=== PATIENT | female | born 1945 | race Caucasian/White ===

== ENCOUNTER 2020-07-20 10:51 | Outpatient (REF) | payer MEDICARE, BC, SELFPAY ==
[2020-07-20 12:44] LABS: Ferritin 447 ng/mL (10-250)
== END 2020-07-20 10:52 | disposition home or self-care (01) ==
LOC: HO.BBR 10:51
PROVIDERS: Visit Provider Internal Medicine Hematology & Oncology
DX: E83.110 Hereditary hemochromatosis (principal)
CPT/HCPCS: 36415; 82728

== ENCOUNTER 2020-08-18 10:48 | Outpatient (REF) | payer MEDICARE, BC, SELFPAY ==
[2020-08-18 13:42] LABS: Ferritin 407 ng/mL (10-250)
== END 2020-08-18 10:49 | disposition home or self-care (01) ==
LOC: HO.BBR 10:48
PROVIDERS: Visit Provider Internal Medicine Hematology & Oncology
DX: E83.110 Hereditary hemochromatosis (principal)
CPT/HCPCS: 36415; 82728

== ENCOUNTER 2020-09-19 10:58 | Outpatient (REF) | payer MEDICARE, BC, SELFPAY ==
[2020-09-19 14:32] LABS: Ferritin 371 ng/mL (10-250)
== END 2020-09-19 10:59 | disposition home or self-care (01) ==
LOC: HO.BBR 10:58
PROVIDERS: Visit Provider Internal Medicine Hematology & Oncology
DX: E83.110 Hereditary hemochromatosis (principal)
CPT/HCPCS: 36415; 82728

== ENCOUNTER 2020-10-30 11:02 | Outpatient (REF) | payer MEDICARE, BC, SELFPAY ==
[2020-10-30 14:14] LABS: Ferritin 366 ng/mL (10-250)
== END 2020-10-30 11:03 | disposition home or self-care (01) ==
LOC: HO.BBR 11:02
PROVIDERS: Visit Provider Internal Medicine Hematology & Oncology
DX: E83.110 Hereditary hemochromatosis (principal)
CPT/HCPCS: 36415; 82728

== ENCOUNTER 2020-11-30 13:28 | Outpatient (REF) | payer MEDICARE, BC, SELFPAY ==
[2020-11-30 16:31] LABS: Ferritin 465 ng/mL (10-250)
== END 2020-11-30 13:29 | disposition home or self-care (01) ==
LOC: HO.BBR 13:28
PROVIDERS: Visit Provider Internal Medicine Hematology & Oncology
DX: E83.110 Hereditary hemochromatosis (principal)
CPT/HCPCS: 36415; 82728

== ENCOUNTER → 2020-12-14 13:52 | Outpatient (BNVA) | payer MEDICARE, BC, SELFPAY | PROVIDERS: PCP Internal Medicine; Visit Provider Urology | DX: R32 Unspecified urinary incontinence (principal); R39.15 Urgency of urination; N32.81 Overactive bladder | CPT/HCPCS: 51798; 99212 ==

== ENCOUNTER 2020-12-28 12:52 | Outpatient (REF) | payer MEDICARE, BC, SELFPAY ==
[2020-12-28 15:01] LABS: Ferritin 373 ng/mL (10-250)
== END 2020-12-28 12:53 | disposition home or self-care (01) ==
LOC: HO.BBR 12:52
PROVIDERS: Visit Provider Internal Medicine Hematology & Oncology
DX: E83.110 Hereditary hemochromatosis (principal)
CPT/HCPCS: 36415; 82728

== ENCOUNTER 2021-02-01 12:51 | Outpatient (REF) | payer MEDICARE, BC, SELFPAY ==
[2021-02-01 14:40] LABS: Ferritin 293 ng/mL (10-250)
== END 2021-02-01 12:52 | disposition home or self-care (01) ==
LOC: HO.BBR 12:51
PROVIDERS: Visit Provider Internal Medicine Hematology & Oncology
DX: E83.110 Hereditary hemochromatosis (principal)
CPT/HCPCS: 36415; 82728

== ENCOUNTER 2021-03-19 13:50 | Outpatient (REF) | payer MEDICARE, BC, SELFPAY ==
[2021-03-19 15:34] LABS: Ferritin 299 ng/mL (10-250)
== END 2021-03-19 13:51 | disposition home or self-care (01) ==
LOC: HO.BBR 13:50
PROVIDERS: Internal Medicine Hematology & Oncology; Visit Provider Internal Medicine
DX: E83.110 Hereditary hemochromatosis (principal)
CPT/HCPCS: 36415; 82728

== ENCOUNTER 2021-04-17 14:01 | Outpatient (REF) | payer MEDICARE, BC, SELFPAY ==
[2021-04-17 15:53] LABS: Ferritin 265 ng/mL (10-250)
== END 2021-04-17 14:02 | disposition home or self-care (01) ==
LOC: HO.BBR 14:01
PROVIDERS: Visit Provider Internal Medicine Hematology & Oncology
DX: E83.110 Hereditary hemochromatosis (principal)
CPT/HCPCS: 36415; 82728

== ENCOUNTER 2021-05-17 13:35 | Outpatient (REF) | payer MEDICARE, BC, SELFPAY ==
[2021-05-17 15:50] LABS: Ferritin 291 ng/mL (10-250)
== END 2021-05-17 13:36 | disposition home or self-care (01) ==
LOC: HO.BBR 13:35
PROVIDERS: Visit Provider Internal Medicine Hematology & Oncology
DX: E83.110 Hereditary hemochromatosis (principal)
CPT/HCPCS: 36415; 82728

== ENCOUNTER 2021-06-18 13:51 | Outpatient (REF) | payer MEDICARE, BC, SELFPAY ==
[2021-06-18 15:59] LABS: Ferritin 270 ng/mL (10-250)
== END 2021-06-18 13:52 | disposition home or self-care (01) ==
LOC: HO.BBR 13:51
PROVIDERS: Visit Provider Internal Medicine Hematology & Oncology
DX: E83.110 Hereditary hemochromatosis (principal)
CPT/HCPCS: 36415; 82728

== ENCOUNTER 2021-07-18 13:59 | Outpatient (REF) | payer MEDICARE, BC, SELFPAY ==
[2021-07-18 15:43] LABS: Ferritin 262 ng/mL (10-250)
== END 2021-07-18 14:00 | disposition home or self-care (01) ==
LOC: HO.BBR 13:59
PROVIDERS: Visit Provider Internal Medicine Hematology & Oncology
DX: E83.110 Hereditary hemochromatosis (principal)
CPT/HCPCS: 36415; 82728

== ENCOUNTER 2021-10-31 14:03 | Outpatient (REF) | payer MEDICARE, BC, SELFPAY ==
[2021-10-31 15:49] LABS: Ferritin 251 ng/mL (10-250)
== END 2021-10-31 14:04 | disposition home or self-care (01) ==
LOC: HO.BBR 14:03
PROVIDERS: Visit Provider Internal Medicine Hematology & Oncology
DX: E83.110 Hereditary hemochromatosis (principal)
CPT/HCPCS: 36415; 82728

== ENCOUNTER 2021-11-30 13:50 | Outpatient (REF) | payer MEDICARE, BC, SELFPAY ==
[2021-11-30 15:48] LABS: Ferritin 212 ng/mL (10-250)
== END 2021-11-30 13:51 | disposition home or self-care (01) ==
LOC: HO.BBR 13:50
PROVIDERS: Visit Provider Internal Medicine Hematology & Oncology
DX: E83.110 Hereditary hemochromatosis (principal)
CPT/HCPCS: 36415; 82728

== ENCOUNTER → 2021-12-13 14:26 | Outpatient (BNVA) | payer MEDICARE, BC, SELFPAY | DX: R39.15 Urgency of urination (principal); N32.81 Overactive bladder | CPT/HCPCS: 51798; 99212 ==

== ENCOUNTER 2022-01-02 13:49 | Outpatient (REF) | payer MEDICARE, BC, SELFPAY ==
[2022-01-02 15:56] LABS: Ferritin 175 ng/mL (10-250)
== END 2022-01-02 13:50 | disposition home or self-care (01) ==
LOC: HO.BBR 13:49
PROVIDERS: Visit Provider Internal Medicine Hematology & Oncology
DX: E83.110 Hereditary hemochromatosis (principal)
CPT/HCPCS: 36415; 82728

== ENCOUNTER 2022-01-16 13:40 | Outpatient (REF) | payer MEDICARE, BC, SELFPAY ==
[2022-01-16 15:20] LABS: Ferritin 168 ng/mL (10-250)
== END 2022-01-16 13:41 | disposition home or self-care (01) ==
LOC: HO.BBR 13:40
PROVIDERS: Visit Provider Internal Medicine Hematology & Oncology
DX: E83.110 Hereditary hemochromatosis (principal)
CPT/HCPCS: 36415; 82728; 85014; 85018; 99195

== ENCOUNTER → 2022-01-24 14:52 | Outpatient (BNVA) | payer MEDICARE, BC, SELFPAY | PROVIDERS: PCP Internal Medicine | DX: R39.15 Urgency of urination (principal); N32.81 Overactive bladder | CPT/HCPCS: Q3014 ==

== ENCOUNTER 2022-01-30 14:06 | Outpatient (REF) | payer MEDICARE, BC, SELFPAY ==
[2022-01-30 17:50] LABS: Ferritin 135 ng/mL (10-250)
== END 2022-01-30 14:07 | disposition home or self-care (01) ==
LOC: HO.BBR 14:06
PROVIDERS: Visit Provider Internal Medicine Hematology & Oncology
DX: E83.110 Hereditary hemochromatosis (principal)
CPT/HCPCS: 36415; 82728; 85014; 85018; 99195

== ENCOUNTER 2022-02-13 13:35 | Outpatient (REF) | payer MEDICARE, BC, SELFPAY ==
[2022-02-13 15:03] LABS: Ferritin 194 ng/mL (10-250)
== END 2022-02-13 13:36 | disposition home or self-care (01) ==
LOC: HO.BBR 13:35
PROVIDERS: Visit Provider Internal Medicine Hematology & Oncology
DX: E83.110 Hereditary hemochromatosis (principal)
CPT/HCPCS: 36415; 82728; 85018

== ENCOUNTER 2022-02-28 13:37 | Outpatient (REF) | payer MEDICARE, BC, SELFPAY ==
[2022-02-28 16:10] LABS: Ferritin 181 ng/mL (10-250)
== END 2022-02-28 13:38 | disposition home or self-care (01) ==
LOC: HO.BBR 13:37
PROVIDERS: Visit Provider Internal Medicine Hematology & Oncology
DX: E83.111 Hemochromatosis due to repeated red blood cell transfusions (principal)
CPT/HCPCS: 36415; 82728; 85014; 85018; 99195

== ENCOUNTER 2022-03-20 13:44 | Outpatient (REF) | payer MEDICARE, BC, SELFPAY ==
[2022-03-20 15:33] LABS: Ferritin 155 ng/mL (10-250)
== END 2022-03-20 13:45 | disposition home or self-care (01) ==
LOC: HO.BBR 13:44
PROVIDERS: Visit Provider Internal Medicine Hematology & Oncology
DX: E83.110 Hereditary hemochromatosis (principal)
CPT/HCPCS: 36415; 82728; 85014; 85018; 99195

== ENCOUNTER 2022-05-30 13:48 | Outpatient (REF) | payer MEDICARE, BC, SELFPAY ==
[2022-05-30 15:44] LABS: Ferritin 241 ng/mL (10-250)
== END 2022-05-30 13:49 | disposition home or self-care (01) ==
LOC: HO.BBR 13:48
PROVIDERS: Visit Provider Internal Medicine Hematology & Oncology
DX: E83.110 Hereditary hemochromatosis (principal)
CPT/HCPCS: 36415; 82728; 85018; 99195

== ENCOUNTER 2022-06-13 13:42 | Outpatient (REF) | payer MEDICARE, BC, SELFPAY ==
[2022-06-13 14:55] LABS: Ferritin 147 ng/mL (10-250)
== END 2022-06-13 13:43 | disposition home or self-care (01) ==
LOC: HO.BBR 13:42
PROVIDERS: Visit Provider Internal Medicine Hematology & Oncology
DX: E83.19 Other disorders of iron metabolism (principal)
CPT/HCPCS: 36415; 82728; 85018; 99195

== ENCOUNTER 2022-07-03 13:49 | Outpatient (REF) | payer MEDICARE, BC, SELFPAY ==
[2022-07-03 15:51] LABS: Ferritin 104 ng/mL (10-250)
== END 2022-07-03 13:50 | disposition home or self-care (01) ==
LOC: HO.BBR 13:49
PROVIDERS: Visit Provider Internal Medicine Hematology & Oncology
DX: E83.10 Disorder of iron metabolism, unspecified (principal)
CPT/HCPCS: 36415; 82728; 85018

== ENCOUNTER 2022-07-17 14:44 | Outpatient (REF) | payer MEDICARE, BC, SELFPAY ==
[2022-07-17 16:44] LABS: Ferritin 89 ng/mL (10-250)
== END 2022-07-17 14:45 | disposition home or self-care (01) ==
LOC: HO.BBR 14:44
PROVIDERS: Visit Provider Internal Medicine Hematology & Oncology
DX: E83.110 Hereditary hemochromatosis (principal)
CPT/HCPCS: 36415; 82728; 85018; 99195

== ENCOUNTER 2022-07-31 13:33 | Outpatient (REF) | payer MEDICARE, BC, SELFPAY ==
[2022-07-31 15:42] LABS: Ferritin 62 ng/mL (10-250)
== END 2022-07-31 13:34 | disposition home or self-care (01) ==
LOC: HO.BBR 13:33
PROVIDERS: PCP Internal Medicine; Visit Provider Internal Medicine Hematology & Oncology
DX: E83.110 Hereditary hemochromatosis (principal)
CPT/HCPCS: 36415; 82728; 85014; 85018; 99195

== ENCOUNTER 2022-08-14 13:44 | Outpatient (REF) | payer MEDICARE, BC, SELFPAY ==
[2022-08-14 16:37] LABS: Ferritin 53 ng/mL (10-250)
== END 2022-08-14 13:45 | disposition home or self-care (01) ==
LOC: HO.BBR 13:44
PROVIDERS: PCP Internal Medicine; Visit Provider Internal Medicine Hematology & Oncology
DX: E83.10 Disorder of iron metabolism, unspecified (principal)
CPT/HCPCS: 36415; 82728; 85014; 85018; 99195

== ENCOUNTER → 2022-08-15 14:15 | Outpatient (BNVA) | payer MEDICARE, BC, SELFPAY | PROVIDERS: PCP Internal Medicine; Visit Provider Nurse Practitioner Family | DX: R39.15 Urgency of urination (principal); N32.81 Overactive bladder | CPT/HCPCS: 51798; 99212 ==

== ENCOUNTER 2022-08-28 14:05 | Outpatient (REF) | payer MEDICARE, BC, SELFPAY ==
[2022-08-28 15:27] LABS: Ferritin 37 ng/mL (10-250)
== END 2022-08-28 14:06 | disposition home or self-care (01) ==
LOC: HO.BBR 14:05
PROVIDERS: Visit Provider Internal Medicine Hematology & Oncology
DX: E83.10 Disorder of iron metabolism, unspecified (principal)
CPT/HCPCS: 36415; 82728; 85018

== ENCOUNTER 2022-09-11 13:50 | Outpatient (REF) | payer MEDICARE, BC, SELFPAY ==
[2022-09-11 16:32] LABS: Ferritin 49 ng/mL (10-250)
== END 2022-09-11 13:51 | disposition home or self-care (01) ==
LOC: HO.BBR 13:50
PROVIDERS: PCP Internal Medicine; Visit Provider Internal Medicine Hematology & Oncology
DX: E83.110 Hereditary hemochromatosis (principal)
CPT/HCPCS: 36415; 82728; 85014; 85018; 99195

== ENCOUNTER 2022-09-25 13:52 | Outpatient (REF) | payer MEDICARE, BC, SELFPAY ==
[2022-09-25 15:10] LABS: Ferritin 42 ng/mL (10-250)
== END 2022-09-25 13:53 | disposition home or self-care (01) ==
LOC: HO.BBR 13:52
PROVIDERS: Visit Provider Internal Medicine Hematology & Oncology
DX: E83.19 Other disorders of iron metabolism (principal)
CPT/HCPCS: 36415; 82728; 85018; 99195

== ENCOUNTER 2022-10-09 15:32 | Outpatient (REF) | payer MEDICARE, BC, SELFPAY ==
[2022-10-09 17:23] LABS: Ferritin 45 ng/mL (10-250)
== END 2022-10-09 15:33 | disposition home or self-care (01) ==
LOC: HO.BBR 15:32
PROVIDERS: Visit Provider Internal Medicine Hematology & Oncology
DX: E83.110 Hereditary hemochromatosis (principal)
CPT/HCPCS: 36415; 82728; 85018; 99195

== ENCOUNTER 2022-10-23 13:16 | Outpatient (REF) | payer MEDICARE, BC, SELFPAY ==
[2022-10-23 14:51] LABS: Ferritin 38 ng/mL (10-250)
== END 2022-10-23 13:17 | disposition home or self-care (01) ==
LOC: HO.BBR 13:16
PROVIDERS: Visit Provider Internal Medicine Hematology & Oncology
DX: E83.110 Hereditary hemochromatosis (principal)
CPT/HCPCS: 36415; 82728; 85018

== ENCOUNTER 2022-11-06 13:44 | Outpatient (REF) | payer MEDICARE, BC, SELFPAY ==
[2022-11-06 15:28] LABS: Ferritin 39 ng/mL (10-250)
== END 2022-11-06 13:45 | disposition home or self-care (01) ==
LOC: HO.BBR 13:44
PROVIDERS: Visit Provider Internal Medicine Hematology & Oncology
DX: E83.110 Hereditary hemochromatosis (principal)
CPT/HCPCS: 36415; 82728; 85018; 99195

== ENCOUNTER 2022-12-17 14:24 | Outpatient (REF) | payer MEDICARE, BC, SELFPAY ==
[2022-12-17 16:01] LABS: Ferritin 47 ng/mL (10-250)
== END 2022-12-17 14:25 | disposition home or self-care (01) ==
LOC: HO.BBR 14:24
PROVIDERS: PCP Internal Medicine; Visit Provider Internal Medicine Hematology & Oncology
DX: E83.110 Hereditary hemochromatosis (principal)
CPT/HCPCS: 36415; 82728; 85018

== ENCOUNTER 2023-01-29 13:59 | Outpatient (REF) | payer MEDICARE, BC, SELFPAY | END 2023-01-29 14:00 | disposition home or self-care (01) | LOC: HO.BBR 13:59 | PROVIDERS: Visit Provider Internal Medicine Hematology & Oncology | DX: E83.10 Disorder of iron metabolism, unspecified (principal) | CPT/HCPCS: 36415; 82728; 85018; 99195 ==

== ENCOUNTER 2023-02-10 13:32 | Outpatient (AMB) | payer MEDICARE, BC, SELFPAY ==
--- NOTE | 2023-02-10 13:34 | MHC.OFFVIS ---
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 She presents to the office today for follow-up of her overactive bladder. In discussion with the patient today she reports to be doing and feeling well. She discusses how happy she is that VESIcare is working extremely well for her urinary symptoms. When asked she denies urinary urgency, urinary frequency, incontinence, nocturia, hematuria, dysuria, foul smelling urine, changes to urinary stream, flank pain, fever, and or chills. She is happy with her current voiding parameters on 10mg of Vesicare daily. However, she continues to report issues with constipation. Discussed at length whole grains, legumes, and fruits to assist with constipation. She denies nausea and or vomiting. She denies decreased appetite, weight loss, or abdominal pain/discomfort. She reports needing to manually disimpact at times. She endorses passing gas. She reports taking senna and MiraLax p.r.n. with some improvement however continues with constipation issues. Discussed daily regimen versus PRN. In office urinalysis results reviewed with the patient today. PVR 31 mL. Patient discusses her fiancee's upcoming procedure tomorrow with Dr. Perez for his prostate. She otherwise offers no issues or concerns at this time. [facility] Medical History GERD (gastroesophageal reflux disease) Nocturia Overactive bladder Urinary urgency Review of Systems Const All systems reviewed & are unremarkable except as noted in HPI and below Reports no additional complaints Eyes Reports no additional complaints ENT Reports no additional complaints Card Reports no additional complaints Resp Reports no additional complaints GI Reports as per HPI Reports as per HPI Musc Reports no additional complaints Neuro Reports no additional complaints Psych Reports no additional complaints Endo Reports no additional complaints Jer/Lymph Reports as per HPI Physical Exam Const General: cooperative, healthy appearing, comfortable, no acute distress, well developed, alert and awake Nutritional Appearance: overweight Orientation/consciousness: patient oriented x3 Limitations: no limitations HEENT Head: Yes normal to inspection, Yes normocephalic and Yes atraumatic Ears: hearing grossly normal bilaterally Eyes General: appearance normal, both eyes and all related structures Neck Neck: Yes normal visual inspection and Yes trachea midline Chest Chest palpation & inspection: normal inspection of the chest Resp Effort & Inspection: normal respiratory effort and able to speak in complete sentences Cardio Rate: regular rate GI Inspection: Yes normal to inspection General: Yes no CVA tenderness Back/Spine/Pelvis Back: no CVA tenderness Neuro General: patient oriented x3 Psych Appearance: grossly normal and well kempt Mental Status: mental status grossly normal Speech and movement: Normal speech and movement present and Clear speech present Affect: normal affect Attitude: cooperative Thought process: Normal thought process present Thought content: Normal thought content present Insight: Good insight present (Psych) Judgement: Good judgement present (Psych) Office Procedures Post Void Residual Post Residual Void Post Void Residual (PVR): 31 10304-[id number] Void Residual by ultrasound Results AMB Urinalysis, Automated UA Leukoctes 500 Kyle/uL Last Edit by [employer] on 02/10/23 13:48 UA Nitrite Last Edit by [employer] on 02/10/23 13:48 UA Urobilinogen 0.2 mg/dL Last Edit by [employer] on 02/10/23 13:48 UA Protein 0 mg/dL Last Edit by [employer] on 02/10/23 13:48 UA pH 6.0 Last Edit by [employer] on 02/10/23 13:48 UA Blood 0 Vadmi/uL Last Edit by [employer] on 02/10/23 13:48 UA Specific [place] 1.015 Last Edit by [employer] on 02/10/23 13:48 UA Ketone Last Edit by [employer] on 02/10/23 13:48 UA Bilirubin 0 mg/dL Last Edit by [employer] on 02/10/23 13:48 UA Glucose 0 mg/dL Last Edit by [employer] on 02/10/23 13:48 Results Reviewed Results Reviewed: Laboratory Last Values Urine pH (Auto) 6.0 02/10/23 13:35 Specific [place] (Auto) 1.015 02/10/23 13:35 Urine Protein (Auto) 0 mg/dL 02/10/23 13:35 Glucose (UA)(Auto) 0 mg/dL 02/10/23 13:35 Urine Blood (Auto) 0 Vadim/uL 02/10/23 13:35 Urine Bilirubin (Auto) 0 mg/dL 02/10/23 13:35 Urine Urobilinogen (Auto) 0.2 mg/dL 02/10/23 13:35 Leukocyte Esterase (Auto) 500 Kyle/uL 02/10/23 13:35 Assessment & Plan Assessment & Plan (1) Constipation: Code(s): K59.00 - Constipation, unspecified (2) Overactive bladder: Code(s): N32.81 - Overactive bladder Plan In office urinalysis results reviewed with the patient today; as noted above PVR 31 mL. Continue VESIcare as patient reports significant improvement in urinary symptoms Will refer to gastroenterology for further assessment and evaluation of patient's constipation Discussed at length dietary modifications to assist with constipation Educated, encouraged, instructed on the importance of drinking plenty of water daily Follow-up in 6 months with PVR; or sooner with any issues, concerns, and or questions Orders: Orders AMB Urinalysis Automated 02/10/23 Z13.9 - Encounter for screening, unspecified AMB Post Void Residual by ultrasound 02/10/23 N32.81 - Overactive bladder Referrals Gastroenterology Referral K59.00 - Constipation, unspecified Patient Instructions: The patient had an opportunity to ask questions regarding the treatment plan. All questions were answered. Physical exam, labs, and imaging were discussed and reviewed in detail. As well as risks, benefits, and discussion of treatment choices. No major barriers to understanding were identified. The patient expressed understanding and agreement with the above treatment plan. The patient was made aware they should contact our office by phone for worsening of their current condition, the appearance of new symptoms, or with any questions or concerns. Compliance is encouraged with any medications and follow up testing that is ordered. It is a privilege to be allowed the opportunity to participate in? your urological care.? Again, if you have any questions or concerns If you have any questions or concerns please do not hesitate to contact me. The office is [phone]. This note is constructed using voice recognition software. While every effort has been made to ensure accuracy bad cloth checker errors may have been included. Yours sincerely, BARON Loza-BC Coding Level of Care Code Est Pt Level 3 (01889) Diagnoses Constipation K59.00 Overactive bladder N32.81 CPT Codes Post Residual Void - PVR CPT Code: 34683-Avzt Void Residual by ultrasound ([id number])
== END 2023-02-10 14:17 | disposition home or self-care (01) ==
PROVIDERS: Visit Provider Nurse Practitioner Family
DX: K59.00 Constipation, unspecified (principal); N32.81 Overactive bladder
CPT/HCPCS: 99213

== ENCOUNTER → 2023-02-10 13:32 | Outpatient (BNVA) | payer MEDICARE, BC, SELFPAY | PROVIDERS: Visit Provider Nurse Practitioner Family | DX: N32.81 Overactive bladder (principal); K59.00 Constipation, unspecified | CPT/HCPCS: 51798; 99212 ==

== ENCOUNTER 2023-03-17 12:58 | Outpatient (REF) | payer MEDICARE, BC, SELFPAY ==
[2023-03-17 14:51] LABS: Ferritin 68 ng/mL (10-250)
== END 2023-03-17 12:59 | disposition home or self-care (01) ==
LOC: HO.BBR 12:58
PROVIDERS: Visit Provider Internal Medicine Hematology & Oncology
DX: E83.110 Hereditary hemochromatosis (principal)
CPT/HCPCS: 36415; 82728; 85014; 85018; 99195

== ENCOUNTER 2023-04-10 11:52 | Outpatient (REF) | payer MEDICARE, BC, SELFPAY ==
--- NOTE | ~2023-04-10 | XR_ITS ---
EXAMINATION: XR ABDOMEN KUB CLINICAL INDICATION: Constipation unspecified. COMPARISON: None available. TECHNIQUE: 2 AP views of the abdomen. FINDINGS: Nonobstructive bowel gas pattern. Large amount of stool in the colon is compatible with given history of constipation. Degenerative changes in the imaged thoracolumbar spine. Rounded densities overlying the medial aspect of the right upper quadrant, possibly calcifications. Oval 1.3 cm density overlies the thoracolumbar junction. XR/XR KUB IMPRESSION: 1. Nonobstructive bowel gas pattern. Large amount of stool in the colon is compatible with given history of constipation. 2. Rounded densities overlying the medial aspect of the right upper quadrant, possibly calcifications. Oval 1.3 cm density overlies the thoracolumbar junction. Additional imaging with ultrasound or CT scan could be obtained for further evaluation based on the clinical assessment. Direct correlation with prior images is recommended and if prior images are provided, an addendum will be dictated. In the absence of prior images, CT scan or MRI should be considered for further evaluation.
[2023-04-10 13:12] LABS: MANUAL DIFF FLAG NO
[2023-04-10 13:32] LABS: Basophils Absolute Auto 0.1 X10*3/uL (0.0-0.2); Basophils Percent Auto 1.1 % (0-2); Eosinophils Absolute Auto 0.1 X10*3/uL (0.0-0.4); Eosinophils Percent Auto 1.1 % (0-4); Hematocrit 32.1 % (37.0-47.0); Hemoglobin 10.6 g/dl (12.0-16.0); Imm Gran Abs Auto 0.05 X10*3/uL (0.00-0.03); Imm Gran Pct Auto 0.7 % (0.0-0.4); Lymphocytes Absolute Auto 2.1 X10*3/uL (1.2-4.9); Lymphocytes Percent Auto 27.6 % (20-40); Mean Corpuscular Hemoglobin 33.3 pg (27.0-33.0); Mean Corpuscular Volume 100.9 fL (80.0-98.0); Mean Platelet Volume 10.8 fL (9.4-12.3); Monocytes Absolute Auto 0.7 X10*3/uL (0.1-1.2); Monocytes Percent Auto 9.1 % (2-11); NRBC Pct Auto 0.5 /100WBC (0.0-0.2); Neutrophils Absolute Auto 4.5 x10*3/uL (2.0-8.3); Neutrophils Percent Auto 60.4 % (45-73); Platelet Count 341 X10*3/uL (160-400); Red Blood Count 3.18 X10*6/uL (4.20-5.50); Red Cell Distribution Width 16.2 % (11.0-16.0); White Blood Count 7.4 X10*3/uL (4.8-10.8)
[2023-04-10 17:30] LABS: Alanine Aminotransferase 9 U/L (0-31); Albumin Level 3.7 g/dL (3.5-5.0); Alkaline Phosphatase 71 U/L (39-117); Anion Gap 13 (12-20); Aspartate Amino Transferase 17 U/L (5-31); Bilirubin Total 0.8 mg/dL (0.0-1.0); Blood Urea Nitrogen 19 mg/dL (9-16); Calcium 9.8 mg/dL (8.4-10.2); Carbon Dioxide 27 mmol/L (22-29); Chloride 104 mmol/L (96-108); Estimated Glomerular Filt Rate 57; Glucose Random 101 mg/dL (60-115); Potassium 4.5 mmol/L (3.3-5.1); Sodium 139 mmol/L (135-145); Total Protein 6.9 g/dL (6.5-8.0)
== END 2023-04-10 11:53 | disposition home or self-care (01) ==
LOC: HO.XRAY 11:52
PROVIDERS: PCP Internal Medicine; Visit Provider Physician Assistant
DX: K59.00 Constipation, unspecified (principal); R19.8 Other specified symptoms and signs involving the digestive system and abdomen
CPT/HCPCS: 36415; 74018; 80053; 84443; 85025

== ENCOUNTER 2023-04-10 11:52 | Outpatient (AMB) | payer MEDICARE, BC, SELFPAY ==
--- NOTE | 2023-04-10 11:57 | A.OFFVIS_ITS ---
Intake Vital Signs 04/10/23 12:02 Height 5 ft 2.8 in Weight 190 lb BMI 33.9 BP 135/63 Blood Pressure Location Lt brachial Position Sitting Pulse 77 Intake Visit Reasons: Constipation Intake Note: Patient new consult for Constipation. Patient cc: abdominal bloating, GERD and constipation. Denies any other GI issues. 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 Accompanied by: Self / Same As Patient Allergies iodine Allergy (Unknown, Verified 04/10/23 11:56) Unknown HPI HPI Comments History of Present Illness Details A 77 y/o referred from urology with chronic constipation Miralax and stool softeners intermittent for 2 years-she is taking vesicare -she was taking other medication prior to that she self dis impacts-she has never used suppositories or enemas- Colonoscopy about 5 years ago [facility]- ( record shows 2014- adenoma- rec- further colonoscopy she lives alone, has a fiance-otherwise she feels well she is very active She has no abdominal pain, nausea, vomiting, hematemesis, hematochezia, fever or chills PFSH Medical History (Updated 04/10/23 @ 14:37 by Victorina Fu PA-C) GERD (gastroesophageal reflux disease) Nocturia Overactive bladder Urinary urgency Surgical History Hx of carpal tunnel repair Hx of total knee replacement History of partial hysterectomy Social History Household Members: Family Alcohol intake: never Patient Tobacco Use Status: Never used Tobacco Review of Systems Const All systems reviewed & are unremarkable except as noted in HPI and below Physical Exam Vital Signs: Last Vital Signs Pulse 77 04/10/23 12:02 BP 135/63 04/10/23 12:02 BMI result Body Mass Index 33.9 Const General: cooperative, healthy appearing, comfortable and well groomed Nutritional Appearance: overweight Limitations: no limitations Eyes Sclerae: sclerae normal Resp Effort & Inspection: normal respiratory effort and able to speak in complete sentences Auscultation: clear to auscultation bilaterally, no rales, no rhonchi and no wheezes Cardio Rate: regular rate Rhythm: regular rhythm Heart sounds: S1 normal heart sound present and S2 normal heart sound present GI Inspection: Yes obesity Palpation (GI): Soft to palpation and nontender Auscultation: normal bowel sounds Skin General skin exam: no rashes or lesions noted Assessment & Plan Assessment & Plan (1) Constipation: Comment: may be medication-induced Reviewed previous colonoscopy is small adenoma Dr. Cortes 2014 Code(s): K59.00 - Constipation, unspecified Plan: Will get a KUB to assess for stool burden Increase fiber miralax-stool softeners Suppository help loosen from below Orders: Orders XR KUB Today K59.00 - Constipation, unspecified Comprehensive Met. Panel Today K59.00 - Constipation, unspecified Thyroid Stimulating Hormone Today R19.8 - Other specified symptoms and signs involving the digestive system and abdomen Complete Blood Count Auto Diff Today K59.00 - Constipation, unspecified Medications: New polyethylene glycol 3350 (Miralax) 17 grams PO DAILY 510 grams 6RF docusate sodium (Colace) 200 mg (2 x 100 mg) PO BEDTIME 30 days 60 caps 5RF bisacodyl (Dulcolax (bisacodyl)) 10 mg NC DAILY PRN 30 ea 2RF constipation Patient Instructions: Will get a KUB to assess for stool burden Increase fiber miralax-stool softeners Suppository help loosen from below She will be traveling will return for progress Encouraged to call with any questions or concerns-agrees with the No major barriers to understanding were identified Coding Level of Care Code New Pt Level 3 (74409) Diagnoses Constipation K59.00 Time Spent (min) 30
[2023-04-10 12:02] VITALS: BP 135/63; PULSE 77; BMI 33.9
== END 2023-04-10 12:38 | disposition home or self-care (01) ==
PROVIDERS: PCP Internal Medicine; Visit Provider Physician Assistant
DX: K59.00 Constipation, unspecified (principal)
CPT/HCPCS: 99203

== ENCOUNTER 2023-04-29 13:47 | Outpatient (REF) | payer MEDICARE, BC, SELFPAY ==
[2023-04-29 15:51] LABS: Ferritin 64 ng/mL (10-250)
== END 2023-04-29 13:48 | disposition home or self-care (01) ==
LOC: HO.BBR 13:47
PROVIDERS: PCP Internal Medicine; Visit Provider Internal Medicine Hematology & Oncology
DX: Z13.89 Encounter for screening for other disorder (principal)
CPT/HCPCS: 36415; 82728; 85014; 85018; 99195

== ENCOUNTER 2023-04-29 14:05 | Outpatient (REF) | payer MEDICARE, BC, SELFPAY ==
[2023-04-29 16:04] LABS: Folate 15.1 ng/mL (> or = 4.0); Vitamin B12 > 2000 pg/mL (200-900)
== END 2023-04-29 14:06 | disposition home or self-care (01) ==
LOC: HO.LNP 14:05
PROVIDERS: Visit Provider Physician Assistant
DX: D64.9 Anemia, unspecified (principal); E83.19 Other disorders of iron metabolism
CPT/HCPCS: 36415; 82607; 82728; 82746; 85018; 99195

== ENCOUNTER 2023-05-02 08:09 | Outpatient (REF) | payer MEDICARE, BC, SELFPAY | END 2023-05-02 08:10 | disposition home or self-care (01) | LOC: HO.HMGCX 08:09 | PROVIDERS: PCP Internal Medicine; Visit Provider Physician Assistant | DX: K59.00 Constipation, unspecified (principal); E83.119 Hemochromatosis, unspecified; R93.5 Abnormal findings on diagnostic imaging of other abdominal regions, including retroperitoneum | CPT/HCPCS: 76700 ==

== ENCOUNTER 2023-05-21 10:03 | Outpatient (AMB) | payer MEDICARE, BC, SELFPAY ==
--- NOTE | 2023-05-21 10:08 | MHC.OFFVIS ---
Intake Vital Signs 05/21/23 10:10 Height 5 ft 2.8 in Weight 192 lb BMI 34.2 BP 146/62 H Blood Pressure Location Lt brachial Position Sitting Pulse 104 H Intake Visit Reasons: 6 week follow up Intake Note: Patient follow ip for Constipation and KUB/lab results. Patient cc: constipation and acid reflex burning on her throat. Denies any other GI issues. Medical Lead Required: No Accompanied by: Self / Same As Patient Allergies iodine Allergy (Unknown, Verified 05/21/23 10:08) Unknown HPI HPI Comments History of Present Illness Details A 77 y/o female seen with bowel change- she was unable to get bowel regimen OTC covered by insurance- She feels somewhat better she has been quite consistent with maintain high-fiber diet- she is taking senna- as need- 2 stool softeners- as well as miralax- QHS- still has hard stool- she associates with medication she has taken for urinary bladder- she was to discuss with Urology. She has not yet done so she does not have any abdominal pain she has no blood in stool, she has a very good appetite she is very active reviewed-again her previous GI record shows last colonoscopy 2014 tubular adenoma-reportedly she did not think she had to ever repeat colonoscopy. However further discussed given her symptoms, She has been followed by hematology- Dr. 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 Alcohol intake: never Patient Tobacco Use Status: Never used Tobacco Review of Systems Const All systems reviewed & are unremarkable except as noted in HPI and below Card Denies chest pain and Denies dyspnea Resp Denies dyspnea GI Denies abdominal pain, Denies hematochezia, Reports constipation, Denies heartburn, Denies nausea and Denies vomiting Details: Overactive bladder Musc Reports abnormal gait and Reports arthralgias Neuro Reports abnormal gait Physical Exam Vital Signs: Last Vital Signs Pulse 104 H 05/21/23 10:10 BP 146/62 H 05/21/23 10:10 BMI result Body Mass Index 34.2 Const General: cooperative, healthy appearing, comfortable and no acute distress Orientation/consciousness: patient oriented x3 Limitations: no limitations Eyes Sclerae: sclerae normal Resp Effort & Inspection: normal respiratory effort and able to speak in complete sentences Neuro General: patient oriented x3 Extrem Other: Walks with a mild limp Psych Appearance: grossly normal and well kempt Mental Status: mental status grossly normal Speech and movement: Normal speech and movement present and Clear speech present Affect: normal affect Attitude: cooperative Thought content: Normal thought content present Insight: Good insight present (Psych) Judgement: Good judgement present (Psych) Results Reviewed Results Reviewed: US/US abdomen complete IMPRESSION: Echogenic heterogeneous liver consistent with hepatocellular disease. Reviewed KUB sent to PCP Reviewed previous colonoscopy 2014 Dr. Cortes, pathology tubular adenoma Assessment & Plan Assessment & Plan (1) Hemochromatosis: Comment: Dr. Alex. Perez Code(s): E83.119 - Hemochromatosis, unspecified Plan: Follows @ [facility]- last 04/29- typically now Q 6 weeks- (2) Constipation: Comment: may be medication-induced Reviewed previous colonoscopy is small adenoma Dr. Cortes 2014 Code(s): K59.00 - Constipation, unspecified Plan: HFD Consistent bowel-regimen- (3) Tubular adenoma: Comment: 2014 tubular adenoma Code(s): D36.9 - Benign neoplasm, unspecified site Plan: Recommend repeating colonoscopy however due to constipation want to be sure she is able to have successful prep Plan Pls FAX- U/S to pcp / [phone] Consistent bowel regimen, high-fiber diet Rediscuss colonoscopy- Patient Instructions: Very pleasant, alert 77-year-old female history of adenomas, chronic constipation Consistent bowel regimen, high-fiber diet Rediscuss colonoscopy-will likely need extended prep Reviewed ultrasound and KUB, as sent to PCP for review Coding Level of Care Code Est Pt Level 4 (33169) Diagnoses Hemochromatosis E83.119 Constipation K59.00 Tubular adenoma D36.9 Time Spent (min) 45
[2023-05-21 10:10] VITALS: BP 146/62; PULSE 104; BMI 34.2
== END 2023-05-21 12:28 | disposition home or self-care (01) ==
PROVIDERS: PCP Internal Medicine; Visit Provider Physician Assistant
DX: E83.119 Hemochromatosis, unspecified (principal); K59.00 Constipation, unspecified; D36.9 Benign neoplasm, unspecified site
CPT/HCPCS: 99214

== ENCOUNTER → 2023-05-21 10:03 | Outpatient (BNVA) | payer MEDICARE, BC, SELFPAY | PROVIDERS: PCP Internal Medicine; Visit Provider Physician Assistant | DX: K59.00 Constipation, unspecified (principal); E83.119 Hemochromatosis, unspecified; D36.9 Benign neoplasm, unspecified site | CPT/HCPCS: 99212 ==

== ENCOUNTER 2023-06-09 14:53 | Outpatient (REF) | payer MEDICARE, BC, SELFPAY ==
[2023-06-09 16:47] LABS: Ferritin 51 ng/mL (10-250)
== END 2023-06-09 14:54 | disposition home or self-care (01) ==
LOC: HO.BBR 14:53
PROVIDERS: PCP Internal Medicine; Visit Provider Internal Medicine Hematology & Oncology
DX: E83.10 Disorder of iron metabolism, unspecified (principal)
CPT/HCPCS: 36415; 82728; 85014; 85018; 99195

== ENCOUNTER 2023-08-13 13:27 | Outpatient (REF) | payer MEDICARE, BC, SELFPAY | END 2023-08-13 13:28 | disposition home or self-care (01) | LOC: HO.LNP 13:27 | PROVIDERS: PCP Internal Medicine; Visit Provider Nurse Practitioner Family | DX: R39.15 Urgency of urination (principal); K59.00 Constipation, unspecified; N32.81 Overactive bladder; N30.10 Interstitial cystitis (chronic) without hematuria; R35.1 Nocturia; Z79.899 Other long term (current) drug therapy | CPT/HCPCS: 51798; 81003; 87086; 99212 ==

== ENCOUNTER 2023-08-13 13:27 | Outpatient (AMB) | payer MEDICARE, BC, SELFPAY ==
--- NOTE | 2023-08-13 13:29 | MHC.OFFVIS ---
Intake Intake Visit Reasons: 6m/PVR Intake Note: Patient is present for OAB Urology Medication: Solifenacin (Vesicare) Blood Thinner: aspirin PVR: 44ml's [employer] Supervisor Required: No Accompanied by: Self / Same As Patient Allergies iodine Allergy (Unknown, Verified 08/13/23 14:08) Unknown Medication List - Last Reconciled 08/13/23 by JOAN Loza aspirin (Adult Low Dose Aspirin) 81 mg PO DAILY bisacodyl (Dulcolax (bisacodyl)) 10 mg ND DAILY PRN celecoxib 200 mg PO DAILY diltiazem HCl 180 mg PO DAILY docusate sodium (Colace) 200 mg (2 x 100 mg) PO BEDTIME 30 days famotidine 20 mg PO BID polyethylene glycol 3350 (Miralax) 17 grams PO DAILY sennosides-docusate sodium 8.6-50 mg (Senna Plus) 1 tab-cap PO BEDTIME solifenacin (Vesicare) 10 mg PO DAILY 90 days HPI HPI Comments History of Present Illness Details Amber is a pleasant 77-year-old female patient of . She presents to the office today for follow-up of her overactive bladder. In discussion with the patient today she reports to be doing and feeling well. She discusses having seeked urgent care services approximately 1 month ago for bladder pressure and dysuria she had been experiencing. She reports having had her urine tested and being told she did not have a urinary tract infection. She reports symptoms have somewhat subsided. She discusses feeling her VESIcare is causing her constipation. She reports following up with GI and has been on MiraLax however still continues with constipation that she has to manually remove. In office urinalysis results reviewed with the patient today. 3+ leukocytes negative nitrates. Will send for urine culture. PVR 44 mL. Discuss trial of other urological medications to see if there helpful in relieving constipation. Discussed at length potential causes for constipation despite urological medications. She does report to be happy with her current voiding parameters on 10 mg of VESIcare daily however would like to trial other medication to see if it is less likely to cause constipation. She otherwise offers no other issues or concerns at this time. 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 Alcohol intake: never Patient Tobacco Use Status: Never used Tobacco Review of Systems Const All systems reviewed & are unremarkable except as noted in HPI and below Reports no additional complaints Eyes Reports no additional complaints ENT Reports no additional complaints Card Reports no additional complaints Resp Reports no additional complaints GI Reports as per HPI Reports as per HPI Musc Reports no additional complaints Neuro Reports no additional complaints Psych Reports no additional complaints Endo Reports no additional complaints Jer/Lymph Reports as per HPI Physical Exam Const General: cooperative, healthy appearing, comfortable, no acute distress, well developed, alert and awake Nutritional Appearance: overweight Orientation/consciousness: patient oriented x3 Limitations: no limitations HEENT Head: Yes normal to inspection, Yes normocephalic and Yes atraumatic Ears: hearing grossly normal bilaterally Eyes General: appearance normal, both eyes and all related structures Neck Neck: Yes normal visual inspection and Yes trachea midline Chest Chest palpation & inspection: normal inspection of the chest Resp Effort & Inspection: normal respiratory effort and able to speak in complete sentences Cardio Rate: regular rate GI Inspection: Yes normal to inspection General: Yes no CVA tenderness Back/Spine/Pelvis Back: no CVA tenderness Neuro General: patient oriented x3 Psych Appearance: grossly normal and well kempt Mental Status: mental status grossly normal Speech and movement: Normal speech and movement present and Clear speech present Affect: normal affect Attitude: cooperative Thought process: Normal thought process present Thought content: Normal thought content present Insight: Good insight present (Psych) Judgement: Good judgement present (Psych) Office Procedures Post Void Residual Post Residual Void Post Void Residual (PVR): 44 [id number] Void Residual by ultrasound Results AMB Urinalysis, Automated UA Leukoctes 500 Kyle/uL Last Edit by Gely Chang on 08/13/23 14:00 UA Nitrite Negative Last Edit by Gely Chang on 08/13/23 14:00 UA Urobilinogen 0.2 mg/dL Last Edit by Gely Chang on 08/13/23 14:00 UA Protein 0 mg/dL Last Edit by Ramuarlethmarco a Holdenjaneth on 08/13/23 14:00 UA pH 6.0 Last Edit by Gely Chang on 08/13/23 14:00 UA Blood 0 Vadim/uL Last Edit by Gely Chang on 08/13/23 14:00 UA Specific [place] 1.015 Last Edit by Gely Chang on 08/13/23 14:00 UA Ketone Negative Last Edit by Gely Chang on 08/13/23 14:00 UA Bilirubin 0 mg/dL Last Edit by Gely Chang on 08/13/23 14:00 UA Glucose 0 mg/dL Last Edit by Gely Chang on 08/13/23 14:00 Results Reviewed Results Reviewed: Laboratory Last Values Urine pH (Auto) 6.0 08/13/23 13:55 Specific [place] (Auto) 1.015 08/13/23 13:55 Urine Protein (Auto) 0 mg/dL 08/13/23 13:55 Glucose (UA)(Auto) 0 mg/dL 08/13/23 13:55 Urine Ketones (Auto) Negative 08/13/23 13:55 Urine Blood (Auto) 0 Vadim/uL 08/13/23 13:55 Urine Nitrite (Auto) Negative 08/13/23 13:55 Urine Bilirubin (Auto) 0 mg/dL 08/13/23 13:55 Urine Urobilinogen (Auto) 0.2 mg/dL 08/13/23 13:55 Leukocyte Esterase (Auto) 500 Kyle/uL 08/13/23 13:55 Assessment & Plan Assessment & Plan (1) Constipation: Comment: may be medication-induced Reviewed previous colonoscopy is small adenoma Dr. Cortes 2014 Code(s): K59.00 - Constipation, unspecified (2) Overactive bladder: Code(s): N32.81 - Overactive bladder Plan In office urinalysis results reviewed with the patient today; as noted above; will send for urine culture. PVR 44 mL. Stop VESIcare Start Myrbetriq 25 mg daily as discussed and prescribed. Discussed at length dietary modifications to assist with constipation Educated, encouraged, instructed on the importance of drinking plenty of water daily Follow-up in 6 weeks with PVR; or sooner with any issues, concerns, and or questions Orders: Orders Urine Culture Today R39.15 - Urgency of urination AMB Urinalysis Automated Today Z13.9 - Encounter for screening, unspecified AMB Post Void Residual by ultrasound Today R39.15 - Urgency of urination Medications: New mirabegron ER (Myrbetriq) 25 mg PO DAILY 30 days 30 tabs 1RF N30.10 - Interstitial cystitis (chronic) without hematuria, N32.81 - Overactive bladder, R35.1 - Nocturia, R39.15 - Urgency of urination mirabegron ER (Myrbetriq) 25 mg PO DAILY 30 tabs 1RF 30 days N30.10 - Interstitial cystitis (chronic) without hematuria, N32.81 - Overactive bladder, R35.1 - Nocturia, R39.15 - Urgency of urination Discontinued solifenacin (Vesicare) Discontinued Reason: Doctor's Order 10 mg PO DAILY 90 days 90 tabs 1RF Patient Instructions: The patient had an opportunity to ask questions regarding the treatment plan. All questions were answered. Physical exam, labs, and imaging were discussed and reviewed in detail. As well as risks, benefits, and discussion of treatment choices. No major barriers to understanding were identified. The patient expressed understanding and agreement with the above treatment plan. The patient was made aware they should contact our office by phone for worsening of their current condition, the appearance of new symptoms, or with any questions or concerns. Compliance is encouraged with any medications and follow up testing that is ordered. It is a privilege to be allowed the opportunity to participate in? your urological care.? Again, if you have any questions or concerns If you have any questions or concerns please do not hesitate to contact me. The office is [phone]. This note is constructed using voice recognition software. While every effort has been made to ensure accuracy paperboard machine operator errors may have been included. Yours sincerely, JOAN Loza Coding Level of Care Code Est Pt Level 4 (44460) Diagnoses Constipation K59.00 Overactive bladder N32.81 CPT Codes Post Residual Void - PVR CPT Code: 16408-Wduz Void Residual by ultrasound ([id number])
== END 2023-08-13 14:11 | disposition home or self-care (01) ==
PROVIDERS: PCP Internal Medicine; Visit Provider Nurse Practitioner Family
DX: K59.00 Constipation, unspecified (principal); N32.81 Overactive bladder
CPT/HCPCS: 99214

== ENCOUNTER 2023-09-03 13:53 | Outpatient (REF) | payer MEDICARE, BC, SELFPAY ==
[2023-09-03 16:00] LABS: Ferritin 48 ng/mL (10-250)
== END 2023-09-03 13:54 | disposition home or self-care (01) ==
LOC: HO.BBR 13:53
PROVIDERS: PCP Internal Medicine; Visit Provider Internal Medicine Hematology & Oncology
DX: E83.19 Other disorders of iron metabolism (principal)
CPT/HCPCS: 36415; 82728; 85014; 85018; 99195

== ENCOUNTER 2023-10-27 13:25 | Outpatient (AMB) | payer MEDICARE, BC, SELFPAY ==
--- NOTE | 2023-10-27 13:44 | A.OFFVIS_ITS ---
Intake Intake Visit Reasons: 6w/PVR Intake Note: Patient is present for OAB Urology Medication: Solifenacin (Vesicare), D/C myrbetriq Blood Thinner: aspirin PVR: 20ml's [employer] Supervisor Required: No Accompanied by: Self / Same As Patient Allergies nitrofurantoin [From Macrobid] Allergy (Intermediate, Verified 10/27/23 14:22) Abdominal Pain iodine Allergy (Unknown, Verified 10/27/23 13:48) Unknown Medication List - Last Reconciled 10/27/23 by BARON Loza- aspirin (Adult Low Dose Aspirin) 81 mg PO DAILY bisacodyl (Dulcolax (bisacodyl)) 10 mg [place] DAILY PRN celecoxib 200 mg PO DAILY diltiazem HCl 180 mg PO DAILY docusate sodium (Colace) 200 mg (2 x 100 mg) PO BEDTIME 30 days famotidine 20 mg PO BID polyethylene glycol 3350 (Miralax) 17 grams PO DAILY sennosides-docusate sodium 8.6-50 mg (Senna Plus) 1 tab-cap PO BEDTIME solifenacin (Vesicare) 10 mg PO DAILY 90 days HPI HPI Comments History of Present Illness Details Amber is a pleasant 78-year-old female patient of Dr.K murillo. She presents to the office today for follow-up of her overactive bladder. In discussion with the patient today she reports to be doing and feeling well. She discusses having seeked urgent care services approximately 1 month ago for foul-smelling and cloudy urine. She reports having been prescribed Macrobid for urinary tract infection. However shortly after taking antibiotic therapy (Macrobid) as prescribed she started experiencing GI issues at which time she called her PCP and was given ciprofloxacin in replacement of Macrobid. She reports having completed antibiotic therapy as prescribed. She currently denies any bothersome urinary issues or concerns. She denies any UTI like symptoms. Of note, during last office visit approximately 3 months ago patient's overactive bladder medication was changed from VESIcare 10 mg daily to Myrbetriq. However, patient reports worsening lower urinary tract symptoms of urinary urgency and frequency to have gotten worse with Myrbetriq. She also reports feeling this made her constipation worse. In office urinalysis results reviewed with the patient today. PVR 20 mL. She discusses having celebrated her 78th birthday recently with her family. She otherwise offers no other issues or concerns at this time. 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 Alcohol intake: never Patient Tobacco Use Status: Never used Tobacco Review of Systems Const All systems reviewed & are unremarkable except as noted in HPI and below Reports no additional complaints Eyes Reports no additional complaints ENT Reports no additional complaints Card Reports no additional complaints Resp Reports no additional complaints GI Reports as per HPI Reports as per HPI Musc Reports no additional complaints Neuro Reports no additional complaints Psych Reports no additional complaints Endo Reports no additional complaints Jer/Lymph Reports as per HPI Physical Exam Const General: cooperative, healthy appearing, comfortable, no acute distress, well developed, alert and awake Nutritional Appearance: overweight Orientation/consciousness: patient oriented x3 Limitations: no limitations HEENT Head: Yes normal to inspection, Yes normocephalic and Yes atraumatic Ears: hearing grossly normal bilaterally Eyes General: appearance normal, both eyes and all related structures Neck Neck: Yes normal visual inspection and Yes trachea midline Chest Chest palpation & inspection: normal inspection of the chest Resp Effort & Inspection: normal respiratory effort and able to speak in complete sentences Cardio Rate: regular rate GI Inspection: Yes normal to inspection General: Yes no CVA tenderness Back/Spine/Pelvis Back: no CVA tenderness Neuro General: patient oriented x3 Psych Appearance: grossly normal and well kempt Mental Status: mental status grossly normal Speech and movement: Normal speech and movement present and Clear speech present Affect: normal affect Attitude: cooperative Thought process: Normal thought process present Thought content: Normal thought content present Insight: Good insight present (Psych) Judgement: Good judgement present (Psych) Office Procedures Post Void Residual Post Residual Void Post Void Residual (PVR): 20 [id number] Void Residual by ultrasound Results AMB Urinalysis, Automated UA Leukoctes 70 Kyle/uL Last Edit by Gely Chang on 10/27/23 14:16 UA Nitrite Negative Last Edit by Gely Chang on 10/27/23 14:16 UA Urobilinogen 0.2 mg/dL Last Edit by Gely Chang on 10/27/23 14:16 UA Protein 0 mg/dL Last Edit by Gely Chang on 10/27/23 14:16 UA pH 6.0 Last Edit by Gely Chang on 10/27/23 14:16 UA Blood 0 Vadim/uL Last Edit by Gely Chang on 10/27/23 14:16 UA Specific [place] 1.020 Last Edit by Gely Chang on 10/27/23 14:16 UA Ketone Negative Last Edit by Gely Chang on 10/27/23 14:16 UA Bilirubin 0 mg/dL Last Edit by Gely Chang on 10/27/23 14:16 UA Glucose 0 mg/dL Last Edit by Gely Chang on 10/27/23 14:16 Results Reviewed Results Reviewed: Laboratory Last Values Urine pH (Auto) 6.0 10/27/23 13:49 Specific [place] (Auto) 1.020 10/27/23 13:49 Urine Protein (Auto) 0 mg/dL 10/27/23 13:49 Glucose (UA)(Auto) 0 mg/dL 10/27/23 13:49 Urine Ketones (Auto) Negative 10/27/23 13:49 Urine Blood (Auto) 0 Vadim/uL 10/27/23 13:49 Urine Nitrite (Auto) Negative 10/27/23 13:49 Urine Bilirubin (Auto) 0 mg/dL 10/27/23 13:49 Urine Urobilinogen (Auto) 0.2 mg/dL 10/27/23 13:49 Leukocyte Esterase (Auto) 70 Kyle/uL 10/27/23 13:49 Assessment & Plan Assessment & Plan (1) Urinary urgency: Code(s): R39.15 - Urgency of urination (2) Overactive bladder: Code(s): N32.81 - Overactive bladder Plan In office urinalysis results reviewed with the patient today; as noted above. PVR 20 mL. Stop Myrbetriq as discussed. Restart VESIcare 10 mg daily as discussed and prescribed. Discussed UTI prevention with D mannose supplement, vitamin-C, increasing fluid intake, behavioral therapy with timed voiding, perineal hygiene and postcoital voiding, and management of constipation with stool softeners and increased fiber intake. Discussed possible near future initiation of Estrace cream if UTI like symptoms and or UTIs become recurrent. Patient reports be happy with current voiding parameters on 10 mg of VESIcare; will continue; 90 day refill provided. She currently denies any bothersome urinary issues or concerns. Follow-up in 6 months with PVR; or sooner with any issues, concerns, and or questions. Orders: Orders AMB Post Void Residual by ultrasound Today R39.15 - Urgency of urination AMB Urinalysis Automated Today Z13.9 - Encounter for screening, unspecified Medications: New solifenacin (Vesicare) 10 mg PO DAILY 90 days 90 tabs 3RF Patient Instructions: The patient had an opportunity to ask questions regarding the treatment plan. All questions were answered. Physical exam, labs, and imaging were discussed and reviewed in detail. As well as risks, benefits, and discussion of treatment choices. No major barriers to understanding were identified. The patient expressed understanding and agreement with the above treatment plan. The patient was made aware they should contact our office by phone for worsening of their current condition, the appearance of new symptoms, or with any questions or concerns. Compliance is encouraged with any medications and follow up testing that is ordered. It is a privilege to be allowed the opportunity to participate in? your urological care.? Again, if you have any questions or concerns If you have any questions or concerns please do not hesitate to contact me. The office is [phone]. This note is constructed using voice recognition software. While every effort has been made to ensure accuracy roller setter errors may have been included. Yours sincerely, JOAN Loza Coding Level of Care Code Est Pt Level 3 (48857) Diagnoses Urinary urgency R39.15 Overactive bladder N32.81 CPT Codes Post Residual Void - PVR CPT Code: 06393-Ymkg Void Residual by ultrasound ([id number])
== END 2023-10-27 14:22 | disposition home or self-care (01) ==
PROVIDERS: PCP Internal Medicine; Visit Provider Nurse Practitioner Family
DX: R39.15 Urgency of urination (principal); N32.81 Overactive bladder
CPT/HCPCS: 99213

== ENCOUNTER 2023-10-27 14:40 | Outpatient (REF) | payer MEDICARE, BC, SELFPAY ==
[2023-10-27 16:53] LABS: Ferritin 95 ng/mL (10-250)
== END 2023-10-27 14:41 | disposition home or self-care (01) ==
LOC: HO.BBR 14:40
PROVIDERS: PCP Internal Medicine; Visit Provider Internal Medicine Hematology & Oncology
DX: E83.19 Other disorders of iron metabolism (principal); R39.15 Urgency of urination; N32.81 Overactive bladder
CPT/HCPCS: 36415; 51798; 81003; 82728; 85014; 85018; 99195; 99212

== ENCOUNTER 2023-12-09 13:53 | Outpatient (REF) | payer MEDICARE, BC, SELFPAY ==
[2023-12-09 15:29] LABS: Ferritin 41 ng/mL (10-250)
== END 2023-12-09 13:54 | disposition home or self-care (01) ==
LOC: HO.BBR 13:53
PROVIDERS: PCP Internal Medicine; Visit Provider Internal Medicine Hematology & Oncology
DX: E83.19 Other disorders of iron metabolism (principal)
CPT/HCPCS: 36415; 82728; 85018

== ENCOUNTER 2024-03-02 13:34 | Outpatient (REF) | payer MEDICARE, BC, SELFPAY ==
[2024-03-02 16:12] LABS: Ferritin 114 ng/mL (10-250)
== END 2024-03-02 13:35 | disposition home or self-care (01) ==
LOC: HO.BBR 13:34
PROVIDERS: PCP Internal Medicine; Visit Provider Internal Medicine Hematology & Oncology
DX: E83.19 Other disorders of iron metabolism (principal)
CPT/HCPCS: 36415; 82728; 85018; 99195

== ENCOUNTER 2024-04-27 13:34 | Outpatient (REF) | payer MEDICARE, BC, SELFPAY | END 2024-04-27 13:35 | disposition home or self-care (01) | LOC: HO.LNP 13:34 | PROVIDERS: PCP Internal Medicine; Visit Provider Nurse Practitioner Family | DX: R39.15 Urgency of urination (principal); N39.0 Urinary tract infection, site not specified; N32.81 Overactive bladder | CPT/HCPCS: 51798; 81003; 87086; 99212 ==

== ENCOUNTER 2024-04-27 13:34 | Outpatient (AMB) | payer MEDICARE, BC, SELFPAY ==
--- NOTE | 2024-04-27 13:55 | A.OFFVIS_ITS ---
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 Required: No Accompanied by: Self / Same As Patient Allergies nitrofurantoin [From Macrobid] Allergy (Intermediate, Verified 04/27/24 20:50) Abdominal Pain iodine Allergy (Unknown, Verified 04/27/24 20:50) Unknown Medication List - Last Reconciled 04/27/24 by BARON Loza- aspirin (Adult Low Dose Aspirin) 81 mg PO DAILY bisacodyl (Dulcolax (bisacodyl)) 10 mg [place] DAILY PRN diltiazem HCl CD 180 mg PO DAILY docusate sodium (Colace) 200 mg (2 x 100 mg) PO BEDTIME 30 days estradiol 0.01%(0.1mg/gram) Pea-sized amount to urethra daily for the 1st month; 3 times a week thereafter 90 days famotidine 20 mg PO BID polyethylene glycol 3350 (Miralax) 17 grams PO DAILY sennosides-docusate sodium 8.6-50 mg (Senna Plus) 1 tab-cap PO BEDTIME HPI Comments Details: Amber is a pleasant 78-year-old female patient of . She presents to the office today for follow-up of her overactive bladder. In discussion with the patient today she reports to be doing and feeling well. She discusses since her last office visit here she has had 2 urinary tract infections and has since completed antibiotic therapy. She reports most recent urinary tract infection was last week and has since completed cephalexin as prescribed. In office urinalysis results reviewed with the patient today 3+ leukocytes, negative nitrates. She currently denies any UTI like symptoms. She reports her ongoing issues with constipation and is due to follow-up with GI however has been rescheduling her appointments due to provider issues. She reports having stopped her Celebrex as well as VESIcare as she feels these can be contributing to her constipation. She also reports feeling her diltiazem could also be contributing constipation but given she needs it for heart she continues taking this medication. We discussed at length correlation of constipation with recurrent urinary tract infections. We discussed further treatment for recurrent urinary tract infections. PVR 42 mL. She reports that although she has discontinued her VESIcare she feels no bothersome urinary tract infections at this time. She otherwise offers no other issues or concerns at this time. 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 Alcohol intake: never Patient Tobacco Use Status: Never used Tobacco Review of Systems Const All systems reviewed & are unremarkable except as noted in HPI and below Reports no additional complaints Eyes Reports no additional complaints ENT Reports no additional complaints Card Reports no additional complaints Resp Reports no additional complaints GI Reports as per HPI Reports as per HPI Musc Reports no additional complaints Neuro Reports no additional complaints Psych Reports no additional complaints Endo Reports no additional complaints Jer/Lymph Reports as per HPI Physical Exam Const General: cooperative, healthy appearing, comfortable, no acute distress, well developed, alert and awake Nutritional Appearance: overweight Orientation/consciousness: patient oriented x3 Limitations: no limitations HEENT Head: Yes normal to inspection, Yes normocephalic and Yes atraumatic Ears: hearing grossly normal bilaterally Eyes General: appearance normal, both eyes and all related structures Neck Neck: Yes normal visual inspection and Yes trachea midline Chest Chest palpation & inspection: normal inspection of the chest Resp Effort & Inspection: normal respiratory effort and able to speak in complete sentences Cardio Rate: regular rate GI Inspection: Yes normal to inspection General: Yes no CVA tenderness Back/Spine/Pelvis Back: no CVA tenderness Neuro General: patient oriented x3 Psych Appearance: grossly normal and well kempt Mental Status: mental status grossly normal Speech and movement: Normal speech and movement present and Clear speech present Affect: normal affect Attitude: cooperative Thought process: Normal thought process present Thought content: Normal thought content present Insight: Fair insight present (Psych) Judgement: Fair judgement present (Psych) Office Procedures Post Void Residual Post Residual Void Post Void Residual (PVR): 42 [id number]-[id number] Void Residual by ultrasound Results AMB Urinalysis, Automated UA Leukoctes 500 Kyle/uL Last Edit by [employer] Chang on 04/27/24 14:43 UA Nitrite Negative Last Edit by [employer] on 04/27/24 14:43 UA Urobilinogen 0.2 mg/dL Last Edit by [employer] on 04/27/24 14:43 UA Protein 0 mg/dL Last Edit by [employer] on 04/27/24 14:43 UA pH 7.0 Last Edit by [employer] on 04/27/24 14:43 UA Blood 0 Vadim/uL Last Edit by [employer] on 04/27/24 14:43 UA Specific [place] 1.010 Last Edit by [employer] on 04/27/24 14:43 UA Ketone Negative Last Edit by [employer] on 04/27/24 14:43 UA Bilirubin 0 mg/dL Last Edit by [employer] on 04/27/24 14:43 UA Glucose 0 mg/dL Last Edit by [employer] on 04/27/24 14:43 Results Reviewed Results Reviewed: Laboratory Last Values Urine pH (Auto) 7.0 04/27/24 14:41 Specific [place] (Auto) 1.010 04/27/24 14:41 Urine Protein (Auto) 0 mg/dL 04/27/24 14:41 Glucose (UA)(Auto) 0 mg/dL 04/27/24 14:41 Urine Ketones (Auto) Negative 04/27/24 14:41 Urine Blood (Auto) 0 Vadim/uL 04/27/24 14:41 Urine Nitrite (Auto) Negative 04/27/24 14:41 Urine Bilirubin (Auto) 0 mg/dL 04/27/24 14:41 Urine Urobilinogen (Auto) 0.2 mg/dL 04/27/24 14:41 Leukocyte Esterase (Auto) 500 Kyle/uL 04/27/24 14:41 Assessment & Plan Assessment & Plan (1) Recurrent urinary tract infection: Code(s): N39.0 - Urinary tract infection, site not specified Category: Medical (2) Urinary urgency: Code(s): R39.15 - Urgency of urination Category: Medical (3) Overactive bladder: Code(s): N32.81 - Overactive bladder Category: Medical Plan In office urinalysis results reviewed with the patient today; as noted above; will send for urine culture; will await results for potential treatment. PVR 42ml's Discussed possible near future microgen for further assessment evaluation. Discussed obtaining retroperitoneal ultrasound for further assessment evaluation; however will await patient would like to better manage constipation at this time per her request. Stop VESIcare. Start Estrace cream as discussed and prescribed. Discussed possible near future in office cystoscopy for further assessment eval uation. She currently denies any bothersome urinary issues. She reports be happy with current voiding parameters. Discussed UTI prevention with D mannose supplement, vitamin-C, increasing fluid intake, behavioral therapy with timed voiding, perineal hygiene and postcoital voiding, and management of constipation with stool softeners and increased fiber intake. Follow-up in 3 months with PVR; or sooner with any issues, concerns, and or questions. Orders: Orders AMB Urinalysis Automated Today Z13.9 - Encounter for screening, unspecified AMB Post Void Residual by ultrasound Today R39.15 - Urgency of urination Urine Culture Today R39.15 - Urgency of urination Medications: New estradiol 0.01%(0.1mg/gram) Pea-sized amount to urethra daily for the 1st month; 3 times a week thereafter 90 days 42.5 grams 3RF Discontinued solifenacin (Vesicare) Discontinued Reason: Patient no longer taking 10 mg PO DAILY 90 days 90 tabs 3RF Patient Instructions: The patient had an opportunity to ask questions regarding the treatment plan. All questions were answered. Physical exam, labs, and imaging were discussed and reviewed in detail. As well as risks, benefits, and discussion of treatment choices. No major barriers to understanding were identified. The patient expressed understanding and agreement with the above treatment plan. The patient was made aware they should contact our office by phone for worsening of their current condition, the appearance of new symptoms, or with any questions or concerns. Compliance is encouraged with any medications and follow up testing that is ordered. It is a privilege to be allowed the opportunity to participate in? your urological care.? Again, if you have any questions or concerns If you have any questions or concerns please do not hesitate to contact me. The office is [phone]. This note is constructed using voice recognition software. While every effort has been made to ensure accuracy finishing operator errors may have been included. Yours sincerely, JOAN Loza Coding Level of Care Code Est Pt Level 4 (21259) Complex EM visit Add On G2211 Diagnoses Recurrent urinary tract infection N39.0 Urinary urgency R39.15 Overactive bladder N32.81 CPT Codes Post Residual Void - PVR CPT Code: 21551-Gaid Void Residual by ultrasound ([id number])
== END 2024-04-27 14:30 | disposition home or self-care (01) ==
LOC: HO.HUSH 13:34
PROVIDERS: PCP Internal Medicine; Visit Provider Nurse Practitioner Family
DX: N39.0 Urinary tract infection, site not specified (principal); R39.15 Urgency of urination; N32.81 Overactive bladder; Z13.9 Encounter for screening, unspecified
CPT/HCPCS: 99214; G2211

== ENCOUNTER 2024-08-02 13:32 | Outpatient (AMB) | payer MEDICARE, BC, SELFPAY ==
--- NOTE | 2024-08-02 14:16 | A.OFFVIS_ITS ---
Intake Visit Reasons: 3m/PVR Intake Note: Patient presents today for follow up on: OAB Urology Medication: Estrace Cream Blood Thinner: aspirin PVR: 11ml's Physical Geographer Required: No Accompanied by: Self / Same As Patient Allergies nitrofurantoin [From Macrobid] Allergy (Intermediate, Verified 08/02/24 21:47) Abdominal Pain iodine Allergy (Unknown, Verified 08/02/24 21:47) Unknown Medication List - Last Reconciled 08/02/24 by BARON Loza- aspirin (Adult Low Dose Aspirin) 81 mg PO DAILY bisacodyl (Dulcolax (bisacodyl)) 10 mg [place] DAILY PRN diltiazem HCl CD 180 mg PO DAILY docusate sodium (Colace) 200 mg (2 x 100 mg) PO BEDTIME 30 days estradiol 0.01%(0.1mg/gram) Pea-sized amount to urethra daily for the 1st month; 3 times a week thereafter 90 days famotidine 20 mg PO BID magnesium oxide PO HPI Comments Details: Amber is a pleasant 78-year-old female patient of . She has a past medical history of GERD, arrhythmia, and constipation. She presents to the office today for follow-up of her overactive bladder. In discussion with the patient today she reports to be doing and feeling well. She reports compl iance with Estrace cream as prescribed. She denies having had any bothersome urinary issues or concerns since her last office visit here approximately 3 months ago. She denies having had any UTIs and or UTI like symptoms. She had previously been on VESIcare for her symptoms of overactive bladder however felt this was making her constipation worse therefore this medication was continued and patient continues with surveillance monitoring as she is feels her bladder is doing much better. In office urinalysis results reviewed with the patient today. PVR 32 mL. When asked she denies urinary urgency, urinary frequency, hematuria, dysuria, foul smelling urine, changes to urinary stream, flank pain, fever, and or chills. She does report noting episodes of nocturia up to 2 times per night however feels this is manageable. She is happy with her current voiding parameters. She otherwise offers no other issues or concerns at this time. 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 Alcohol intake: never Patient Tobacco Use Status: Never used Tobacco Review of Systems Const All systems reviewed & are unremarkable except as noted in HPI and below Reports no additional complaints Eyes Reports no additional complaints ENT Reports no additional complaints Card Reports no additional complaints Resp Reports no additional complaints GI Reports as per HPI Reports as per HPI Musc Reports no additional complaints Neuro Reports no additional complaints Psych Reports no additional complaints Endo Reports no additional complaints Jer/Lymph Reports as per HPI Physical Exam Const General: cooperative, healthy appearing, comfortable, no acute distress, well developed, alert and awake Nutritional Appearance: overweight Orientation/consciousness: patient oriented x3 Limitations: no limitations HEENT Head: Yes normal to inspection, Yes normocephalic and Yes atraumatic Ears: hearing grossly normal bilaterally Eyes General: appearance normal, both eyes and all related structures Neck Neck: Yes normal visual inspection and Yes trachea midline Chest Chest palpation & inspection: normal inspection of the chest Resp Effort & Inspection: normal respiratory effort and able to speak in complete sentences Cardio Rate: regular rate GI Inspection: Yes normal to inspection General: Yes no CVA tenderness Back/Spine/Pelvis Back: no CVA tenderness Neuro General: patient oriented x3 Psych Appearance: grossly normal and well kempt Mental Status: mental status grossly normal Speech and movement: Normal speech and movement present and Clear speech present Affect: normal affect Attitude: cooperative Thought process: Normal thought process present Thought content: Normal thought content present Insight: Fair insight present (Psych) Judgement: Fair judgement present (Psych) Office Procedures Post Void Residual Post Residual Void Post Void Residual (PVR): 11 [id number] Void Residual by ultrasound Results AMB Urinalysis, Automated UA Leukoctes 125 Kyle/uL Last Edit by Gely Chang on 08/02/24 16:44 UA Nitrite Last Edit by Gely Chang on 08/02/24 16:44 UA Urobilinogen 0.2 mg/dL Last Edit by Gely Chang on 08/02/24 16:44 UA Protein 15 mg/dL Last Edit by Gely Chang on 08/02/24 16:44 UA pH 5.5 Last Edit by Gely Chang on 08/02/24 16:44 UA Blood 0 Vadim/uL Last Edit by BeV[employer]denita Chang on 08/02/24 16:44 UA Specific [place] 1.015 Last Edit by Gely Chang on 08/02/24 16:44 UA Ketone Last Edit by Gely Chang on 08/02/24 16:44 UA Bilirubin 0 mg/dL Last Edit by Gely Chang on 08/02/24 16:44 UA Glucose 0 mg/dL Last Edit by Gely Chang on 08/02/24 16:44 Results Reviewed Results Reviewed: Laboratory Last Values Urine pH (Auto) 5.5 08/02/24 16:43 Specific [place] (Auto) 1.015 08/02/24 16:43 Urine Protein (Auto) 15 mg/dL 08/02/24 16:43 Glucose (UA)(Auto) 0 mg/dL 08/02/24 16:43 Urine Blood (Auto) 0 Vadim/uL 08/02/24 16:43 Urine Bilirubin (Auto) 0 mg/dL 08/02/24 16:43 Urine Urobilinogen (Auto) 0.2 mg/dL 08/02/24 16:43 Leukocyte Esterase (Auto) 125 Kyle/uL 08/02/24 16:43 Assessment & Plan Assessment & Plan (1) Recurrent urinary tract infection: Code(s): N39.0 - Urinary tract infection, site not specified Category: Medical (2) Urinary urgency: Code(s): R39.15 - Urgency of urination Category: Medical (3) Overactive bladder: Code(s): N32.81 - Overactive bladder Category: Medical Plan In office urinalysis results reviewed with the patient today; as noted above. Patient currently denies any bothersome urinary issues or concerns. She reports be happy with current voiding parameters. Will continue with surveillance monitoring of overactive bladder symptoms. Continue Estrace cream as discussed and prescribed; refill provided Discussed UTI prevention with D mannose supplement, vitamin-C, increasing fluid intake, behavioral therapy with timed voiding, perineal hygiene and postcoital voiding, and management of constipation with stool softeners and increased fiber intake. Follow-up in 6 months with PVR; or sooner with any issues, concerns, and or questions. Orders: Orders AMB Post Void Residual by ultrasound Today N39.0 - Urinary tract infection, site not specified AMB Urinalysis Automated Today Z13.9 - Encounter for screening, unspecified Medications: Refilled estradiol 0.01%(0.1mg/gram) Pea-sized amount to urethra daily for the 1st month; 3 times a week thereafter 42.5 grams 3RF 90 days Patient Instructions: The patient had an opportunity to ask questions regarding the treatment plan. All questions were answered. Physical exam, labs, and imaging were discussed and reviewed in detail. As well as risks, benefits, and discussion of treatment choices. No major barriers to understanding were identified. The patient expressed understanding and agreement with the above treatment plan. The patient was made aware they should contact our office by phone for worsening of their current condition, the appearance of new symptoms, or with any questions or concerns. Compliance is encouraged with any medications and follow up testing that is ordered. It is a privilege to be allowed the opportunity to participate in? your urological care.? Again, if you have any questions or concerns If you have any questions or concerns please do not hesitate to contact me. The office is [phone]. This note is constructed using voice recognition software. While every effort has been made to ensure accuracy shovel engineer errors may have been included. Yours sincerely, JOAN Loza Coding Level of Care Code Est Pt Level 3 (56193) Complex EM visit Add On G2211 Diagnoses Recurrent urinary tract infection N39.0 Urinary urgency R39.15 Overactive bladder N32.81 CPT Codes Post Residual Void - PVR CPT Code: 47179-Qfzg Void Residual by ultrasound ([id number])
--- OUTSIDE RECORDS SUMMARY | 2024-08-02 15:54 | XMS_ITS ---
Author Name [facility] Organization Unknown History of Medication Use Medication Directions Dispensed Refills Start Date End Date Stat betamethasone dipropionate 0.05 % topical cream APPLY A THIN FILM TOPICALLY TO THE AFFECTED AREA 2 TIMES A DAY NEEDED 04/04/2023 active famotidine 20 mg tablet 04/04/2023 active amoxicillin 500 mg tablet Take 4 tabs 1 hour prior to dental procedure 04/04/2023 active amoxicillin 500 mg capsule Take 4 tablets one hour prior to dental procedure 04/04/2023 active oxycodone 5 mg tablet TAKE 1/2 TO 1 TABLET BY MOUTH EVERY 4 TO 6 HOURS NEEDED FOR SEVERE PAIN (SCALE 7-10) 04/04/2023 completed omeprazole 20 mg capsule,delayed release TAKE 1 CAPSULE BY MOUTH EVERY DAY 04/04/2023 active solifenacin 10 mg tablet 04/04/2023 active furosemide 20 mg tablet Take 1 tablet every day by oral route. 04/04/2023 active Celebrex 100 mg capsule Take 1 capsule p.o. as needed for pain 04/04/2023 active calcium 04/04/2023 active warfarin 1 mg tablet TAKE 4 TABLETS BY MOUTH EVERY EVENING 04/04/2023 active diltiazem CD 180 mg capsule,extended release 24 hr 04/04/2023 active celecoxib 200 mg capsule TAKE 1 CAPSULE BY MOUTH EVERY DAY 04/04/2023 completed enoxaparin 40 mg/0.4 mL subcutaneous syringe INJECT 1 SYRINGE SUBCUTANEOUSLY DAILY 04/04/2023 completed amoxicillin 250 mg capsule TAKE 2 CAPSULES BY MOUTH EVERY 12 HOURS 04/04/2023 completed Allergies Allergen Reaction Severity Comment Documented Date Source Statu s IODINE ENS_AONECT Problems Problem Status Onset Date Problem Type Date of Resoluti on Source Stiffness of left knee active 2022-11-25 ProblemAct ENS_AONECT
== END 2024-08-02 15:04 | disposition home or self-care (01) ==
PROVIDERS: PCP Internal Medicine; Visit Provider Nurse Practitioner Family
DX: N39.0 Urinary tract infection, site not specified (principal); R39.15 Urgency of urination; N32.81 Overactive bladder; Z13.9 Encounter for screening, unspecified
CPT/HCPCS: 99213; G2211

== ENCOUNTER → 2024-08-02 13:32 | Outpatient (BNVA) | payer MEDICARE, BC, SELFPAY | PROVIDERS: PCP Internal Medicine; Visit Provider Nurse Practitioner Family | DX: N39.0 Urinary tract infection, site not specified (principal); N32.81 Overactive bladder; R39.15 Urgency of urination | CPT/HCPCS: 51798; 81003; 99212 ==

== ENCOUNTER 2024-08-13 16:06 | Outpatient (AMB) | payer MEDICARE, BC, SELFPAY ==
--- NOTE | 2024-08-13 16:10 | MHC.OFFVIS ---
Vital Signs 08/13/24 16:14 Height 5 ft 3 in Weight 194 lb BMI 34.4 BP 148/67 H Blood Pressure Location Lt brachial Position Sitting Pulse 68 Intake Visit Reasons: chronic constipation/[facility] pt Intake Note: Amber presents in the office as a [facility] patient follow up for Chronic Constipation. CC: She states that she is always having constipation and clumped bowel movements. She denies any blood when she has a BM. Allergies nitrofurantoin [From Macrobid] Allergy (Intermediate, Verified 08/13/24 16:15) Abdominal Pain iodine Allergy (Unknown, Verified 08/13/24 16:15) Unknown HPI HPI chronic constipation/[facility] pt: Details: LAST VISIT WITH SKYLA ARTEAGA 05/21/2023 A 77 y/o female seen with bowel change- she was unable to get bowel regimen OTC covered by insurance- She feels somewhat better she has been quite consistent with maintain high-fiber diet- she is taking senna- as need- 2 stool softeners- as well as miralax- QHS- still has hard stool- she associates with medication she has taken for urinary bladder- she was to discuss with Urology. She has not yet done so she does not have any abdominal pain she has no blood in stool, she has a very good appetite she is very active reviewed-again her previous GI record shows last colonoscopy 2015 tubular adenoma-reportedly she did not think she had to ever repeat colonoscopy. However further discussed given her symptoms, She has been followed by hematology- Dr. Perez- @ [facility]- for Hemochromatosis- just seen last week blood work review TODAY'S VISIT: Patient is here today for requested visit. Patient reports that she continues to have constipation. Patient is taking stool softener and Mag oxide and she continues to have trouble moving her bowels. Patient reports straining. Admit not to be drinking enough fluids. Patient had tried Senokot in the past, however has not tried anything else [id number]. Patient denies any melena, hematochezia. Denies any abdominal pain or discomfort. Patient denies any acid reflux, dyspepsia, dysphagia or odynophagia. Patient is on Pepcid twice a day. History of hemochromatosis followed up with special education teaching assistant at [facility]. Has not had a abdominal ultrasound since 2022, normal liver function studies [facility] Medical History GERD (gastroesophageal reflux disease) Nocturia Overactive bladder Urinary urgency Surgical History Hx of colonoscopy Hx of carpal tunnel repair Hx of total knee replacement History of partial hysterectomy Social History Household Members: Family Household Members Other:: 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 Alcohol intake: never Patient Tobacco Use Status: Never used Tobacco Review of Systems Const Denies weight gain and Denies weight loss ENT Reports no additional complaints, Denies dysphagia and Denies odynophagia Card Reports no additional complaints Resp Reports no additional complaints GI Denies abdominal pain, Denies belching, Denies melena, Denies bloating, Denies change in bowel habits, Reports constipation, Denies dysphagia, Denies excessive flatus, Denies dyspepsia, Denies heartburn, Denies diarrhea, Denies loose stools, Denies nausea, Denies odynophagia and Denies vomiting Reports no additional complaints Musc Reports no additional complaints Neuro Reports no additional complaints Psych Reports no additional complaints Endo Reports no additional complaints Physical Exam Vital Signs: Last Vital Signs Pulse 68 08/13/24 16:14 BP 148/67 H 08/13/24 16:14 BMI result Body Mass Index 34.4 Const General: healthy appearing and no acute distress Nutritional Appearance: obese Orientation/consciousness: patient oriented x3 Resp Effort & Inspection: normal respiratory effort, able to speak in complete sentences, no tracheal deviation and symmetric chest movement Auscultation: clear to auscultation bilaterally Cardio Rate: regular rate GI Inspection: Yes normal to inspection and No distended Palpation (GI): Soft to palpation, not firm, nontender and No hepatosplenomegaly present Auscultation: normal bowel sounds General: Yes no CVA tenderness Back/Spine/Pelvis Back: no CVA tenderness Skin General skin exam: elasticity normal, turgor normal and dry skin Neuro General: patient oriented x3 Psych Appearance: grossly normal Mental Status: mental status grossly normal Assessment & Plan Assessment & Plan (1) Hemochromatosis: Code(s): E83.119 - Hemochromatosis, unspecified Category: Medical Qualifiers: Hemochromatosis type: unspecified Qualified Code(s): E83.119 - Hemochromatosis, unspecified (2) Constipation: Code(s): K59.00 - Constipation, unspecified Category: Medical Qualifiers: Constipation type: chronic idiopathic constipation Qualified Code(s): K59.04 - Chronic idiopathic constipation (3) GERD (gastroesophageal reflux disease): Code(s): K21.9 - Gastro-esophageal reflux disease without esophagitis Qualifiers: Esophagitis presence: esophagitis presence not specified Qualified Code(s): K21.9 - Gastro-esophageal reflux disease without esophagitis Plan Patient will take senna 2 tablets after dinner and Colace. Patient can continue taking Mag oxide daily. Increase fluid intake and activity to promote better bowel motility ultrasound of abdomen to check her liver. History of hemochromatosis. Patient will follow-up in our office in 3 months, sooner on as needed basis. She is agreeable to this plan and verbalizes understanding of instructions. She was given the opportunity to ask questions and all questions answered. Thank you for allowing me to participate in her care Orders: Orders US abdomen limited Today E83.119 - Hemochromatosis, unspecified Medications: New sennosides (Natural Senna Laxative) 17.2 mg (2 x 8.6 mg) PO BEDTIME 60 tabs 3RF constipation K59.00 - Constipation, unspecified Coding Level of Care Code Est Pt Level 3 (64062) Diagnoses Hemochromatosis, unspecified hemochromatosis type E83.119 Hemochromatosis type: unspecified Chronic idiopathic constipation K59.04 Constipation type: chronic idiopathic constipation Gastroesophageal reflux disease, unspecified whether esophagitis present K21.9 Esophagitis presence: esophagitis presence not specified Time Spent (min) 35 Comment 20 minutes spent with patient and additional 15 minutes spent reviewing her records
[2024-08-13 16:14] VITALS: BP 148/67; PULSE 68; BMI 34.4
== END 2024-08-13 16:49 | disposition home or self-care (01) ==
PROVIDERS: PCP Internal Medicine; Visit Provider Nurse Practitioner Family
DX: E83.119 Hemochromatosis, unspecified (principal); K59.04 Chronic idiopathic constipation; K21.9 Gastro-esophageal reflux disease without esophagitis
CPT/HCPCS: 99213

== ENCOUNTER → 2024-08-13 16:06 | Outpatient (BNVA) | payer MEDICARE, BC, SELFPAY | PROVIDERS: PCP Internal Medicine; Visit Provider Nurse Practitioner Family | DX: E83.119 Hemochromatosis, unspecified (principal); K59.04 Chronic idiopathic constipation; K21.9 Gastro-esophageal reflux disease without esophagitis | CPT/HCPCS: 99212 ==

== ENCOUNTER 2024-08-27 10:17 | Outpatient (REF) | payer MEDICARE, BC, SELFPAY ==
--- NOTE | ~2024-08-27 | US_ITS ---
CLINICAL HISTORY: E83.119 - Hemochromatosis, unspecified US abdomen limited Comparison: None Findings: The visualized pancreas is normal. The aorta and inferior vena cava are normal caliber. The liver is normal in size and echotexture. There is no intrahepatic bile duct dilatation. The common duct is 4 mm in diameter. The gallbladder is normal. There is no sonographic Silverio sign. The main portal vein is antegrade. The right kidney is 9.4 cm in length. No ascites. IMPRESSION: 1. Unremarkable right upper quadrant abdominal ultrasound. This document has been electronically signed by: Sonu Gallo MD on 09/02/2024 23:00:24
--- OUTSIDE RECORDS SUMMARY | 2024-08-27 11:00 | XMS_ITS | Data Portability ---
Author Organization [facility] [place] Address [address] [place] [address] [address] [place] [address] Care Team Providers Care Food Taster Name Role Phone PIO ESTRADA Primary Care Provider JOSE RAFAEL Franco OTHER [phone] Assessment No assessment recorded. Plan of Treatment Reminders Order Date Submit Date Provider Last Modified By Organization Details Last Modified Time Details Appointments None recorded. Lab fecal occult blood, stool 2019 020 [email or web address], [address] [place], [address], 0 18:43:44 HbA1c (hemoglobin A1c), blood 2019 020 [facility], [address] [place], [address], 0 07:54:23 lipid panel, blood 2019 020 [facility], [address] [place], [address], 0 07:54:21 TSH + free T4, serum 2019 020 [facility], [address] [place], [address], 0 07:54:22 CMP, serum or plasma 2019 020 [facility], [address], [place], [address], 0 07:54:22 TSH + free T4, serum 2019 020 [email or web address], [address], [place], [address], 0 18:43:45 CBC w/ auto diff 2019 020 [facility], [address], [place], [address], 0 07:54:23 T3, free, serum or plasma 2019 020 [facility], [address], [place], [address], 0 07:54:23 urinalysis complete, reflex culture 2019 020 [email or web address], [address], [place], [address], 0 18:43:45 vitamin D, 25-hydroxy, total, serum 2019 020 [facility], [address], [place], [address], 0 08:00:40 fecal occult blood, stool 2019 020 [facility], [address], [place], [address], 0 05:01:30 HbA1c (hemoglobin A1c), blood 2019 020 [facility], [address], [place], [address], 0 08:00:40 vitamin B12 + folate, serum or blood 2019 020 [facility], [address], [place], [address], 0 08:00:41 CMP, serum or plasma 2019 020 [facility], [address], [place], [address], 0 08:00:39 CBC w/ auto diff 2019 020 [facility], [address] [facility], [place], [address], 0 08:00:40 urinalysis complete, reflex culture 2019 020 [facility], [address] [facility], [place], [address], 0 05:01:30 lipid panel, serum 2019 020 [facility], [address] [facility], [place], [address], 0 05:01:30 Referral None recorded. Procedures None recorded. Surgeries None recorded. Imaging None recorded. Medication Orders amoxicillin 500 mg tablet 2019 020 [place] [address], [address] [place], [address], 0 11:14:25 prednisone 10 mg tablet 2019 020 [place] [address], [address] [place], [address], 0 11:15:49 Golytely 236 gram-22.74 gram-6.74 gram-5.86 gram oral solution [address] [place], [address], 0 15:38:30 Patient TargetsNo targets recorded. Patient Instructions Encounter Date Encounter Id Patient Instructions Last Modified By Organization Details Last Modified Time 08/08/2019 [id number] Acute Sinusitis: Care Instructions Not available 08/08/2019 12:12:09 cough: care instructions Not available 08/08/2019 12:12:09 PLAN 1. Patient to follow up with PCP within the next {{1-2 2-3 3-5* 5-7}} days if symptoms persist 2. Patient directed to follow up here if unable to reach PCP 3. Patient instructed on hours of operation and location of each of our clinics ([place], [facility], [facility], [place], [place] and [facility]), and they are encouraged to return for any questions, concerns, and evaluations. 4. Patient directed to CALL 911/and/or GO IMMEDIATELY to the emergency dept if symptoms worsen 5. Discussed natural and expected course of this diagnosis and need to alert me if symptoms do not follow expected course, or if any worse. Not available 08/08/2019 12:12:07 09/14/2019 [id number] knee arthritis: care instructions [email or web address] Not available 09/14/2019 13:44:20 osteoarthritis: care instructions [email or web address] Not available 09/14/2019 13:44:19 joint injections : care instructions [email or web address] Not available 09/14/2019 13:44:19 gastroesophageal reflux disease (GERD): care instructions [email or web address] Not available 09/14/2019 13:44:19 heart-healthy di et: care instructions [email or web address] Not available 09/14/2019 13:53:23 09/20/2019 [id number] anemia: care instructions Not available 09/20/2019 16:04:13 Not available 2019 16:02:00 Reason for Referral None Reported. Results Created Date Observation Date Name Description Value Unit Range Abnormal Flag Note LastModifiedBy Organization Detail LastModifiedTime 09/15/1909/20/2019 lipid panel , blood cholesterol, total 135 mg/dL <200 SAMPL E SLIGH TLY LIPEM IC. Not Available [facility] [place] [facility] [address], [place], [address], 09/20/2019 18:21:10 09/15/1909/20/2019 lipid panel , blood HDL cholesterol 47 mg/dL > or = 50 low SAMPL E SLIGH TLY LIPEM IC. Not Available [facility] [place] [facility] [address], [place], [address], 09/20/2019 18:21:10 09/15/19 20 09/20/2019 lipid panel , blood triglyceride s 89 mg/dL <150 SAMPL E SLIGH TLY LIPEM IC. Not Available [facility] [place] [facility] [address], [place], [address], 09/20/2019 18:21:10 09/15/19 20 09/20/2019 lipid panel , blood LDL-choleste rol 71 mg/dL _(janna c) <100 Carlos able range <100 mg/dL for prima ry preve ntion ; <70 mg/dL for patie nts with CHD or diabe tic patie nts with > or = 2 CHD risk facto rs. LDL-C is now calcu lated using the Shireen n-Hop kins calcu deondre n, which is a valid ated novel metho d provi ding adriano r accur acy than the Fried temo equat ion in the estim ation of LDL-C . Shireen rolle SS et al. TU. 2013; 310(1 9): 2061- 2068 For addit ional infor kenyon moreno e refer to http: //[facility] catmekhi n.Que stDia gnost ics.c om/fa q/FAQ 164 (This link is being provi ded for infor neela nal/e ducat ional purpo ses only. ) Not Available [facility] [place] [facility] [address], [place], [address], 09/20/2019 18:21:10 09/15/19 20 09/20/2019 lipid panel , blood chol/HDLC ratio 2.9 calc <5.0 Not Available [facility] [place] [facility] [address], [place], [address], 09/20/2019 18:21:10 09/15/19 20 09/20/2019 lipid panel , blood non HDL cholesterol 88 mg/dL _(janna c) <130 For patie nts with diabe john plus 1 major ASCVD risk facto r, treat ing to a non-H DL-C goal of <100 mg/dL (LDL- C of <70 mg/dL ) is consi dered a thera peuti c optio n. Not Available [facility] [place] [facility] [address], [place], [address], 09/20/2019 18:21:10 09/15/19 20 09/16/2019 TSH + free T4, serum TSH 2.16 mIU/L 0.40-4 .50 normal Not Available [facility] [place] [facility] [address], [place], [address], 09/16/2019 08:47:57 09/15/19 20 09/16/2019 TSH + free T4, serum T4, free 1.2 NG/dL 0.8-1. 8 normal Not Available [facility] [address], [place], [address], 09/16/2019 08:47:57 09/15/19 20 09/15/2019 CMP, serum or plasm a glucose 104 mg/dL 65-99 high Fasti ng refer ence inter zayda For someo ne witho ut known diabe john, a gluco se value betwe en 100 and 125 mg/dL is consi stent with predi abete s and shoul d be confi rmed with a follo w-up test. Not Available [facility] [address], [place], [address], 09/15/2019 22:32:23 09/15/19 20 09/15/2019 CMP, serum or plasm a urea nitrogen (BUN) 16 mg/dL 7-25 normal Not Available [facility] [place] [facility] [address], [place], [address], 09/15/2019 22:32:23 09/15/19 20 09/15/2019 CMP, serum or plasm a creatinine 0.78 mg/dL 0.60-0 .93 normal For patie nts >49 years of age, the refer ence limit for [facility] is appro ximat christine 13% highe r for peopl e ident ified as Afric an-Am chanel n. Not Available [facility] [address], [place], [address], 09/15/2019 22:32:23 09/15/19 20 09/15/2019 CMP, serum or plasm a eGFR non-afr. british 74 mL/mi n/1.7 3m2 > or = 60 normal Not Available [facility] [address], [place], [address], 09/15/2019 22:32:23 09/15/19 20 09/15/2019 CMP, serum or plasm a eGFR 86 mL/mi n/1.7 3m2 > or = 60 normal Not Available [facility] [address], [place], [address], 09/15/2019 22:32:23 09/15/19 20 09/15/2019 CMP, serum or plasm a BUN/creatini ne ratio NOT APPLIC ABLE (calc ) 6-22 Not Available [facility] [address], [place], [address], 09/15/2019 22:32:23 09/15/19 20 09/15/2019 CMP, serum or plasm a sodium 134 mmol/ L 135-14 6 low Not Available [facility] [address], [place], [address], 09/15/2019 22:32:23 09/15/19 20 09/15/2019 CMP, serum or plasm a potassium 4.4 mmol/ L 3.5-5. 3 normal Not Available [facility] [address], [place], [address], 09/15/2019 22:32:23 09/15/19 20 09/15/2019 CMP, serum or plasm a chloride 100 mmol/ L 98-110 normal Not Available [facility] [address], [place], [address], 09/15/2019 22:32:23 09/15/19 20 09/15/2019 CMP, serum or plasm a carbon dioxide 29 mmol/ L 20-32 normal Not Available [facility] [address], [place], [address], 09/15/2019 22:32:23 09/15/19 20 09/15/2019 CMP, serum or plasm a calcium 8.9 mg/dL 8.6-10 .4 normal Not Available [facility] [address], [place], [address], 09/15/2019 22:32:23 09/15/19 20 09/15/2019 CMP, serum or plasm a protein, total 5.9 g/dL 6.1-8. 1 low Not Available [facility] [place] [facility] [address], [place], [address], 09/15/2019 22:32:23 09/15/19 20 09/15/2019 CMP, serum or plasm a albumin 3.5 g/dL 3.6-5. 1 low Not Available [facility] [address], [place], [address], 09/15/2019 22:32:23 09/15/19 20 09/15/2019 CMP, serum or plasm a globulin 2.4 g/dL_ (calc ) 1.9-3. 7 normal Not Available [facility] [address], [place], [address], 09/15/2019 22:32:23 09/15/19 20 09/15/2019 CMP, serum or plasm a albumin/glob ulin ratio 1.5 (calc ) 1.0-2. 5 normal Not Available [facility] [address], [place], [address], 09/15/2019 22:32:23 02/19/09/15/2019 CMP, serum or plasm a bilirubin, total 0.9 mg/dL 0.2-1. 2 normal Not Available [facility] [place] [facility] [address], [place], [address], 09/15/2019 22:32:23 09/15/19 20 09/15/2019 CMP, serum or plasm a alkaline phosphatase 56 U/L 37-153 normal Not Available [facility] [place] [facility] [address], [place], [address], 09/15/2019 22:32:23 09/15/19 20 09/15/2019 CMP, serum or plasm a AST 19 U/L 10-35 normal Not Available [facility] [place] [facility] [address], [place], [address], 09/15/2019 22:32:23 09/15/19 20 09/15/2019 CMP, serum or plasm a ALT 14 U/L 6-29 normal Not Available [facility] [place] [facility] [address], [place], [address], 09/15/2019 22:32:23 09/15/1909/16/2019 HbA1c (hemo globi n A1c), blood hemoglobin A1C 5.6 %_of_ total _HGB <5.7 normal For the purpo se of beverley sharmag for the prese nce of diabe john: <5.7% Consi stent with the absen ce of diabe john 5.7-6 .4% Consi stent with incre ased risk for diabe john (pred iabet es) > or =6.5% Consi stent with diabe john This assay resul t is consi stent with a decre ased risk of diabe john. Curre ntly, no conse nsus exist champ soler use of hemog lobin A1c for diagn osis of diabe john in child jack. Accor karlene to Ameri can Diabe john Assoc iatio n (ADA) guide lines , hemog lobin A1c <7.0% repre sents optim al contr ol in non-p regna nt diabe tic patie nts. Diffe rent metri cs may apply to speci fic patie nt popul ation s. Stand ards of Medic al Care in Diabe john(A DA). Not Available [facility] [place] [facility] [address], [place], [address], 09/16/2019 01:11:23 09/15/19 20 09/16/2019 T3, free, serum or plasm a T3, free 3.4 pg/mL 2.3-4. 2 normal Not Available [facility] [place] [facility] [address], [place], [address], 09/16/2019 08:47:59 09/15/19 20 09/15/2019 CBC w/ auto diff white blood cell count 5.8 thous and/u L 3.8-10 .8 normal Not Available [facility] [place] [facility] [address], [place], [address], 09/15/2019 22:32:25 09/15/19 20 09/15/2019 CBC w/ auto diff red blood cell count 3.33 kecia on/uL 3.80-5 .10 low Not Available [facility] [place] [facility] [address], [place], [address], 09/15/2019 22:32:25 09/15/19 20 09/15/2019 CBC w/ auto diff hemoglobin 11.5 g/dL 11.7-1 5.5 low Not Available [facility] [place] [facility] [address], [place], [address], 09/15/2019 22:32:25 09/15/19 20 09/15/2019 CBC w/ auto diff hematocrit 34.1 % 35.0-4 5.0 low Not Available [facility] [place] [facility] [address], [place], [address], 09/15/2019 22:32:25 09/15/19 20 09/15/2019 CBC w/ auto diff MCV 102.4 fL 80.0-1 00.0 high Not Available [facility] [address], [place], [address], 09/15/2019 22:32:25 09/15/19 20 09/15/2019 CBC w/ auto diff MCH 34.5 pg 27.0-3 3.0 high Not Available [facility] [address], [place], [address], 09/15/2019 22:32:25 09/15/19 20 09/15/2019 CBC w/ auto diff MCHC 33.7 g/dL 32.0-3 6.0 normal Not Available [facility] [address], [place], [address], 09/15/2019 22:32:25 09/15/19 20 09/15/2019 CBC w/ auto diff RDW 12.6 % 11.0-1 5.0 normal Not Available [facility] [address], [place], [address], 09/15/2019 22:32:25 09/15/19 20 09/15/2019 CBC w/ auto diff platelet count 235 thous and/u L 140-40 0 normal Not Available [facility] [address], [place], [address], 09/15/2019 22:32:25 09/15/19 20 09/15/2019 CBC w/ auto diff MPV 11.4 fL 7.5-12 .5 normal Not Available [facility] [address], [place], [address], 09/15/2019 22:32:25 09/15/19 20 09/15/2019 CBC w/ auto diff absolute neutrophils 3352 cells /uL 1500-7 800 normal Not Available [facility] [address], [place], [address], 09/15/2019 22:32:25 09/15/19 20 09/15/2019 CBC w/ auto diff absolute lymphocytes 1688 cells /uL 850-39 00 normal Not Available [facility] [address], [place], [address], 09/15/2019 22:32:25 09/15/19 20 09/15/2019 CBC w/ auto diff absolute monocytes 609 cells /uL 200-95 0 normal Not Available [facility] [address], [place], [address], 09/15/2019 22:32:25 09/15/19 20 09/15/2019 CBC w/ auto diff absolute eosinophils 81 cells /uL 15-500 normal Not Available [facility] [address], [place], [address], 09/15/2019 22:32:25 09/15/19 20 09/15/2019 CBC w/ auto diff absolute basophils 70 cells /uL 0-200 normal Not Available [facility] [address], [facility] [place], [address], 09/15/2019 22:32:25 09/15/19 20 09/15/2019 CBC w/ auto diff neutrophils 57.8 % normal Not Available [facility] [address], [place], [address], 09/15/2019 22:32:25 09/15/19 20 09/15/2019 CBC w/ auto diff lymphocytes 29.1 % normal Not Available [facility] [address], [facility] [place], [address], 09/15/2019 22:32:25 09/15/19 20 09/15/2019 CBC w/ auto diff monocytes 10.5 % normal Not Available [facility] [address], [place], [address], 09/15/2019 22:32:25 09/15/19 20 09/15/2019 CBC w/ auto diff eosinophils 1.4 % normal Not Available [facility] [place] [facility] [address], [place], [address], 09/15/2019 22:32:25 09/15/19 20 09/15/2019 CBC w/ auto diff basophils 1.2 % normal Not Available [facility] [place] [facility] [address], [place], [address], 09/15/2019 22:32:25 09/15/19 20 09/15/2019 abn test refus al BRADY Be advis ed that your patie nt has indic ated on the advan ce benef iciar y notic e their decis ion not to recei ve the follo wing labor atory tests . As a resul t, the tests will not be perfo rmed. Not Available [facility] [place] [facility] [address], [place], [address], 09/15/2019 07:54:24 09/15/19 20 09/15/2019 abn test refus al abn test refused 3020 Not Available [facility] [place] [facility] [address], [place], [address], 09/15/2019 07:54:24 10/11/19 20 10/18/2019 lipid panel , blood cholesterol, total 136 mg/dL <200 SAMPL E SLIGH TLY LIPEM IC. Not Available [facility] [place] [facility] [address], [place], [address], 10/18/2019 16:45:27 10/11/19 20 10/18/2019 lipid panel , blood HDL cholesterol 51 mg/dL > or = 50 SAMPL E SLIGH TLY LIPEM IC. Not Available [facility] [place] [facility] [address], [place], [address], 10/18/2019 16:45:27 10/11/19 20 10/18/2019 lipid panel , blood triglyceride s 72 mg/dL <150 SAMPL E SLIGH TLY LIPEM IC. Not Available [facility] [place] [facility] [address], [place], [address], 10/18/2019 16:45:27 10/11/19 20 10/18/2019 lipid panel , blood LDL-choleste rol 70 mg/dL _(janna c) <100 Carlos able range <100 mg/dL for prima ry preve ntion ; <70 mg/dL for patie nts with CHD or diabe tic patie nts with > or = 2 CHD risk facto rs. LDL-C is now calcu lated using the Shireen n-Hop kins calcu deondre n, which is a valid ated novel metho d provi karlene rosales accur acy than the Fried temo equat ion in the estim ation of LDL-C . Shireen rolle SS et al. TU. 2013; 310(1 9): 2061- 2068 For addit ional infor kenyon moreno e refer to http: //[facility] polina rolle.Que stDia gnost ics.c om/fa q/FAQ 164 (This link is being provi ded for infor neela nal/e ducat ional purpo ses only. ) Not Available [facility] [place] [facility] [address], [place], [address], 10/18/2019 16:45:27 10/11/19 20 10/18/2019 lipid panel , blood chol/HDLC ratio 2.7 calc <5.0 Not Available [facility] [place] [facility] [address], [place], [address], 10/18/2019 16:45:27 10/11/19 20 10/18/2019 lipid panel , blood non HDL cholesterol 85 mg/dL _(janna c) <130 For patie nts with diabe john plus 1 major ASCVD risk facto r, treat ing to a non-H DL-C goal of <100 mg/dL (LDL- C of <70 mg/dL ) is consi dered a thera peuti c optio n. Not Available [facility] [place] [facility] [address], [place], [address], 10/18/2019 16:45:27 10/11/1910/11/2019 CMP, serum or plasm a glucose 106 mg/dL 65-99 high Fasti ng refer ence inter zayda For someo ne witho ut known diabe john, a gluco se value betwe en 100 and 125 mg/dL is consi stent with predi abete s and shoul d be confi rmed with a follo w-up test. Not Available [facility] [address], [place], [address], 10/11/2019 20:47:45 10/11/1910/11/2019 CMP, serum or plasm a urea nitrogen (BUN) 15 mg/dL 7-25 normal Not Available [facility] [address], [place], [address], 10/11/2019 20:47:45 10/11/1910/11/2019 CMP, serum or plasm a creatinine 0.79 mg/dL 0.60-0 .93 normal For patie nts >49 years of age, the refer ence limit for Creat inine is appro ximat christine 13% highe r for peopl e ident ified as Afric an-Am chanel n. Not Available [facility] [address], [place], [address], 10/11/2019 20:47:45 10/11/1910/11/2019 CMP, serum or plasm a eGFR non-afr. british 73 mL/mi n/1.7 3m2 > or = 60 normal Not Available [facility] [address], [place], [address], 10/11/2019 20:47:45 10/11/19 20 10/11/2019 CMP, serum or plasm a eGFR 84 mL/mi n/1.7 3m2 > or = 60 normal Not Available [facility] [address], [place], [address], 10/11/2019 20:47:45 10/11/19 20 10/11/2019 CMP, serum or plasm a BUN/creatini ne ratio NOT APPLIC ABLE (calc ) 6-[address] [facility] [place] [place] [facility] [address], [place], [address], 10/11/2019 20:47:45 10/11/19 20 10/11/2019 CMP, serum or plasm a sodium 136 mmol/ L 135-14 6 normal Not Available [facility] [place] [place] [facility] [address], [place], [address], 10/11/2019 20:47:45 10/11/19 20 10/11/2019 CMP, serum or plasm a potassium 4.2 mmol/ L 3.5-5. 3 normal Not Available [place] [address], [place], [address], 10/11/2019 20:47:45 10/11/19 20 10/11/2019 CMP, serum or plasm a chloride 100 mmol/ L 98-110 normal Not Available [facility] [place] [place] [facility] [address], [place], [address], 10/11/2019 20:47:45 10/11/19 20 10/11/2019 CMP, serum or plasm a carbon dioxide 30 mmol/ L 20-32 normal Not Available [facility] [address], [place], [address], 10/11/2019 20:47:45 10/11/19 20 10/11/2019 CMP, serum or plasm a calcium 8.9 mg/dL 8.6-10 .4 normal Not Available [facility] [address], [place], [address], 10/11/2019 20:47:45 10/11/19 20 10/11/2019 CMP, serum or plasm a protein, total 6.0 g/dL 6.1-8. 1 low Not Available [facility] [place] [place] [facility] [address], [place], [address], 10/11/2019 20:47:45 10/11/19 20 10/11/2019 CMP, serum or plasm a albumin 3.6 g/dL 3.6-5. 1 normal Not Available [facility] [address], [place], [address], 10/11/2019 20:47:45 10/11/19 20 10/11/2019 CMP, serum or plasm a globulin 2.4 g/dL_ (calc ) 1.9-3. 7 normal Not Available [facility] [address], [place], [address], 10/11/2019 20:47:45 10/11/19 20 10/11/2019 CMP, serum or plasm a albumin/glob ulin ratio 1.5 (calc ) 1.0-2. 5 normal Not Available [facility] [address], [place], [address], 10/11/2019 20:47:45 10/11/19 20 10/11/2019 CMP, serum or plasm a bilirubin, total 0.9 mg/dL 0.2-1. 2 normal Not Available [facility] [address], [place], [address], 10/11/2019 20:47:45 10/11/19 20 10/11/2019 CMP, serum or plasm a alkaline phosphatase 60 U/L 37-153 normal Not Available [facility] [address], [place], [address], 10/11/2019 20:47:45 10/11/19 20 10/11/2019 CMP, serum or plasm a AST 18 U/L 10-35 normal Not Available [facility] [address], [place], [address], 10/11/2019 20:47:45 10/11/19 20 10/11/2019 CMP, serum or plasm a ALT 15 U/L 6-29 normal Not Available [facility] [place] [facility] [address], [place], [address], 10/11/2019 20:47:45 10/11/19 20 10/11/2019 HbA1c (hemo globi n A1c), blood hemoglobin A1C 5.5 %_of_ total _HGB <5.7 normal For the purpo se of scree dorita for the prese nce of diabe john: <5.7% Consi stent with the absen ce of diabe john 5.7-6 .4% Consi stent with incre ased risk for diabe john (pred iabet es) > or =6.5% Consi stent with diabe john This assay resul t is consi stent with a decre ased risk of diabe john. Curre ntly, no conse nsus exist s marjar karlene use of hemog lobin A1c for diagn osis of diabe john in child jack. Accor ding to Ameri can Diabe john Assoc iatio n (ADA) guide lines , hemog lobin A1c <7.0% repre sents optim al contr ol in non-p regna nt diabe tic patie nts. Diffe rent metri cs may apply to speci fic patie nt popul ation s. Stand ards of Medic al Care in Diabe john(A DA). Not Available [facility] [place] [facility] [address], [place], [address], 10/11/2019 21:32:41 10/11/19 20 10/12/2019 vitam in D, 25-hy droxy , total , serum vitamin D,25-oh,tota l,ia 53 NG/mL 30-100 normal Vitam in D Statu s 25-OH Vitam in D: Defic iency : <20 ng/mL Insuf ficie ncy: 20 - 29 ng/mL Optim al: > or = 30 ng/mL For 25-OH Vitam in D testi ng on patie nts on D2-hanks pplem entat ion and patie nts for whom quant itati on of D2 and D3 fract ions is requi red, the [facility](TM ) 25-OH VIT D, (D2,D 3), LC/MS /MS is recom hever d: order code [id number] (victoria ents >2yrs ). For more infor neela rolle on this test, go to: http: //[email or web address] om/fa q/FAQ 163 (This link is being provi ded for infor neela nal/e ducat ional purpo ses only. ) Not Available [facility] [place] [facility] [address], [place], [address], 10/12/2019 04:05:42 10/11/19 20 10/11/2019 CBC w/ auto diff white blood cell count 6.1 thous and/u L 3.8-10 .8 normal Not Available [facility] [place] [facility] [address], [place], [address], 10/11/2019 22:14:42 10/11/1910/11/2019 CBC w/ auto diff red blood cell count 3.46 kecia on/uL 3.80-5 .10 low Not Available [facility] [place] [facility] [address], [place], [address], 10/11/2019 22:14:42 10/11/1910/11/2019 CBC w/ auto diff hemoglobin 11.7 g/dL 11.7-1 5.5 normal Not Available [facility] [place] [facility] [address], [place], [address], 10/11/2019 22:14:42 10/11/19 20 10/11/2019 CBC w/ auto diff hematocrit 35.5 % 35.0-4 5.0 normal Not Available [facility] [place] [facility] [address], [place], [address], 10/11/2019 22:14:42 10/11/19 20 10/11/2019 CBC w/ auto diff MCV 102.6 fL 80.0-1 00.0 high Not Available [facility] [address], [place], [address], 10/11/2019 22:14:42 10/11/19 20 10/11/2019 CBC w/ auto diff MCH 33.8 pg 27.0-3 3.0 high Not Available [facility] [address], [place], [address], 10/11/2019 22:14:42 10/11/19 20 10/11/2019 CBC w/ auto diff MCHC 33.0 g/dL 32.0-3 6.0 normal Not Available [facility] [address], [place], [address], 10/11/2019 22:14:42 10/11/19 20 10/11/2019 CBC w/ auto diff RDW 12.1 % 11.0-1 5.0 normal Not Available [facility] [address], [place], [address], 10/11/2019 22:14:42 10/11/19 20 10/11/2019 CBC w/ auto diff platelet count 267 thous and/u L 140-40 0 normal Not Available [facility] [address], [place], [address], 10/11/2019 22:14:42 10/11/19 20 10/11/2019 CBC w/ auto diff MPV 11.6 fL 7.5-12 .5 normal Not Available [facility] [address], [place], [address], 10/11/2019 22:14:42 10/11/19 20 10/11/2019 CBC w/ auto diff absolute neutrophils 3178 cells /uL 1500-7 800 normal Not Available [facility] [address], [place], [address], 10/11/2019 22:14:42 10/11/19 20 10/11/2019 CBC w/ auto diff absolute lymphocytes 2135 cells /uL 850-39 00 normal Not Available [facility] [address], [place], [address], 10/11/2019 22:14:42 10/11/19 20 10/11/2019 CBC w/ auto diff absolute monocytes 647 cells /uL 200-95 0 normal Not Available [facility] [address], [place], [address], 10/11/2019 22:14:42 10/11/19 20 10/11/2019 CBC w/ auto diff absolute eosinophils 92 cells /uL 15-500 normal Not Available [facility] [address], [place], [address], 10/11/2019 22:14:42 10/11/19 20 10/11/2019 CBC w/ auto diff absolute basophils 49 cells /uL 0-200 normal Not Available [facility] [address], [place], [address], 10/11/2019 22:14:42 10/11/19 20 10/11/2019 CBC w/ auto diff neutrophils 52.1 % normal Not Available [facility] [address], [place], [address], 10/11/2019 22:14:42 10/11/19 20 10/11/2019 CBC w/ auto diff lymphocytes 35.0 % normal Not Available [facility] [address], [place], [address], 10/11/2019 22:14:42 10/11/19 20 10/11/2019 CBC w/ auto diff monocytes 10.6 % normal Not Available [facility] [address], [place], [address], 10/11/2019 22:14:42 10/11/19 20 10/11/2019 CBC w/ auto diff eosinophils 1.5 % normal Not Available [facility] [place] [facility] [address], [place], [address], 10/11/2019 22:14:42 10/11/19 20 10/11/2019 CBC w/ auto diff basophils 0.8 % normal Not Available [facility] [address], [place], [address], 10/11/2019 22:14:42 10/11/19 20 10/12/2019 vitam in B12 + folat e, serum or blood vitamin B12 >2000 pg/mL 200-11 00 high Not Available [facility] [address], [place], [address], 10/12/2019 16:41:19 10/11/19 20 10/12/2019 vitam in B12 + folat e, serum or blood folate, serum >24.0 NG/mL normal Refer ence Range Low: <3.4 Borde rline : 3.4-5 .4 Viki l: >5.4 Not Available [facility] [address], [place], [address], 10/12/2019 16:41:19 10/11/1910/11/2019 abn test refus al BRADY Be advis ed that your patie nt has indic ated on the advan ce benef iciar y notic e their decis ion not to recei ve the follo wing labor atory tests . As a resul t, the tests will not be perfo rmed. Not Available [facility] [address], [place], [address], 10/11/2019 08:00:42 10/11/19 20 10/11/2019 abn test refus al abn test refused 3020 Not Available [facility] [address] [place], [address], 10/11/2019 08:00:42 Result Notes None recorded. Problems Name Problem SNOMED Code Status Onset Date Resolution Date Notes Provider Name and Address Organization Details Recorded Time History of hypertension 956176760 Active [address] [facility] 0 11:18:32 Heartburn 67859760 Active 2019 [facility] 0 11:18:57 Problem Notes None recorded. Procedures Surgical History Date Name Laterality Status Provider Name and Address Organization Details Recorded Time 07/28/18 70 surgical treatment of miscarriage of any trimester completed [facility] 09/14/2019 11:20:30 07/28/18 60 Partial Hysterectomy completed [facility] 09/20/2019 15:41:17 Imaging Results None recorded. Procedure Notes None recorded. Medical Equipment None Reported. Allergies Allergen ID Allergen Name Allergen Category Reaction Reaction Severity Criticality Documentation Date Start Date Code Code System Note Provider Name and Address Organization Details Recorded Time 2290 iodine medicatio n Not available Not available Not available 07/29/2019 5933 RxNorm leann [facility] 0 12:10:04 Medications Name Sig Start Date Stop Date Status Note LastModified by Organization Details LastModified Time amoxicillin 500 mg capsule 09/14 completed Not Available Not Available Not Available prednisone 10 mg tablet TAKE 3 TABS PO DAYS 1-3, 2 TABS PO DAYS 4-6, 1 TAB PO DAYS 7-9 09/14 completed Not Available Not Available Not Available azithromyci n 250 mg tablet TAKE 2 TABLETS (500 MG) BY ORAL ROUTE ONCE DAILY FOR 1 DAY THEN 1 TABLET (250 MG) BY ORAL ROUTE ONCE DAILY FOR 4 DAYS 08/08 completed Not Available Not Available Not Available sulfamethox azole 400 mg-trimetho prim 80 mg tablet 07/29 completed Not Available Not Available Not Available Medrol (Bowen) 4 mg tablets in a dose pack Take as directed 08/08 completed Not Available Not Available Not Available fexofenadin e 180 mg tablet Take 1 tablet every day by oral route. 2019 active Not Available Not Available Not Avai lable amoxicillin 500 mg tablet Take 1 tablet every 8 hours by oral route for 10 days. 09/14 completed Not Available Not Available Not Available terbinafine HCl 250 mg tablet 07/29 completed Not Available Not Available Not Available ranitidine 150 mg tablet 07/29 completed Not Available Not Available Not Available omeprazole 20 mg capsule,del ayed release Take 1 capsule every day by oral route for 90 days. 09/20 completed Not Available Not Available Not Available furosemide 20 mg tablet takes 1 tab once a day as needed 2019 active Not Available Not Available Not Avai lable lisinopril 10 mg-hydrochl orothiazide 12.5 mg tablet Take 1 tablet every day by oral route for 90 days. 1998 active Not Available Not Available Not Avai lable estradiol 0.01% (0.1 mg/gram) vaginal cream applies as needed 2018 active Not Available Not Available Not Avai lable fluticasone propionate 50 mcg/actuati on nasal spray,suspe nsion [facility] 1 spray every day by intranasa l route. 10/17 completed Not Available Not Available Not Available doxycycline hyclate 100 mg tablet 07/29 completed Not Available Not Available Not Available Toviaz 8 mg tablet,exte nded release Take 1 tablet every day by oral route for 90 days. 2018 active Not Available Not Available Not Avai lable GaviLyte-G 236 gram-22.74 gram-6.74 gram-5.86 gram oral solution 240 mL pO q 30 minutes until (+) BM 09/20 completed Not Available Not Available Not Available Vitals Date Recorded Body height Provider Name an d Address Organization Details Last Updated DateTime 09/14/2019 160.02 cm destiny david [facility] 09/14/2019 11:11:34 Date Recorded Heart rate Provider Name an d Address Organization Details Last Updated DateTime 09/14/2019 79 /min destiny david [facility] 09/14/2019 11:12:15 Date Recorded Respiratory rate Provider Name a nd Address Organization Details Last Updated DateTime 09/14/2019 18 /min destiny [place] [facility] 09/14/2019 11:12:38 Date Recorded Body temperature Provider Name a nd Address Organization Details Last Updated DateTime 09/14/2019 97.7 [degF] destiny [place] [facility] 09/14/2019 11:12:46 Date Recorded Body mass index (BMI) Body weight Provider Name and Address Organization Details Last Updated DateTime 09/14/2019 38.5 kg/m2 50431.98 g destiny david [place] [facility] 09/14/2019 11:12:55 Date Recorded Oxygen saturation Oxygen saturation in Arterial blood by Pulse oximetry Provider Name and Address Organization Details Last Updated DateTime 09/14/2019 99 % 99 % destiny david [place] [facility] 09/14/2019 11:13:19 Date Recorded Body height Provider Name an d Address Organization Details Last Updated DateTime 09/20/2019 160.02 cm destiny david [place] [facility] 09/20/2019 15:35:05 Date Recorded Heart rate Provider Name an d Address Organization Details Last Updated DateTime 09/20/2019 77 /min destiny [place] [facility] 09/20/2019 15:35:46 Date Recorded Respiratory rate Provider Name a nd Address Organization Details Last Updated DateTime 09/20/2019 18 /min destiny [place] [facility] 09/20/2019 15:35:48 Date Recorded Body temperature Provider Name a nd Address Organization Details Last Updated DateTime 09/20/2019 98.2 [degF] destiny [place] [facility] 09/20/2019 15:35:53 Date Recorded Body mass index (BMI) Body weight Provider Name and Address Organization Details Last Updated DateTime 09/20/2019 38.1 kg/m2 69020.36 g destiny alfaroitez [place] [facility] 09/20/2019 15:35:59 Date Recorded Oxygen saturation Oxygen saturation in Arterial blood by Pulse oximetry Provider Name and Address Organization Details Last Updated DateTime 09/20/2019 97 % 97 % destiny david [place] [facility] 09/20/2019 15:36:13 Date Recorded Body height Provider Name an d Address Organization Details Last Updated DateTime 10/18/2019 160.02 cm destiny david [place] [facility] 10/18/2019 12:04:27 Date Recorded Heart rate Provider Name an d Address Organization Details Last Updated DateTime 10/18/2019 48 /min destinymartin david [place] [facility] 10/18/2019 12:04:44 Date Recorded Respiratory rate Provider Name a nd Address Organization Details Last Updated DateTime 10/18/2019 18 /min destinymartin david [place] [facility] 10/18/2019 12:04:37 Date Recorded Body temperature Provider Name a nd Address Organization Details Last Updated DateTime 10/18/2019 97.8 [degF] destiny david [place] [facility] 10/18/2019 12:04:49 Date Recorded Body mass index (BMI) Body weight Provider Name and Address Organization Details Last Updated DateTime 10/18/2019 37.7 kg/m2 50944.74 g destiny david [place] [facility] 10/18/2019 12:04:55 Date Recorded Oxygen saturation Oxygen saturation in Arterial blood by Pulse oximetry Provider Name and Address Organization Details Last Updated DateTime 10/18/2019 98 % 98 % destiny david [place] [facility] 10/18/2019 12:05:05 Date Recorded Body height Provider Name an d Address Organization Details Last Updated DateTime 07/29/2019 160.02 cm leann david [place] [facility] 07/29/2019 12:11:02 Date Recorded Body mass index (BMI) Body weight Provider Name and Address Organization Details Last Updated DateTime 07/29/2019 35.4 kg/m2 88424.47 g leann david [place] [facility] 07/29/2019 12:11:06 Date Recorded Respiratory rate Provider Name a nd Address Organization Details Last Updated DateTime 07/29/2019 18 /min leann david [place] [facility] 07/29/2019 12:11:08 Date Recorded Heart rate Provider Name an d Address Organization Details Last Updated DateTime 07/29/2019 74 /min leann [place] - [facility] 07/29/2019 12:11:11 Date Recorded Body temperature Provider Name a nd Address Organization Details Last Updated DateTime 07/29/2019 98.4 [degF] leann david [place] [facility] 07/29/2019 12:11:16 Date Recorded Oxygen saturation Oxygen saturation in Arterial blood by Pulse oximetry Provider Name and Address Organization Details Last Updated DateTime 07/29/2019 94 % 94 % leann david [place] [facility] 07/29/2019 12:11:27 Date Recorded Body height Provider Name an d Address Organization Details Last Updated DateTime 08/08/2019 160.02 cm DOMINIQUE Estrada [facility] 08/08/2019 11:53:32 Date Recorded Respiratory rate Provider Name a nd Address Organization Details Last Updated DateTime 08/08/2019 18 /min DOMINIQUE Estrada [facility] 08/08/2019 11:53:41 Date Recorded Body mass index (BMI) Body weight Provider Name and Address Organization Details Last Updated DateTime 08/08/2019 35.4 kg/m2 89674.47 g DOMINIQUE NÚÑEZ [place] [facility] 08/08/2019 11:53:54 Date Recorded Heart rate Provider Name an d Address Organization Details Last Updated DateTime 08/08/2019 87 /min DOMINIQUE Estrada [facility] 08/08/2019 11:53:59 Date Recorded Body temperature Provider Name a nd Address Organization Details Last Updated DateTime 08/08/2019 97.7 [degF] DOMINIQUE [facility] 08/08/2019 11:54:05 Date Recorded Oxygen saturation Oxygen saturation in Arterial blood by Pulse oximetry Provider Name and Address Organization Details Last Updated DateTime 08/08/2019 96 % 96 % DOMINIQUE NI[facility] 08/08/2019 11:54:08 Date Recorded Systolic blood pressure Diastolic blood pressure Provider Name and Address Organization Details Last Updated DateTime 09/14/2019 135 mm[Hg] 62 mm[Hg] destiny david [facility] 09/14/2019 11:13:10 Date Recorded Systolic blood pressure Diastolic blood pressure Provider Name and Address Organization Details Last Updated DateTime 09/20/2019 130 mm[Hg] 77 mm[Hg] destiny [facility] 09/20/2019 15:36:07 Date Recorded Systolic blood pressure Diastolic blood pressure Provider Name and Address Organization Details Last Updated DateTime 10/18/2019 130 mm[Hg] 72 mm[Hg] destiny [facility] 10/18/2019 12:05:01 Date Recorded Systolic blood pressure Diastolic blood pressure Provider Name and Address Organization Details Last Updated DateTime 07/29/2019 126 mm[Hg] 79 mm[Hg] leann [facility] 07/29/2019 12:11:22 Date Recorded Systolic blood pressure Diastolic blood pressure Provider Name and Address Organization Details Last Updated DateTime 08/08/2019 112 mm[Hg] 75 mm[Hg] DOMINIQUE LUIES [facility] 08/08/2019 11:54:15 Social History Question Answer Notes LastModified by Eptica Details LastModified Time Tobacco Smoking Status Never Smoker Not Available [facility] 03:21:06 What Is Your Level Of Alcohol Consumption? None [id number] Information not available 05/23/2020 Are You Currently Employed? No [id number] Information not available 05/23/2020 Hard Of Hearing Or Deaf In One Or Both Ears? No Information not available 09/14/2019 Legally Blind In One Or Both Eyes? No Information not available 09/14/2019 Live Alone Or With Others? Alone Information not available 09/14/2019 Sex: Unknown Functional Status Question Answer Note LastModified by Eptica Details LastModified Time Are you able to walk? YESWOREST [id number] Information not available 05/23/2020 What is your exercise level? Occasional [id number] Information not available 05/23/2020 Mental Status None recorded. Family History Nothing Reported. Medical History Condition Response Allergies, Hayfever, Polen, Tree, Cats, Dogs, Dust or Mite N Heart Disease, Acute Myocardial Infarcti on N Gastrointestinal Problem, Peptic Ulcer D isease(Stomach Ulcer) N Infectious Disease, MRSA exposure N Psychiatric Disorder, Depression, Anxiet y N DIAGNOSTIC STUDY: Mammogram Y Muscle Disorder, Fibromyalgia N Blood Diseases, Hemophilia N Cancer, Skin, Melanoma, Squamous Cell, B elaine Cell N Surgical Complications, Anesthesia N Hospitalizations or Surgery (most recent ) N Lung Disease, COPD , Emphysema N Obesity N DIAGNOSTIC STUDY: Ultrasound N Gastrointestinal Problem, Constipation Y Kidney Disease, Hematuria(Blood in urine ) N Psychiatric Disorder, Schizophrenia N Heart Disease, Congestive Heart Disease N Anemia, Iron Deficiency N Cancer, Lymphoma N Blood Diseases, Hemochromatosis N Infectious Disease, History of Tuberculo sis N DIAGNOSTIC STUDY: CT Scan N Anemia, Sickle Cell Trait N Lung Disease, Asthma N Neurological Disorder, Stroke/TIA N Heart Disease, Heart Murmur N DIAGNOSTIC STUDY: Stress Test N Gastrointestinal Problem, Irritable Zhang l Syndrome N Ear Nose and Throat (ENT), Meniere's dis ease N Cancer, Prostate, Bladder N Cancer, Cervical or Ovarian N DIAGNOSTIC STUDY: PET Scan N Lung Disease, Pulmonary Embolism N DIAGNOSTIC STUDY: Immunocap (Allergy John ting) N DIAGNOSTIC STUDY: Colonoscopy Y Vision Problem, Glaucoma N Psychiatric Disorder, Bipolar Disease N Gastrointestinal Problem, Gall Bladder, GERD-Reflux N DIAGNOSTIC STUDY: Bone Density Y Genitourinary Problems, BPH, incontinenc e, frequency Y Vision Problem, Macular Degeneration N Eating Disorder, Anorexia, Bulimia N Vascular disorder, Varicosities N Infectious Disease, Chicken Pox, Shingle s, Herpes Zoster N Ear Nose and Throat (ENT), Nasal Polyps, Chronic Sinusitis N Bone & Joint Disorder, Arthritis, RHEUMA TOID Y Cancer, Breast N Thyroid Disorder, Hyperthyroidism N Blood Diseases, Leukemia N Defects or Inherited Disease N Vision Problem, Others N Bone & Joint Disorder, Arthritis, OSTEOA RTHRITIS Y DIAGNOSTIC STUDY: EKG Y Skin Disease, Eczema, Psoriasis N Heart Disease, Hypertension Y DIAGNOSTIC STUDY: Echo-cardiogram N Neurological Disorder, Headaches, Migrai olegario N Psychiatric Disorder, ADD/ADHD N Gastrointestinal Problem, Hepatitis, Zina vated Liver Enzymes, Liver Disease N Epilepsy/Seizure Disorder N DIAGNOSTIC STUDY: Cystoscopy N DIAGNOSTIC STUDY: Bone Scan Y Bladder, Prostate or Kidney Problems Y Kidney Disease, Kidney Stones N DIAGNOSTIC STUDY: MRI (Magnetic Resonanc e Imaging) N DIAGNOSTIC STUDY: Sleep Study N Bone & Joint Disorder, Gout N Heart Disease, Atrial Fibrillation/Atria l Flutter N DIAGNOSTIC STUDY: Endoscopy N Heart Disease, High Cholesterol N DIAGNOSTIC STUDY: Electromyography (EMG) N Infectious Disease, AIDS, HIV, Hep-C, He p-B N Gastrointestinal Problem, Difficulty Swa llowing, Esophageal Stricture N Diabetes N Ear Nose and Throat (ENT), Hard of Heari ng N DIAGNOSTIC STUDY: XRs Y Blood Diseases, Thrombophilia N Abuse/Domestic Violence N Heart Disease, Coronary Artery Disease N Gastrointestinal Problem, Diverticulosis /Diverticulitis/Polyps N Thyroid Disorder, Hypothyroidism N Psychiatric Disorder, Obscessive Compuls alyson Disorder N Bone & Joint Disorder, Osteopenia/Osteop orosis N Anemia, Sickle Cell N Surgical Complications, Blood Transfusio n N Gynecological HistoryNo gynecological history recorded. Obstetrics History GPAL:G 0 P 0 0 0 0 Immunizations Vaccine Type Date Status Note Provider Nam e and Address Organization Details Recorded Time Influenza, high-dose, quadrivalent, PF 07/28/2018 completed destiny david [facility] 09/14/2019 11:18:03 Past Encounters Encounter ID Performer Location Encounter Start Date Encounter Closed Date Diagnosis/Indication Diagnosis SNOMED-CT Code Diagnosis ICD10 Code Diagnosis Note [id number] JESSICA SEE NP [facility] [place] [address] [id number] 08/08/2019 10:43:21 08/08/2019 12:29:18 Acute sinusitis 79381120 J01.90 Acute bronchitis 4708113 2 J20.9 Chronic pharyngitis 1400 04 J31.2 [id number] [place] [address] [address] [place] [address] 09/14/2019 10:47:51 09/14/2019 15:25:06 Osteoarthritis of left knee joint 7675735208 06426 M17.12 1.)1 ) Osteoarthr itis (2008) Diagnosed by a RT in [facility] for which shetakesib uprofen prnafter walkingapp roximately 0.5 milesmostl y RT big toe and LTknee. 1.) Osteoarthr itis (2008) Diagnosed by a RT in [facility] for which shetakesib uprofen prnafter walkingapp roximately 0.5 milesmostl y RT big toe and LTknee. Essential hypertension 14090426 I10 2) HTN(1999) she was treated with diet and exercise until 2009 when her primary care provider and [facility] tts started her on lisinopril with hydrochlor othiazide 1012.5 and Lasix 20 mg 1 PO daily Gastroesop hageal reflux disease 481579808 K21.9 3) GERD (2009) On omeprazole since 2009, stopped taking around 2014 but resumed as of 07/2019 Overactive urinary bladder due to prolapse of female genital organ 340704821 N32.81 4) overactive bladder (01/2019) it was really bed every 1-2 hours , she had to go to the bathroom or whenever she went on a trip , after driving for couple hours she has to go to the bathroom to urinate. She saw a [facility] tts Dr. Los alvarez, he is also is actually from [place] , who started on TOVIAZ 8 mg 1 PO daily: It is the best thing ever happened to me Constipation 60602218 K5 9.00 5)CONSTIPA TION( 01/2019) she attributes this toTOVIAZ 8 mg 1 PO daily,even though she admits to have constipati on even before January 2019,prior to starting on Toviaz. Blood gluc ose outside reference range 357850797 R73.09 Screening mammography 24 671530 Z12.31 Last april 2019, I have it yearly as I have a cyst on my left breast which has not changed or growing. Screening for osteoporosis 749817857 Z13.820 Last 2016 = Normal . Takes OT Ca++ with VIT-D Screening for malignant neoplasm of colon 850668082 Z12.11 2018 = one benign polyps s/p resection Hyperlipidemia 88675859 E78.5 27357 [address] [place] [address] [place] [address] [address] [place] [address] 09/20/2019 15:30:46 09/20/2019 16:38:10 Osteoarthritis of left knee joint [id number] 68512 M17.12 1.)1 ) Osteoarthr itis (2008) Diagnosed by a RT in [facility] for which shetakesib uprofen prnafter walkingapp roximately 0.5 milesmostl y RT big toe and LTknee. 1.) Osteoarthr itis (2008) Diagnosed by a RT in [place] for which shetakesib uprofen prnafter walkingapp roximately 0.5 milesmostl y RT big toe and LTknee. Essential hypertension 16583022 I10 2) HTN(1999) she was treated with diet and exercise until 2009 when her primary care provider and [facility] tts started her on lisinopril with hydrochlor othiazide 10/12.5 and Lasix 20 mg 1 PO daily Gastroesop hageal reflux disease 254497730 K21.9 3) GERD (2009) On omeprazole since 2009, stopped taking around 2014 but resumed as of 07/2019 Overactive urinary bladder due to prolapse of female genital organ 764056460 N32.81 4) overactive bladder (01/2019) it was really bed every 1-2 hours , she had to go to the bathroom or whenever she went on a trip , after driving for couple hours she has to go to the bathroom to urinate. She saw a [facility] tts Dr. Los alvarez, he is also is actually from [place] , who started on TOVIAZ 8 mg 1 PO daily: It is the best thing ever happened to me Constipation 95440548 K5 9.00 5)CONSTIPA TION( 01/2019) she attributes this toTOVIAZ 8 mg 1 PO daily,even though she admits to have constipati on even before January 2019,prior to starting on Toviaz. 09/20/2019 = RESOLVED Blood gluc ose outside reference range 771639450 R73.09 09/15/2019 = 5.6% Screening mammography 24 133873 Z12.31 Last april 2019, I have it yearly as I have a cyst on my left breast which has not changed or growing. Screening for osteoporosis 386677199 Z13.820 Last 2016 = Normal . 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 94843986 D53.1 SHE HAS BEEN TAKING B12 1000 MG 1 PO DAILY SINCE 02/201909/15/2019 RBC = 3.3 HGB = 11.5 HCT = 341 MCV = 102.4 MCH = 34.5 Vitamin D deficiency 347 39432 E55.9 Health Concerns Section Related Observation LastModified by Organization Detai ls LastModified Time None Recorded Concern Status LastModified by Organization Details LastModified Time None Recorded Advance Directives Directive None Recorded Payers Encounter Date Sequence Insurance Name Policy Number Policy Lundberg Covered Member ID Lundberg Member ID Guarantor Name 08/08/2019 1 [place] Amber P Marychuy [id number] Amber P Marychuy 08/08/2019 2 [facility] [facility] [id number] Amber P Marychuy [id number] Amber P Marychuy 09/14/2019 1 [place] Amber P Marychuy [id number] Amber P Marychuy 09/14/2019 2 [facility] [id number] Amber P Marychuy [id number] Amber P Marychuy 09/20/2019 1 [place] Amber P Marychuy [id number] Amber P Marychuy 09/20/2019 2 [facility] [id number] Amber P Marychuy [id number] Amber P Marychuy Notes Date Note Type Note Provider Name and Address Organization Details Recorded Time 0 text/html 73 yo female presents states she was here 07.29.2019 for cough, pnd and was given z-pack, medrol dose pack and fluticasone which I have finished and I am feeling worse I have sore throat, headache, chest congestion I have been taking coricidin hpb and it's not helping. Nothing make symptoms worse coricidin helps but wears off and it worse. Spouse has similar symptoms. 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 2) HTN (1999) she was treated with diet and exercise until 2009 when her primary care provider and [place] started her on lisinopril with hydrochlorothiazide 10/12.5 and Lasix 20 mg 1 PO daily 3) GERD (2009) On omeprazole since 2009, stopped taking around 2014 but resumed as of 07/2019 4) overactive bladder (01/2019) it was really bed every 1-2 hours , she had to go to the bathroom or whenever she went on a trip , after driving for couple hours she has to go to the bathroom to urinate. She saw a [place] Dr. Los alvarez, he is also is actually from [place] , who started on TOVIAZ 8 mg 1 PO daily: It is the best thing ever happened to me 5) CONSTIPATION( 01/2019) she attributes this to TOVIAZ 8 mg 1 PO daily, even though she admits to have constipation even before January 2019, prior to starting on Toviaz. CHANDLER BAKER [address] 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 She spends the das months from July to September in [place], [place]. She has the following medical problems: 1.) Osteo arthritis (2008) Diagnosed by a RT in [facility] for which she takes ibuprofen prn after walking approximately 0.5 miles mostly RT big toe and LT knee. 2) HTN (1999) she was treated with diet and exercise until 2009 when her primary care provider and [place] started her on lisinopril with hydrochlorothiazide 10/12.5 and Lasix 20 mg 1 PO daily 3) GERD (2009) On omeprazole since 2009, stopped taking around 2014 but resumed as of 07/2019 4) overactive bladder (01/2019) it was really bed every 1-2 hours , she had to go to the bathroom or whenever she went on a trip , after driving for couple hours she has to go to the bathroom to urinate. She saw a [place] Dr. Los alvarez, he is also is actually from [place] , who started on TOVIAZ 8 mg 1 PO daily: It is the best thing ever happened to me 5) CONSTIPATION( 01/2019) she attributes this to TOVIAZ 8 mg 1 PO daily, even though she admits to have constipation even before January 2019, prior to starting on Toviaz. 09/20/2019 = This is a pleasant 73-year-old female who presents with her fiance , Sabino Wilkerson, (RETIRED PHARMACIST) for follow-up blood work view. She is In good disposition denies any chest pain, shortness breath, fever, dizziness, headache. CHANDLER BAKER [address], [place], [address], [facility] - [facility] 09/20/2019 16:18:09 OBGyn Episode No OBEpisode recorded.
--- OUTSIDE RECORDS SUMMARY | 2024-08-27 11:00 | XMS_ITS | Clinical Summary ---
Author Organization [facility] Address [address] [place] [address] Care Team Providers Care Foreign Correspondent Name Role Phone Alejandro Oglesby MD Primary Care Provider Allergies Active Allergy Reactions Criticality Noted Date Comments Iodine 07/15/2017 Medications Medication Sig Dispensed Refills Start Date End Date Status betamethasone, augmented, (DIPROLENE) 0.05 % cream APPLY TO RASH ON LEGS TWICE A DAY FOR 2 WEEKS ON, 1 WEEK OFF 3 06/17/2017 Active lisinopril-hydrochl orothiazide (PRINZIDE,ZESTORETI C) tablet 10-12.5 mg 1 05/14/2017 Active clobetasol (TEMOVATE) 0.05 % cream 0 11/12/2017 Active fluticasone (FLONASE) 50 MCG/ACT nasal spray spray/apply 1 spray in each nostril daily. 0 Active Fesoterodine Fumarate ER 8 MG TB24 Take 8 mg by mouth daily. 0 Active dilTIAZem (CARDIZEM LA) 180 MG 24 hr tablet Take 1 tablet (180 mg total) by mouth daily. 0 Active Calcium Carb-Cholecalcifero l (CALCIUM 600 + D PO) Take by mouth. 0 Active Multiple Vitamin (MULTI-VITAMIN DAILY PO) Take by mouth. 0 Active aspirin EC 81 MG tablet Take 1 tablet (81 mg total) by mouth daily. 0 Active famotidine (PEPCID) 20 MG tablet 0 04/03/2021 Active ondansetron (Zofran) 4 MG tablet Take 1 tab every 8 hours as needed for nausea 20 tablet 1 08/22/2021 Active Additional Information Patient not taking.Reported on 03/31/2024 Acetaminophen Extra Strength 500 MG tablet 0 08/21/2021 Active senna (SENOKOT) 8.6 MG tablet Take 1 tablet by mouth daily. 0 Active solifenacin (VESICARE) 10 MG tablet Take 1 tablet (10 mg total) by mouth daily. 0 Active furosemide (LASIX) 20 MG tablet Take 1 tablet (20 mg total) by mouth. 0 Active dilTIAZem (CARDIZEM CD) 180 MG 24 hr capsule 0 03/21/2022 Active betamethasone dipropionate (DIPROSONE) 0.05 % cream APPLY A THIN FILM TOPICALLY TO THE AFFECTED AREA 2 TIMES A DAY NEEDED 0 02/20/2022 Active benzonatate (TESSALON) 100 MG capsule benzonatate Take 1 capsule (oral) 3 times per day for 10 days [id number] capsule 3 times per day oral 10 days suspended 100 MG 0 01/20/2019 Active raNITIdine (ZANTAC) 150 MG capsule ranitidine HCl Take 1 capsule (oral) 2 times per day for 14 days 20190618 capsule 2 times per day oral 14 days suspended 150 mg 0 06/18/2019 Active warfarin (COUMADIN) 1 MG tablet TAKE 4 TABLETS BY MOUTH EVERY EVENING 0 04/13/2022 Active oxyCODONE (ROXICODONE) 5 MG immediate release tablet TAKE 1/2 TO 1 TABLET BY MOUTH EVERY 4 TO 6 HOURS NEEDED FOR SEVERE PAIN (SCALE 7-10) 30 tablet 0 04/26/2022 Active Additional Information Patient not taking.Reported on 03/31/2024 celecoxib (CeleBREX) 200 MG capsule Take 1 capsule (200 mg total) by mouth daily. 90 capsule 2 06/11/2022 Active Active Problems Problem Noted Date Diagnosed Date Hereditary hemochromatosis 01/28/2022 Arthritis of knee, right 01/08/2022 Iron overload 11/25/2021 Arthritis of knee, left 01/22/2019 Arthritis of knee, right 05/21/2018 Family History Medical History Relation Name Comments Cancer Father Hypertension Mother Relation Name Status Comments Father Mother Social History Tobacco Use Types Packs/Day Years Used Date Smoking Tobacco: Never Smokeless Tobacco: Never Alcohol Use Standard Drinks/Week Comments No 0 (1 standard drink = 0.6 oz pur e alcohol) Sex and Gender Information Value Date Recorded Sex Assigned at Not on file Gender Identity Not on file Sexual Orientation Not on file Job Start Date Occupation Industry Not on file Not on file Not on file Last Filed Vital Signs Vital Sign Reading Time Taken Comments Blood Pressure 155/78 03/31/2024 11:03 AM EDT Pulse 77 03/31/2024 11:03 AM EDT Temperature 36.4 ??C (97.6 ??F) 03/31/2024 11:03 AM E DT Respiratory Rate - - Oxygen Saturation 100% 03/31/2024 11:03 AM EDT Inhaled Oxygen Concentration - - Weight 90.3 kg (199 lb) 03/31/2024 11:03 AM EDT Height 159.5 cm (5' 2.8 ) 03/31/2024 11:03 AM ED T Body Mass Index 35.48 03/31/2024 11:03 AM EDT Plan of Treatment Health Maintenance Due Date Last Done Comments COVID-19 Vaccine (#1) 04/05/1946 Depression Screening 1957 BMI Counseling 10/03/1961 Preventative Health Evaluation 10/03/1961 DTap / Tdap / Td (1 - Tdap) 10/03/1962 Shingrix-Zoster Vaccine (1 of 2) 10/03/1993 Fall Risk Assessment 10/03/2008 Osteoporosis Screening (DEXA Scan) 10/03/2008 Pneumococcal Vaccine (1 of 1 - PCV) 10/03/2008 RSV Adult > 60+ Yrs or Pregn ant (1 - 1-dose 75+ series) 10/03/2018 Influenza Vaccine (#1) 2024 07/28/2018 Hepatitis B Vaccines Aged Out No long er eligible based on patient's age to complete this topic RSV Ped < 20 months Aged Out No longe r eligible based on patient's age to complete this topic Care Teams Foreign Correspondent Relationship Specialty Start Date End Date Alejandro Oglesby MD [address] [place] [address] PCP - General Internal Medicine 08/13/22
--- OUTSIDE RECORDS SUMMARY | 2024-08-27 11:00 | XMS_ITS | Continuity of Care Document ---
Author Organization [place] - [facility], [facility] Address [address] [place] [address] Care Team Providers Care Interior Design Director Name Role Phone MARILU STEEN Primary Care Provider TORITO LAZCANO Referring Provider Assessment No assessment recorded. Plan of Treatment Reminders Order Date Submit Date Provider Last Modified By Organization Details Last Modified Time Details Appointments VENTURA Initial Fitting 2024 01:00P YELENA ROBERTSON Not available Not available Not available Lab None recorded . Referral None recorded . Procedures None recorded . Surgeries None recorded . Imaging None recorded . Medication Orders None recorded . Patient TargetsNo targets recorded. Patient InstructionsNo instructions recorded. Reason for Referral None Reported. Results Created Date Observation Date Name Description Value Unit Range Abnormal Flag Note LastModifiedBy Organization Detail LastModifiedTime 08/24/19 25 audio gram No observ ation record ed. BARCODE Not Available 2024 13:04:58 Result Notes None recorded. Problems Name Problem SNOMED Code Status Onset Date Resolution Date Notes Provider Name and Address Organization Details Recorded Time Sensorineur al hearing loss of bilateral ears 843170208 Active 2024 SANDRA Silva MD [address] [place] [address], [place], [address], [facility] 5 11:05:22 Impacted cerumen of bilateral ears 8402670522906 108 Active 2024 SANDRA Silva MD [address] [place] [address], [place], [address], [facility] 5 11:05:25 Problem Notes None recorded. Procedures Surgical History Date Name Laterality Status Provider Name and Address Organization Details Recorded Time 5 Comp Audio (07460) completed YELENA HAYNES [address] [facility],[address], [address], [facility] 08/24/2024 11:16:49 5 Cerumen removal with microscope bilateral completed SANDRA SOLIZ MD [address] [facility],[address], [address], [facility] 08/24/2024 11:05:38 Imaging Results None recorded. Procedure Notes None recorded. Medical Equipment None Reported. Medications Name Sig Start Date Stop Date Status Note LastModified by Organization Details LastModified Time celecoxib 200 mg capsule TAKE 1 CAPSULE ONCE DAILY WITH FOOD active Not Available Not Available No t Available amoxicillin 500 mg capsule TAKE 2 CAPSULES BY MOUTH TO START THEN 1 CAPSULE EVERY 8 HOURS UNTIL FINISHED active Not Available Not Available No t Available diltiazem CD 180 mg capsule,exte nded release 24 hr TAKE 1 CAPSULE DAILY active Not Available Not Available No t Available betamethason e, augmented 0.05 % topical cream active Not Available Not Available Not Available ciprofloxaci n 250 mg tablet TAKE 1 TABLET BY MOUTH EVERY 12 HOURS FOR 3 DAYS active Not Available Not Available N ot Available sulfamethoxa zole 800 mg-trimethop rim 160 mg tablet TAKE 1 TABLET BY MOUTH TWICE A DAY FOR 7 DAYS active Not Available Not Available No t Available famotidine 20 mg tablet TAKE 1 TABLET TWICE A DAY active Not Available Not Available Not Available benzonatate 100 mg capsule TAKE 1 CAPSULE BY MOUTH THREE TIMES A DAY NEEDED FOR 7 DAYS active Not Available Not Available N ot Available cephalexin 500 mg capsule TAKE 1 CAPSULE BY MOUTH THREE TIMES A DAY FOR 7 DAYS active Not Available Not Available N ot Available lisinopril 10 mg tablet active Not Available Not Available Not Available furosemide 20 mg tablet TAKE 1 TABLET ONCE DAILY ASNEEDED active Not Available Not Available No t Available estradiol 0.01% (0.1 mg/gram) vaginal cream APPLY A PEA-SIZED AMOUNT TOURETHRA DAILY FOR THE 1ST MONTH; 3 TIMES WEEKLY THEREAFTER active Not Available Not Available N ot Available celecoxib 100 mg capsule TAKE 1 CAPSULE BY MOUTH EVERY DAY NEEDED FOR PAIN active Not Available Not Available No t Available cefdinir 300 mg capsule TAKE 1 CAPSULE BY MOUTH EVERY 12 HOURS FOR 5 DAYS active Not Available Not Available N ot Available nitrofuranto in monohydrate/ macrocrystal s 100 mg capsule TAKE 1 CAPSULE BY MOUTH TWICE A DAY FOR 7 DAYS active Not Available Not Available No t Available solifenacin 10 mg tablet active Not Available Not Available Not Available Myrbetriq 25 mg tablet,exten ded release TAKE 1 TABLET BY MOUTH EVERY DAY active Not Available Not Available No t Available Linzess 72 mcg capsule TAKE 1 CAPSULE BY MOUTH EVERY DAY 30 MINUTES BEFORE THE FIRST MEAL OF THE DAY ON EMPTY STOMACH active Not Available Not Available No t Available Paxlovid 300 mg (150 mg x 2)-100 mg tablets in a dose pack TAKE 3 TABLETS BY MOUTH TWICE A DAY FOR 5 DAYS active Not Available Not Available No t Available Vitals Date Recorded Body height Body mass index (BMI) Body weight Provider Name and Address Organization Details Last Updated DateTime 08/24/2024 157.48 cm 35.7 kg/m2 34748.51 g Brenden Barron [place] - [facility] 08/24/2024 11:28:27 Social History None recorded. Functional Status None recorded. Mental Status None recorded. Family History Nothing Reported. Medical History No medical history recorded. Gynecological HistoryNo gynecological history recorded. Obstetrics History GPAL:G 0 P 0 0 0 0 Past Encounters Encounter ID Performer Location Encounter Start Date Encounter Closed Date Diagnosis/Indication Diagnosis SNOMED-CT Code Diagnosis ICD10 Code Diagnosis Note [id number] SANDRA SOLIZ MD [facility] [address] [address] 08/24/2024 10:15:22 08/24/2024 11:44:43 Sensorineural hearing loss of bilateral ears 440946725 H90.3 Patient's audiogram shows bilateral {{mild mod erate* sev ere}} sensorineu ral hearing loss with {{well maintained * moderate ly reduced po or}} speech discrimina tion. There is enough hearing loss to affect day-to-day hearing performanc e. We discussed in detail the pros and cons of amplificat ion (hearing aids). Patient would like to learn more about this option so {{we will set them up for a hearing aid evaluation * I have provided a copy of the audiogram, a list of [facility] hearing aid providers, and medical clearance for amplificat ion so the patient can pursue this at their convenien e}}. Patient is medically cleared for amplificat ion {{in the right ear in the left ear bilate rally*}}. She does have asymmetry hearing loss. I offered an MRI IAC but she deferred in favor of yearly surveillan ce audiograms . She will f/u in a year with an audio and if the asymmetry widens we will consider an MRI. Impacted c erumen of bilateral ears [id number] 457768 H61.23 Recurrent Cerumen Impactions : Ears were meticulous ly cleaned bilaterall y today with a curette and suction. The patient tolerated this well and will follow up for repeat debridemen t per routine. [id number] YELENA HAYNES [facility] [address] [address] 08/24/2024 11:16:38 08/25/2024 07:46:12 Sensorineural hearing loss of bilateral ears 316699717 H90.3 Audiologic al evaluation results: 08/24/2024 Right ear: {{Normal N ormal through 2 kHz* Mild Moderate M oderately- severe Sev ere Profou nd}} {{hearing hearing. s loping to a mild slopi ng to a moderate* sloping to moderately severe slo ping to severe slo ping to profound f lat high frequency low frequency mid frequency cookie bite amor curve}} {{with sen sorineural hearing loss with* cond uctive hearing loss with mixed hearing loss with}} {{excellen t* good fa ir poor no measurable }} word recognitio n. Left ear: {{Normal* Normal through 2 kHz Mild M oderate Mo derately-s evere Ludivina re Profoun d}} {{hearing hearing. s loping to a mild slopi ng to a moderate* sloping to moderately severe slo ping to severe slo ping to profound f lat high frequency low frequency mid frequency cookie bite amor curve}} {{with sen sorineural hearing loss with* cond uctive hearing loss with mixed hearing loss with}} {{excellen t good genaro r* poor no measurable }} word recognitio n. Tympanomet ry: Right Ear:{{Type A Type As Type Ad Type C Type C, shallow & rounded Ty pe B Type B with large volume Cou ld not maintain a hermetic seal*}} Left Ear:{{Type A Type As Type Ad Type C Type C, shallow & rounded Ty pe B Type B with large volume Cou ld not maintain a hermetic seal*}} Health Concerns Section Related Observation LastModified by Organization Detai ls LastModified Time None Recorded Concern Status LastModified by Organization Details LastModified Time None Recorded Payers Encounter Date Sequence Insurance Name Policy Number Policy Lundberg Covered Member ID Lundberg Member ID Guarantor Name 08/24/2024 2 [place] [facility] (O) [id number] Amber Perrin [id number] Amber Perrin 08/24/2024 1 [place]IC[place] [employer] Amber Perrin [id number] Amber Perrin Notes Date Note Type Note Provider Name and Address Organization Details Recorded Time 08/24/2024 text/html No hearing loss which is much worse on the left and has progressed gradually over time. Audiology noted cerumen impactions most notably on the right today. SANDRA SOLIZ MD [address] [place] [address], [address], [place] - [facility] 08/24/2024 13:31:38 OBGyn Episode No OBEpisode recorded.
--- OUTSIDE RECORDS SUMMARY | 2024-08-27 11:00 | XMS_ITS | Continuity of Care Document ---
Author Organization [place] - [facility], [facility] Address [address] [place] [phone] Care Team Providers Care Clammer Name Role Phone MARILU STEEN Primary Care [...] Sensorineur al hearing loss of bilateral ears [id number] Active 2024 SANDRA Silva MD [address] [place] [address], [place], [phone], [facility] 5 11:05:22 Impacted cerumen of bilateral ears [id number] 108 Active 2024 SANDRA Silva MD [address] [place] [address], [place], [phone], [facility] 5 11:05:25 Problem Notes None recorded. Procedures Surgical History Date Name Laterality Status Provider Name and Address Organization Details Recorded Time 5 Comp Audio (94497) completed YELENA HAYNES [address] [facility],[address], [phone], [facility] 08/24/2024 11:16:49 5 Cerumen removal with microscope bilateral completed SANDRA SOLIZ MD 100 [facility],[address], [phone], [facility] 08/24/2024 11:05:38 Imaging Results None recorded. Procedure [...] Updated DateTime 08/24/2024 157.48 cm 35.7 kg/m2 35754.51 g Brenden Barron [place] - [facility] 08/24/2024 11:28:27 Social History None recorded. Functional Status None recorded. Mental Status None recorded. Family History Nothing Reported. Medical History No medical history recorded. Gynecological HistoryNo gynecological history recorded. Obstetrics History GPAL:G 0 P 0 0 0 0 Past Encounters Encounter ID Performer Location Encounter Start Date Encounter Closed Date Diagnosis/Indication Diagnosis SNOMED-CT Code Diagnosis ICD10 Code Diagnosis Note [id number] SANDRA SOLIZ MD [facility] [address] [address] 08/24/2024 10:15:22 08/24/2024 11:44:43 Sensorineural hearing loss of bilateral ears 622084699 H90.3 Patient's audiogram shows bilateral {{mild mod [...] copy of the audiogram, a list of [facility] hearing aid providers, and medical clearance for [...] MRI. Impacted c erumen of bilateral ears [id number] 554906 H61.23 Recurrent Cerumen Impactions : Ears were meticulous ly cleaned bilaterall y today with a curette and suction. The patient tolerated this well and will follow up for repeat debridemen t per routine. [id number] YELENA HAYNES [facility] [address] [address] 08/24/2024 11:16:38 08/25/2024 07:46:12 Sensorineural hearing loss of bilateral ears [id number] H90.3 Audiologic al evaluation results: 08/24/2024 Right [...] ID Guarantor Name 08/24/2024 2 [place]: HMO [facility] (O) [id number] Amber Perrin [id number] Amber Perrin 08/24/2024 1 MEDICARE B-[place]: [facility] [employer] [facility] Amber Perrin [id number] Amber Perrin Notes Date Note Type Note Provider Name and Address Organization Details Recorded Time 08/24/2024 text/html No hearing loss which is much worse on the left and has progressed gradually over time. Audiology noted cerumen impactions most notably on the right today. SANDRA SOLIZ MD [address] [place] [address], [phone], [place] - [facility] 08/24/2024 13:31:38 OBGyn Episode No OBEpisode recorded.
--- OUTSIDE RECORDS SUMMARY | 2024-08-27 11:00 | XMS_ITS | Encounter Summary ---
Author Organization [facility] Address [address] [place] [address] Care Team Providers Care Cottrell Blower Name Role Phone Alejandro Oglesby MD Primary Care Provider [phone] Reason for Visit * Reason Comments Follow-up Encounter Details Date Type Department Care Team (Latest Contact Info) Description 08/18/2024 10:30 AM EST Office Visit [facility] Hematology Oncology [address] [place] [address] Tre Michel MD [address] [place] [address] Hereditary hemochromatosis (CMS/HCC) (Primary Dx) Social History Tobacco Use Types Packs/Day Years Used Date Smoking Tobacco: Never Smokeless Tobacco: Never Tobacco Cessation:Counseling Given: Not Answered Alcohol Use Standard Drinks/Week Comments No 0 (1 standard drink = 0.6 oz pur e alcohol) Sex and Gender Information Value Date Recorded Sex Assigned at Not on file Gender Identity Not on file Sexual Orientation Not on file Job Start Date Occupation Industry Not on file Not on file Not on file documented as of this encounter Last Filed Vital Signs Vital Sign Reading Time Taken Comments Blood Pressure 143/52 08/18/2024 10:27 AM EST Pulse 65 08/18/2024 10:27 AM EST Temperature 36.7 ??C (98.1 ??F) 08/18/2024 10:[address] Respiratory Rate - - Oxygen Saturation 98% 08/18/2024 10:27 AM EST Inhaled Oxygen Concentration - - Weight 90.7 kg (200 lb) 08/18/2024 10:27 AM EST Height - - Body Mass Index 35.65 03/31/2024 11:03 AM EDT documented in this encounter Progress Notes * Tre Michel MD - 08/18/2024 10:30 AM EST Diagnosis/treatment: Hereditary hemochromatosis. The patient underwent monthly phlebotomies from 03/2020 to 12/2021. Phlebotomies were increased to every 2 weeks in 12/2021. Phlebotomies were decreased to every 6 weeks in early 2022. Interval history: The patient is a 78-year-old female who was found to have an elevated transferrin saturation on 03/17/2020 at 89 and an elevated ferritin at 843. Hereditary hemochromatosis genotyping on 04/13/2020 revealed a C282Y homozygosity. She started a regimen with monthly phlebotomies at [place] in 03/2020. She tolerated phlebotomies well with the exception of one syncopal episode in 2020. A ferritin on 07/20/2020 was 447. A ferritin on 08/18/2020 was 407. A ferritin on 09/19/2020 was 371. A ferritin on 11/30/2020 was 465. A ferritin on 02/01/2021 was 293. The patient underwent a left knee replacement on 08/10/2021. Phlebotomies were held following the surgery and resumed in 10/2021. A ferritin on 10/31/2021 was 251. A percent transferrin saturation on 11/06/2021 was 41 and a ferritin 219. A percent transferrin saturation on 12/04/2021 was 103 and a ferritin 194. A percent transferrin saturation on 01/01/2022 was 84 and a ferritin 172. LFTs were normal. Phlebotomies were increased to every 2 weeks. She is tolerating phlebotomies well without adverse effects. Multiple phlebotomies have been held since 12/2021 due to a hemoglobin 11.0 or less. A CBC on 02/07/2022 showed a hemoglobin 10.8 with MCV 104. A percent transferrin saturation on 02/07/2022 was 51 and a ferritin 160. A ferritin on 02/13/2022 was 194. A ferritin on 02/28/2022 was 181. We held the phlebotomy regimen due to the planned right knee replacement. She underwent a right knee replacement on 04/12/2022. A CBC on 05/20/2022 showed a hemoglobin 11.1 with MCV 108. A percent transferrin saturation was 72 and a ferritin 305. She restarted the phlebotomy regimen every 2 weeks. A CBC on 08/13/2022 showed a hemoglobin 10.5 with MCV 109. A percent transferrin saturation was 18. A ferritin was 42. Several phlebotomies were held in early 2022 due to a low hemoglobin. We decreased the phlebotomy regimen to every 6 weeks. She is tolerating phlebotomies without adverse effects. Several phlebotomies have been held in 2023 due to a low hemoglobin. A CBC on 11/11/2022 showed WBC 6.9, hemoglobin 9.9 with MCV 94, and platelet count 362,000. A percent transferrin saturation was 19. A ferritin was 34. A CBC on 12/17/2022 showed WBC 8.2, hemoglobin 10.4 with MCV 95, and platelet count 357,000. A percent transferrin saturation was 17. A ferritin was 38. A CBC on 03/07/2023 showed WBC 7.5, hemoglobin 11.5 with MCV 101, and platelet count 375,000. A percent transferrin saturation was 43. A ferritin was 56. A CBC on 06/06/2023 showed WBC 8.1, hemoglobin 10.0 with MCV 101, and platelet count 410,000. A percent transferrin saturation was 16. A ferritin was 39. A B12 level was 1926. A CBC on 09/10/2023 showed WBC 6.4, hemoglobin 10.7 with MCV 96, and platelet count 359,000. LFTs were normal. A percent transferrin saturation was 29. A ferritin was 43. A CBC on 12/10/2023 showed WBC 6.7, hemoglobin 9.6 with MCV 100, and platelet count 356,000. LFTs were normal. A percent transferrin saturation was 37. A ferritin was 30. A B12 level was 1052. A CBC on 03/26/2024 showed WBC 6.7, hemoglobin 9.8 with MCV 104, and platelet count 382,000. LFTs were normal. A percent transferrin saturation was 41. A ferritin was 53. A B12 level was 1142. A CBC on 06/03/2024 showed WBC 6.7, hemoglobin 10.5 with MCV 103, and platelet count 349,000. LFTs were normal. A percent transferrin saturation was 70. A ferritin was 65. A B12 level was 1074. A CBC on 08/17/2024 showed WBC 6.9, hemoglobin 11.3 with MCV 106, and platelet count 368,000. LFTs were normal. A percent transferrin saturation was 83. A ferritin was 65. A B12 level was 925. She denies headaches or visual changes. She denies cough, dyspnea on exertion, or leg edema. She denies nausea or abdominal pain. She denies unusual bone pain. She reports an intact appetite and stable weight. Review of systems: The remainder of a 10 point review of systems was unremarkable. Physical examination: HEENT: Sclerae anicteric, normal oropharyngeal membrane. Neck: No lymphadenopathy. Lungs: Clear to auscultation. Heart: No murmurs. Abdomen: Soft, nontender, no organomegaly or masses. Extremities: No edema. Skin: No rash. Neurologic: Normal gait. Assessment/plan: The patient is a 78-year-old female with hereditary hemochromatosis with C282Y homozygosity. She had been on a phlebotomy regimen every month from 04/16/2020 to 01/14/2022. She had tolerated the phlebotomies reasonably well despite an isolated syncopal episode in 2020. The control of the iron studieswas not optimal. We increased the phlebotomy regimen to every 2 weeks in 12/2021. She is tolerating the phlebotomies well without adverse effects. Multiple phlebotomies have been held due to hemoglobin 11.0 or less. The ferritin is trending downward and is below the target range of 50. She underwent a right knee replacement on 04/12/2022. We held the phlebotomies during recovery. The ferritin oneil in late 04/2022. We restarted the phlebotomies every 2 weeks. The ferritin trended downward and dropped below the target range of 50. Several phlebotomies were held in early 2022 due to a low hemoglobin. We decreased phlebotomy regimen to every 6 weeks. Several phlebotomies were held in early 2023 due to a low hemoglobin. She is tolerating phlebotomies without adverse effects. The ferritin remains reasonably well controlled. We held phlebotomies until recovery of the anemia. Given that her anemia improved significantly in 07/2024, we will restart phlebotomies every 8 weeks. Visit summary: The patient is an 78-year-old female with hereditary hemochromatosis who has been maintained on a phlebotomy regimen. The tolerates phlebotomies well without adverse effects. Most recently she had difficulty with anemia and several phlebotomies were held. The anemia has recovered. We will restart phlebotomies every 8 weeks. A history and physical today revealed no new findings. This encounter is of moderate risk. 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 She receives phlebotomies. documented in this encounter Plan of Treatment Upcoming Encounters Date Type Department Care Team (Late st Contact Info) Description 12/01/2024 11:10 AM EDT Office Visit [facility] [address] [place] [address] [address] [place] [address] Monalisa Cueva NP [address] [place] [address] [address] [place] [address] 12/16/2024 10:30 AM EDT Office Visit [facility] Hematology Oncology [address] [place] [phone] Tre Michel MD [address] [place] [phone] Scheduled Orders Name Type Priority Associated Diagnoses Orde r Schedule CBC and differential Lab Routine Hereditary hemochromatosis (CMS/HCC) Every 12 weeks for 4 Occurrences starting 08/18/2024 until 08/18/2025 Ferritin Lab Routine Hereditary hemochromatosis (CMS/HCC) Every 12 weeks for 4 Occurrences starting 08/18/2024 until 08/18/2025 Iron and TIBC Lab Routine Hereditary hemochromatosis (CMS/HCC) Every 12 weeks for 4 Occurrences starting 08/18/2024 until 08/18/2025 Comprehensive metabolic panel Lab Routine Hereditary hemochromatosis (CMS/HCC) Every 12 weeks for 4 Occurrences starting 08/18/2024 until 08/18/2025 documented as of this encounter Visit Diagnoses Diagnosis Hereditary hemochromatosis (CMS/HCC)- Primary Hereditary hemochromatosis documented in this encounter Discontinued Medications Medication Sig Discontinue Reason Start Date End Da te benzonatate (TESSALON) 100 mg capsule benzonatate Take 1 capsule (oral) 3 times per day for 10 days [id number] capsule 3 times per day oral 10 days suspended 100 MG Patient Discharge 01/20/2019 08/18/2024 betamethasone dipropionate (DIPROSONE) 0.05 % cream APPLY A THIN FILM TOPICALLY TO THE AFFECTED AREA 2 TIMES A DAY NEEDED 02/20/2022 08/18/2024 DAILY MULTI-VITAMIN ORAL Take by mouth. 08/18/2024 dilTIAZem CD (CARDIZEM CD) 180 mg 24 hr capsule 03/11/2023 08/18/2024 lisinopril-hydroCHLOROt hiazide (PRINZIDE,ZESTORETIC) 10-12.5 mg per tablet 05/14/2017 08/18/2024 multivitamin (DAILY VITAMIN ORAL) Calcium Carb-Cholecalciferol (CALCIUM 1000 + D OR)-Sig - Route: Take by mouth. 08/18/2024 oxyCODONE (ROXICODONE) 5 mg immediate release tablet TAKE 1/2 TO 1 TABLET BY MOUTH EVERY 4 TO 6 HOURS NEEDED FOR SEVERE PAIN (SCALE 7-10) 04/26/2022 08/18/2024 senna (SENOKOT) 8.6 mg tablet Take 1 tablet (8.6 mg total) by mouth 1 (one) time each day. 08/18/2024 solifenacin (VESICARE) 10 mg tablet Take 1 tablet (10 mg total) by mouth 1 (one) time each day. 08/18/2024 warfarin (COUMADIN) 1 mg tablet TAKE 4 TABLETS BY MOUTH EVERY EVENING Patient Discharge 04/13/2022 08/18/2024 documented as of this encounter Care Teams Cottrell Blower Relationship Specialty Start Date End Date Alejandro Oglesby MD [address] [place] [address] PCP - General 08/13/22 documented as of this encounter
--- OUTSIDE RECORDS SUMMARY | 2024-08-27 11:00 | XMS_ITS | Clinical Summary ---
Author Organization [facility] Address [address] [place] [address] Phone Care Team Providers Care Piano Accompanist Name Role Phone Alejandro Oglesby MD Primary Care Provider Allergies Active Allergy Reactions Criticality Noted Date Comments Iodine 07/15/2017 Nitrofurantoin Monohyd/M-Cryst 08/18 Medications Medication Sig Dispensed Refills Start Date End Date Status acetaminophen (TYLENOL) 500 mg tablet 08/21/2021 Active aspirin 81 mg EC tablet Take 1 tablet (81 mg total) by mouth 1 (one) time each day. Active betamethasone, augmented, (DIPROLENE-AF) 0.05 % cream APPLY TO RASH ON LEGS TWICE A DAY FOR 2 WEEKS ON, 1 WEEK OFF 06/17/2017 Active celecoxib (CeleBREX) 200 mg capsule Take 1 capsule (200 mg total) by mouth 1 (one) time each day. 06/11/2022 Active clobetasoL (TEMOVATE) 0.05 % cream 11/12/2017 Active dilTIAZem LA (CARDIZEM LA) 180 mg 24 hr tablet Take 1 tablet (180 mg total) by mouth 1 (one) time each day. Active famotidine (PEPCID) 20 mg tablet 04/03/2021 Active fesoterodine 8 mg tablet extended release 24 hr Take 8 mg by mouth daily. Active fluticasone propionate (FLONASE) 50 mcg/actuation nasal spray spray/apply 1 spray in each nostril daily. Active furosemide (LASIX) 20 mg tablet Take 1 tablet (20 mg total) by mouth. Active ondansetron (ZOFRAN) 4 mg tablet Take 1 tab every 8 hours as needed for nausea 08/22/2021 Active ranitidine HCl (ACID CONTROL, RANITIDINE, ORAL) raNITIdine (ZANTAC) 150 MG capsule-Sig: ranitidine HCl Take 1 capsule (oral) 2 times per day for 14 days [id number] capsule 2 times per day oral 14 days suspended 150 mg 06/18/2019 Active benzonatate (TESSALON) 100 mg capsule benzonatate Take 1 capsule (oral) 3 times per day for 10 days [id number] capsule 3 times per day oral 10 days suspended 100 MG 01/20/2019 08/18/19 25 Discontinued(Pat ient Discharge) betamethasone dipropionate (DIPROSONE) 0.05 % cream APPLY A THIN FILM TOPICALLY TO THE AFFECTED AREA 2 TIMES A DAY NEEDED 02/20/2022 08/18/19 25 Discontinued multivitamin (DAILY VITAMIN ORAL) Calcium Carb-Cholecalcif concepcion (CALCIUM 1000 + D OR)-Sig - Route: Take by mouth. 08/18/19 25 Discontinued dilTIAZem CD (CARDIZEM CD) 180 mg 24 hr capsule 03/11/2023 08/18/19 25 Discontinued lisinopril-hydroC HLOROthiazide (PRINZIDE,ZESTORE TIC) 10-12.5 mg per tablet 05/14/2017 08/18/19 25 Discontinued DAILY MULTI-VITAMIN ORAL Take by mouth. 08/18/19 25 Discontinued oxyCODONE (ROXICODONE) 5 mg immediate release tablet TAKE 1/2 TO 1 TABLET BY MOUTH EVERY 4 TO 6 HOURS NEEDED FOR SEVERE PAIN (SCALE 7-10) 04/26/2022 08/18/19 25 Discontinued senna (SENOKOT) 8.6 mg tablet Take 1 tablet (8.6 mg total) by mouth 1 (one) time each day. 08/18/19 25 Discontinued solifenacin (VESICARE) 10 mg tablet Take 1 tablet (10 mg total) by mouth 1 (one) time each day. 08/18/19 25 Discontinued warfarin (COUMADIN) 1 mg tablet TAKE 4 TABLETS BY MOUTH EVERY EVENING 04/13/2022 08/18/19 25 Discontinued(Pat ient Discharge) Active Problems Problem Noted Date Diagnosed Date Hereditary hemochromatosis 01/28/2022 Arthritis of knee, right 01/08/2022 Iron overload 11/25/2021 Arthritis of knee, left 01/22/2019 Arthritis of knee, right 05/21/2018 Encounters Date Type Department Care Team Description 08/18/2024 10:30 AM EST Office Visit [facility] Hematology Oncology [address] [place] [address] Tre Michel MD Hereditary hemochromatosis (CMS/HCC) (Primary Dx) 06/09/2024 10:45 AM EST Office Visit [facility] Hematology Oncology [address] [place] [phone] Tre Michel MD Hereditary hemochromatosis (CMS/HCC) (Primary Dx) from Last 3 Months Surgical History Surgery Date Site/Laterality Comments HYSTERECTOMY PROCEDURE:HYSTERECTOMY CATARACT EXTRACTION W/ INTRAOCULAR LENS IMPLANT PROCEDURE:CATARACT EXTRACTION W/ INTRAOCULAR LENS IMPLANT COLONOSCOPY 2014 PROCEDURE:COLONOSCOPY DILATION AND CURETTAGE OF UTERUS PROCEDURE:DILATION AND CURETTAGE OF UTERUS JOINT REPLACEMENT PROCEDURE:JOINT REPLACEMENT Medical History Medical History Date Comments Arthritis DX:Arthritis Hypertension DX:Hypertension Osteoporosis DX:Osteoporosis Allergic rhinitis DX:Allergic rh initis GERD (gastroesophageal reflux disease) DX:GERD (gastroesophageal reflux disease) Macrocytosis DX:Macrocytosis Family History Medical History Relation Name Comments [...] file Not on file Not on file Obstetrics History Last Filed Vital Signs Vital Sign Reading Time Taken Comments Blood Pressure 143/52 08/18/2024 10:27 AM EST Pulse 65 08/18/2024 10:27 AM EST Temperature 36.7 ??C (98.1 ??F) 08/18/2024 10:[address] Respiratory Rate - - Oxygen Saturation 98% 08/18/2024 10:27 AM EST Inhaled Oxygen Concentration - - Weight 90.7 kg (200 lb) 08/18/2024 10:27 AM EST Height 159.5 cm (5' 2.8 ) 03/31/2024 11:03 AM ED T Body Mass Index 35.65 03/31/2024 11:03 AM EDT Plan of Treatment Upcoming Encounters Date Type Department Care Team (Late st Contact Info) Description 12/01/2024 11:10 AM EDT Office Visit [facility] Cardiology [facility] [address] [place] [address] Monalisa Cueva NP [address] [place] [address] [address] [place] [address] 12/16/2024 10:30 AM EDT Office Visit [facility] Hematology Oncology [address] [place] [address] Tre Michel MD [address] [place] [address] Health Maintenance Due Date Last Done Comments DTaP,Tdap,and Td Vaccines (1 - Tdap) 10/03/1962 Cholesterol Screening (Lipid Panel) 07/05/2022 Depression Screening 07/05/2022 Falls Risk Assessment 07/05/2022 Social Influencers of Health Screening 07/05/2022 Medicare Annual Wellness Visit 02/20/2023 02/20/2022 Hypertension/CHF/CAD Annual BMP Blood Test 08/17/2025 08/17/2024, 06/03/2024 Osteoporosis Screening (Bone Density Screening) 09/24/2032 09/24/2022 Zoster Vaccines Completed 11/09/2020, 07/28, 2013 Pneumococcal Vaccine: 65+ Years Completed 06/25/2021, 06/04/2020, 06/11/2018 RSV Immunization Patients 60+ Years Old Completed 08/08/2023 Influenza Vaccine Completed 04/02/2024, , 05/30/2022, Additional history exists COVID-19 Vaccine Completed 07/13/2024, , 05/19/2022, Additional history exists HIB Vaccines Aged Out No longer eligi ble based on patient's age to complete this topic HPV Vaccines Aged Out No longer eligi ble based on patient's age to complete this topic Hepatitis A Vaccines Aged Out No long er eligible based on patient's age to complete this topic Hepatitis B Vaccines Aged Out No long er eligible based on patient's age to complete this topic IPV Vaccines Aged Out No longer eligi ble based on patient's age to complete this topic MMR Vaccines Aged Out No longer eligi ble based on patient's age to complete this topic Meningococcal ACWY Vaccine Aged Out N o longer eligible based on patient's age to complete this topic RSV Immunization Patients Under 20 months Aged Out No longer eligible based on patient's age to complete this topic Varicella Vaccines Aged Out No longer eligible based on patient's age to complete this topic Procedures Procedure Name Priority Date/Time Associated Diagnosis Comments CBC WITH AUTO DIFFERENTIAL Routine 08/17/2024 10:45 AM EST Hereditary hemochromatosis (CMS/HCC) CBC AND DIFFERENTIAL Routine 08/17/2024 10:45 AM EST Hereditary hemochromatosis (CMS/HCC) FERRITIN Routine 08/17/2024 10:45 AM EST Hereditary hemochromatosis (CMS/HCC) IRON AND TIBC Routine 08/17/2024 10:45 AM EST Hereditary hemochromatosis (CMS/HCC) COMPREHENSIVE METABOLIC PANEL Routine 08/17/2024 10:45 AM EST Hereditary hemochromatosis (CMS/HCC) VITAMIN B12 Routine 08/17/2024 10:45 AM EST Hereditary hemochromatosis (CMS/HCC) CBC WITH AUTO DIFFERENTIAL Routine 06/03/2024 2:05 PM EST Pigment cirrhosis (CMS/HCC) IRON AND TIBC Routine 06/03/2024 2:05 PM EST Pigment cirrhosis (CMS/HCC) FERRITIN Routine 06/03/2024 2:05 PM EST Pigment cirrhosis (CMS/HCC) CBC AND DIFFERENTIAL Routine 06/03/2024 2:05 PM EST Pigment cirrhosis (CMS/HCC) VITAMIN B12 Routine 06/03/2024 2:05 PM EST Pigment cirrhosis (CMS/HCC) COMPREHENSIVE METABOLIC PANEL Routine 06/03/2024 2:05 PM EST Pigment cirrhosis (CMS/HCC) [facility] DEXA AXIAL SKELETON Routine 09/24/2022 4:53 PM EST Encounter for screening for osteoporosis from Last 3 Months or Most Recently Relevant to Health Maintenance Results * (ABNORMAL) CBC auto differential (08/17/2024 10:45 AM EST) Only the most recent of2 resultswithin the time period is included. WBC 6.9 4.8 - 10.8 K/mcL LAB HEMETOLOGY METHOD 08/17/2024 11:21 AM [facility] RBC 3.30(L) 3.80 - 4.80 M/mcL LAB HEMETOLOGY METHOD 08/17/2024 11:21 AM [facility] Hemoglobin 11.3(L) 11.5 - 16.0 g/dL LAB HEMETOLOGY METHOD 08/17/2024 11:21 AM [facility] Hematocrit 34.3(L) 35.0 - 47.0 % LAB HEMETOLOGY METHOD 08/17/2024 11:21 AM [facility] MCV 105.5(H) 79.0 - 98.0 FL LAB HEMETOLOGY METHOD 08/17/2024 11:21 AM [facility] MCH 34.8(H) 27.0 - 32.0 pcg LAB HEMETOLOGY METHOD 08/17/2024 11:21 AM [facility] MCHC 32.9 32.0 - 37.0 g/dL LAB HEMETOLOGY METHOD 08/17/2024 11:21 AM [facility] RDW 16.3(H) 11.0 - 15.0 % LAB HEMETOLOGY METHOD 08/17/2024 11:21 AM [facility] Platelets 368 130 - 400 K/mcL LAB HEMETOLOGY METHOD 08/17/2024 11:21 AM [facility] MPV 11.4(H) 7.0 - 11.0 FL LAB HEMETOLOGY METHOD 08/17/2024 11:21 AM [facility] NRBC 0.0 <1.0 % LAB HEMETOLOGY METHOD 08/17/2024 11:21 AM [facility] NRBC Absolute 0.00 <0.10 K/mcL LAB HEMETOLOGY METHOD 08/17/2024 11:21 AM [facility] Neutrophils Relative 55.8 % LAB HEMETOLOGY METHOD 08/17/2024 11:21 AM [facility] Lymphocytes Relative 28.0 % LAB HEMETOLOGY METHOD 08/17/2024 11:21 AM [facility] Monocytes Relative 13.6 % LAB HEMETOLOGY METHOD 08/17/2024 11:21 AM [facility] Eosinophils Relative 1.0 % LAB HEMETOLOGY METHOD 08/17/2024 11:21 AM [facility] Basophils Relative 1.0 % LAB HEMETOLOGY METHOD 08/17/2024 11:21 AM [facility] Immature Granulocytes Relative 0.6 % LAB HEMETOLOGY METHOD 08/17/2024 11:21 AM [facility] Neutrophils Absolute 3.86 1.50 - 7.00 K/mcL LAB HEMETOLOGY METHOD 08/17/2024 11:21 AM [facility] Lymphocytes Absolute 1.94 1.00 - 5.00 K/mcL LAB HEMETOLOGY METHOD 08/17/2024 11:21 AM [facility] Monocytes Absolute 0.94 0.20 - 1.00 K/mcL LAB HEMETOLOGY METHOD 08/17/2024 11:21 AM [facility] Eosinophils Absolute 0.07 0.00 - 0.50 K/mcL LAB HEMETOLOGY METHOD 08/17/2024 11:21 AM EST [facility] Basophils Absolute 0.07 0.00 - 0.20 K/mcL LAB HEMETOLOGY METHOD 08/17/2024 11:21 AM EST [facility] Immature Granulocytes Absolute 0.04(H) 0.00 - 0.03 K/mcL LAB HEMETOLOGY METHOD 08/17/2024 11:21 AM EST [facility] Blood Venous blood specimen / Unknown Venipuncture / Unknown 08/17/2024 10:45 AM EST 08/17/2024 11:07 AM EST Tre Michel MD LAB BLOOD ORDERABLE S Performing Organization Address City/[facility]/ZIP Co de Phone Number [facility] [address] [place] [address], [place] [phone] * (ABNORMAL) Iron and TIBC (08/17/2024 10:45 AM EST) Only the most recent of2 resultswithin the time period is included. Iron 198(H) 40 - 150 mcg/dL LAB CHEMISTRY METHOD 08/17/2024 11:49 AM [facility] TIBC 214(L) 250 - 450 mcg/dL LAB CHEMISTRY METHOD 08/17/2024 11:49 AM [facility] Iron Saturation 93(H) 15 - 50 % LAB CHEMISTRY METHOD 08/17/2024 11:49 AM EST [facility] Blood Venous blood specimen / Unknown Venipuncture / Unknown 08/17/2024 10:45 AM EST 08/17/2024 11:07 AM EST Tre Michel MD LAB BLOOD ORDERABLE S Performing Organization Address City/[facility]/ZIP Co de Phone Number [facility] [address] [place] [address], * Ferritin (08/17/2024 10:45 AM EST) Only the most recent of2 resultswithin the time period is included. Ferritin 96 8 - 252 ng/mL LAB CHEMISTRY METHOD 08/17/2024 12:11 PM EST [facility] Blood Venous blood specimen / Unknown Venipuncture / Unknown 08/17/2024 10:45 AM EST 08/17/2024 11:07 AM EST Tre Michel MD LAB BLOOD ORDERABLE S Performing Organization Address [facility] Co de Phone Number [facility] [address] [place] [address], [place] [phone] * (ABNORMAL) Vitamin B12 (08/17/2024 10:45 AM EST) Only the most recent of2 resultswithin the time period is included. [facility] Vitamin B-12 925(H) 250 - 900 pcg/mL LAB CHEMISTRY METHOD 08/17/2024 12:11 PM EST [facility] Blood Venous blood specimen / Unknown Venipuncture / Unknown 08/17/2024 10:45 AM EST 08/17/2024 11:07 AM EST Tre Michel MD LAB BLOOD ORDERABLE S Performing Organization Address [facility] de Phone Number [facility] [address] [place] [address], [place] [phone] * (ABNORMAL) Comprehensive metabolic panel (08/17/2024 10:45 AM EST) Only the most recent of2 resultswithin the time period is included. [facility] Sodium 139 133 - 145 mmol/L LAB CHEMISTRY METHOD 08/17/2024 12:11 PM EST [facility] Potassium 4.5 3.5 - 5.5 mmol/L LAB CHEMISTRY METHOD 08/17/2024 12:11 PM EST [facility] Chloride 104 96 - 110 mmol/L LAB CHEMISTRY METHOD 08/17/2024 12:11 PM EST [facility] CO2 31 21 - 32 mmol/L LAB CHEMISTRY METHOD 08/17/2024 12:11 PM [facility] Anion Gap 4 3 - 11 LAB CHEMISTRY METHOD 08/17/2024 12:11 PM [facility] Glucose 87 70 - 100 mg/dL LAB CHEMISTRY METHOD 08/17/2024 12:11 PM [facility] BUN 22 5 - 25 mg/dL LAB CHEMISTRY METHOD 08/17/2024 12:11 PM [facility] Creatinine 1.00 0.50 - 1.10 mg/dL LAB CHEMISTRY METHOD 08/17/2024 12:11 PM [facility] eGFR 57(L) >=60 mL/min/1. 73m2 LAB CHEMISTRY METHOD 08/17/2024 12:11 PM [facility] Comment:Calculation based on the??Chronic Kidney Disease Epidemiology Collaboration (CKD-EPI) equation refit??without adjustment for race. BUN/Creatinine Ratio 22.0 LAB CHEMISTRY METHOD 08/17/2024 12:11 PM [facility] Calcium 8.8 8.5 - 10.5 mg/dL LAB CHEMISTRY METHOD 08/17/2024 12:11 PM [facility] AST (SGOT) 20 10 - 42 unit/L LAB CHEMISTRY METHOD 08/17/2024 12:11 PM [facility] ALT (SGPT) 22 10 - 60 unit/L LAB CHEMISTRY METHOD 08/17/2024 12:11 PM [facility] Alkaline Phosphatase 87 42 - 121 unit/L LAB CHEMISTRY METHOD 08/17/2024 12:11 PM [facility] Total Protein 7.1 6.0 - 8.0 g/dL LAB CHEMISTRY METHOD 08/17/2024 12:11 PM [facility] Albumin 3.5 3.2 - 5.0 g/dL LAB CHEMISTRY METHOD 08/17/2024 12:11 PM [facility] Total Bilirubin 1.0 0.0 - 1.4 mg/dL LAB CHEMISTRY METHOD 08/17/2024 12:11 PM EST [facility] Blood Venous blood specimen / Unknown Venipuncture / Unknown 08/17/2024 10:45 AM EST 08/17/2024 11:07 AM EST Tre Michel MD LAB BLOOD ORDERABLE S [facility] [address] [place] [address], * JOSE DE JESUS DEXA AXIAL SKELETON (09/24/2022 4:53 PM EST) Anatomical Region Laterality Modality Mammography 09/20/2022 1:25 PM EST Narrative 09/24/2022 4:53 PM EST [facility] Diagnostic Imaging Department [address] [place] [address] Patient: ??BETINA REYNOSO ?/Age/Sex: 1945 - 76 - F Unit#: ??[id number] ? Location/Status: ??SPDIMAM/REG CLI ? Mnemonic/Ordering Site: ??MAMDEXAAX/SPMAM Ordering Physician: ??NENO UGARTE PA-C Jose De Jesus Dexa Axial Skeleton - 09/20/22 - 3049 History: Low estrogen state due to menopause. Parent hip fracture. Comparison: 11/09/15 Findings: Bone densitometry is performed utilizing dual energy x-ray absorptiometry (DXA) in the [email or web address] unit. The lumbar spine and proximal femora are evaluated in the AP projection. The FRAX questionaire was completed. The results indicate low bone mass (osteopenia), with a left femoral neck T- score of -2.4. The Z score is -0.7, indicating bone mineral density within the range of normal for age. There have been statistically significant decreases in bone mineral density in the bilateral total femurs since the previous study. The detailed DEXA report will be mailed to the referring physician's office. DualFemur FRAX: 10-year Probability of Fracture: Major Osteoporotic 21.3 percent ??Hip 11.6 percent. IMPRESSION: Osteopenia. [id number] Dictating Physician: ??BERNA PONCE MD Electronically Signed by: ??BERNA PONCE MD Dic Date/Time: ??09/24/22 165 Sign date/Time: ??09/24/22 1653 Procedure Note Berna Ponce MD - 08/29/2023 [facility] Diagnostic Imaging Department [address] [place] [address] Patient: BETINA REYNOSO D.O.B./Age/Sex: 1945 - 76 -F Unit#: [id number] Location/Status: [facility] Ordering Physician: NENO UGARTE PA-C Jose De Jesus Dexa Axial Skeleton - 09/20/22 - 1419 History: Low estrogen state due to menopause. Parent hip fracture. Comparison: 11/09/15 Findings: Bone densitometry is performed utilizing dual energy x-ray absorptiometry(DXA) in the [employer] unit. The lumbar spine and proximal femora areevaluated in the AP projection. The FRAX questionaire was completed. The results indicate low bone mass (osteopenia), with a left femoral neckT- score of -2.4. The Z score is -0.7, indicating bone mineral density withinthe range of normal for age. There have been statistically significantdecreases in bone mineral density in the bilateral total femurs since the previousstudy. The detailed DEXA report will be mailed to the referring physician'soffice. DualFemur FRAX: 10-year Probability of Fracture: Major Osteoporotic 21.3 percent Hip 11.6 percent. IMPRESSION: Osteopenia. [id number] Dictating Physician: BERNA PONCE MD Electronically Signed by: BERNA PONCE MD Dic Date/Time: 09/24/22 1652 Sign date/Time: 09/24/22 1653 Neno ARTEAGA IMG BI PROCEDURES from Last 3 Months or Most Recently Relevant to Health Maintenance Care Teams Piano Accompanist Relationship Specialty Start Date End Date Alejandro Oglesby MD [address] [place] [address] PCP - General 08/13/22
== END 2024-08-27 10:18 | disposition home or self-care (01) ==
LOC: HO.HMGCX 10:17
PROVIDERS: PCP Internal Medicine; Visit Provider Nurse Practitioner Family
DX: E83.119 Hemochromatosis, unspecified (principal)
CPT/HCPCS: 76705

== ENCOUNTER → 2024-08-27 10:25 | Outpatient (BNV) | payer MEDICARE, BC, SELFPAY | PROVIDERS: PCP Internal Medicine; Visit Provider Student in an Organized Health Care Education/Training Program | DX: E83.119 Hemochromatosis, unspecified (principal) | CPT/HCPCS: 76705 ==

== ENCOUNTER 2024-10-26 13:32 | Outpatient (REF) | payer MEDICARE, BC, SELFPAY ==
--- OUTSIDE RECORDS SUMMARY | 2024-10-26 16:02 | XMS_ITS | Data Portability ---
Author Organization [place] [facility], Allergy Address [address] [place] [address] Care Team Providers Care Mixer Foam Rubber Name Role Phone MARILU STEEN Primary Care Provider TORITO LAZCANO Referring Provider [phone] Assessment No assessment recorded. Plan of Treatment Reminders Order Date Submit Date Provider Last Modified By Organization Details Last Modified Time Details Appointments VENTURA Initial Fitting 2024 03:00P YELENA ROBERTSON Not available Not available Not [...] Sensorineur al hearing loss of bilateral ears [id number] Active 2024 SANDRA Silva MD [address] [address], [place], [phone], [facility] - [facility] 11:05:22 Impacted cerumen of bilateral ears [id number] 108 Active 2024 SANDRA Silva MD [address] [address], [place], [phone], [facility] - [facility] 11:05:25 Problem Notes None recorded. Procedures Surgical History Date Name Laterality Status Provider Name and Address Organization Details Recorded Time 5 Comp Audio (28690) completed YELENA HAYNES [address] [facility],[address] [address], [place], [address], [facility] 08/24/2024 11:16:49 Cerumen removal with microscope bilateral completed SANDRA SOLIZ MD [address] [facility],[address] [address], [place], [address], [facility] 08/24/2024 11:05:38 Imaging Results Imaging Date Name Status LastModified by Organiz ation Details LastModified Time 08/24/2024 audiogram completed BAR[facility] Information no t available 08/24/2024 13:04:58 Procedure Notes None recorded. Medical Equipment None [...] Updated DateTime 08/24/2024 157.48 cm 35.7 kg/m2 87965.51 g Brenden Barron [place] - [facility] 08/24/2024 11:28:27 Social History None recorded. Functional Status None recorded. Mental Status None recorded. Family History Nothing Reported. Medical History No medical history recorded. Gynecological HistoryNo gynecological history recorded. Obstetrics History GPAL:G 0 P 0 0 0 0 Past Encounters Encounter ID Performer Location Encounter Start Date Encounter Closed Date Diagnosis/Indication Diagnosis SNOMED-CT Code Diagnosis ICD10 Code Diagnosis Note [id number] SANDRA SOLIZ MD [facility] [address] [address] 08/24/2024 10:15:22 08/24/2024 11:44:43 Sensorineural hearing loss of bilateral ears 261150582 H90.3 Patient's audiogram shows bilateral {{mild mod [...] copy of the audiogram, a list of [facility] hearing aid providers, and medical clearance [...] MRI. Impacted c erumen of bilateral ears [id number] 137119 H61.23 Recurrent Cerumen Impactions : Ears were meticulous ly cleaned bilaterall y today with a curette and suction. The patient tolerated this well and will follow up for repeat debridemen t per routine. [id number] YELENA HAYNES [facility] [address] [address] 08/24/2024 11:16:38 08/25/2024 07:46:12 Sensorineural hearing loss of bilateral ears [id number] H90.3 Audiologic al evaluation results: 08/24/2024 Right [...] Lundberg Member ID Guarantor Name 08/24/2024 2 [facility]: [facility] ([facility] [id number] Amber P Marychuy [id number] Amber P Marychuy 08/24/2024 1 [place]IC[place]: [facility] Amber P Marychuy [id number] Amber P Marychuy 08/24/2024 2 [facility]: [facility] ([facility] [id number] Amber P Marychuy [id number] Amber P Marychuy 08/24/2024 1 [facility] Amber P Marychuy [id number] Amber P Marychuy Notes Date Note Type Note Provider Name and Address Organization Details Recorded Time 08/24/2024 text/html No hearing loss which is much worse on the left and has progressed gradually over time. Audiology noted cerumen impactions most notably on the right today. SANDRA SOLIZ MD [address] [place] [address], [place], [address], [facility] 08/24/2024 13:31:38 OBGyn Episode No OBEpisode recorded.
--- OUTSIDE RECORDS SUMMARY | 2024-10-26 16:02 | XMS_ITS ---
Author Organization [facility] [place] [address] Care Team Providers Care Bass Singer Name Role Phone NENO FRANCES Unavailable [phone] REASON FOR VISIT mammo Encounters Encounter Location Date Provider Diagnosis [address] [place] [phone] 10/25/2024 NENO FRANCES Breast screen ing Z12.39 ASSESSMENTS Encounter Date Diagnosis Assessment Notes Treatment Notes Treatment Clinical Notes Section Notes 10/25/2024 Breast screening (ICD-10 - Z12.39) PLAN OF TREATMENT Pending Test Test Name Order Date MAMMOGRAM, SCREENING 10/25/2024 Next Appt Details Provider Name:NENO FRANCES, 02/08/2025 10:30:00 AM, [address], [place], [address], Progress Notes * MARY REYNOSOADOB:03/1946 (79 yo F)Acc No.[id number]:10/25/2024 Patient:??TENZIN REYNOSO :1945?Age:79 Y?Sex:Fe male Address:[address] [place] [phone] Subjective: * Chief Complaints: * ?Mammo * Medical History:?? * Surgical History:?? * Hospitalization/Major Diagno stic Procedure:?? * Medications:?? Objective: Assessment: * Assessment: 1.??Breast screening - Z12.3 9?? Plan: * Treatment: * Procedure Codes:?? * true * Date:??
--- OUTSIDE RECORDS SUMMARY | 2024-10-26 16:02 | XMS_ITS | Encounter Summary ---
Author Organization [facility] Address [address] [place] [address] Care Team Providers Care Costuming Supervisor Name Role Phone Alejandro Oglesby MD Primary Care Provider [phone] Encounter Details Date Type Department Care Team (Late st Contact Info) Description 10/25/2024 Telephone [facility] Hematology Oncology [address] [place] [address] Tre Michel MD [address] [place] [address] Social History Tobacco Use Types Packs/Day Years Used Date Smoking Tobacco: Never Smokeless Tobacco: Never Alcohol Use Standard Drinks/Week Comments No 0 (1 standard drink = 0.6 oz pur e alcohol) Comments Unknown Sex and Gender Information Value Date Recorded Sex Assigned at Not on file Legal Sex Female 2:20 AM EST Gender Identity Not on file Sexual Orientation Not on file documented as of this encounter Progress Notes * Dot Miguel MA - 10/25/2024 12:07 PM EDT Order faxed and spoke to Amber let her know all set * Rita Benavides - 10/25/2024 9:12 AM EDT Patient is scheduled tomorrow to have blood work done at [facility] but is seeking the order to be sent with the diagnosis of iron overload . Last order sent said hereditary problem and insurance will not cover that diagnosis. Please call patient when faxed [phone] documented in this encounter Plan of Treatment Upcoming Encounters Date Type Department Care Team (Late st Contact Info) Description 12/01/2024 11:10 AM EDT Office Visit [facility] [address] [place] [address] Monalisa Cueva, MELODY [address] [place] [address] [address] [place] [address] 12/16/2024 10:30 AM EDT Office Visit [facility] Hematology Oncology [address] [place] [address] Tre Michel MD [address] [place] [phone] documented as of this encounter Visit Diagnoses Not on filedocumented in this encounter Care Teams Costuming Supervisor Relationship Specialty Start Date End Date Alejandro Oglesby MD [address] [place] [address] PCP - General 08/13/22 documented as of this encounter
--- OUTSIDE RECORDS SUMMARY | 2024-10-26 16:02 | XMS_ITS ---
Author Organization [facility] Address [address] [place] [address] Care Team Providers Care Cash Accounting Clerk Name Role Phone NENO FRANCES Unavailable [phone] MARILU STEEN [phone] REASON FOR VISIT CCM - mammo/colonoscopy Encounters Encounter Location Date Provider Diagnosis [address] [place] [phone] 10/18/2024 MARILU STEEN PLAN OF TREATMENT Next Appt Details Provider Name:NENO FRANCES, 02/08/2025 10:30:00 AM, [address], [place], [address], Progress Notes * MARY REYNOSOADOB:03/1946 (79 yo F)Acc No.[id number]:10/18/2024 Patient:??TENZIN REYNOSO :1945?Age:79 Y?Sex:Fe male Address:[address] [place] [phone] * true * Date:??
--- OUTSIDE RECORDS SUMMARY | 2024-10-26 16:02 | XMS_ITS | Data Portability ---
Author Organization [place] [facility] [place] Address [address] [place] [address] Care Team Providers Care Laboratory Manager Name Role Phone MARILU STEEN Primary Care Provider [phone] Assessment Encounter Date Assessment Date Assessment LastModified by Organization Details LastModified Time 11/25/2022 11/25/2022 Pleasant 77-year-old female last met Dr. Cardona on 06/11/2022 for her right total knee replacement the performed on April 12, 2022.. She is doing well clinically she can certainly increase the amount of stretching exercises to help with stiffness. She can take [id number]-rip-[id number] pain medication for symptomatic relief of discomfort. She does not take her antibiotic prophylaxis. I will have her return in 6 months for repeat clinical exam. She did ask regarding nonsteroidal anti-inflammator y she was on Celebrex however she does have a cardiac history. I would like her to speak with her lab aid before we prescribe a refill on her Celebrex. Indirect care and treatment in conjunction with Dr. Rapp Additional treatment plan discussed with the patient in detail included the following; - Provider focused nonsteroidal anti-inflammator y regimen (discussed were the pros, cons, benefits and risks as well as any black box warnings) in patients over 60 years old they should be very cautious in taking these medications due to potential decreased kidney function and or elevated blood pressure. - Analgesic pain medication for pain suppression (discussed were the pros, cons, benefits and risks as well as any black box warnings) - The use of topical pain relieving medication were discussed - The use of ice to decrease inflammation and pain - The use of assistive ambulatory devices for ambulation and fall prevention - Formal specific guided physical therapy program I reviewed my findings at length with the patient today. ? ? ?We discussed the nature and etiology of this problem along with current treatment options. We discussed the expected course and outcomes and what to expect. We also discussed risks and benefits. ? ? ? All of their questions were answered today, and there was exhibited understanding and comprehension of all that was discussed. 10 minutes were spent reviewing previous imaging and charting. ? ? ?10 minutes were spent obtaining patient history. ? ? ?5 minutes were spent on physical exam. ? ? ?5? ? ?minutes were spent explaining diagnosis and assessment. Today's documentation was made using voice recognition software. This note may contain grammatical errors secondary to the software. Not available 11/25/2022 14:19:44 04/01/2023 04/01/2023 Pleasant 77-year-old female following up on her bilateral knee replacements left knee replacement 08/20/2021 and the right knee replacement on 04/12/2022. 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 After that she can discontinue from an orthopedic standpoint if her dentist wishes to continue this they can take over management. She will continue with her stretching exercise regimen. Should she have any questions or concerns she should contact my office otherwise follow-up visit in 5 years for repeat clinical exam and x-ray. Patient agrees with the above-noted plan and all questions were answered. Regarding her Celebrex we had a lengthy discussion regarding this being a short-term medication I did explain to her I will give her a one-time refill after that she needs to have further refills by her primary care. Indirect care and treatment in conjunction with Dr. Rapp Additional treatment plan discussed with the patient (only initiated if in boldface font) otherwise not applicable. Treatment may include the following; - Provider focused nonsteroidal anti-inflammator y regimen (discussed were the pros, cons, benefits and risks as well as any black box warnings) in patients over 60 years old they should be very cautious in taking these medications due to potential decreased kidney function and or elevated blood pressure. - Analgesic pain medication for pain suppression (discussed were the pros, cons, benefits and risks as well as any black box warnings) - The use of topical pain relieving medication were discussed - The use of ice to decrease inflammation and pain - The use of assistive ambulatory devices for ambulation and fall prevention - Formal specific guided physical therapy program I reviewed my findings at length with the patient today. ? ? ?We discussed the nature and etiology of this problem along with current treatment options. We discussed the expected course and outcomes and what to expect. We also discussed risks and benefits. ? ? ? All of their questions were answered today, and there was exhibited understanding and comprehension of all that was discussed. Time Spent: 10 minutes were spent reviewing previous imaging and charting. ? ? ?10 minutes were spent obtaining patient history. ? ? ?5 minutes were spent on physical exam. ? ? ?5? ? ?minutes were spent explaining diagnosis and assessment. Today's documentation was made using voice recognition software. This note may contain grammatical errors secondary to the software. Not available 04/02/2023 07:49:02 Plan of Treatment Reminders Order Date Submit Date Provider Last Modified By Organization Details Last Modified Time Details Appointments None recorded. Lab None recorded. Referral None recorded. Procedures None recorded. Surgeries None recorded. Imaging XR, knee, 1 or 2 view 2022 023 preston [facility], [address], [address], [place], [address], 3 16:35:38 XR, knee, 1 or 2 view 2022 023 preston 14 [facility], [address], [place], [address], 3 16:35:38 Medication Orders amoxicillin 500 mg capsule 2022 023 SANG [id number], [address] [place], [address], 3 07:52:01 Celebrex 100 mg capsule 2022 023 [email or web address] [id number], [address] [place], [address], 3 07:39:07 Patient TargetsNo targets recorded. Patient Instructions Encounter Date Encounter Id Patient Instructions Last Modified By Organization Details Last Modified Time 11/25/2022 [id number] Bilateral knee x-rays reveal well-seated well-positioned total knee arthroplasties bilaterally without signs of loosening. No acute bony abnormality. Not available 11/25/2022 14:19:58 Reason for Referral None Reported. Problems Name Problem SNOMED Code Status Onset Date Resolution Date Notes Provider Name and Address Organization Details Recorded Time Stiffness of left knee [id number] 2 Active 2022 LATRELL JIMENEZ PA-C [address], [place], [address] , [place] [facility] 3 14:20:13 Problem Notes None recorded. Medical Equipment None Reported. Allergies Allergen ID Allergen Name Allergen Category Reaction Reaction Severity Criticality Documentation Date Start Date Code Code System Note Provider Name and Address Organization Details Recorded Time 3306 iodine medicatio n Not available Not available Not available 11/25/2022 5933 RxNorm Cindy Lina[facility], [place] [facility] 3 13:39:53 Medications Name Sig Start Date Stop Date Status Note LastModified by Organization Details LastModified Time celecoxib 200 mg capsule TAKE 1 CAPSULE BY MOUTH EVERY DAY 04/02 completed Not Available Not Available Not Available amoxicillin 500 mg capsule TAKE 4 TABS 1 HOUR PRIOR TO DENTAL PROCEDURE active Not Available Not Available No t Available diltiazem CD 180 mg capsule,ext ended release 24 hr active Not Available Not Available Not Available amoxicillin 500 mg tablet Take 4 tabs 1 hour prior to dental procedure 2022 active Not Available Not Available Not Avai lable famotidine 20 mg tablet active Not Available Not Available Not Available betamethaso ne dipropionat e 0.05 % topical cream APPLY A THIN FILM TOPICALLY TO THE AFFECTED AREA 2 TIMES A DAY NEEDED active Not Available Not Available No t Available omeprazole 20 mg capsule,del ayed release TAKE 1 CAPSULE BY MOUTH EVERY DAY active Not Available Not Available No t Available amoxicillin 250 mg capsule TAKE 2 CAPSULES BY MOUTH EVERY 12 HOURS 11/25 completed Not Available Not Available Not Available furosemide 20 mg tablet Take 1 tablet every day by oral route. active Not Available Not Available No t Available warfarin 1 mg tablet TAKE 4 TABLETS BY MOUTH EVERY EVENING active Not Available Not Available No t Available celecoxib 100 mg capsule TAKE 1 CAPSULE BY MOUTH EVERY DAY NEEDED FOR PAIN active Not Available Not Available No t Available oxycodone 5 mg tablet TAKE 1/2 TO 1 TABLET BY MOUTH EVERY 4 TO 6 HOURS NEEDED FOR SEVERE PAIN (SCALE 7-10) 11/25 completed Not Available Not Available Not Available enoxaparin 40 mg/0.4 mL subcutaneou s syringe INJECT 1 SYRINGE SUBCUTANE OUSLY DAILY 04/02 completed Not Available Not Available Not Available solifenacin 10 mg tablet active Not Available Not Available Not Available aspirin active Not Available Not Avail able Not Available calcium active Not Available Not Avail able Not Available famotidine active Not Available Not Av ailable Not Available Senna Plus active Not Available Not Av ailable Not Available Vitals None Recorded Social History None recorded. Functional Status None recorded. Mental Status None recorded. Family History Nothing Reported. Medical History No medical history recorded. Gynecological HistoryNo gynecological history recorded. Obstetrics History GPAL:G 0 P 0 0 0 0 Past Encounters Encounter ID Performer Location Encounter Start Date Encounter Closed Date Diagnosis/Indication Diagnosis SNOMED-CT Code Diagnosis ICD10 Code Diagnosis Note [id number] [facility] [address] [address] 11/25/2022 13:24:14 11/25/2022 13:52:41 History of right total knee replacement 7422851661 411385 Z96.651 History of left total knee replacement 8278815719 060859 Z96.652 Stiffness of left knee 3039551711 57521 M25.662 [id number] MD LACY Jean [facility] 299 [facility] [address] [place] [address] 04/01/2023 14:51:03 04/01/2023 15:35:17 History of total knee arthroplasty 6957592233 105 Z96.659 Health Concerns Section Related Observation LastModified by Organization Detai ls LastModified Time None Recorded Concern Status LastModified by Organization Details LastModified Time None Recorded Advance Directives Directive None Recorded Payers Encounter Date Sequence Insurance Name Policy Number Policy Lundberg Covered Member ID Lundberg Member ID Guarantor Name 11/25/2022 2 [facility] [id number] Amber Perrin [id number] Amber Perrin 11/25/2022 1 [place] [facility] Amber Perrin [id number] Amber Cedenorowski 04/01/2023 2 [facility] [employer] [facility] [id number] Amber Cedenorowski [id number] Amber Cedenorowski 04/01/2023 1 [place] [facility] Amber Perrin [id number] Amber Cedenorowski Notes Date Note Type Note Provider Name and Address Organization Details Recorded Time 11/25/2022 text/html Florentino 77-year-old female last met Dr. Cardona on 06/11/2022 for her right total knee replacement the performed on April 12, 2022. At that time she was going to physical therapy she was taking Celebrex for discomfort. She does her stretching exercises when she recalls. She knows when to take her antibiotic prophylaxis. She has occasional discomfort and stiffness otherwise doing well. She states changes with the weather makes her knees more symptomatic however this dissipates. She is currently asymptomatic. LATRELL JIMENEZ PA-C [address], [place], [address], [place] [facility] 11/25/2022 14:20:37 04/01/2023 text/html Florentino 77-year-old female following up on her bilateral knee replacements left knee performed on 08/20/2021 in the right knee performed on 04/12/2022. Patient states she is doing well she is doing her home exercise program. She states she is feeling good . She states she takes her antibiotic prophylaxis prior to dental work. Here for follow-up. She is requesting for refill on her amoxicillin and LATRELL JIMENEZ PA-C [address], [place], [address], [place] [facility] 04/02/2023 07:52:22 OBGyn Episode No OBEpisode recorded.
--- OUTSIDE RECORDS SUMMARY | 2024-10-26 16:02 | XMS_ITS | Data Portability ---
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 Plan of Treatment Reminders Order Date Submit Date Provider Last Modified By Organization Details Last Modified Time Details Appointments None recorded. Lab vitamin D, 25-hydroxy, total, serum 2019 020 [facility], [address], [place], [address], 0 08:00:40 fecal occult blood, stool 2019 020 [facility], [address], [place], [address], 0 05:01:30 HbA1c (hemoglobin A1c), blood 2019 020 [facility], [address], [place], [address], 0 08:00:40 vitamin B12 + folate, serum or blood 2019 020 [facility], [address], [place], [address], 0 08:00:41 CMP, serum or plasma 2019 020 [facility], [address] [place], [address], 0 08:00:39 CBC w/ auto diff 2019 020 [facility], [address], [place], [address], 0 08:00:40 urinalysis complete, reflex culture 2019 020 [facility], [address], [place], [address], 0 05:01:30 lipid panel, serum 2019 020 [facility], [address], [place], [address], 0 05:01:30 fecal occult blood, stool 2019 020 [email or web address], [address], [place], [address], 0 18:43:44 HbA1c (hemoglobin A1c), blood 2019 020 [facility], [address], [place], [address], 0 07:54:23 lipid panel, blood 2019 020 [facility], [address], [place], [address], 0 07:54:21 TSH + free T4, serum 2019 020 [facility], [address], [place], [address], 0 07:54:22 CMP, serum or plasma 2019 020 [facility], [address], [place], [address], 0 07:54:22 TSH + free T4, serum 2019 020 [email or web address], [address], [place], [address], 0 18:43:45 CBC w/ auto diff 2019 020 [facility], [address] [facility], [place], [address], 0 07:54:23 T3, free, serum or plasma 2019 020 [facility], [address], [place], [address], 0 07:54:23 urinalysis complete, reflex culture 2019 020 [email or web address], [address], [place], [address], 0 18:43:45 Referral None recorded. Procedures None recorded. Surgeries None recorded. Imaging None recorded. Medication Orders Golytely 236 gram-22.74 gram-6.74 gram-5.86 gram oral solution 2019 020 [facility], [address] [place], [address], 0 15:38:30 amoxicillin 500 mg tablet 2019 020 [facility] [address], [address] [place], [address], 0 11:14:25 prednisone 10 mg tablet 2019 020 [place] [id number], [address] [place], [address], 0 11:15:49 Patient TargetsNo targets recorded. Patient Instructions Encounter [...] and location of each of our clinics ([place], [facility], [facility], [place], [place] and [facility]), and they are encouraged to return for any questions, concerns, and evaluations. 4. Patient directed to CALL 911/and/or GO IMMEDIATELY to the emergency dept if symptoms worsen 5. Discussed natural and expected course of this diagnosis and need to alert me if symptoms do not follow expected course, or if any worse. Not available 08/08/2019 12:12:07 09/14/2019 [id number] knee arthritis: care instructions [email or web address] Not available 09/14/2019 13:44:20 osteoarthritis: care instructions [email or web address] Not available 09/14/2019 13:44:19 joint injections : care instructions Not available 09/14/2019 13:44:19 gastroesophageal reflux disease (GERD): care instructions [email or web address] Not available 09/14/2019 13:44:19 heart-healthy di et: care instructions [email or web address] Not available 09/14/2019 13:53:23 09/20/2019 [id number] anemia: care instructions [email or web address] Not available 09/20/2019 16:04:13 [email or web address] Not available 2019 16:02:00 Reason for Referral None Reported. Results Created Date Observation Date Name Description Value Unit Range Abnormal Flag Note LastModifiedBy Organization Detail LastModifiedTime 09/15/1909/20/2019 lipid panel , blood cholesterol, total 135 mg/dL <200 SAMPL E SLIGH TLY LIPEM IC. Not Available [facility] [place] [facility] [address], [place], [address], 09/20/2019 18:21:10 09/15/1909/20/2019 lipid panel , blood HDL cholesterol 47 mg/dL > or = 50 low SAMPL E SLIGH TLY LIPEM IC. Not Available [facility] [place] [facility] [address], [place], [address], 09/20/2019 18:21:10 09/15/19 20 09/20/2019 lipid panel , blood triglyceride s 89 mg/dL <150 SAMPL E SLIGH TLY LIPEM IC. Not Available [facility] [place] [facility] [address], [place], [address], 09/20/2019 18:21:10 09/15/19 20 09/20/2019 lipid panel [...] infor kenyon moreno e refer to http: //[facility] catmekhi n.Que stDia gnost ics.c om/fa q/FAQ 164 (This link is being provi ded for infor neela nal/e ducat ional purpo ses only. ) Not Available [facility] [place] [facility] [address], [place], [address], 09/20/2019 18:21:10 09/15/19 20 09/20/2019 lipid panel , blood chol/HDLC ratio 2.9 calc <5.0 Not Available [facility] [place] [facility] [address], [place], [address], 09/20/2019 18:21:10 09/15/19 20 09/20/2019 lipid panel , blood non HDL cholesterol 88 mg/dL _(janna c) <130 For patie nts with diabe john plus 1 major ASCVD risk facto r, treat ing to a non-H DL-C goal of <100 mg/dL (LDL- C of <70 mg/dL ) is consi dered a thera peuti c optio n. Not Available [facility] [place] [facility] [address], [place], [address], 09/20/2019 18:21:10 09/15/19 20 09/16/2019 TSH + free T4, serum TSH 2.16 mIU/L 0.40-4 .50 normal Not Available [facility] [place] [facility] [address], [place], [address], 09/16/2019 08:47:57 09/15/19 20 09/16/2019 TSH + free T4, serum T4, free 1.2 NG/dL 0.8-1. 8 normal Not Available [facility] [address], [place], [address], 09/16/2019 08:47:57 09/15/19 20 09/15/2019 CMP, serum or plasm a glucose 104 mg/dL 65-99 high Fasti ng refer ence inter zayda For someo ne witho ut known diabe john, a gluco se value betwe en 100 and 125 mg/dL is consi stent with predi abete s and shoul d be confi rmed with a follo w-up test. Not Available [facility] [address], [place], [address], 09/15/2019 22:32:23 09/15/19 20 09/15/2019 CMP, serum or plasm a urea nitrogen (BUN) 16 mg/dL 7-25 normal Not Available [facility] [place] [facility] [address], [place], [address], 09/15/2019 22:32:23 09/15/19 20 09/15/2019 CMP, serum or plasm a creatinine 0.78 mg/dL 0.60-0 .93 normal For patie nts >49 years of age, the refer ence limit [facility] x[facility] christine 13% highe r for peopl e ident ified as Afric an-Am chanel n. Not Available [facility] [address], [place], [address], 09/15/2019 22:32:23 09/15/19 20 09/15/2019 CMP, serum or plasm a eGFR non-afr. maltese 74 mL/mi n/1.7 3m2 > or = 60 normal Not Available [facility] [address], [place], [address], 09/15/2019 22:32:23 09/15/19 20 09/15/2019 CMP, serum or plasm a eGFR 86 mL/mi n/1.7 3m2 > or = 60 normal Not Available [facility] [address], [place], [address], 09/15/2019 22:32:23 09/15/19 20 09/15/2019 CMP, serum or plasm a BUN/creatini ne ratio NOT APPLIC ABLE (calc ) 6-22 Not Available [facility] [address], [place], [address], 09/15/2019 22:32:23 09/15/19 20 09/15/2019 CMP, serum or plasm a sodium 134 mmol/ L 135-14 6 low Not Available [facility] [address], [place], [address], 09/15/2019 22:32:23 09/15/19 20 09/15/2019 CMP, serum or plasm a potassium 4.4 mmol/ L 3.5-5. 3 normal Not Available [facility] [address], [place], [address], 09/15/2019 22:32:23 09/15/19 20 09/15/2019 CMP, serum or plasm a chloride 100 mmol/ L 98-110 normal Not Available [facility] [address], [place], [address], 09/15/2019 22:32:23 09/15/19 20 09/15/2019 CMP, serum or plasm a carbon dioxide 29 mmol/ L 20-32 normal Not Available [facility] [address], [place], [address], 09/15/2019 22:32:23 09/15/19 20 09/15/2019 CMP, serum or plasm a calcium 8.9 mg/dL 8.6-10 .4 normal Not Available [facility] [address], [place], [address], 09/15/2019 22:32:23 09/15/19 20 09/15/2019 CMP, serum or plasm a protein, total 5.9 g/dL 6.1-8. [address] [facility] [address], [place], [address], 09/15/2019 22:32:23 09/15/19 20 09/15/2019 CMP, serum or plasm a albumin 3.5 g/dL 3.6-5. 1 low Not Available [facility] [address], [place], [address], 09/15/2019 22:32:23 09/15/19 20 09/15/2019 CMP, serum or plasm a globulin 2.4 g/dL_ (calc ) 1.9-3. 7 normal Not Available [facility] [address], [place], [address], 09/15/2019 22:32:23 09/15/19 20 09/15/2019 CMP, serum or plasm a albumin/glob ulin ratio 1.5 (calc ) 1.0-2. 5 normal Not Available [facility] [address], [place], [address], 09/15/2019 22:32:23 02/19/09/15/2019 CMP, serum or plasm a bilirubin, total 0.9 mg/dL 0.2-1. 2 normal Not Available [facility] [place] [facility] [address], [place], [address], 09/15/2019 22:32:23 09/15/19 20 09/15/2019 CMP, serum or plasm a alkaline phosphatase 56 U/L 37-153 normal Not Available [facility] [place] [facility] [address], [place], [address], 09/15/2019 22:32:23 09/15/19 20 09/15/2019 CMP, serum or plasm a AST 19 U/L 10-35 normal Not Available [facility] [place] [facility] [address], [place], [address], 09/15/2019 22:32:23 09/15/19 20 09/15/2019 CMP, serum or plasm a ALT 14 U/L 6-29 normal Not Available [facility] [place] [facility] [address], [place], [address], 09/15/2019 22:32:23 09/15/1909/16/2019 HbA1c (hemo globi n [...] john(A DA). Not Available [facility] [place] [facility] [address], [place], [address], 09/16/2019 01:11:23 09/15/19 20 09/16/2019 T3, free, serum or plasm a T3, free 3.4 pg/mL 2.3-4. 2 normal Not Available [facility] [place] [facility] [address], [place], [address], 09/16/2019 08:47:59 09/15/19 20 09/15/2019 CBC w/ auto diff white blood cell count 5.8 thous and/u L 3.8-10 .8 normal Not Available [facility] [place] [facility] [address], [place], [address], 09/15/2019 22:32:25 09/15/19 20 09/15/2019 CBC w/ auto diff red blood cell count 3.33 kecia on/uL 3.80-5 .10 low Not Available [facility] [place] [facility] [address], [place], [address], 09/15/2019 22:32:25 09/15/19 20 09/15/2019 CBC w/ auto diff hemoglobin 11.5 g/dL 11.7-1 5.5 low Not Available [facility] [place] [facility] [address], [place], [address], 09/15/2019 22:32:25 09/15/19 20 09/15/2019 CBC w/ auto diff hematocrit 34.1 % 35.0-4 5.0 low Not Available [facility] [place] [facility] [address], [place], [address], 09/15/2019 22:32:25 09/15/19 20 09/15/2019 CBC w/ auto diff MCV 102.4 fL 80.0-1 00.0 high Not Available [facility] [address], [place], [address], 09/15/2019 22:32:25 09/15/19 20 09/15/2019 CBC w/ auto diff MCH 34.5 pg 27.0-3 3.0 high Not Available [facility] [address], [place], [address], 09/15/2019 22:32:25 09/15/19 20 09/15/2019 CBC w/ auto diff MCHC 33.7 g/dL 32.0-3 6.0 normal Not Available [facility] [address], [place], [address], 09/15/2019 22:32:25 09/15/19 20 09/15/2019 CBC w/ auto diff RDW 12.6 % 11.0-1 5.0 normal Not Available [facility] [address], [place], [address], 09/15/2019 22:32:25 09/15/19 20 09/15/2019 CBC w/ auto diff platelet count 235 thous and/u L 140-40 0 normal Not Available [facility] [address], [place], [address], 09/15/2019 22:32:25 09/15/19 20 09/15/2019 CBC w/ auto diff MPV 11.4 fL 7.5-12 .5 normal Not Available [facility] [address], [place], [address], 09/15/2019 22:32:25 09/15/19 20 09/15/2019 CBC w/ auto diff absolute neutrophils 3352 cells /uL 1500-7 800 normal Not Available [facility] [address], [place], [address], 09/15/2019 22:32:25 09/15/19 20 09/15/2019 CBC w/ auto diff absolute lymphocytes 1688 cells /uL 850-39 00 normal Not Available [facility] [address], [place], [address], 09/15/2019 22:32:25 09/15/19 20 09/15/2019 CBC w/ auto diff absolute monocytes 609 cells /uL 200-95 0 normal Not Available [facility] [address], [place], [address], 09/15/2019 22:32:25 09/15/19 20 09/15/2019 CBC w/ auto diff absolute eosinophils 81 cells /uL 15-500 normal Not Available [facility] [address], [place], [address], 09/15/2019 22:32:25 09/15/19 20 09/15/2019 CBC w/ auto diff absolute basophils 70 cells /uL 0-200 normal Not Available [facility] [address], [facility] [place], [address], 09/15/2019 22:32:25 09/15/19 20 09/15/2019 CBC w/ auto diff neutrophils 57.8 % normal Not Available [facility] [address], [place], [address], 09/15/2019 22:32:25 09/15/19 20 09/15/2019 CBC w/ auto diff lymphocytes 29.1 % normal Not Available [facility] [address], [facility] [place], [address], 09/15/2019 22:32:25 09/15/19 20 09/15/2019 CBC w/ auto diff monocytes 10.5 % normal Not Available [facility] [address], [place], [address], 09/15/2019 22:32:25 09/15/19 20 09/15/2019 CBC w/ auto diff eosinophils 1.4 % normal Not Available [facility] [place] [facility] [address], [place], [address], 09/15/2019 22:32:25 09/15/19 20 09/15/2019 CBC w/ auto diff basophils 1.2 % normal Not Available [facility] [place] [facility] [address], [place], [address], 09/15/2019 22:32:25 09/15/19 20 09/15/2019 abn test refus al BRADY Be advis ed that your patie nt has indic ated on the advan ce benef iciar y notic e their decis ion not to recei ve the follo wing labor atory tests . As a resul t, the tests will not be perfo rmed. Not Available [facility] [place] [facility] [address], [place], [address], 09/15/2019 07:54:24 09/15/19 20 09/15/2019 abn test refus al abn test refused 3020 Not Available [facility] [place] [facility] [address], [place], [address], 09/15/2019 07:54:24 10/11/19 20 10/18/2019 lipid panel , blood cholesterol, total 136 mg/dL <200 SAMPL E SLIGH TLY LIPEM IC. Not Available [facility] [place] [facility] [address], [place], [address], 10/18/2019 16:45:27 10/11/19 20 10/18/2019 lipid panel , blood HDL cholesterol 51 mg/dL > or = 50 SAMPL E SLIGH TLY LIPEM IC. Not Available [facility] [place] [facility] [address], [place], [address], 10/18/2019 16:45:27 10/11/19 20 10/18/2019 lipid panel , blood triglyceride s 72 mg/dL <150 SAMPL E SLIGH TLY LIPEM IC. Not Available [facility] [place] [facility] [address], [place], [address], 10/18/2019 16:45:27 10/11/19 20 10/18/2019 lipid panel [...] infor kenyon moreno e refer to http: //[facility] polina rolle.Que stDia gnost ics.c om/fa q/FAQ 164 (This link is being provi ded for infor neela nal/e ducat ional purpo ses only. ) Not Available [facility] [place] [facility] [address], [place], [address], 10/18/2019 16:45:27 10/11/19 20 10/18/2019 lipid panel , blood chol/HDLC ratio 2.7 calc <5.0 Not Available [facility] [place] [facility] [address], [place], [address], 10/18/2019 16:45:27 10/11/19 20 10/18/2019 lipid panel , blood non HDL cholesterol 85 mg/dL _(janna c) <130 For patie nts with diabe john plus 1 major ASCVD risk facto r, treat ing to a non-H DL-C goal of <100 mg/dL (LDL- C of <70 mg/dL ) is consi dered a thera peuti c optio n. Not Available [facility] [place] [facility] [address], [place], [address], 10/18/2019 16:45:27 10/11/1910/11/2019 CMP, serum or plasm a glucose 106 mg/dL 65-99 high Fasti ng refer ence inter zayda For someo ne witho ut known diabe john, a gluco se value betwe en 100 and 125 mg/dL is consi stent with predi abete s and shoul d be confi rmed with a follo w-up test. Not Available [facility] [address], [place], [address], 10/11/2019 20:47:45 10/11/1910/11/2019 CMP, serum or plasm a urea nitrogen (BUN) 15 mg/dL 7-25 normal Not Available [facility] [address], [place], [address], 10/11/2019 20:47:45 10/11/1910/11/2019 CMP, serum or plasm a creatinine 0.79 mg/dL 0.60-0 .93 normal For patie nts >49 years of age, the refer ence limit for Creat inine is appro ximat christine 13% highe r for peopl e ident ified as Afric an-Am chanel n. Not Available [facility] [address], [place], [address], 10/11/2019 20:47:45 10/11/1910/11/2019 CMP, serum or plasm a eGFR non-afr. maltese 73 mL/mi n/1.7 3m2 > or = 60 normal Not Available [facility] [address], [place], [address], 10/11/2019 20:47:45 10/11/19 20 10/11/2019 CMP, serum or plasm a eGFR 84 mL/mi n/1.7 3m2 > or = 60 normal Not Available [facility] [address], [place], [address], 10/11/2019 20:47:45 10/11/19 20 10/11/2019 CMP, serum or plasm a BUN/creatini ne ratio NOT APPLIC ABLE (calc ) 6-[address] [facility] [address], [place], [address], 10/11/2019 20:47:45 10/11/19 20 10/11/2019 CMP, serum or plasm a sodium 136 mmol/ L 135-[address] [facility] [address], [place], [address], 10/11/2019 20:47:45 10/11/19 20 10/11/2019 CMP, serum or plasm a potassium 4.2 mmol/ L 3.5-5. 3 normal Not Available [place] [address], [place], [address], 10/11/2019 20:47:45 10/11/19 20 10/11/2019 CMP, serum or plasm a chloride 100 mmol/ L 98-[address] [facility] [address], [place], [address], 10/11/2019 20:47:45 10/11/19 20 10/11/2019 CMP, serum or plasm a carbon dioxide 30 mmol/ L 20-32 normal Not Available [facility] [address], [place], [address], 10/11/2019 20:47:45 10/11/19 20 10/11/2019 CMP, serum or plasm a calcium 8.9 mg/dL 8.6-10 .4 normal Not Available [facility] [address], [place], [address], 10/11/2019 20:47:45 10/11/19 20 10/11/2019 CMP, serum or plasm a protein, total 6.0 g/dL 6.1-8. [address] [facility] [address], [place], [address], 10/11/2019 20:47:45 10/11/19 20 10/11/2019 CMP, serum or plasm a albumin 3.6 g/dL 3.6-5. 1 normal Not Available [facility] [address], [place], [address], 10/11/2019 20:47:45 10/11/19 20 10/11/2019 CMP, serum or plasm a globulin 2.4 g/dL_ (calc ) 1.9-3. 7 normal Not Available [facility] [address], [place], [address], 10/11/2019 20:47:45 10/11/19 20 10/11/2019 CMP, serum or plasm a albumin/glob ulin ratio 1.5 (calc ) 1.0-2. 5 normal Not Available [facility] [address], [place], [address], 10/11/2019 20:47:45 10/11/19 20 10/11/2019 CMP, serum or plasm a bilirubin, total 0.9 mg/dL 0.2-1. 2 normal Not Available [facility] [address], [place], [address], 10/11/2019 20:47:45 10/11/19 20 10/11/2019 CMP, serum or plasm a alkaline phosphatase 60 U/L 37-153 normal Not Available [facility] [address], [place], [address], 10/11/2019 20:47:45 10/11/19 20 10/11/2019 CMP, serum or plasm a AST 18 U/L 10-35 normal Not Available [facility] [address], [place], [address], 10/11/2019 20:47:45 10/11/19 20 10/11/2019 CMP, serum or plasm a ALT 15 U/L 6-29 normal Not Available [facility] [place] [facility] [address], [place], [address], 10/11/2019 20:47:45 10/11/19 20 10/11/2019 HbA1c (hemo [...] john(A DA). Not Available [facility] [place] [facility] [address], [place], [address], 10/11/2019 21:32:41 10/11/19 20 10/12/2019 vitam in [...] /MS is recom hever d: order code 13189 ([place] ents >2yrs ). For more infor neela rolle on this test, go to: http: //[facility] polina rolle.stephanie stdia gnost ics.c om/fa q/FAQ 163 (This link is being provi ded for infor neela nal/e ducat ional purpo ses only. ) Not Available [facility] [place] [facility] [address], [place], [address], 10/12/2019 04:05:42 10/11/19 20 10/11/2019 CBC w/ auto diff white blood cell count 6.1 thous and/u L 3.8-10 .8 normal Not Available [facility] [place] [facility] [address], [place], [address], 10/11/2019 22:14:42 10/11/1910/11/2019 CBC w/ auto diff red blood cell count 3.46 kecia on/uL 3.80-5 .10 low Not Available [facility] [place] [facility] [address], [place], [address], 10/11/2019 22:14:42 10/11/1910/11/2019 CBC w/ auto diff hemoglobin 11.7 g/dL 11.7-1 5.5 normal Not Available [facility] [place] [facility] [address], [place], [address], 10/11/2019 22:14:42 10/11/19 20 10/11/2019 CBC w/ auto diff hematocrit 35.5 % 35.0-4 5.0 normal Not Available [facility] [place] [facility] [address], [place], [address], 10/11/2019 22:14:42 10/11/19 20 10/11/2019 CBC w/ auto diff MCV 102.6 fL 80.0-1 00.0 high Not Available [facility] [address], [place], [address], 10/11/2019 22:14:42 10/11/19 20 10/11/2019 CBC w/ auto diff MCH 33.8 pg 27.0-3 3.0 high Not Available [facility] [facility] [address], [place], [address], 10/11/2019 22:14:42 10/11/19 20 10/11/2019 CBC w/ auto diff MCHC 33.0 g/dL 32.0-3 6.0 normal Not Available [facility] [address], [place], [address], 10/11/2019 22:14:42 10/11/19 20 10/11/2019 CBC w/ auto diff RDW 12.1 % 11.0-1 5.0 normal Not Available [facility] [address], [place], [address], 10/11/2019 22:14:42 10/11/19 20 10/11/2019 CBC w/ auto diff platelet count 267 thous and/u L 140-40 0 normal Not Available [facility] [address], [place], [address], 10/11/2019 22:14:42 10/11/19 20 10/11/2019 CBC w/ auto diff MPV 11.6 fL 7.5-12 .5 normal Not Available [facility] [address], [place], [address], 10/11/2019 22:14:42 10/11/19 20 10/11/2019 CBC w/ auto diff absolute neutrophils 3178 cells /uL 1500-7 800 normal Not Available [facility] [address], [place], [address], 10/11/2019 22:14:42 10/11/19 20 10/11/2019 CBC w/ auto diff absolute lymphocytes 2135 cells /uL 850-39 00 normal Not Available [facility] [address], [place], [address], 10/11/2019 22:14:42 10/11/19 20 10/11/2019 CBC w/ auto diff absolute monocytes 647 cells /uL 200-95 0 normal Not Available [facility] [address], [place], [address], 10/11/2019 22:14:42 10/11/19 20 10/11/2019 CBC w/ auto diff absolute eosinophils 92 cells /uL 15-500 normal Not Available [facility] [address], [place], [address], 10/11/2019 22:14:42 10/11/19 20 10/11/2019 CBC w/ auto diff absolute basophils 49 cells /uL 0-200 normal Not Available [facility] [address], [place], [address], 10/11/2019 22:14:42 10/11/19 20 10/11/2019 CBC w/ auto diff neutrophils 52.1 % normal Not Available [facility] [address], [place], [address], 10/11/2019 22:14:42 10/11/19 20 10/11/2019 CBC w/ auto diff lymphocytes 35.0 % normal Not Available [facility] [address], [place], [address], 10/11/2019 22:14:42 10/11/19 20 10/11/2019 CBC w/ auto diff monocytes 10.6 % normal Not Available [facility] [address], [place], [address], 10/11/2019 22:14:42 10/11/19 20 10/11/2019 CBC w/ auto diff eosinophils 1.5 % normal Not Available [facility] [address], [place], [address], 10/11/2019 22:14:42 10/11/19 20 10/11/2019 CBC w/ auto diff basophils 0.8 % normal Not Available [facility] [address], [place], [address], 10/11/2019 22:14:42 10/11/19 20 10/12/2019 vitam in B12 + folat e, serum or blood vitamin B12 >2000 pg/mL 200-11 00 high Not Available [facility] [address], [place], [address], 10/12/2019 16:41:19 10/11/19 20 10/12/2019 vitam in B12 + folat e, serum or blood folate, serum >24.0 NG/mL normal Refer ence Range Low: <3.4 Borde rline : 3.4-5 .4 Viki l: >5.4 Not Available [employer] [facility] [address], [place], [address], 10/12/2019 16:41:19 10/11/1910/11/2019 abn test refus al BRADY Be advis ed that your patie nt has indic ated on the advan ce benef iciar y notic e their decis ion not to recei ve the follo wing labor atory tests . As a resul t, the tests will not be perfo rmed. Not Available [employer] [facility] [address], [place], [address], 10/11/2019 08:00:42 10/11/19 20 10/11/2019 abn test refus al abn test refused 3020 Not Available [employer] [facility] [address] [place], [address], 10/11/2019 08:00:42 Result Notes None recorded. Problems Name Problem SNOMED Code Status Onset Date Resolution Date Notes Provider Name and Address Organization Details Recorded Time History of hypertension 328555621 Active 2019 [facility] 0 11:18:32 Heartburn 66540097 Active 2019 [facility] 0 11:18:57 Problem Notes None recorded. Procedures Surgical History Date Name Laterality Status Provider Name and Address Organization Details Recorded Time 07/28/18 70 surgical treatment of miscarriage of any trimester completed [facility] 09/14/2019 11:20:30 07/28/18 60 Partial Hysterectomy completed [facility] 09/20/2019 15:41:17 Imaging Results None recorded. Procedure Notes None recorded. Medical Equipment None Reported. Allergies Allergen ID Allergen Name Allergen Category Reaction Reaction Severity Criticality Documentation Date Start Date Code Code System Note Provider Name and Address Organization Details Recorded Time 2290 iodine medicatio n Not available Not available Not available 07/29/2019 5933 RxNorm leann [facility] 0 12:10:04 Medications Name Sig Start Date [...] propionate 50 mcg/actuati on nasal spray,suspe nsion [place] 1 spray every day by intranasa l [...] Not Available Vitals Date Recorded Body height Heart rate Respiratory rate Body temperature Body mass index (BMI) Body weight Oxygen saturation Oxygen saturation in Arterial blood by Pulse oximetry Systolic blood pressure Diastolic blood pressure Provider Name and Address Organization Details Last Updated DateTime 0 160.02 cm 79 /min 18 /min 97.7 [degF] 38.5 kg/m2 31995.9 8 g 99 % 99 % 135 mm[Hg] 62 mm[Hg] [facility] 0 11:13:10 Date Recorded Body height Heart rate Respiratory rate Body temperature Body mass index (BMI) Body weight Oxygen saturation Oxygen saturation in Arterial blood by Pulse oximetry Systolic blood pressure Diastolic blood pressure Provider Name and Address Organization Details Last Updated DateTime 0 160.02 cm 77 /min 18 /min 98.2 [degF] 38.1 kg/m2 74442.3 6 g 97 % 97 % 130 mm[Hg] 77 mm[Hg] [facility] 0 15:36:07 Date Recorded Body height Heart rate Respiratory rate Body temperature Body mass index (BMI) Body weight Oxygen saturation Oxygen saturation in Arterial blood by Pulse oximetry Systolic blood pressure Diastolic blood pressure Provider Name and Address Organization Details Last Updated DateTime 0 160.02 cm 48 /min 18 /min 97.8 [degF] 37.7 kg/m2 42113.7 4 g 98 % 98 % 130 mm[Hg] 72 mm[Hg] [facility] 0 12:05:01 Date Recorded Body height Body mass index (BMI) Body weight Respiratory rate Heart rate Body temperature Oxygen saturation Oxygen saturation in Arterial blood by Pulse oximetry Systolic blood pressure Diastolic blood pressure Provider Name and Address Organization Details Last Updated DateTime 0 160.02 cm 35.4 kg/m2 99605.4 7 g 18 /min 74 /min 98.4 [degF] 94 % 94 % 126 mm[Hg] 79 mm[Hg] leann [facility] 0 12:11:22 Date Recorded Body height Respiratory rate Body mass index (BMI) Body weight Heart rate Body temperature Oxygen saturation Oxygen saturation in Arterial blood by Pulse oximetry Systolic blood pressure Diastolic blood pressure Provider Name and Address Organization Details Last Updated DateTime 0 160.02 cm 18 /min 35.4 kg/m2 56315.4 7 g 87 /min 97.7 [degF] 96 % 96 % 112 mm[Hg] 75 mm[Hg] DOMINIQUE NÚÑEZ [facility] 0 11:54:15 Social History Question Answer Notes LastModified by Organizat ion Details LastModified Time Tobacco Smoking Status Never Smoker Not Available [facility] 05/23/2020 03:21:06 What Is Your Level Of Alcohol Consumption? None [id number] Information not available 05/23/2020 Are You Currently Employed? No [id number] Information not available 05/23/2020 Hard Of Hearing Or Deaf In One Or Both Ears? No Information not available 09/14/2019 Legally Blind In One Or Both Eyes? No Information not available 09/14/2019 Live Alone Or With Others? Alone Information not available 09/14/2019 Sex: Unknown Functional Status Question Answer Note LastModified by Organizat ion Details LastModified Time Are you able to walk? YESWOREST [id number] Information not available 05/23/2020 What is your exercise level? Occasional [id number] Information not available 05/23/2020 Mental Status None [...] Time Influenza, high-dose, quadrivalent, PF 07/28/2018 completed RENAY geller [facility] 09/14/2019 11:18:03 Past Encounters Encounter ID Performer Location Encounter Start Date Encounter Closed Date Diagnosis/Indication Diagnosis SNOMED-CT Code Diagnosis ICD10 Code Diagnosis Note [id number] [address],[facility] [address] [place] [address] 08/08/2019 10:43:21 08/08/2019 12:29:18 Acute sinusitis 67213018 J01.90 Acute bronchitis 6160927 2 J20.9 Chronic pharyngitis 1400 04 J31.2 [id number] [facility] [facility] [address] [place] [address] 09/14/2019 10:47:51 09/14/2019 15:25:06 Osteoarthritis of left knee joint 9360156291 26640 M17.12 1.)1 ) Osteoarthr itis (2008) Diagnosed by a RT in [facility] for which shetakesib uprofen prnafter walkingapp roximately 0.5 milesmostl y RT big toe and LTknee. 1.) Osteoarthr itis (2008) Diagnosed by a RT in [facility] for which shetakesib uprofen prnafter walkingapp roximately 0.5 milesmostl y RT big toe and LTknee. Essential hypertension 96367393 I10 2) HTN(1999) she was treated with diet and exercise until 2009 when her primary care provider and [facility] tts started her on lisinopril with hydrochlor othiazide 05/08.5 and Lasix 20 mg 1 PO daily Gastroesop hageal reflux disease 232994909 K21.9 3) GERD (2009) On omeprazole since 2009, stopped taking around 2014 but resumed as of 07/2019 Overactive urinary bladder due to prolapse of female genital organ 497360791 N32.81 4) overactive bladder (01/2019) it was really bed every 1-2 hours , she had to go to the bathroom or whenever she went on a trip , after driving for couple hours she has to go to the bathroom to urinate. She saw a [facility] tts Dr. Los alvarez, he is also is actually from [place] , who started on TOVIAZ 8 mg 1 PO daily: It is the best thing ever happened to me Constipation 03312981 K5 9.00 5)CONSTIPA TION( 01/2019) she attributes this toTOVIAZ 8 mg 1 PO daily,even though she admits to have constipati on even before January 2019,prior to starting on Toviaz. Blood gluc ose outside reference range 070085970 R73.09 Screening mammography 24 587138 Z12.31 Last april 2019, I have it yearly as I have a cyst on my left breast which has not changed or growing. Screening for osteoporosis 570862903 Z13.820 Last 2017 = Normal . Takes OT Ca++ with VIT-D Screening for malignant neoplasm of colon 275213430 Z12.11 2018 = one benign polyps s/p resection Hyperlipidemia 82325340 E78.5 [id number] [address]AK[address] [place] [address] [place] [place] [address] 09/20/2019 15:30:46 09/20/2019 16:38:10 Osteoarthritis of left knee joint 7698641013 95451 M17.12 1.)1 ) Osteoarthr itis (2008) Diagnosed by a RT in [facility] for which shetakesib uprofen prnafter walkingapp roximately 0.5 milesmostl y RT big toe and LTknee. 1.) Osteoarthr itis (2008) Diagnosed by a RT in [facility] for which shetakesib uprofen prnafter walkingapp roximately 0.5 milesmostl y RT big toe and LTknee. Essential hypertension 83162295 I10 2) HTN(1999) she was treated with diet and exercise until 2009 when her primary care provider and [facility] started her on lisinopril with hydrochlor othiazide 05/08.5 and Lasix 20 mg 1 PO daily Gastroesop hageal reflux disease 300441394 K21.9 3) GERD (2009) On omeprazole since 2009, stopped taking around 2014 but resumed as of 07/2019 Overactive urinary bladder due to prolapse of female genital organ 454439133 N32.81 4) overactive bladder (01/2019) it was really bed every 1-2 hours , she had to go to the bathroom or whenever she went on a trip , after driving for couple hours she has to go to the bathroom to urinate. She saw a [facility] tts Dr. Los alvarez, he is also is actually from [place] , who started on TOVIAZ 8 mg 1 PO daily: It is the best thing ever happened to me Constipation 15651872 K5 9.00 5)CONSTIPA TION( 01/2019) she attributes this toTOVIAZ 8 mg 1 PO daily,even though she admits to have constipati on even before January 2019,prior to starting on Toviaz. 09/20/2019 = RESOLVED Blood gluc ose outside reference range 784949548 R73.09 09/15/2019 = 5.6% Screening mammography 24 455487 Z12.31 Last april 2019, I have it yearly as I have a cyst on my left breast which has not changed or growing. Screening for osteoporosis 487615744 Z13.820 Last 2016 = Normal . 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 25364798 D53.1 SHE HAS BEEN TAKING B12 1000 MG 1 PO DAILY SINCE 02/201909/15/2019 RBC = 3.3 HGB = 11.5 HCT = 341 MCV = 102.4 MCH = 34.5 Vitamin D deficiency 347 72825 E55.9 Health Concerns Section Related Observation LastModified by Organization Detai ls LastModified Time None Recorded Concern Status LastModified by Organization Details LastModified Time None Recorded Advance Directives Directive None Recorded Payers Encounter Date Sequence Insurance Name Policy Number Policy Lundberg Covered Member ID Lundberg Member ID Guarantor Name 08/08/2019 1 [place] ([place] Amber P Marychuy [id number] Amber P Marychuy 08/08/2019 2 [place] [id number] Amber P Marychuy [id number] Amber P Marychuy 09/14/2019 1 [place] Amber P Marychuy [id number] Amber P Marychuy 09/14/2019 2 [place] [id number] Amber P Marychuy [id number] Amber P Marychuy 09/20/2019 [facility] Amber P Marychuy [id number] Amber Perrin 09/20/2019 2 [facility]: [place] [id number] Amber Perrin [id number] Amber Perrin Notes Date Note Type Note [...] symptoms. 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 2) HTN (1999) she was treated with diet and exercise until 2009 when her primary care provider and [place] started her on lisinopril with hydrochlorothiazide 05/08.5 and Lasix 20 mg 1 PO daily [...] the bathroom to urinate. She saw a [place] Dr. Los alvarez, he is also is actually from [place] , who started on TOVIAZ 8 mg 1 PO daily: It is the best thing ever happened to me 5) CONSTIPATION( 01/2019) she attributes this to TOVIAZ 8 mg 1 PO daily, even though she admits to have constipation even before January 2019, prior to starting on Toviaz. CHANDLER BAKER [address], [place], [address], 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 She spends the das months from July to September in the [place], [place]. She has the following medical problems: 1.) Osteo arthritis (2008) Diagnosed by a RT in [facility] for which she takes ibuprofen prn after walking approximately 0.5 miles mostly RT big toe and LT knee. 2) HTN (1999) she was treated with diet and exercise until 2009 when her primary care provider and [place] started her on lisinopril with hydrochlorothiazide 10/12.5 [...] the bathroom to urinate. She saw a [place] Dr. Los alvarez, he is also is [...] shortness breath, fever, dizziness, headache. CHANDLER BAKER [address], [place], [address], [facility] 09/20/2019 16:18:09 OBGyn Episode No OBEpisode recorded.
--- OUTSIDE RECORDS SUMMARY | 2024-10-26 16:02 | XMS_ITS | Patient Health Record ---
Author Organization [facility] Address [address] [place] [address] Care Team Providers Care High Lift Mule Operator Name Role Phone NENO FRANCES Unavailable [phone] OGLESBY, MARILU Unavailable [phone] KATHYTEZ EVANS Unavailable [phone] ALLERGIES Allergen (clinical drug ingredient) Drug/Non Drug Allergy documented on EMR Reaction Allergy Type Onset Date Status Iodine hives Drug Allergy Active RESULTS Component Value Reference Range Notes CBC Reviewed date:04/12/2024 07:49:53 AM Interpretation: Performing Lab: Notes/Report: Note Original Ordering Provider: NENO UGARTE PA-C [employer], a member of [address] [address] Career Law Clerk - Meg Campos MD WBC 5.7 4.8-10.8 x10-3/uL RBC 3.0 3.8-4.8 x10-6/uL HEMOGLOBIN 10.2 11.5-16.0 g/dL HEMATOCRIT 31.4 35-47 % MCV 105.0 79-98 fL MCH 34.1 27-32 pg MCHC 32.5 32-37 g/dL RDW 17.9 11-15 % PLT COUNT 330 130-400 x10-3/uL MEAN PLATELET VOLUME 11.3 7-11 fL NRBC % AUTO 0.4 <1 % NRBC # AUTO 0.02 <0.1 x10-3/uL Note Original Ordering Provider: NENO UGARTE PA-C [employer], a member of [address] [address] Career Law Clerk - Meg Campos MD COMPREHENSIVE METABOLIC PANE L Reviewed date:04/12/2024 07:49:43 AM Interpretation: Performing Lab: Notes/Report: Note Original [facility] Provider: NENO UGARTE PA-C GLUCOSE 99 70-100 mg/dL Reference range applicable to fasting specimens only BUN 19 5-25 mg/dL CREAT 0.94 0.5-1.1 mg/dL GLOMERULAR FILTRATION RATE 61 >60 This eGFR result was calculated using the CKD-EPI 2020 Creatinine Equation SODIUM 139 135-145 mEq/L POTASSIUM 4.4 3.5-5.5 mmol/L CHLORIDE 107 96-110 mmol/L CO2 28 21-32 mmol/L ANION GAP 4 3-11 CALCIUM 8.9 8.5-10.5 mg/dL TOTAL PROTEIN 6.7 6.0-8.0 G/dL ALBUMIN 3.4 3.2-5.0 G/dL BILI,TOTAL 1.2 0.0-1.4 mg/dL SGOT 21 10-42 U/L SGPT 15 10-60 U/L ALK PHOS 72 42-121 U/L COMPREHENSIVE METABOLIC PANE L Reviewed date:12/11/2023 07:48:08 AM Interpretation: Performing Lab: Notes/Report: Note Original [facility] Provider: TRE JAIMES MD GLUCOSE 91 70-100 mg/dL Reference range applicable to fasting specimens only BUN 22 5-25 mg/dL CREAT 0.92 0.5-1.1 mg/dL GLOMERULAR FILTRATION RATE 63 >60 This eGFR result was calculated using the CKD-EPI 2020 Creatinine Equation SODIUM 138 135-145 mEq/L POTASSIUM 4.6 3.5-5.5 mmol/L CHLORIDE 107 96-110 mmol/L CO2 26 21-32 mmol/L ANION GAP 5 3-11 CALCIUM 8.7 8.5-10.5 mg/dL TOTAL PROTEIN 6.9 6.0-8.0 G/dL ALBUMIN 3.4 3.2-5.0 G/dL BILI,TOTAL 0.7 0.0-1.4 mg/dL SGOT 14 10-42 U/L SGPT 15 10-60 U/L ALK PHOS 71 42-121 U/L COMPREHENSIVE METABOLIC PANE L Reviewed date:03/30/2024 07:51:10 AM Interpretation: Performing Lab: Notes/Report: Note [facility] Provider: TRE JAIMES MD GLUCOSE 110 70-100 mg/dL Reference range applicable to fasting specimens only BUN 20 5-25 mg/dL CREAT 0.89 0.5-1.1 mg/dL GLOMERULAR FILTRATION RATE 66 >60 This eGFR result was calculated using the CKD-EPI 2020 Creatinine Equation SODIUM 137 135-145 mEq/L POTASSIUM 4.4 3.5-5.5 mmol/L CHLORIDE 106 96-110 mmol/L CO2 25 21-32 mmol/L ANION GAP 6 3-11 CALCIUM 8.7 8.5-10.5 mg/dL TOTAL PROTEIN 6.7 6.0-8.0 G/dL ALBUMIN 3.5 3.2-5.0 G/dL BILI,TOTAL 0.7 0.0-1.4 mg/dL SGOT 18 10-42 U/L SGPT 20 10-60 U/L ALK PHOS 72 42-121 U/L CBC WITH AUTO DIFF Reviewed date:03/30/2024 07:51:16 AM Interpretation: Performing Lab: Notes/Report: WBC 6.7 4.8-10.8 x10-3/uL RBC 2.9 3.8-4.8 x10-6/uL HEMOGLOBIN 9.8 11.5-16.0 g/dL HEMATOCRIT 29.9 35-47 % MCV 103.5 79-98 fL MCH 33.9 27-32 pg MCHC 32.8 32-37 g/dL RDW 17.7 11-15 % PLT COUNT 382 130-400 x10-3/uL MEAN PLATELET VOLUME 11.4 7-11 fL NRBC % AUTO 0.6 <1 % NEUT % 52.8 LYMPH % 32.3 MONO % 11.5 EOS % 1.8 BASO % 1.0 IMMATURE GRANULOCYTES % 0.6 NRBC # AUTO 0.04 <0.1 x10-3/uL ABSOLUTE NEUT 3.53 1.5-7.0 x10-3/uL LYMPH # 2.16 1-5.0 x10-3/uL MONO # 0.77 0.2-1.0 x10-3/uL EOS # 0.12 0-0.5 x10-3/uL BASO # 0.07 0-0.2 x10-3/uL IMMATURE GRANULOCYTES # 0.04 0-0.03 x10-3/uL CBC WITH AUTO DIFF Reviewed date:12/11/2023 07:55:37 AM Interpretation: Performing Lab: Notes/Report: WBC 6.7 4.8-10.8 x10-3/uL RBC 3.1 3.8-4.8 x10-6/uL HEMOGLOBIN 9.6 11.5-16.0 g/dL HEMATOCRIT 30.8 35-47 % MCV 100.3 79-98 fL MCH 31.3 27-32 pg MCHC 31.2 32-37 g/dL RDW 18.9 11-15 % PLT COUNT 356 130-400 x10-3/uL MEAN PLATELET VOLUME 11.9 7-11 fL NRBC % AUTO 0.6 <1 % NEUT % 56.0 LYMPH % 27.8 MONO % 13.7 EOS % 0.7 BASO % 1.5 IMMATURE GRANULOCYTES % 0.3 NRBC # AUTO 0.04 <0.1 x10-3/uL ABSOLUTE NEUT 3.75 1.5-7.0 x10-3/uL LYMPH # 1.86 1-5.0 x10-3/uL MONO # 0.92 0.2-1.0 x10-3/uL EOS # 0.05 0-0.5 x10-3/uL BASO # 0.10 0-0.2 x10-3/uL IMMATURE GRANULOCYTES # 0.02 0-0.03 x10-3/uL LIPID PROFILE Reviewed date:04/12/2024 07:49:43 AM Interpretation: Performing Lab: Notes/Report: CHOLESTEROL 141 0-200 mg/dL TRIGLYCERIDES 53 0-150 mg/dL VITAMIN B12 Reviewed date:04/12/2024 07:49:43 AM Interpretation: Performing Lab: Notes/Report: VITAMIN B12 892 250-900 pg/mL VITAMIN B12 Reviewed date:12/11/2023 07:55:37 AM Interpretation: Performing Lab: Notes/Report: VITAMIN B12 1052 250-900 pg/mL VITAMIN B12 Reviewed date:03/30/2024 07:50:37 AM Interpretation: Performing Lab: Notes/Report: VITAMIN B12 1142 250-900 pg/mL BASIC METABOLIC PANEL (BMP) Reviewed date:03/30/2024 07:50:27 AM Interpretation: Performing Lab: Notes/Report: REQ# [id number] GLUCOSE 110 70-100 mg/dL Reference range applicable to fasting specimens only BUN 20 5-25 mg/dL CREAT 0.89 0.5-1.1 mg/dL GLOMERULAR FILTRATION RATE 66 >60 This eGFR result was calculated using the CKD-EPI 2021 Creatinine Equation SODIUM 137 135-145 mEq/L POTASSIUM 4.4 3.5-5.5 mmol/L CHLORIDE 106 96-110 mmol/L CO2 25 21-32 mmol/L ANION GAP 6 3-11 CALCIUM 8.7 8.5-10.5 mg/dL BASIC METABOLIC PANEL (BMP) Reviewed date:12/11/2023 07:48:08 AM Interpretation: Performing Lab: Notes/Report: REQ# [id number] GLUCOSE 90 70-100 mg/dL Reference range applicable to fasting specimens only BUN 21 5-25 mg/dL CREAT 0.87 0.5-1.1 mg/dL GLOMERULAR FILTRATION RATE 67 >60 This eGFR result was calculated using the CKD-EPI 2021 Creatinine Equation SODIUM 139 135-145 mEq/L POTASSIUM 4.6 3.5-5.5 mmol/L CHLORIDE 106 96-110 mmol/L CO2 28 21-32 mmol/L ANION GAP 5 3-11 CALCIUM 8.9 8.5-10.5 mg/dL TOTAL IRON BINDING CAPACITY Reviewed date:03/30/2024 07:51:02 AM Interpretation: Performing Lab: Notes/Report: TOTAL IRON BINDING CAPACITY 233 250-450 ug/dL IRON (FE) 96 40-150 ug/dL % FE SATURATION 41 15-50 % TOTAL IRON BINDING CAPACITY Reviewed date:12/11/2023 07:55:37 AM Interpretation: Performing Lab: Notes/Report: TOTAL IRON BINDING CAPACITY 243 250-450 ug/dL IRON (FE) 90 40-150 ug/dL % FE SATURATION 37 15-50 % FERRITIN Reviewed date:12/11/2023 07:48:08 AM Interpretation: Performing Lab: Notes/Report: FERRITIN 30 8-252 ng/mL Note [employer], a member of [address] [address] Career Law Clerk - Meg Campos MD FERRITIN Reviewed date:03/29/2024 09:41:32 AM Interpretation: Performing Lab: Notes/Report: FERRITIN 53 8-252 ng/mL Note [employer], a member of [address] [address] Career Law Clerk - Meg Campos MD CBC WITH AUTO DIFFERENTIAL Reviewed date:08/27/2024 10:06:13 AM Interpretation: Performing Lab: Notes/Report: WBC 6.9 4.8-10.8 K/mcL RBC 3.30 3.80-4.80 M/mcL Hemoglobin 11.3 11.5-16.0 g/dL Hematocrit 34.3 35.0-47.0 % MCV 105.5 79.0-98.0 FL MCH 34.8 27.0-32.0 pcg MCHC 32.9 32.0-37.0 g/dL RDW 16.3 11.0-15.0 % Platelets 368 130-400 K/mcL MPV 11.4 7.0-11.0 FL NRBC 0.0 <1.0 % NRBC Absolute 0.00 <0.10 K/mcL Neutrophils Relative 55.8 Lymphocytes Relative 28.0 Monocytes Relative 13.6 Eosinophils Relative 1.0 Basophils Relative 1.0 Immature Granulocytes Relative 0.6 Neutrophils Absolute 3.86 1.50-7.00 K/mcL Lymphocytes Absolute 1.94 1.00-5.00 K/mcL Monocytes Absolute 0.94 0.20-1.00 K/mcL Eosinophils Absolute 0.07 0.00-0.50 K/mcL Basophils Absolute 0.07 0.00-0.20 K/mcL Immature Granulocytes Absolute 0.04 0.00-0.03 K/mcL CBC WITH AUTO DIFFERENTIAL Reviewed date:06/10/2024 11:24:09 AM Interpretation: Performing Lab: Notes/Report: WBC 6.7 4.8-10.8 K/mcL RBC 3.10 3.80-4.80 M/mcL Hemoglobin 10.5 11.5-16.0 g/dL Hematocrit 32.4 35.0-47.0 % MCV 103.2 79.0-98.0 FL MCH 33.4 27.0-32.0 pcg MCHC 32.4 32.0-37.0 g/dL RDW 18.3 11.0-15.0 % Platelets 349 130-400 K/mcL MPV 12.0 7.0-11.0 FL NRBC 0.4 <1.0 % NRBC Absolute 0.03 <0.10 K/mcL Neutrophils Relative 54.7 Lymphocytes Relative 30.0 Monocytes Relative 11.4 Eosinophils Relative 1.9 Basophils Relative 1.0 Immature Granulocytes Relative 1.0 Neutrophils Absolute 3.67 1.50-7.00 K/mcL Lymphocytes Absolute 2.02 1.00-5.00 K/mcL Monocytes Absolute 0.77 0.20-1.00 K/mcL Eosinophils Absolute 0.13 0.00-0.50 K/mcL Basophils Absolute 0.07 0.00-0.20 K/mcL Immature Granulocytes Absolute 0.07 0.00-0.03 K/mcL COMPREHENSIVE METABOLIC PANE L Reviewed date:06/10/2024 11:30:03 AM Interpretation: Performing Lab: Notes/Report: Sodium 139 133-145 mmol/L Potassium 4.4 3.5-5.5 mmol/L Chloride 107 96-110 mmol/L CO2 27 21-32 mmol/L Anion Gap 5 3-11 Glucose 142 70-100 mg/dL BUN 20 5-25 mg/dL Creatinine 0.88 0.50-1.10 mg/dL eGFR 67 >=60 mL/min/1.73m2 Calculati on based on the?Chronic Kidney Disease Epidemiology Collaboration (CKD-EPI) equation refit?without adjustment for race. BUN/Creatinine Ratio 22.7 Calcium 9.1 8.5-10.5 mg/dL AST (SGOT) 19 10-42 unit/L ALT (SGPT) 19 10-60 unit/L Alkaline Phosphatase 85 42-121 unit/L Total Protein 6.9 6.0-8.0 g/dL Albumin 3.5 3.2-5.0 g/dL Total Bilirubin 0.8 0.0-1.4 mg/dL COMPREHENSIVE METABOLIC PANE L Reviewed date:08/27/2024 10:06:13 AM Interpretation: Performing Lab: Notes/Report: Sodium 139 133-145 mmol/L Potassium 4.5 3.5-5.5 mmol/L Chloride 104 96-110 mmol/L CO2 31 21-32 mmol/L Anion Gap 4 3-11 Glucose 87 70-100 mg/dL BUN 22 5-25 mg/dL Creatinine 1.00 0.50-1.10 mg/dL eGFR 57 >=60 mL/min/1.73m2 Calculati on based on the Chronic Kidney Disease Epidemiology Collaboration (CKD-EPI) equation refit without adjustment for race. BUN/Creatinine Ratio 22.0 Calcium 8.8 8.5-10.5 mg/dL AST (SGOT) 20 10-42 unit/L ALT (SGPT) 22 10-60 unit/L Alkaline Phosphatase 87 42-121 unit/L Total Protein 7.1 6.0-8.0 g/dL Albumin 3.5 3.2-5.0 g/dL Total Bilirubin 1.0 0.0-1.4 mg/dL VITAMIN B12 Reviewed date:08/27/2024 10:06:13 AM Interpretation: Performing Lab: Notes/Report: Vitamin B-12 925 250-900 pcg/mL VITAMIN B12 Reviewed date:06/10/2024 11:55:29 AM Interpretation: Performing Lab: Notes/Report: Vitamin B-12 1074 250-900 pcg/mL IRON AND TIBC Reviewed date:06/10/2024 11:55:29 AM Interpretation: Performing Lab: Notes/Report: Iron 149 40-150 mcg/dL TIBC 213 250-450 mcg/dL Iron Saturation 70 15-50 % IRON AND TIBC Reviewed date:08/27/2024 10:06:13 AM Interpretation: Performing Lab: Notes/Report: Iron 198 40-150 mcg/dL TIBC 214 250-450 mcg/dL Iron Saturation 93 15-50 % FERRITIN Reviewed date:08/27/2024 10:06:13 AM Interpretation: Performing Lab: Notes/Report: Ferritin 96 8-252 ng/mL FERRITIN Reviewed date:06/10/2024 11:55:29 AM Interpretation: Performing Lab: Notes/Report: Ferritin 65 8-252 ng/mL REASON FOR REFERRAL Reason [place] Diagnosis 1 Skin exam for malign ant neoplasm (Z12.83) Referral Organization [facility] Referring Provider First Name NENO Referring Provider Last Name YVROSE Referring Provider Speciality Internal M edicine Referred Provider Specialty Dermatology General Notes LONI GUILLEN 0 12/08/2023 10:41:48 AM >pt has number to call and book Referral Priority Routine Reason Bobby Jerome MD Diagnosis 1 Bilateral hearing lo ss, unspecified hearing loss type (H91.93) Referral Organization [facility] Referring Provider First Name NENO Referring Provider Last Name YVROSE Referring Provider Speciality Internal M edicine Referred Provider Specialty Ear, nose an d throat surgeon General Notes LONI GUILLEN 0 02/05/2024 10:48:27 AM >info sent over to ent with forms- pt has number to call Referral Priority Routine Diagnosis 1 Left shoulder pain, unspecified chronicity (M25.512) Diagnosis 2 Left ankle pain, uns pecified chronicity (M25.572) Referral Organization [facility] Referring Provider First Name NENO Referring Provider Last Name YVROSE Referring Provider Speciality Internal M edicine Referred Provider Specialty Physical The rapist General Notes Irma Norman 2023 02:57:41 PM > ati form filled out and faxed over with recent note Referral Priority Routine MEDICATIONS Medication SIG (Take, Route, Frequency, Duration) Notes Start Date End Date Status Furosemide 20 MG 1 tablet Orally Twic e daily PRN for 90 days Active dilTIAZem HCl 120 MG as directed Orally Active Senna Active Biotin Active Aspir-81 Active Clotrimazole-Betameth & Zn Ox 1-0.05 & 20 % as directed Externally A ctive Fexofenadine HCl 180 MG 1 tablet Swallow whole with water; do not take with fruit juices. Orally Once a day Active Multi Vitamin Active Celecoxib 200 MG TAKE 1 CAPSULE ONCE DAILY WITH FOOD for 90 Active Estradiol Active Magnesium Citrate Ac tive Multi Complete Activ e CoQ-10 Active Famotidine 20 MG 1 tablet Orally twic e daily for 90 days Active Fluticasone Furoate 27.5 MCG/SPRAY 2 sprays (1 spray in each nostril) Nasally Once a day Active Omeprazole 20 MG 1 capsule 1/2 to 1 h our before morning meal Orally Once a day Active Myrbetriq 25 MG 1 tablet Orally Once a day Active IMMUNIZATIONS Vaccine Route Administration Date Status Comme nts RSV-MAb (Respiratory syncyti al virus immune globulin), IM use Unknown 08/08/2023 Administered PROBLEMS Problem Type ICD Code Onset Dates Problem Status W/U Status Risk SNOMED Code Notes Problem Vitamin D deficiency, unspecified (E55.9) Active confirmed 21432743 Problem Hereditary hemochromatosis (E83.110) Active confirmed 37512121 Problem Arthritis (M19.90) Active confirmed 372 3001 Problem Left shoulder pain, unspecified chronicity (M25.512) Active confirmed 9714361308 Problem Seasonal allergies (J30.2) Active confirmed 632961543 Problem Osteopenia, unspecified location (M85.80) Active confirmed 870615050 Problem COVID-19 (U07.1) Active confirmed 60552 9006 Problem Hypertension, unspecified type (I10) Active confirmed 71486976 Problem Gastroesophageal reflux disease, unspecified whether esophagitis present (K21.9) Active confirmed 978206608 Problem Bilateral hearing loss, unspecified hearing loss type (H91.93) Active confirmed 99417238 Problem Cataract of both eyes, unspecified cataract type (H26.9) Active confirmed Cataract (127780253) Problem BMI 32.0-32.9,adult (Z68.32) Active confirmed 890224671 Problem Memory change (R41.3) Active confirmed 404272101 Problem Primary hypertension (I10) Active confirmed 22489863 Problem BMI 30.0-30.9,adult (Z68.30) Active confirmed 331696272 Problem Hemochromatosis, unspecified hemochromatosis type (E83.119) Active confirmed Hemochromatos is (532341373) Problem Hypertension, essential (I10) Active confirmed Essential hypertension (42361381) Problem GERD (gastroesophageal reflux disease) (K21.9) Active confirmed Gastroesophagea l reflux disease (416202900) Problem Urinary incontinence in female (R32) Active confirmed 614211076 VITAL SIGNS Heart Rate 87 /min 10/07/2024 Blood pressure diastolic 70 mm Hg 10/07/2024 Oximetry 98 % 10/07/2024 Height 66 in 10/07/2024 Blood pressure systolic 128 mm Hg 10/07/2024 Weight 203.1 lbs 10/07/2024 BMI 32.78 kg/m2 10/07/2024 Encounters Encounter Location Date Provider Diagnosis [facility] [address] [place] [address] 02/04/2024 NENO FRANCES Memory change R41.3 ; Chronic constipation K59.09 ; Hereditary hemochromatosis E83.110 ; Hypertension, unspecified type I10 and Seasonal allergies J30.2 [facility] [address] [place] [address] 03/15/2024 TEZ CHAVEZ COVID-19 U07.1 ; Primary hypertension I10 ; Urinary incontinence in female R32 and Hereditary hemochromatosis E83.110 [facility] [address] [place] [address] 05/06/2024 NENO FRANCES Chronic constipation K59.09 ; Hereditary hemochromatosis E83.110 ; Hypertension, unspecified type I10 and Seasonal allergies J30.2 [facility] [address] [place] [address] 07/01/2024 NENO FRANCES Hereditary hemochromatosis E83.110 ; Chronic constipation K59.09 ; Hypertension, unspecified type I10 ; Seasonal allergies J30.2 and Left shoulder pain, unspecified chronicity M25.512 [facility] [address] [place] [address] 10/07/2024 NENO SETHNER Chronic constipation K59.09 ; Wellness examination Z00.00 ; Hereditary hemochromatosis E83.110 ; Hypertension, unspecified type I10 ; Seasonal allergies J30.2 ; Left shoulder pain, unspecified chronicity M25.512 ; Encounter for screening for depression Z13.31 ; Encounter for screening for other disorder Z13.89 ; Other specified counseling Z71.89 and BMI 32.0-32.9,adult Z68.32 [address] [place] [address] [facility]/30[facility] [place] [address] 11/03/2023 [facility] [address] [place] [address] 11/26/2023 [facility] [address] [place] [address] 12/08/2023 [facility] [address] [place] [address] 03/15/20[facility] [address] [place] [address] 04/02/2024 NENO FRANCES Lipid screening Z13. 220 ; Routine adult health maintenance Z00.00 and Vitamin B12 deficiency E53.[address] [place] [address] 04/09/2024 [facility] [address] [place] [address] 04/19/2024 [facility] [address] [place] [address] 04/26/[address] [facility] [address] [facility] [address] [place] [address] 08/10/2024 NENO [place] [address] [facility] [address] [place] [address] 08/19/2024 NENO [place] [address] [facility] [address] [place] [address] 10/18/2024 MARILU OGLESBY [address] [facility] [address] [place] [address] 10/25/2024 NENO FRANCES Breast screening Z12 .39 ASSESSMENTS Encounter Date Diagnosis Assessment Notes Treatment Notes Treatment Clinical Notes Section Notes 03/15/2024 COVID-19 (ICD-10 - U07.1) Patient consents to be seen today via telehealth agreement. The patient was seen using the following telehealth technology: telephone This encounter is appropriate and reasonable under the circumstances given the patient's particular presentation. The patient has been advised of the potential risks and limitations of this mode of treatment including but not limited to the absence of an in person physical examination, and has agreed to be treated in a remote fashion in spite of this. Betina is an 78-year-old female with a PMH including hemochromatosis, hypertension, acid reflux, seasonal allergies, urinary incontinence, arthritis that presents via telehealth after testing positive for COVID 03/14/2024. Symptoms x1.5 weeks including sore throat, dry cough, and congestion. Has taken Robitussin with minimal relief. Reviewed treatment options including symptomatic management versus Paxlovid. Patient is encouraged to continue symptomatic management with lozenges, steam, warm broth/tea, and anti-inflammatories as needed. Patient interested in proceeding with Paxlovid, most recent GFR 63, medication list reviewed. Rx for Paxlovid sent to pharmacy. Patient is educated on proper use and side effects including but not limited to metallic taste in mouth and diarrhea. Patient is educated to hold Solifenacin x 5 days while taking Paxlovid due to increased risk of QT prolongation/arrhyth vandana. She is also encouraged to finish final dose of cephalexin for urinary tract infection. Reviewed ED protocol. The patient is educated to dial 911/seek immediate medical attention should she develop any shortness of breath, difficulty breathing, hemoptysis,chest pain, syncope, irregular heart rate, confusion, intractable nausea or vomiting. All questions answered to the patient's satisfaction. Patient demonstrates understanding of diagnosis and treatments discussed. Follow-up at next scheduled appointment, sooner should any questions/concerns arise. Case discussed with collaborating physician Greta Oglesby who has reviewed the assessment/plan. Chart, medications, labs, and vital signs reviewed. Dictation completed with the use of [employer] voice recognition software, prone to medical misidentifications and grammatical errors. All errors are unintentional. Although the practitioner does try to identify and correct errors, some may be present. Please do not hesitate to contact the practitioner for clarification. 03/15/2024 Primary hypertension (ICD-10 - I10) Patient consents to be seen today via telehealth agreement. The patient was seen using the following telehealth technology: telephone This encounter is appropriate and reasonable under the circumstances given the patient's particular presentation. The patient has been advised of the potential risks and limitations of this mode of treatment including but not limited to the absence of an in person physical examination, and has agreed to be treated in a remote fashion in spite of this. Betina is an 78-year-old female with a PMH including hemochromatosis, hypertension, acid reflux, seasonal allergies, urinary incontinence, arthritis that presents via telehealth after testing positive for COVID 03/14/2024. Symptoms x1.5 weeks including sore throat, dry cough, and congestion. Has taken Robitussin with minimal relief. Reviewed treatment options including symptomatic management versus Paxlovid. Patient is encouraged to continue symptomatic management with lozenges, steam, warm broth/tea, and anti-inflammatories as needed. Patient interested in proceeding with Paxlovid, most recent GFR 63, medication list reviewed. Rx for Paxlovid sent to pharmacy. Patient is educated on proper use and side effects including but not limited to metallic taste in mouth and diarrhea. Patient is educated to hold Solifenacin x 5 days while taking Paxlovid due to increased risk of QT prolongation/arrhyth vandana. She is also encouraged to finish final dose of cephalexin for urinary tract infection. Reviewed ED protocol. The patient is educated to dial 911/seek immediate medical attention should she develop any shortness of breath, difficulty breathing, hemoptysis,chest pain, syncope, irregular heart rate, confusion, intractable nausea or vomiting. All questions answered to the patient's satisfaction. Patient demonstrates understanding of diagnosis and treatments discussed. Follow-up at next scheduled appointment, sooner should any questions/concerns arise. Case discussed with collaborating physician Greta Oglesby who has reviewed the assessment/plan. Chart, medications, labs, and vital signs reviewed. Dictation completed with the use of [employer] voice recognition software, prone to medical misidentifications and grammatical errors. All errors are unintentional. Although the practitioner does try to identify and correct errors, some may be present. Please do not hesitate to contact the practitioner for clarification. 02/04/2024 Memory change (ICD-10 - R41.3) Betina is a 77 year-old female who presents for f/u. #hypertension: Taking Lisinopril 10 mg, Diltazem 180 mg, Furosemide 20 MG with compliance. She declines any red flag cardiopulmomary symptoms, chest pain, palpitations, shortness of breath, diaphoresis, dizziness, syncope. Continue Lisinopril 10 mg, daily low dose Aspirin 81 mg, measuring BP at home. #Overweight: Patient is actively doing workout classes at the [facility] with her partner. She has goals to eat more vegetables and fruit, continuing exercise classes as tolerated, increasing hydration. #Constipation - Intermittent constipation taking certain anticholinergic medications, using miralax, fiber, and manual disimpaction. She admits that she is not adeuqtely hydrated on a daily basis due to busy lifestyle/forgetting . We recommend a bowel regimen of Miralax in the morning and Senna nightly, with proper fiber and hydration, continued daily exercise, limiting bread and pasta. Has not been working, will follow with gastroenterology, but trial Linzess. If no bowel movement in 3 days, she will contact the office to be evaluated. #Acid Reflux: Taking Famotidine taking twice daily , Admits to uncontrolled symptoms. Following gastroenterology, could consider endoscopy. #Memory changes: post-anesthesia from cataract surgery she reports word retrieval difficulties. Symptoms have been gradually improving. She communicates fluently during her examination, and is not interested in having further neurologic evaluation due to mild nature of symtpoms, which do not disrupt daily function/activities. We will continue to monitor her over time. Neurologic mini mental status examination at next visit if symptoms worsen. #overactive bladder: Taking Solifenacin Succinate 10 MG , Myrbetriq 25 MG Extended Release. Wears depends for leakage. Her symptoms are stable currently with proper hygiene. No changes to current plan. #seasonal allergies: stable, no new symptoms. Takes Fexofenadine HCl 180 MG and Fluticasone Furoate 27.5 MCG nasal spray as needed. No refills needed. #arthritis: Stable, unchanging. Taking Celecoxib 200 MG. She is physically active, doing exercise classes and stretching. She is ambulating without assistance. No changes to the current plan at this time. # Bilateral hearing loss: Referral to ENT for hearing test Patient to follow-up in 2 to 3 months to assess ENT referral, gastroenterology follow-up, and Linzess All quetsions answered to patients satisfaction. Patient verbalized understanding of diagnosis and treatments explained. To call sooner prior to next visit it any questions/concerns arise. Case discussed with collaborating physician Vern Oglesby who reviewed the assessment and plan. Chart, medications, labs, vital signs reviewed. Dictation was accomplished with the use of [employer] voice recognition software, prone to medical misidentifications and grammatical errors. This is unintentional and the practitioner does try to identify and correct these, but some could still be present. Please do not hesitate to contact practitioner for clarification. 02/04/2024 Chronic constipation (ICD-10 - K59.09) Betina is a 77 year-old female who presents for f/u. #hypertension: Taking Lisinopril 10 mg, Diltazem 180 mg, Furosemide 20 MG with compliance. She declines any red flag cardiopulmomary symptoms, chest pain, palpitations, shortness of breath, diaphoresis, dizziness, syncope. Continue Lisinopril 10 mg, daily low dose Aspirin 81 mg, measuring BP at home. #Overweight: Patient is actively doing workout classes at the [facility] with her partner. She has goals to eat more vegetables and fruit, continuing exercise classes as tolerated, increasing hydration. #Constipation - Intermittent constipation taking certain anticholinergic medications, using miralax, fiber, and manual disimpaction. She admits that she is not adeuqtely hydrated on a daily basis due to busy lifestyle/forgetting . We recommend a bowel regimen of Miralax in the morning and Senna nightly, with proper fiber and hydration, continued daily exercise, limiting bread and pasta. Has not been working, will follow with gastroenterology, but trial Linzess. If no bowel movement in 3 days, she will contact the office to be evaluated. #Acid Reflux: Taking Famotidine taking twice daily , Admits to uncontrolled symptoms. Following gastroenterology, could consider endoscopy. #Memory changes: post-anesthesia from cataract surgery she reports word retrieval difficulties. Symptoms have been gradually improving. She communicates fluently during her examination, and is not interested in having further neurologic evaluation due to mild nature of symtpoms, which do not disrupt daily function/activities. We will continue to monitor her over time. Neurologic mini mental status examination at next visit if symptoms worsen. #overactive bladder: Taking Solifenacin Succinate 10 MG , Myrbetriq 25 MG Extended Release. Wears depends for leakage. Her symptoms are stable currently with proper hygiene. No changes to current plan. #seasonal allergies: stable, no new symptoms. Takes Fexofenadine HCl 180 MG and Fluticasone Furoate 27.5 MCG nasal spray as needed. No refills needed. #arthritis: Stable, unchanging. Taking Celecoxib 200 MG. She is physically active, doing exercise classes and stretching. She is ambulating without assistance. No changes to the current plan at this time. # Bilateral hearing loss: Referral to ENT for hearing test Patient to follow-up in 2 to 3 months to assess ENT referral, gastroenterology follow-up, and Linzess All quetsions answered to patients satisfaction. Patient verbalized understanding of diagnosis and treatments explained. To call sooner prior to next visit it any questions/concerns arise. Case discussed with collaborating physician Vern Oglesby who reviewed the assessment and plan. Chart, medications, labs, vital signs reviewed. Dictation was accomplished with the use of [employer] voice recognition software, prone to medical misidentifications and grammatical errors. This is unintentional and the practitioner does try to identify and correct these, but some could still be present. Please do not hesitate to contact practitioner for clarification. 04/02/2024 Lipid screening (ICD-10 - Z13.220) 05/06/2024 Hereditary hemochromatosis (ICD-10 - E83.110) Betina is a 77 year-old female who presents for f/u. #Recently diagnosed with COVID on 03/15/2024, treated with Paxlovid, doing well. # Patient has some concerns in regards to her blood work. She has a family history of leukemia, on the mes side. Blood blood cells 3.0, hemoglobin 10.2, hematocrit 31.4, MCV 105, MCH 34, RDW 17.9, mean platelet volume 11.3. Patient is a history of hemochromatosis. Following with heme-onc June 09, 2024. Patient was reassured that white blood cell count, platelets, and other values on CBC were within normal limits but she is going to follow with hematology, consider potential peripheral smear, or bone marrow biopsy if change or concern. #hypertension: Taking Lisinopril 10 mg, Diltazem 180 mg, Furosemide 20 MG with compliance. She declines any red flag cardiopulmomary symptoms, chest pain, palpitations, shortness of breath, diaphoresis, dizziness, syncope. Continue Lisinopril 10 mg, daily low dose Aspirin 81 mg, measuring BP at home. #Overweight: Patient is actively doing workout classes at the [facility] with her partner. She has goals to eat more vegetables and fruit, continuing exercise classes as tolerated, increasing hydration. Discussed berberine. #Constipation - Intermittent constipation taking certain anticholinergic medications, using miralax, Avoiding fiber, and Occasional manual disimpaction. She admits that she is not adeuqtely hydrated on a daily basis due to busy lifestyle/forgetting . Patient taking magnesium in the morning, and stool softeners in the evening. Following with gastroenterology, next visit in May. Tried Linzess but it did not work very well for her. #Acid Reflux: Taking Famotidine taking twice daily , Admits to uncontrolled symptoms. Following gastroenterology, could consider endoscopy. #overactive bladder: Discontinued Solifenacin Succinate 10 MG , Taking Myrbetriq 25 MG Extended Release. Wears depends for leakage. Her symptoms are stable currently with proper hygiene. No changes to current plan. #seasonal allergies: stable, no new symptoms. Takes Fexofenadine HCl 180 MG and Fluticasone Furoate 27.5 MCG nasal spray as needed. No refills needed. #arthritis: Stable, unchanging. Discontinued Celecoxib 200 MG. She is physically active, doing exercise classes and stretching. She is ambulating without assistance. No changes to the current plan at this time.Taking turmeric # Bilateral hearing loss: Visit July 2024 Follow-up in June to reviewed gastroenterology and hematology workup, sooner as needed All quetsions answered to patients satisfaction. Patient verbalized understanding of diagnosis and treatments explained. To call sooner prior to next visit it any questions/concerns arise. Case discussed with collaborating physician Vern Oglesby who reviewed the assessment and plan. Chart, medications, labs, vital signs reviewed. Dictation was accomplished with the use of [employer] voice recognition software, prone to medical misidentifications and grammatical errors. This is unintentional and the practitioner does try to identify and correct these, but some could still be present. Please do not hesitate to contact practitioner for clarification. 05/06/2024 Chronic constipation (ICD-10 - K59.09) Betina is a 77 year-old female who presents for f/u. #Recently diagnosed with COVID on 03/15/2024, treated with Paxlovid, doing well. # Patient has some concerns in regards to her blood work. She has a family history of leukemia, on the mes side. Blood blood cells 3.0, hemoglobin 10.2, hematocrit 31.4, MCV 105, MCH 34, RDW 17.9, mean platelet volume 11.3. Patient is a history of hemochromatosis. Following with heme-onc June 09, 2024. Patient was reassured that white blood cell count, platelets, and other values on CBC were within normal limits but she is going to follow with hematology, consider potential peripheral smear, or bone marrow biopsy if change or concern. #hypertension: Taking Lisinopril 10 mg, Diltazem 180 mg, Furosemide 20 MG with compliance. She declines any red flag cardiopulmomary symptoms, chest pain, palpitations, shortness of breath, diaphoresis, dizziness, syncope. Continue Lisinopril 10 mg, daily low dose Aspirin 81 mg, measuring BP at home. #Overweight: Patient is actively doing workout classes at the [facility] with her partner. She has goals to eat more vegetables and fruit, continuing exercise classes as tolerated, increasing hydration. Discussed berberine. #Constipation - Intermittent constipation taking certain anticholinergic medications, using miralax, Avoiding fiber, and Occasional manual disimpaction. She admits that she is not adeuqtely hydrated on a daily basis due to busy lifestyle/forgetting . Patient taking magnesium in the morning, and stool softeners in the evening. Following with gastroenterology, next visit in May. Tried Linzess but it did not work very well for her. #Acid Reflux: Taking Famotidine taking twice daily , Admits to uncontrolled symptoms. Following gastroenterology, could consider endoscopy. #overactive bladder: Discontinued Solifenacin Succinate 10 MG , Taking Myrbetriq 25 MG Extended Release. Wears depends for leakage. Her symptoms are stable currently with proper hygiene. No changes to current plan. #seasonal allergies: stable, no new symptoms. Takes Fexofenadine HCl 180 MG and Fluticasone Furoate 27.5 MCG nasal spray as needed. No refills needed. #arthritis: Stable, unchanging. Discontinued Celecoxib 200 MG. She is physically active, doing exercise classes and stretching. She is ambulating without assistance. No changes to the current plan at this time.Taking turmeric # Bilateral hearing loss: Visit July 2024 Follow-up in June to reviewed gastroenterology and hematology workup, sooner as needed All quetsions answered to patients satisfaction. Patient verbalized understanding of diagnosis and treatments explained. To call sooner prior to next visit it any questions/concerns arise. Case discussed with collaborating physician Vern Oglesby who reviewed the assessment and plan. Chart, medications, labs, vital signs reviewed. Dictation was accomplished with the use of [employer] voice recognition software, prone to medical misidentifications and grammatical errors. This is unintentional and the practitioner does try to identify and correct these, but some could still be present. Please do not hesitate to contact practitioner for clarification. 07/01/2024 Hereditary hemochromatosis (ICD-10 - E83.110) Betina is a 77 year-old female who presents for f/u. 1+ edema bilateral lower extremities, patient already taking furosemide 20 mg as needed, will take over the next few days to help diurese. Is aware of risk factors, no shortness of breath at this time.Emergency department criteria/criteria to call the office # Patient has some concerns in regards to her blood work. She has a family history of leukemia, on the Maternal side. Blood blood cells 3.0, hemoglobin 10.2, hematocrit 31.4, MCV 105, MCH 34, RDW 17.9, mean platelet volume 11.3. Patient is a history of hemochromatosis. Following with heme-onc. Patient was reassured that white blood cell count, platelets, and other values on CBC were within normal limits but she is going to follow with hematology, consider potential peripheral smear, or bone marrow biopsy if change or concern.Most recent CBC on 06/03/2024 showing red blood cell 3.1, hemoglobin 10.5, hematocrit 32.4, MCV 103.2, MCH 33.4, RDW 18.3, MPV 12Continue to follow with heme-onc. #hypertension: Taking Lisinopril 10 mg, Diltazem 180 mg, Furosemide 20 MG with compliance. She declines any red flag cardiopulmomary symptoms, chest pain, palpitations, shortness of breath, diaphoresis, dizziness, syncope. Continue Lisinopril 10 mg, daily low dose Aspirin 81 mg, measuring BP at home. #Overweight: Patient is actively doing workout classes at the [facility] with her partner. She has goals to eat more vegetables and fruit, continuing exercise classes as tolerated, increasing hydration. Discussed berberine. #Constipation - Intermittent constipation taking certain anticholinergic medications, using miralax, Avoiding fiber, and Occasional manual disimpaction. She admits that she is not adeuqtely hydrated on a daily basis due to busy lifestyle/forgetting . Patient taking magnesium in the morning, and stool softeners in the evening. Tried Linzess but it did not work very well for her. Followed with gastroenterology in August. They had to reschedule her visit from May. #Acid Reflux: Taking Famotidine taking twice daily , Admits to uncontrolled symptoms. Following gastroenterology, could consider endoscopy. #overactive bladder: Discontinued Solifenacin Succinate 10 MG , Taking Myrbetriq 25 MG Extended Release. Wears depends for leakage. Her symptoms are stable currently with proper hygiene. No changes to current plan. #seasonal allergies: stable, no new symptoms. Takes Fexofenadine HCl 180 MG and Fluticasone Furoate 27.5 MCG nasal spray as needed. No refills needed. #arthritis: Stable, unchanging. Discontinued Celecoxib 200 MG. She is physically active, doing exercise classes and stretching. She is ambulating without assistance. No changes to the current plan at this time.Taking turmeric # Bilateral hearing loss: Visit July 2024 # Left shoulder pain, difficulty with overhead movements, negative red flag symptoms. Start with x-ray, and physical therapy. # Left ankle pain: Will trial physical therapy, and conservative treatments. Diclofenac cream, meloxicam prescribed by previous orthopedic, refilled today Follow-up in September for Medicare wellness visit, sooner as needed All quetsions answered to patients satisfaction. Patient verbalized understanding of diagnosis and treatments explained. To call sooner prior to next visit it any questions/concerns arise. Case discussed with collaborating physician Vern Oglesby who reviewed the assessment and plan. Chart, medications, labs, vital signs reviewed. Dictation was accomplished with the use of [employer] voice recognition software, prone to medical misidentifications and grammatical errors. This is unintentional and the practitioner does try to identify and correct these, but some could still be present. Please do not hesitate to contact practitioner for clarification. 10/07/2024 Wellness examination (ICD-10 - Z00.00) Betina is a 79 year-old female who presents for MWV. # Patient up-to-date on all routine vaccinations. Will obtain Tdap as needed. Up-to-date on colonoscopy, declines further. Due for mammogram, which she will schedule. Declines Pap smear/bone density. # Left hearing loss, follow-up with ENT, scheduled for left hearing aid placement # Healthcare proxy completed in office today, it is Giuseppe. Completed 10/07/2024. # Medicare wellness paperwork reviewed extensively. # Audit negative with a total score of 0 # PHQ-9 10/07/2024 with a total score of 0. # 1+ edema bilateral lower extremities, Patient taking furosemide 20 mg daily. Will increase to 20 mg twice daily, second dose to be taken as needed. Is aware of risk factors, no shortness of breath at this time.Emergency department criteria/criteria to call the office # Patient has some concerns in regards to her blood work. She has a family history of leukemia, on the Maternal side. Blood blood cells 3.0, hemoglobin 10.2, hematocrit 31.4, MCV 105, MCH 34, RDW 17.9, mean platelet volume 11.3. Patient is a history of hemochromatosis. Following with heme-onc. Patient was reassured that white blood cell count, platelets, and other values on CBC were within normal limits but she is going to follow with hematology, consider potential peripheral smear, or bone marrow biopsy if change or concern.Most recent CBC on 06/03/2024 showing red blood cell 3.1, hemoglobin 10.5, hematocrit 32.4, MCV 103.2, MCH 33.4, RDW 18.3, MPV 12. Most recent values July 2024 showing iron 198, TIBC 214, saturation 93, white blood cells 3.3, hemoglobin 11.3, hematocrit 34.3, MCV 105, MCH 34.8, RDW 16.3, MPV 11.4. Following with hematology, Dr. Tre Jaimes, they are in the process of scheduling a blood draw. #hypertension: Taking Lisinopril 10 mg, Diltazem 180 mg, Furosemide 20 MG with compliance. She declines any red flag cardiopulmomary symptoms, chest pain, palpitations, shortness of breath, diaphoresis, dizziness, syncope. Continue Lisinopril 10 mg, daily low dose Aspirin 81 mg, measuring BP at home. #Overweight: Patient is actively doing workout classes at the [facility] with her partner. She has goals to eat more vegetables and fruit, continuing exercise classes as tolerated, increasing hydration. Discussed berberine. #Constipation - Intermittent constipation taking certain anticholinergic medications, using miralax, Avoiding fiber, and Occasional manual disimpaction. She admits that she is not adeuqtely hydrated on a daily basis due to busy lifestyle/forgetting . Patient taking magnesium in the morning, and stool softeners in the evening. Tried Linzess but it did not work very well for her. Follow gastroenterology, recommended senna as needed. Patient states that her she did have 1 episode of diarrhea a few days ago, which since resolved. She states this was after she took the laxative. Has been doing well, continue to encourage following with GI #overactive bladder: Discontinued Solifenacin Succinate 10 MG , Taking Myrbetriq 25 MG Extended Release. Wears depends for leakage. Her symptoms are stable currently with proper hygiene. No changes to current plan. #seasonal allergies: stable, no new symptoms. Takes Fexofenadine HCl 180 MG and Fluticasone Furoate 27.5 MCG nasal spray as needed. No refills needed. #arthritis: Stable, unchanging. Discontinued Celecoxib 200 MG. She is physically active, doing exercise classes and stretching. She is ambulating without assistance. No changes to the current plan at this time.Taking turmeric # Bilateral hearing loss: Visit July 2024 # Left shoulder pain, difficulty with overhead movements, negative red flag symptoms. X-ray normal, physical therapy with improvement in range of motion. # Did follow with ENT, left hearing changes, scheduled for left hearing aid. Follow-up in 4 months, sooner as needed. Follow with hematology and gastroenterology in the meantime Patient seen and examined. Comprehensive discussion was done on the following. 1. Nutrition: It is important to follow a healthy diet based on lots of vegetables and legumes and good fat. Avoid processed food and processed carbohydrates. Prepare your own meals. Read labels and avoid high fructose corn syrup, processed chemicals added to increase shelf life and preprepared meals. Avoid fast foods. Eat slowly and plan meals for a week. Try to count calories and be mindful off daily calorie intake. Get into the habit of keeping an eye on your weight by using an appropriate scale. Learn to log exercise and discussed fitness Apps like [employer] which can help keep log off calories taken versus calories burned. Local food should be preferred. Discussed [employer] Versus [employer] Fifteen. Discussed healthy supplements like fish oil, Tumeric, Curcumin, Melatonin, Resveratrol, Probiotics, Vitamin-D, Alpha-Lipoic acid, Vitamin-D and coconut oil. 2. It is important to exercise regularly. Is a good habit to walk at least 30 minutes a day. Gentle weightlifting with standard precautions to protect the back. Finding activity like cycling or hiking and get into the habit of engaging in it. Stretching before and after the exercises important. It is also important to contact me if there are any problems like shortness of breath, chest pain, back pain and joint or muscle pain associated with the exercise. 3. Discussed age appropriate screening guidelines. Colonoscopy needs to start at age 50 with stool for occult blood as appropriate. There is a new test that can test for genetic abnormalities in the stool sample, Cologuard. This would not replace a colonoscopy but could be used as a screening tool for patients who do not want a colonoscopy. We discussed the importance of early detection of colon cancer. 4. Discussed current guidelines with respect to breast examination, mammogram and pap smear for early detection of breast and cervical cancer. Patient advised to follow up with these appointments. 5. Discussed safe driving and no use of smart phone while driving 6. Age-appropriate immunizations were discussed. A tetanus booster is needed every 10 years. Flu vaccine is recommended every year just before the start of the flu season. Shingles vaccine is recommended after age 50 but not all insurances cover it. Pneumonia vaccine is given after age 65 unless there are certain comorbidities for which it is started earlier. 7. Diagnostic labs were discussed. These could include/not limited to CBC CMP and lipids with fasting blood glucose and insulin levels. Vitamin D and hemoglobin A1c testing might be appropriate. All quetsions answered to patients satisfaction. Patient verbalized understanding of diagnosis and treatments explained. To call sooner prior to next visit it any questions/concerns arise. Case discussed with collaborating physician Vern Oglesby who reviewed the assessment and plan. Chart, medications, labs, vital signs reviewed. Dictation was accomplished with the use of [employer] voice recognition software, prone to medical misidentifications and grammatical errors. This is unintentional and the practitioner does try to identify and correct these, but some could still be present. Please do not hesitate to contact practitioner for clarification. 10/07/2024 Chronic constipation (ICD-10 - K59.09) Betina is a 79 year-old female who presents for MWV. # Patient up-to-date on all routine vaccinations. Will obtain Tdap as needed. Up-to-date on colonoscopy, declines further. Due for mammogram, which she will schedule. Declines Pap smear/bone density. # Left hearing loss, follow-up with ENT, scheduled for left hearing aid placement # Healthcare proxy completed in office today, it is Giuseppe. Completed 10/07/2024. # Medicare wellness paperwork reviewed extensively. # Audit negative with a total score of 0 # PHQ-9 10/07/2024 with a total score of 0. # 1+ edema bilateral lower extremities, Patient taking furosemide 20 mg daily. Will increase to 20 mg twice daily, second dose to be taken as needed. Is aware of risk factors, no shortness of breath at this time.Emergency department criteria/criteria to call the office # Patient has some concerns in regards to her blood work. She has a family history of leukemia, on the Maternal side. Blood blood cells 3.0, hemoglobin 10.2, hematocrit 31.4, MCV 105, MCH 34, RDW 17.9, mean platelet volume 11.3. Patient is a history of hemochromatosis. Following with heme-onc. Patient was reassured that white blood cell count, platelets, and other values on CBC were within normal limits but she is going to follow with hematology, consider potential peripheral smear, or bone marrow biopsy if change or concern.Most recent CBC on 06/03/2024 showing red blood cell 3.1, hemoglobin 10.5, hematocrit 32.4, MCV 103.2, MCH 33.4, RDW 18.3, MPV 12. Most recent values July 2024 showing iron 198, TIBC 214, saturation 93, white blood cells 3.3, hemoglobin 11.3, hematocrit 34.3, MCV 105, MCH 34.8, RDW 16.3, MPV 11.4. Following with hematology, Dr. Tre Jaimes, they are in the process of scheduling a blood draw. #hypertension: Taking Lisinopril 10 mg, Diltazem 180 mg, Furosemide 20 MG with compliance. She declines any red flag cardiopulmomary symptoms, chest pain, palpitations, shortness of breath, diaphoresis, dizziness, syncope. Continue Lisinopril 10 mg, daily low dose Aspirin 81 mg, measuring BP at home. #Overweight: Patient is actively doing workout classes at the [facility] with her partner. She has goals to eat more vegetables and fruit, continuing exercise classes as tolerated, increasing hydration. Discussed berberine. #Constipation - Intermittent constipation taking certain anticholinergic medications, using miralax, Avoiding fiber, and Occasional manual disimpaction. She admits that she is not adeuqtely hydrated on a daily basis due to busy lifestyle/forgetting . Patient taking magnesium in the morning, and stool softeners in the evening. Tried Linzess but it did not work very well for her. Follow gastroenterology, recommended senna as needed. Patient states that her she did have 1 episode of diarrhea a few days ago, which since resolved. She states this was after she took the laxative. Has been doing well, continue to encourage following with GI #overactive bladder: Discontinued Solifenacin Succinate 10 MG , Taking Myrbetriq 25 MG Extended Release. Wears depends for leakage. Her symptoms are stable currently with proper hygiene. No changes to current plan. #seasonal allergies: stable, no new symptoms. Takes Fexofenadine HCl 180 MG and Fluticasone Furoate 27.5 MCG nasal spray as needed. No refills needed. #arthritis: Stable, unchanging. Discontinued Celecoxib 200 MG. She is physically active, doing exercise classes and stretching. She is ambulating without assistance. No changes to the current plan at this time.Taking turmeric # Bilateral hearing loss: Visit July 2024 # Left shoulder pain, difficulty with overhead movements, negative red flag symptoms. X-ray normal, physical therapy with improvement in range of motion. # Did follow with ENT, left hearing changes, scheduled for left hearing aid. Follow-up in 4 months, sooner as needed. Follow with hematology and gastroenterology in the meantime Patient seen and examined. Comprehensive discussion was done on the following. 1. Nutrition: It is important to follow a healthy diet based on lots of vegetables and legumes and good fat. Avoid processed food and processed carbohydrates. Prepare your own meals. Read labels and avoid high fructose corn syrup, processed chemicals added to increase shelf life and preprepared meals. Avoid fast foods. Eat slowly and plan meals for a week. Try to count calories and be mindful off daily calorie intake. Get into the habit of keeping an eye on your weight by using an appropriate scale. Learn to log exercise and discussed fitness Apps like [employer] which can help keep log off calories taken versus calories burned. Local food should be preferred. Discussed Dirty Dozen Versus Clean Fifteen. Discussed healthy supplements like fish oil, Tumeric, Curcumin, Melatonin, Resveratrol, Probiotics, Vitamin-D, Alpha-Lipoic acid, Vitamin-D and coconut oil. 2. It is important to exercise regularly. Is a good habit to walk at least 30 minutes a day. Gentle weightlifting with standard precautions to protect the back. Finding activity like cycling or hiking and get into the habit of engaging in it. Stretching before and after the exercises important. It is also important to contact me if there are any problems like shortness of breath, chest pain, back pain and joint or muscle pain associated with the exercise. 3. Discussed age appropriate screening guidelines. Colonoscopy needs to start at age 50 with stool for occult blood as appropriate. There is a new test that can test for genetic abnormalities in the stool sample, Cologuard. This would not replace a colonoscopy but could be used as a screening tool for patients who do not want a colonoscopy. We discussed the importance of early detection of colon cancer. 4. Discussed current guidelines with respect to breast examination, mammogram and pap smear for early detection of breast and cervical cancer. Patient advised to follow up with these appointments. 5. Discussed safe driving and no use of smart phone while driving 6. Age-appropriate immunizations were discussed. A tetanus booster is needed every 10 years. Flu vaccine is recommended every year just before the start of the flu season. Shingles vaccine is recommended after age 50 but not all insurances cover it. Pneumonia vaccine is given after age 65 unless there are certain comorbidities for which it is started earlier. 7. Diagnostic labs were discussed. These could include/not limited to CBC CMP and lipids with fasting blood glucose and insulin levels. Vitamin D and hemoglobin A1c testing might be appropriate. All quetsions answered to patients satisfaction. Patient verbalized understanding of diagnosis and treatments explained. To call sooner prior to next visit it any questions/concerns arise. Case discussed with collaborating physician Vern Oglesby who reviewed the assessment and plan. Chart, medications, labs, vital signs reviewed. Dictation was accomplished with the use of [employer] voice recognition software, prone to medical misidentifications and grammatical errors. This is unintentional and the practitioner does try to identify and correct these, but some could still be present. Please do not hesitate to contact practitioner for clarification. 10/25/2024 Breast screening (ICD-10 - Z12.39) 04/02/2024 Routine adult health maintenance (ICD-10 - Z00.00) 05/06/2024 Hypertension, unspecified type (ICD-10 - I10) Betina is a 77 year-old female who presents for f/u. #Recently diagnosed with COVID on 03/15/2024, treated with Paxlovid, doing well. # Patient has some concerns in regards to her blood work. She has a family history of leukemia, on the mes side. Blood blood cells 3.0, hemoglobin 10.2, hematocrit 31.4, MCV 105, MCH 34, RDW 17.9, mean platelet volume 11.3. Patient is a history of hemochromatosis. Following with heme-onc June 09, 2024. Patient was reassured that white blood cell count, platelets, and other values on CBC were within normal limits but she is going to follow with hematology, consider potential peripheral smear, or bone marrow biopsy if change or concern. #hypertension: Taking Lisinopril 10 mg, Diltazem 180 mg, Furosemide 20 MG with compliance. She declines any red flag cardiopulmomary symptoms, chest pain, palpitations, shortness of breath, diaphoresis, dizziness, syncope. Continue Lisinopril 10 mg, daily low dose Aspirin 81 mg, measuring BP at home. #Overweight: Patient is actively doing workout classes at the [facility] with her partner. She has goals to eat more vegetables and fruit, continuing exercise classes as tolerated, increasing hydration. Discussed berberine. #Constipation - Intermittent constipation taking certain anticholinergic medications, using miralax, Avoiding fiber, and Occasional manual disimpaction. She admits that she is not adeuqtely hydrated on a daily basis due to busy lifestyle/forgetting . Patient taking magnesium in the morning, and stool softeners in the evening. Following with gastroenterology, next visit in May. Tried Linzess but it did not work very well for her. #Acid Reflux: Taking Famotidine taking twice daily , Admits to uncontrolled symptoms. Following gastroenterology, could consider endoscopy. #overactive bladder: Discontinued Solifenacin Succinate 10 MG , Taking Myrbetriq 25 MG Extended Release. Wears depends for leakage. Her symptoms are stable currently with proper hygiene. No changes to current plan. #seasonal allergies: stable, no new symptoms. Takes Fexofenadine HCl 180 MG and Fluticasone Furoate 27.5 MCG nasal spray as needed. No refills needed. #arthritis: Stable, unchanging. Discontinued Celecoxib 200 MG. She is physically active, doing exercise classes and stretching. She is ambulating without assistance. No changes to the current plan at this time.Taking turmeric # Bilateral hearing loss: Visit July 2024 Follow-up in June to reviewed gastroenterology and hematology workup, sooner as needed All quetsions answered to patients satisfaction. Patient verbalized understanding of diagnosis and treatments explained. To call sooner prior to next visit it any questions/concerns arise. Case discussed with collaborating physician Vern Oglesby who reviewed the assessment and plan. Chart, medications, labs, vital signs reviewed. Dictation was accomplished with the use of [employer] voice recognition software, prone to medical misidentifications and grammatical errors. This is unintentional and the practitioner does try to identify and correct these, but some could still be present. Please do not hesitate to contact practitioner for clarification. 07/01/2024 Chronic constipation (ICD-10 - K59.09) Betina is a 77 year-old female who presents for f/u. 1+ edema bilateral lower extremities, patient already taking furosemide 20 mg as needed, will take over the next few days to help diurese. Is aware of risk factors, no shortness of breath at this time.Emergency department criteria/criteria to call the office # Patient has some concerns in regards to her blood work. She has a family history of leukemia, on the Maternal side. Blood blood cells 3.0, hemoglobin 10.2, hematocrit 31.4, MCV 105, MCH 34, RDW 17.9, mean platelet volume 11.3. Patient is a history of hemochromatosis. Following with heme-onc. Patient was reassured that white blood cell count, platelets, and other values on CBC were within normal limits but she is going to follow with hematology, consider potential peripheral smear, or bone marrow biopsy if change or concern.Most recent CBC on 06/03/2024 showing red blood cell 3.1, hemoglobin 10.5, hematocrit 32.4, MCV 103.2, MCH 33.4, RDW 18.3, MPV 12Continue to follow with heme-onc. #hypertension: Taking Lisinopril 10 mg, Diltazem 180 mg, Furosemide 20 MG with compliance. She declines any red flag cardiopulmomary symptoms, chest pain, palpitations, shortness of breath, diaphoresis, dizziness, syncope. Continue Lisinopril 10 mg, daily low dose Aspirin 81 mg, measuring BP at home. #Overweight: Patient is actively doing workout classes at the [facility] with her partner. She has goals to eat more vegetables and fruit, continuing exercise classes as tolerated, increasing hydration. Discussed berberine. #Constipation - Intermittent constipation taking certain anticholinergic medications, using miralax, Avoiding fiber, and Occasional manual disimpaction. She admits that she is not adeuqtely hydrated on a daily basis due to busy lifestyle/forgetting . Patient taking magnesium in the morning, and stool softeners in the evening. Tried Linzess but it did not work very well for her. Followed with gastroenterology in August. They had to reschedule her visit from May. #Acid Reflux: Taking Famotidine taking twice daily , Admits to uncontrolled symptoms. Following gastroenterology, could consider endoscopy. #overactive bladder: Discontinued Solifenacin Succinate 10 MG , Taking Myrbetriq 25 MG Extended Release. Wears depends for leakage. Her symptoms are stable currently with proper hygiene. No changes to current plan. #seasonal allergies: stable, no new symptoms. Takes Fexofenadine HCl 180 MG and Fluticasone Furoate 27.5 MCG nasal spray as needed. No refills needed. #arthritis: Stable, unchanging. Discontinued Celecoxib 200 MG. She is physically active, doing exercise classes and stretching. She is ambulating without assistance. No changes to the current plan at this time.Taking turmeric # Bilateral hearing loss: Visit July 2024 # Left shoulder pain, difficulty with overhead movements, negative red flag symptoms. Start with x-ray, and physical therapy. # Left ankle pain: Will trial physical therapy, and conservative treatments. Diclofenac cream, meloxicam prescribed by previous orthopedic, refilled today Follow-up in September for Medicare wellness visit, sooner as needed All quetsions answered to patients satisfaction. Patient verbalized understanding of diagnosis and treatments explained. To call sooner prior to next visit it any questions/concerns arise. Case discussed with collaborating physician Vern Oglesby who reviewed the assessment and plan. Chart, medications, labs, vital signs reviewed. Dictation was accomplished with the use of [employer] voice recognition software, prone to medical misidentifications and grammatical errors. This is unintentional and the practitioner does try to identify and correct these, but some could still be present. Please do not hesitate to contact practitioner for clarification. 10/07/2024 Hereditary hemochromatosis (ICD-10 - E83.110) Betina is a 79 year-old female who presents for MWV. # Patient up-to-date on all routine vaccinations. Will obtain Tdap as needed. Up-to-date on colonoscopy, declines further. Due for mammogram, which she will schedule. Declines Pap smear/bone density. # Left hearing loss, follow-up with ENT, scheduled for left hearing aid placement # Healthcare proxy completed in office today, it is Giuseppe. Completed 10/07/2024. # Medicare wellness paperwork reviewed extensively. # Audit negative with a total score of 0 # PHQ-9 10/07/2024 with a total score of 0. # 1+ edema bilateral lower extremities, Patient taking furosemide 20 mg daily. Will increase to 20 mg twice daily, second dose to be taken as needed. Is aware of risk factors, no shortness of breath at this time.Emergency department criteria/criteria to call the office # Patient has some concerns in regards to her blood work. She has a family history of leukemia, on the Maternal side. Blood blood cells 3.0, hemoglobin 10.2, hematocrit 31.4, MCV 105, MCH 34, RDW 17.9, mean platelet volume 11.3. Patient is a history of hemochromatosis. Following with heme-onc. Patient was reassured that white blood cell count, platelets, and other values on CBC were within normal limits but she is going to follow with hematology, consider potential peripheral smear, or bone marrow biopsy if change or concern.Most recent CBC on 06/03/2024 showing red blood cell 3.1, hemoglobin 10.5, hematocrit 32.4, MCV 103.2, MCH 33.4, RDW 18.3, MPV 12. Most recent values July 2024 showing iron 198, TIBC 214, saturation 93, white blood cells 3.3, hemoglobin 11.3, hematocrit 34.3, MCV 105, MCH 34.8, RDW 16.3, MPV 11.4. Following with hematology, Dr. Tre Jaimes, they are in the process of scheduling a blood draw. #hypertension: Taking Lisinopril 10 mg, Diltazem 180 mg, Furosemide 20 MG with compliance. She declines any red flag cardiopulmomary symptoms, chest pain, palpitations, shortness of breath, diaphoresis, dizziness, syncope. Continue Lisinopril 10 mg, daily low dose Aspirin 81 mg, measuring BP at home. #Overweight: Patient is actively doing workout classes at the [facility] with her partner. She has goals to eat more vegetables and fruit, continuing exercise classes as tolerated, increasing hydration. Discussed berberine. #Constipation - Intermittent constipation taking certain anticholinergic medications, using miralax, Avoiding fiber, and Occasional manual disimpaction. She admits that she is not adeuqtely hydrated on a daily basis due to busy lifestyle/forgetting . Patient taking magnesium in the morning, and stool softeners in the evening. Tried Linzess but it did not work very well for her. Follow gastroenterology, recommended senna as needed. Patient states that her she did have 1 episode of diarrhea a few days ago, which since resolved. She states this was after she took the laxative. Has been doing well, continue to encourage following with GI #overactive bladder: Discontinued Solifenacin Succinate 10 MG , Taking Myrbetriq 25 MG Extended Release. Wears depends for leakage. Her symptoms are stable currently with proper hygiene. No changes to current plan. #seasonal allergies: stable, no new symptoms. Takes Fexofenadine HCl 180 MG and Fluticasone Furoate 27.5 MCG nasal spray as needed. No refills needed. #arthritis: Stable, unchanging. Discontinued Celecoxib 200 MG. She is physically active, doing exercise classes and stretching. She is ambulating without assistance. No changes to the current plan at this time.Taking turmeric # Bilateral hearing loss: Visit July 2024 # Left shoulder pain, difficulty with overhead movements, negative red flag symptoms. X-ray normal, physical therapy with improvement in range of motion. # Did follow with ENT, left hearing changes, scheduled for left hearing aid. Follow-up in 4 months, sooner as needed. Follow with hematology and gastroenterology in the meantime Patient seen and examined. Comprehensive discussion was done on the following. 1. Nutrition: It is important to follow a healthy diet based on lots of vegetables and legumes and good fat. Avoid processed food and processed carbohydrates. Prepare your own meals. Read labels and avoid high fructose corn syrup, processed chemicals added to increase shelf life and preprepared meals. Avoid fast foods. Eat slowly and plan meals for a week. Try to count calories and be mindful off daily calorie intake. Get into the habit of keeping an eye on your weight by using an appropriate scale. Learn to log exercise and discussed fitness Apps like [employer] which can help keep log off calories taken versus calories burned. Local food should be preferred. Discussed Dirty Dozen Versus Clean Fifteen. Discussed healthy supplements like fish oil, Tumeric, Curcumin, Melatonin, Resveratrol, Probiotics, Vitamin-D, Alpha-Lipoic acid, Vitamin-D and coconut oil. 2. It is important to exercise regularly. Is a good habit to walk at least 30 minutes a day. Gentle weightlifting with standard precautions to protect the back. Finding activity like cycling or hiking and get into the habit of engaging in it. Stretching before and after the exercises important. It is also important to contact me if there are any problems like shortness of breath, chest pain, back pain and joint or muscle pain associated with the exercise. 3. Discussed age appropriate screening guidelines. Colonoscopy needs to start at age 50 with stool for occult blood as appropriate. There is a new test that can test for genetic abnormalities in the stool sample, Cologuard. This would not replace a colonoscopy but could be used as a screening tool for patients who do not want a colonoscopy. We discussed the importance of early detection of colon cancer. 4. Discussed current guidelines with respect to breast examination, mammogram and pap smear for early detection of breast and cervical cancer. Patient advised to follow up with these appointments. 5. Discussed safe driving and no use of smart phone while driving 6. Age-appropriate immunizations were discussed. A tetanus booster is needed every 10 years. Flu vaccine is recommended every year just before the start of the flu season. Shingles vaccine is recommended after age 50 but not all insurances cover it. Pneumonia vaccine is given after age 65 unless there are certain comorbidities for which it is started earlier. 7. Diagnostic labs were discussed. These could include/not limited to CBC CMP and lipids with fasting blood glucose and insulin levels. Vitamin D and hemoglobin A1c testing might be appropriate. All quetsions answered to patients satisfaction. Patient verbalized understanding of diagnosis and treatments explained. To call sooner prior to next visit it any questions/concerns arise. Case discussed with collaborating physician Vern Oglesby who reviewed the assessment and plan. Chart, medications, labs, vital signs reviewed. Dictation was accomplished with the use of [employer] voice recognition software, prone to medical misidentifications and grammatical errors. This is unintentional and the practitioner does try to identify and correct these, but some could still be present. Please do not hesitate to contact practitioner for clarification. 03/15/2024 Urinary incontinence in female (ICD-10 - R32) Patient consents to be seen today via telehealth agreement. The patient was seen using the following telehealth technology: telephone This encounter is appropriate and reasonable under the circumstances given the patient's particular presentation. The patient has been advised of the potential risks and limitations of this mode of treatment including but not limited to the absence of an in person physical examination, and has agreed to be treated in a remote fashion in spite of this. Betina is an 78-year-old female with a PMH including hemochromatosis, hypertension, acid reflux, seasonal allergies, urinary incontinence, arthritis that presents via telehealth after testing positive for COVID 03/14/2024. Symptoms x1.5 weeks including sore throat, dry cough, and congestion. Has taken Robitussin with minimal relief. Reviewed treatment options including symptomatic management versus Paxlovid. Patient is encouraged to continue symptomatic management with lozenges, steam, warm broth/tea, and anti-inflammatories as needed. Patient interested in proceeding with Paxlovid, most recent GFR 63, medication list reviewed. Rx for Paxlovid sent to pharmacy. Patient is educated on proper use and side effects including but not limited to metallic taste in mouth and diarrhea. Patient is educated to hold Solifenacin x 5 days while taking Paxlovid due to increased risk of QT prolongation/arrhyth vandana. She is also encouraged to finish final dose of cephalexin for urinary tract infection. Reviewed ED protocol. The patient is educated to dial 911/seek immediate medical attention should she develop any shortness of breath, difficulty breathing, hemoptysis,chest pain, syncope, irregular heart rate, confusion, intractable nausea or vomiting. All questions answered to the patient's satisfaction. Patient demonstrates understanding of diagnosis and treatments discussed. Follow-up at next scheduled appointment, sooner should any questions/concerns arise. Case discussed with collaborating physician Greta Oglesby who has reviewed the assessment/plan. Chart, medications, labs, and vital signs reviewed. Dictation completed with the use of [employer] voice recognition software, prone to medical misidentifications and grammatical errors. All errors are unintentional. Although the practitioner does try to identify and correct errors, some may be present. Please do not hesitate to contact the practitioner for clarification. 02/04/2024 Hereditary hemochromatosis (ICD-10 - E83.110) Betina is a 77 year-old female who presents for f/u. #hypertension: Taking Lisinopril 10 mg, Diltazem 180 mg, Furosemide 20 MG with compliance. She declines any red flag cardiopulmomary symptoms, chest pain, palpitations, shortness of breath, diaphoresis, dizziness, syncope. Continue Lisinopril 10 mg, daily low dose Aspirin 81 mg, measuring BP at home. #Overweight: Patient is actively doing workout classes at the [facility] with her partner. She has goals to eat more vegetables and fruit, continuing exercise classes as tolerated, increasing hydration. #Constipation - Intermittent constipation taking certain anticholinergic medications, using miralax, fiber, and manual disimpaction. She admits that she is not adeuqtely hydrated on a daily basis due to busy lifestyle/forgetting . We recommend a bowel regimen of Miralax in the morning and Senna nightly, with proper fiber and hydration, continued daily exercise, limiting bread and pasta. Has not been working, will follow with gastroenterology, but trial Linzess. If no bowel movement in 3 days, she will contact the office to be evaluated. #Acid Reflux: Taking Famotidine taking twice daily , Admits to uncontrolled symptoms. Following gastroenterology, could consider endoscopy. #Memory changes: post-anesthesia from cataract surgery she reports word retrieval difficulties. Symptoms have been gradually improving. She communicates fluently during her examination, and is not interested in having further neurologic evaluation due to mild nature of symtpoms, which do not disrupt daily function/activities. We will continue to monitor her over time. Neurologic mini mental status examination at next visit if symptoms worsen. #overactive bladder: Taking Solifenacin Succinate 10 MG , Myrbetriq 25 MG Extended Release. Wears depends for leakage. Her symptoms are stable currently with proper hygiene. No changes to current plan. #seasonal allergies: stable, no new symptoms. Takes Fexofenadine HCl 180 MG and Fluticasone Furoate 27.5 MCG nasal spray as needed. No refills needed. #arthritis: Stable, unchanging. Taking Celecoxib 200 MG. She is physically active, doing exercise classes and stretching. She is ambulating without assistance. No changes to the current plan at this time. # Bilateral hearing loss: Referral to ENT for hearing test Patient to follow-up in 2 to 3 months to assess ENT referral, gastroenterology follow-up, and Linzess All quetsions answered to patients satisfaction. Patient verbalized understanding of diagnosis and treatments explained. To call sooner prior to next visit it any questions/concerns arise. Case discussed with collaborating physician Vern Oglesby who reviewed the assessment and plan. Chart, medications, labs, vital signs reviewed. Dictation was accomplished with the use of [employer] voice recognition software, prone to medical misidentifications and grammatical errors. This is unintentional and the practitioner does try to identify and correct these, but some could still be present. Please do not hesitate to contact practitioner for clarification. 02/04/2024 Hypertension, unspecified type (ICD-10 - I10) Betina is a 77 year-old female who presents for f/u. #hypertension: Taking Lisinopril 10 mg, Diltazem 180 mg, Furosemide 20 MG with compliance. She declines any red flag cardiopulmomary symptoms, chest pain, palpitations, shortness of breath, diaphoresis, dizziness, syncope. Continue Lisinopril 10 mg, daily low dose Aspirin 81 mg, measuring BP at home. #Overweight: Patient is actively doing workout classes at the [facility] with her partner. She has goals to eat more vegetables and fruit, continuing exercise classes as tolerated, increasing hydration. #Constipation - Intermittent constipation taking certain anticholinergic medications, using miralax, fiber, and manual disimpaction. She admits that she is not adeuqtely hydrated on a daily basis due to busy lifestyle/forgetting . We recommend a bowel regimen of Miralax in the morning and Senna nightly, with proper fiber and hydration, continued daily exercise, limiting bread and pasta. Has not been working, will follow with gastroenterology, but trial Linzess. If no bowel movement in 3 days, she will contact the office to be evaluated. #Acid Reflux: Taking Famotidine taking twice daily , Admits to uncontrolled symptoms. Following gastroenterology, could consider endoscopy. #Memory changes: post-anesthesia from cataract surgery she reports word retrieval difficulties. Symptoms have been gradually improving. She communicates fluently during her examination, and is not interested in having further neurologic evaluation due to mild nature of symtpoms, which do not disrupt daily function/activities. We will continue to monitor her over time. Neurologic mini mental status examination at next visit if symptoms worsen. #overactive bladder: Taking Solifenacin Succinate 10 MG , Myrbetriq 25 MG Extended Release. Wears depends for leakage. Her symptoms are stable currently with proper hygiene. No changes to current plan. #seasonal allergies: stable, no new symptoms. Takes Fexofenadine HCl 180 MG and Fluticasone Furoate 27.5 MCG nasal spray as needed. No refills needed. #arthritis: Stable, unchanging. Taking Celecoxib 200 MG. She is physically active, doing exercise classes and stretching. She is ambulating without assistance. No changes to the current plan at this time. # Bilateral hearing loss: Referral to ENT for hearing test Patient to follow-up in 2 to 3 months to assess ENT referral, gastroenterology follow-up, and Linzess All quetsions answered to patients satisfaction. Patient verbalized understanding of diagnosis and treatments explained. To call sooner prior to next visit it any questions/concerns arise. Case discussed with collaborating physician Vern Oglesby who reviewed the assessment and plan. Chart, medications, labs, vital signs reviewed. Dictation was accomplished with the use of [employer] voice recognition software, prone to medical misidentifications and grammatical errors. This is unintentional and the practitioner does try to identify and correct these, but some could still be present. Please do not hesitate to contact practitioner for clarification. 04/02/2024 Vitamin B12 deficiency (ICD-10 - E53.8) 05/06/2024 Seasonal allergies (ICD-10 - J30.2) Betina is a 77 year-old female who presents for f/u. #Recently diagnosed with COVID on 03/15/2024, treated with Paxlovid, doing well. # Patient has some concerns in regards to her blood work. She has a family history of leukemia, on the mes side. Blood blood cells 3.0, hemoglobin 10.2, hematocrit 31.4, MCV 105, MCH 34, RDW 17.9, mean platelet volume 11.3. Patient is a history of hemochromatosis. Following with heme-onc June 09, 2024. Patient was reassured that white blood cell count, platelets, and other values on CBC were within normal limits but she is going to follow with hematology, consider potential peripheral smear, or bone marrow biopsy if change or concern. #hypertension: Taking Lisinopril 10 mg, Diltazem 180 mg, Furosemide 20 MG with compliance. She declines any red flag cardiopulmomary symptoms, chest pain, palpitations, shortness of breath, diaphoresis, dizziness, syncope. Continue Lisinopril 10 mg, daily low dose Aspirin 81 mg, measuring BP at home. #Overweight: Patient is actively doing workout classes at the [facility] with her partner. She has goals to eat more vegetables and fruit, continuing exercise classes as tolerated, increasing hydration. Discussed berberine. #Constipation - Intermittent constipation taking certain anticholinergic medications, using miralax, Avoiding fiber, and Occasional manual disimpaction. She admits that she is not adeuqtely hydrated on a daily basis due to busy lifestyle/forgetting . Patient taking magnesium in the morning, and stool softeners in the evening. Following with gastroenterology, next visit in May. Tried Linzess but it did not work very well for her. #Acid Reflux: Taking Famotidine taking twice daily , Admits to uncontrolled symptoms. Following gastroenterology, could consider endoscopy. #overactive bladder: Discontinued Solifenacin Succinate 10 MG , Taking Myrbetriq 25 MG Extended Release. Wears depends for leakage. Her symptoms are stable currently with proper hygiene. No changes to current plan. #seasonal allergies: stable, no new symptoms. Takes Fexofenadine HCl 180 MG and Fluticasone Furoate 27.5 MCG nasal spray as needed. No refills needed. #arthritis: Stable, unchanging. Discontinued Celecoxib 200 MG. She is physically active, doing exercise classes and stretching. She is ambulating without assistance. No changes to the current plan at this time.Taking turmeric # Bilateral hearing loss: Visit July 2024 Follow-up in June to reviewed gastroenterology and hematology workup, sooner as needed All quetsions answered to patients satisfaction. Patient verbalized understanding of diagnosis and treatments explained. To call sooner prior to next visit it any questions/concerns arise. Case discussed with collaborating physician Vern Oglesby who reviewed the assessment and plan. Chart, medications, labs, vital signs reviewed. Dictation was accomplished with the use of [employer] voice recognition software, prone to medical misidentifications and grammatical errors. This is unintentional and the practitioner does try to identify and correct these, but some could still be present. Please do not hesitate to contact practitioner for clarification. 03/15/2024 Hereditary hemochromatosis (ICD-10 - E83.110) Patient consents to be seen today via telehealth agreement. The patient was seen using the following telehealth technology: telephone This encounter is appropriate and reasonable under the circumstances given the patient's particular presentation. The patient has been advised of the potential risks and limitations of this mode of treatment including but not limited to the absence of an in person physical examination, and has agreed to be treated in a remote fashion in spite of this. Betina is an 78-year-old female with a PMH including hemochromatosis, hypertension, acid reflux, seasonal allergies, urinary incontinence, arthritis that presents via telehealth after testing positive for COVID 03/14/2024. Symptoms x1.5 weeks including sore throat, dry cough, and congestion. Has taken Robitussin with minimal relief. Reviewed treatment options including symptomatic management versus Paxlovid. Patient is encouraged to continue symptomatic management with lozenges, steam, warm broth/tea, and anti-inflammatories as needed. Patient interested in proceeding with Paxlovid, most recent GFR 63, medication list reviewed. Rx for Paxlovid sent to pharmacy. Patient is educated on proper use and side effects including but not limited to metallic taste in mouth and diarrhea. Patient is educated to hold Solifenacin x 5 days while taking Paxlovid due to increased risk of QT prolongation/arrhyth vandana. She is also encouraged to finish final dose of cephalexin for urinary tract infection. Reviewed ED protocol. The patient is educated to dial 911/seek immediate medical attention should she develop any shortness of breath, difficulty breathing, hemoptysis,chest pain, syncope, irregular heart rate, confusion, intractable nausea or vomiting. All questions answered to the patient's satisfaction. Patient demonstrates understanding of diagnosis and treatments discussed. Follow-up at next scheduled appointment, sooner should any questions/concerns arise. Case discussed with collaborating physician Greta Oglesby who has reviewed the assessment/plan. Chart, medications, labs, and vital signs reviewed. Dictation completed with the use of [employer] voice recognition software, prone to medical misidentifications and grammatical errors. All errors are unintentional. Although the practitioner does try to identify and correct errors, some may be present. Please do not hesitate to contact the practitioner for clarification. 10/07/2024 Hypertension, unspecified type (ICD-10 - I10) Betina is a 79 year-old female who presents for MWV. # Patient up-to-date on all routine vaccinations. Will obtain Tdap as needed. Up-to-date on colonoscopy, declines further. Due for mammogram, which she will schedule. Declines Pap smear/bone density. # Left hearing loss, follow-up with ENT, scheduled for left hearing aid placement # Healthcare proxy completed in office today, it is Giuseppe. Completed 10/07/2024. # Medicare wellness paperwork reviewed extensively. # Audit negative with a total score of 0 # PHQ-9 10/07/2024 with a total score of 0. # 1+ edema bilateral lower extremities, Patient taking furosemide 20 mg daily. Will increase to 20 mg twice daily, second dose to be taken as needed. Is aware of risk factors, no shortness of breath at this time.Emergency department criteria/criteria to call the office # Patient has some concerns in regards to her blood work. She has a family history of leukemia, on the Maternal side. Blood blood cells 3.0, hemoglobin 10.2, hematocrit 31.4, MCV 105, MCH 34, RDW 17.9, mean platelet volume 11.3. Patient is a history of hemochromatosis. Following with heme-onc. Patient was reassured that white blood cell count, platelets, and other values on CBC were within normal limits but she is going to follow with hematology, consider potential peripheral smear, or bone marrow biopsy if change or concern.Most recent CBC on 06/03/2024 showing red blood cell 3.1, hemoglobin 10.5, hematocrit 32.4, MCV 103.2, MCH 33.4, RDW 18.3, MPV 12. Most recent values July 2024 showing iron 198, TIBC 214, saturation 93, white blood cells 3.3, hemoglobin 11.3, hematocrit 34.3, MCV 105, MCH 34.8, RDW 16.3, MPV 11.4. Following with hematology, Dr. Tre Jaimes, they are in the process of scheduling a blood draw. #hypertension: Taking Lisinopril 10 mg, Diltazem 180 mg, Furosemide 20 MG with compliance. She declines any red flag cardiopulmomary symptoms, chest pain, palpitations, shortness of breath, diaphoresis, dizziness, syncope. Continue Lisinopril 10 mg, daily low dose Aspirin 81 mg, measuring BP at home. #Overweight: Patient is actively doing workout classes at the [facility] with her partner. She has goals to eat more vegetables and fruit, continuing exercise classes as tolerated, increasing hydration. Discussed berberine. #Constipation - Intermittent constipation taking certain anticholinergic medications, using miralax, Avoiding fiber, and Occasional manual disimpaction. She admits that she is not adeuqtely hydrated on a daily basis due to busy lifestyle/forgetting . Patient taking magnesium in the morning, and stool softeners in the evening. Tried Linzess but it did not work very well for her. Follow gastroenterology, recommended senna as needed. Patient states that her she did have 1 episode of diarrhea a few days ago, which since resolved. She states this was after she took the laxative. Has been doing well, continue to encourage following with GI #overactive bladder: Discontinued Solifenacin Succinate 10 MG , Taking Myrbetriq 25 MG Extended Release. Wears depends for leakage. Her symptoms are stable currently with proper hygiene. No changes to current plan. #seasonal allergies: stable, no new symptoms. Takes Fexofenadine HCl 180 MG and Fluticasone Furoate 27.5 MCG nasal spray as needed. No refills needed. #arthritis: Stable, unchanging. Discontinued Celecoxib 200 MG. She is physically active, doing exercise classes and stretching. She is ambulating without assistance. No changes to the current plan at this time.Taking turmeric # Bilateral hearing loss: Visit July 2024 # Left shoulder pain, difficulty with overhead movements, negative red flag symptoms. X-ray normal, physical therapy with improvement in range of motion. # Did follow with ENT, left hearing changes, scheduled for left hearing aid. Follow-up in 4 months, sooner as needed. Follow with hematology and gastroenterology in the meantime Patient seen and examined. Comprehensive discussion was done on the following. 1. Nutrition: It is important to follow a healthy diet based on lots of vegetables and legumes and good fat. Avoid processed food and processed carbohydrates. Prepare your own meals. Read labels and avoid high fructose corn syrup, processed chemicals added to increase shelf life and preprepared meals. Avoid fast foods. Eat slowly and plan meals for a week. Try to count calories and be mindful off daily calorie intake. Get into the habit of keeping an eye on your weight by using an appropriate scale. Learn to log exercise and discussed fitness Apps like [employer] which can help keep log off calories taken versus calories burned. Local food should be preferred. Discussed [employer] Versus [employer] Fifteen. Discussed healthy supplements like fish oil, Tumeric, Curcumin, Melatonin, Resveratrol, Probiotics, Vitamin-D, Alpha-Lipoic acid, Vitamin-D and coconut oil. 2. It is important to exercise regularly. Is a good habit to walk at least 30 minutes a day. Gentle weightlifting with standard precautions to protect the back. Finding activity like cycling or hiking and get into the habit of engaging in it. Stretching before and after the exercises important. It is also important to contact me if there are any problems like shortness of breath, chest pain, back pain and joint or muscle pain associated with the exercise. 3. Discussed age appropriate screening guidelines. Colonoscopy needs to start at age 50 with stool for occult blood as appropriate. There is a new test that can test for genetic abnormalities in the stool sample, Cologuard. This would not replace a colonoscopy but could be used as a screening tool for patients who do not want a colonoscopy. We discussed the importance of early detection of colon cancer. 4. Discussed current guidelines with respect to breast examination, mammogram and pap smear for early detection of breast and cervical cancer. Patient advised to follow up with these appointments. 5. Discussed safe driving and no use of smart phone while driving 6. Age-appropriate immunizations were discussed. A tetanus booster is needed every 10 years. Flu vaccine is recommended every year just before the start of the flu season. Shingles vaccine is recommended after age 50 but not all insurances cover it. Pneumonia vaccine is given after age 65 unless there are certain comorbidities for which it is started earlier. 7. Diagnostic labs were discussed. These could include/not limited to CBC CMP and lipids with fasting blood glucose and insulin levels. Vitamin D and hemoglobin A1c testing might be appropriate. All quetsions answered to patients satisfaction. Patient verbalized understanding of diagnosis and treatments explained. To call sooner prior to next visit it any questions/concerns arise. Case discussed with collaborating physician Vern Oglesby who reviewed the assessment and plan. Chart, medications, labs, vital signs reviewed. Dictation was accomplished with the use of [employer] voice recognition software, prone to medical misidentifications and grammatical errors. This is unintentional and the practitioner does try to identify and correct these, but some could still be present. Please do not hesitate to contact practitioner for clarification. 07/01/2024 Hypertension, unspecified type (ICD-10 - I10) Betina is a 77 year-old female who presents for f/u. 1+ edema bilateral lower extremities, patient already taking furosemide 20 mg as needed, will take over the next few days to help diurese. Is aware of risk factors, no shortness of breath at this time.Emergency department criteria/criteria to call the office # Patient has some concerns in regards to her blood work. She has a family history of leukemia, on the Maternal side. Blood blood cells 3.0, hemoglobin 10.2, hematocrit 31.4, MCV 105, MCH 34, RDW 17.9, mean platelet volume 11.3. Patient is a history of hemochromatosis. Following with heme-onc. Patient was reassured that white blood cell count, platelets, and other values on CBC were within normal limits but she is going to follow with hematology, consider potential peripheral smear, or bone marrow biopsy if change or concern.Most recent CBC on 06/03/2024 showing red blood cell 3.1, hemoglobin 10.5, hematocrit 32.4, MCV 103.2, MCH 33.4, RDW 18.3, MPV 12Continue to follow with heme-onc. #hypertension: Taking Lisinopril 10 mg, Diltazem 180 mg, Furosemide 20 MG with compliance. She declines any red flag cardiopulmomary symptoms, chest pain, palpitations, shortness of breath, diaphoresis, dizziness, syncope. Continue Lisinopril 10 mg, daily low dose Aspirin 81 mg, measuring BP at home. #Overweight: Patient is actively doing workout classes at the [facility] with her partner. She has goals to eat more vegetables and fruit, continuing exercise classes as tolerated, increasing hydration. Discussed berberine. #Constipation - Intermittent constipation taking certain anticholinergic medications, using miralax, Avoiding fiber, and Occasional manual disimpaction. She admits that she is not adeuqtely hydrated on a daily basis due to busy lifestyle/forgetting . Patient taking magnesium in the morning, and stool softeners in the evening. Tried Linzess but it did not work very well for her. Followed with gastroenterology in August. They had to reschedule her visit from May. #Acid Reflux: Taking Famotidine taking twice daily , Admits to uncontrolled symptoms. Following gastroenterology, could consider endoscopy. #overactive bladder: Discontinued Solifenacin Succinate 10 MG , Taking Myrbetriq 25 MG Extended Release. Wears depends for leakage. Her symptoms are stable currently with proper hygiene. No changes to current plan. #seasonal allergies: stable, no new symptoms. Takes Fexofenadine HCl 180 MG and Fluticasone Furoate 27.5 MCG nasal spray as needed. No refills needed. #arthritis: Stable, unchanging. Discontinued Celecoxib 200 MG. She is physically active, doing exercise classes and stretching. She is ambulating without assistance. No changes to the current plan at this time.Taking turmeric # Bilateral hearing loss: Visit July 2024 # Left shoulder pain, difficulty with overhead movements, negative red flag symptoms. Start with x-ray, and physical therapy. # Left ankle pain: Will trial physical therapy, and conservative treatments. Diclofenac cream, meloxicam prescribed by previous orthopedic, refilled today Follow-up in September for Medicare wellness visit, sooner as needed All quetsions answered to patients satisfaction. Patient verbalized understanding of diagnosis and treatments explained. To call sooner prior to next visit it any questions/concerns arise. Case discussed with collaborating physician Vern Oglesby who reviewed the assessment and plan. Chart, medications, labs, vital signs reviewed. Dictation was accomplished with the use of [employer] voice recognition software, prone to medical misidentifications and grammatical errors. This is unintentional and the practitioner does try to identify and correct these, but some could still be present. Please do not hesitate to contact practitioner for clarification. 07/01/2024 Seasonal allergies (ICD-10 - J30.2) Betina is a 77 year-old female who presents for f/u. 1+ edema bilateral lower extremities, patient already taking furosemide 20 mg as needed, will take over the next few days to help diurese. Is aware of risk factors, no shortness of breath at this time.Emergency department criteria/criteria to call the office # Patient has some concerns in regards to her blood work. She has a family history of leukemia, on the Maternal side. Blood blood cells 3.0, hemoglobin 10.2, hematocrit 31.4, MCV 105, MCH 34, RDW 17.9, mean platelet volume 11.3. Patient is a history of hemochromatosis. Following with heme-onc. Patient was reassured that white blood cell count, platelets, and other values on CBC were within normal limits but she is going to follow with hematology, consider potential peripheral smear, or bone marrow biopsy if change or concern.Most recent CBC on 06/03/2024 showing red blood cell 3.1, hemoglobin 10.5, hematocrit 32.4, MCV 103.2, MCH 33.4, RDW 18.3, MPV 12Continue to follow with heme-onc. #hypertension: Taking Lisinopril 10 mg, Diltazem 180 mg, Furosemide 20 MG with compliance. She declines any red flag cardiopulmomary symptoms, chest pain, palpitations, shortness of breath, diaphoresis, dizziness, syncope. Continue Lisinopril 10 mg, daily low dose Aspirin 81 mg, measuring BP at home. #Overweight: Patient is actively doing workout classes at the [facility] with her partner. She has goals to eat more vegetables and fruit, continuing exercise classes as tolerated, increasing hydration. Discussed berberine. #Constipation - Intermittent constipation taking certain anticholinergic medications, using miralax, Avoiding fiber, and Occasional manual disimpaction. She admits that she is not adeuqtely hydrated on a daily basis due to busy lifestyle/forgetting . Patient taking magnesium in the morning, and stool softeners in the evening. Tried Linzess but it did not work very well for her. Followed with gastroenterology in August. They had to reschedule her visit from May. #Acid Reflux: Taking Famotidine taking twice daily , Admits to uncontrolled symptoms. Following gastroenterology, could consider endoscopy. #overactive bladder: Discontinued Solifenacin Succinate 10 MG , Taking Myrbetriq 25 MG Extended Release. Wears depends for leakage. Her symptoms are stable currently with proper hygiene. No changes to current plan. #seasonal allergies: stable, no new symptoms. Takes Fexofenadine HCl 180 MG and Fluticasone Furoate 27.5 MCG nasal spray as needed. No refills needed. #arthritis: Stable, unchanging. Discontinued Celecoxib 200 MG. She is physically active, doing exercise classes and stretching. She is ambulating without assistance. No changes to the current plan at this time.Taking turmeric # Bilateral hearing loss: Visit July 2024 # Left shoulder pain, difficulty with overhead movements, negative red flag symptoms. Start with x-ray, and physical therapy. # Left ankle pain: Will trial physical therapy, and conservative treatments. Diclofenac cream, meloxicam prescribed by previous orthopedic, refilled today Follow-up in September for Medicare wellness visit, sooner as needed All quetsions answered to patients satisfaction. Patient verbalized understanding of diagnosis and treatments explained. To call sooner prior to next visit it any questions/concerns arise. Case discussed with collaborating physician Vern Oglesby who reviewed the assessment and plan. Chart, medications, labs, vital signs reviewed. Dictation was accomplished with the use of [employer] voice recognition software, prone to medical misidentifications and grammatical errors. This is unintentional and the practitioner does try to identify and correct these, but some could still be present. Please do not hesitate to contact practitioner for clarification. 10/07/2024 Seasonal allergies (ICD-10 - J30.2) Betina is a 79 year-old female who presents for MWV. # Patient up-to-date on all routine vaccinations. Will obtain Tdap as needed. Up-to-date on colonoscopy, declines further. Due for mammogram, which she will schedule. Declines Pap smear/bone density. # Left hearing loss, follow-up with ENT, scheduled for left hearing aid placement # Healthcare proxy completed in office today, it is Giuseppe. Completed 10/07/2024. # Medicare wellness paperwork reviewed extensively. # Audit negative with a total score of 0 # PHQ-9 10/07/2024 with a total score of 0. # 1+ edema bilateral lower extremities, Patient taking furosemide 20 mg daily. Will increase to 20 mg twice daily, second dose to be taken as needed. Is aware of risk factors, no shortness of breath at this time.Emergency department criteria/criteria to call the office # Patient has some concerns in regards to her blood work. She has a family history of leukemia, on the Maternal side. Blood blood cells 3.0, hemoglobin 10.2, hematocrit 31.4, MCV 105, MCH 34, RDW 17.9, mean platelet volume 11.3. Patient is a history of hemochromatosis. Following with heme-onc. Patient was reassured that white blood cell count, platelets, and other values on CBC were within normal limits but she is going to follow with hematology, consider potential peripheral smear, or bone marrow biopsy if change or concern.Most recent CBC on 06/03/2024 showing red blood cell 3.1, hemoglobin 10.5, hematocrit 32.4, MCV 103.2, MCH 33.4, RDW 18.3, MPV 12. Most recent values July 2024 showing iron 198, TIBC 214, saturation 93, white blood cells 3.3, hemoglobin 11.3, hematocrit 34.3, MCV 105, MCH 34.8, RDW 16.3, MPV 11.4. Following with hematology, Dr. Tre Jaimes, they are in the process of scheduling a blood draw. #hypertension: Taking Lisinopril 10 mg, Diltazem 180 mg, Furosemide 20 MG with compliance. She declines any red flag cardiopulmomary symptoms, chest pain, palpitations, shortness of breath, diaphoresis, dizziness, syncope. Continue Lisinopril 10 mg, daily low dose Aspirin 81 mg, measuring BP at home. #Overweight: Patient is actively doing workout classes at the [facility] with her partner. She has goals to eat more vegetables and fruit, continuing exercise classes as tolerated, increasing hydration. Discussed berberine. #Constipation - Intermittent constipation taking certain anticholinergic medications, using miralax, Avoiding fiber, and Occasional manual disimpaction. She admits that she is not adeuqtely hydrated on a daily basis due to busy lifestyle/forgetting . Patient taking magnesium in the morning, and stool softeners in the evening. Tried Linzess but it did not work very well for her. Follow gastroenterology, recommended senna as needed. Patient states that her she did have 1 episode of diarrhea a few days ago, which since resolved. She states this was after she took the laxative. Has been doing well, continue to encourage following with GI #overactive bladder: Discontinued Solifenacin Succinate 10 MG , Taking Myrbetriq 25 MG Extended Release. Wears depends for leakage. Her symptoms are stable currently with proper hygiene. No changes to current plan. #seasonal allergies: stable, no new symptoms. Takes Fexofenadine HCl 180 MG and Fluticasone Furoate 27.5 MCG nasal spray as needed. No refills needed. #arthritis: Stable, unchanging. Discontinued Celecoxib 200 MG. She is physically active, doing exercise classes and stretching. She is ambulating without assistance. No changes to the current plan at this time.Taking turmeric # Bilateral hearing loss: Visit July 2024 # Left shoulder pain, difficulty with overhead movements, negative red flag symptoms. X-ray normal, physical therapy with improvement in range of motion. # Did follow with ENT, left hearing changes, scheduled for left hearing aid. Follow-up in 4 months, sooner as needed. Follow with hematology and gastroenterology in the meantime Patient seen and examined. Comprehensive discussion was done on the following. 1. Nutrition: It is important to follow a healthy diet based on lots of vegetables and legumes and good fat. Avoid processed food and processed carbohydrates. Prepare your own meals. Read labels and avoid high fructose corn syrup, processed chemicals added to increase shelf life and preprepared meals. Avoid fast foods. Eat slowly and plan meals for a week. Try to count calories and be mindful off daily calorie intake. Get into the habit of keeping an eye on your weight by using an appropriate scale. Learn to log exercise and discussed fitness Apps like [employer] which can help keep log off calories taken versus calories burned. Local food should be preferred. Discussed Dirty Dozen Versus Clean Fifteen. Discussed healthy supplements like fish oil, Tumeric, Curcumin, Melatonin, Resveratrol, Probiotics, Vitamin-D, Alpha-Lipoic acid, Vitamin-D and coconut oil. 2. It is important to exercise regularly. Is a good habit to walk at least 30 minutes a day. Gentle weightlifting with standard precautions to protect the back. Finding activity like cycling or hiking and get into the habit of engaging in it. Stretching before and after the exercises important. It is also important to contact me if there are any problems like shortness of breath, chest pain, back pain and joint or muscle pain associated with the exercise. 3. Discussed age appropriate screening guidelines. Colonoscopy needs to start at age 50 with stool for occult blood as appropriate. There is a new test that can test for genetic abnormalities in the stool sample, Cologuard. This would not replace a colonoscopy but could be used as a screening tool for patients who do not want a colonoscopy. We discussed the importance of early detection of colon cancer. 4. Discussed current guidelines with respect to breast examination, mammogram and pap smear for early detection of breast and cervical cancer. Patient advised to follow up with these appointments. 5. Discussed safe driving and no use of smart phone while driving 6. Age-appropriate immunizations were discussed. A tetanus booster is needed every 10 years. Flu vaccine is recommended every year just before the start of the flu season. Shingles vaccine is recommended after age 50 but not all insurances cover it. Pneumonia vaccine is given after age 65 unless there are certain comorbidities for which it is started earlier. 7. Diagnostic labs were discussed. These could include/not limited to CBC CMP and lipids with fasting blood glucose and insulin levels. Vitamin D and hemoglobin A1c testing might be appropriate. All quetsions answered to patients satisfaction. Patient verbalized understanding of diagnosis and treatments explained. To call sooner prior to next visit it any questions/concerns arise. Case discussed with collaborating physician Vern Oglesby who reviewed the assessment and plan. Chart, medications, labs, vital signs reviewed. Dictation was accomplished with the use of [employer] voice recognition software, prone to medical misidentifications and grammatical errors. This is unintentional and the practitioner does try to identify and correct these, but some could still be present. Please do not hesitate to contact practitioner for clarification. 02/04/2024 Seasonal allergies (ICD-10 - J30.2) Betina is a 77 year-old female who presents for f/u. #hypertension: Taking Lisinopril 10 mg, Diltazem 180 mg, Furosemide 20 MG with compliance. She declines any red flag cardiopulmomary symptoms, chest pain, palpitations, shortness of breath, diaphoresis, dizziness, syncope. Continue Lisinopril 10 mg, daily low dose Aspirin 81 mg, measuring BP at home. #Overweight: Patient is actively doing workout classes at the [facility] with her partner. She has goals to eat more vegetables and fruit, continuing exercise classes as tolerated, increasing hydration. #Constipation - Intermittent constipation taking certain anticholinergic medications, using miralax, fiber, and manual disimpaction. She admits that she is not adeuqtely hydrated on a daily basis due to busy lifestyle/forgetting . We recommend a bowel regimen of Miralax in the morning and Senna nightly, with proper fiber and hydration, continued daily exercise, limiting bread and pasta. Has not been working, will follow with gastroenterology, but trial Linzess. If no bowel movement in 3 days, she will contact the office to be evaluated. #Acid Reflux: Taking Famotidine taking twice daily , Admits to uncontrolled symptoms. Following gastroenterology, could consider endoscopy. #Memory changes: post-anesthesia from cataract surgery she reports word retrieval difficulties. Symptoms have been gradually improving. She communicates fluently during her examination, and is not interested in having further neurologic evaluation due to mild nature of symtpoms, which do not disrupt daily function/activities. We will continue to monitor her over time. Neurologic mini mental status examination at next visit if symptoms worsen. #overactive bladder: Taking Solifenacin Succinate 10 MG , Myrbetriq 25 MG Extended Release. Wears depends for leakage. Her symptoms are stable currently with proper hygiene. No changes to current plan. #seasonal allergies: stable, no new symptoms. Takes Fexofenadine HCl 180 MG and Fluticasone Furoate 27.5 MCG nasal spray as needed. No refills needed. #arthritis: Stable, unchanging. Taking Celecoxib 200 MG. She is physically active, doing exercise classes and stretching. She is ambulating without assistance. No changes to the current plan at this time. # Bilateral hearing loss: Referral to ENT for hearing test Patient to follow-up in 2 to 3 months to assess ENT referral, gastroenterology follow-up, and Linzess All quetsions answered to patients satisfaction. Patient verbalized understanding of diagnosis and treatments explained. To call sooner prior to next visit it any questions/concerns arise. Case discussed with collaborating physician Vern Oglesby who reviewed the assessment and plan. Chart, medications, labs, vital signs reviewed. Dictation was accomplished with the use of [employer] voice recognition software, prone to medical misidentifications and grammatical errors. This is unintentional and the practitioner does try to identify and correct these, but some could still be present. Please do not hesitate to contact practitioner for clarification. 10/07/2024 Left shoulder pain, unspecified chronicity (ICD-10 - M25.512) Betina is a 79 year-old female who presents for MWV. # Patient up-to-date on all routine vaccinations. Will obtain Tdap as needed. Up-to-date on colonoscopy, declines further. Due for mammogram, which she will schedule. Declines Pap smear/bone density. # Left hearing loss, follow-up with ENT, scheduled for left hearing aid placement # Healthcare proxy completed in office today, it is Giuseppe. Completed 10/07/2024. # Medicare wellness paperwork reviewed extensively. # Audit negative with a total score of 0 # PHQ-9 10/07/2024 with a total score of 0. # 1+ edema bilateral lower extremities, Patient taking furosemide 20 mg daily. Will increase to 20 mg twice daily, second dose to be taken as needed. Is aware of risk factors, no shortness of breath at this time.Emergency department criteria/criteria to call the office # Patient has some concerns in regards to her blood work. She has a family history of leukemia, on the Maternal side. Blood blood cells 3.0, hemoglobin 10.2, hematocrit 31.4, MCV 105, MCH 34, RDW 17.9, mean platelet volume 11.3. Patient is a history of hemochromatosis. Following with heme-onc. Patient was reassured that white blood cell count, platelets, and other values on CBC were within normal limits but she is going to follow with hematology, consider potential peripheral smear, or bone marrow biopsy if change or concern.Most recent CBC on 06/03/2024 showing red blood cell 3.1, hemoglobin 10.5, hematocrit 32.4, MCV 103.2, MCH 33.4, RDW 18.3, MPV 12. Most recent values July 2024 showing iron 198, TIBC 214, saturation 93, white blood cells 3.3, hemoglobin 11.3, hematocrit 34.3, MCV 105, MCH 34.8, RDW 16.3, MPV 11.4. Following with hematology, Dr. Tre Jaimes, they are in the process of scheduling a blood draw. #hypertension: Taking Lisinopril 10 mg, Diltazem 180 mg, Furosemide 20 MG with compliance. She declines any red flag cardiopulmomary symptoms, chest pain, palpitations, shortness of breath, diaphoresis, dizziness, syncope. Continue Lisinopril 10 mg, daily low dose Aspirin 81 mg, measuring BP at home. #Overweight: Patient is actively doing workout classes at the [facility] with her partner. She has goals to eat more vegetables and fruit, continuing exercise classes as tolerated, increasing hydration. Discussed berberine. #Constipation - Intermittent constipation taking certain anticholinergic medications, using miralax, Avoiding fiber, and Occasional manual disimpaction. She admits that she is not adeuqtely hydrated on a daily basis due to busy lifestyle/forgetting . Patient taking magnesium in the morning, and stool softeners in the evening. Tried Linzess but it did not work very well for her. Follow gastroenterology, recommended senna as needed. Patient states that her she did have 1 episode of diarrhea a few days ago, which since resolved. She states this was after she took the laxative. Has been doing well, continue to encourage following with GI #overactive bladder: Discontinued Solifenacin Succinate 10 MG , Taking Myrbetriq 25 MG Extended Release. Wears depends for leakage. Her symptoms are stable currently with proper hygiene. No changes to current plan. #seasonal allergies: stable, no new symptoms. Takes Fexofenadine HCl 180 MG and Fluticasone Furoate 27.5 MCG nasal spray as needed. No refills needed. #arthritis: Stable, unchanging. Discontinued Celecoxib 200 MG. She is physically active, doing exercise classes and stretching. She is ambulating without assistance. No changes to the current plan at this time.Taking turmeric # Bilateral hearing loss: Visit July 2024 # Left shoulder pain, difficulty with overhead movements, negative red flag symptoms. X-ray normal, physical therapy with improvement in range of motion. # Did follow with ENT, left hearing changes, scheduled for left hearing aid. Follow-up in 4 months, sooner as needed. Follow with hematology and gastroenterology in the meantime Patient seen and examined. Comprehensive discussion was done on the following. 1. Nutrition: It is important to follow a healthy diet based on lots of vegetables and legumes and good fat. Avoid processed food and processed carbohydrates. Prepare your own meals. Read labels and avoid high fructose corn syrup, processed chemicals added to increase shelf life and preprepared meals. Avoid fast foods. Eat slowly and plan meals for a week. Try to count calories and be mindful off daily calorie intake. Get into the habit of keeping an eye on your weight by using an appropriate scale. Learn to log exercise and discussed fitness Apps like [employer] which can help keep log off calories taken versus calories burned. Local food should be preferred. Discussed Dirty Dozen Versus Clean Fifteen. Discussed healthy supplements like fish oil, Tumeric, Curcumin, Melatonin, Resveratrol, Probiotics, Vitamin-D, Alpha-Lipoic acid, Vitamin-D and coconut oil. 2. It is important to exercise regularly. Is a good habit to walk at least 30 minutes a day. Gentle weightlifting with standard precautions to protect the back. Finding activity like cycling or hiking and get into the habit of engaging in it. Stretching before and after the exercises important. It is also important to contact me if there are any problems like shortness of breath, chest pain, back pain and joint or muscle pain associated with the exercise. 3. Discussed age appropriate screening guidelines. Colonoscopy needs to start at age 50 with stool for occult blood as appropriate. There is a new test that can test for genetic abnormalities in the stool sample, Cologuard. This would not replace a colonoscopy but could be used as a screening tool for patients who do not want a colonoscopy. We discussed the importance of early detection of colon cancer. 4. Discussed current guidelines with respect to breast examination, mammogram and pap smear for early detection of breast and cervical cancer. Patient advised to follow up with these appointments. 5. Discussed safe driving and no use of smart phone while driving 6. Age-appropriate immunizations were discussed. A tetanus booster is needed every 10 years. Flu vaccine is recommended every year just before the start of the flu season. Shingles vaccine is recommended after age 50 but not all insurances cover it. Pneumonia vaccine is given after age 65 unless there are certain comorbidities for which it is started earlier. 7. Diagnostic labs were discussed. These could include/not limited to CBC CMP and lipids with fasting blood glucose and insulin levels. Vitamin D and hemoglobin A1c testing might be appropriate. All quetsions answered to patients satisfaction. Patient verbalized understanding of diagnosis and treatments explained. To call sooner prior to next visit it any questions/concerns arise. Case discussed with collaborating physician Vern Oglesby who reviewed the assessment and plan. Chart, medications, labs, vital signs reviewed. Dictation was accomplished with the use of [employer] voice recognition software, prone to medical misidentifications and grammatical errors. This is unintentional and the practitioner does try to identify and correct these, but some could still be present. Please do not hesitate to contact practitioner for clarification. 07/01/2024 Left shoulder pain, unspecified chronicity (ICD-10 - M25.512) Betina is a 77 year-old female who presents for f/u. 1+ edema bilateral lower extremities, patient already taking furosemide 20 mg as needed, will take over the next few days to help diurese. Is aware of risk factors, no shortness of breath at this time.Emergency department criteria/criteria to call the office # Patient has some concerns in regards to her blood work. She has a family history of leukemia, on the Maternal side. Blood blood cells 3.0, hemoglobin 10.2, hematocrit 31.4, MCV 105, MCH 34, RDW 17.9, mean platelet volume 11.3. Patient is a history of hemochromatosis. Following with heme-onc. Patient was reassured that white blood cell count, platelets, and other values on CBC were within normal limits but she is going to follow with hematology, consider potential peripheral smear, or bone marrow biopsy if change or concern.Most recent CBC on 06/03/2024 showing red blood cell 3.1, hemoglobin 10.5, hematocrit 32.4, MCV 103.2, MCH 33.4, RDW 18.3, MPV 12Continue to follow with heme-onc. #hypertension: Taking Lisinopril 10 mg, Diltazem 180 mg, Furosemide 20 MG with compliance. She declines any red flag cardiopulmomary symptoms, chest pain, palpitations, shortness of breath, diaphoresis, dizziness, syncope. Continue Lisinopril 10 mg, daily low dose Aspirin 81 mg, measuring BP at home. #Overweight: Patient is actively doing workout classes at the [facility] with her partner. She has goals to eat more vegetables and fruit, continuing exercise classes as tolerated, increasing hydration. Discussed berberine. #Constipation - Intermittent constipation taking certain anticholinergic medications, using miralax, Avoiding fiber, and Occasional manual disimpaction. She admits that she is not adeuqtely hydrated on a daily basis due to busy lifestyle/forgetting . Patient taking magnesium in the morning, and stool softeners in the evening. Tried Linzess but it did not work very well for her. Followed with gastroenterology in August. They had to reschedule her visit from May. #Acid Reflux: Taking Famotidine taking twice daily , Admits to uncontrolled symptoms. Following gastroenterology, could consider endoscopy. #overactive bladder: Discontinued Solifenacin Succinate 10 MG , Taking Myrbetriq 25 MG Extended Release. Wears depends for leakage. Her symptoms are stable currently with proper hygiene. No changes to current plan. #seasonal allergies: stable, no new symptoms. Takes Fexofenadine HCl 180 MG and Fluticasone Furoate 27.5 MCG nasal spray as needed. No refills needed. #arthritis: Stable, unchanging. Discontinued Celecoxib 200 MG. She is physically active, doing exercise classes and stretching. She is ambulating without assistance. No changes to the current plan at this time.Taking turmeric # Bilateral hearing loss: Visit July 2024 # Left shoulder pain, difficulty with overhead movements, negative red flag symptoms. Start with x-ray, and physical therapy. # Left ankle pain: Will trial physical therapy, and conservative treatments. Diclofenac cream, meloxicam prescribed by previous orthopedic, refilled today Follow-up in September for Medicare wellness visit, sooner as needed All quetsions answered to patients satisfaction. Patient verbalized understanding of diagnosis and treatments explained. To call sooner prior to next visit it any questions/concerns arise. Case discussed with collaborating physician Vern Oglesby who reviewed the assessment and plan. Chart, medications, labs, vital signs reviewed. Dictation was accomplished with the use of [employer] voice recognition software, prone to medical misidentifications and grammatical errors. This is unintentional and the practitioner does try to identify and correct these, but some could still be present. Please do not hesitate to contact practitioner for clarification. 10/07/2024 Encounter for screening for depression (ICD-10 - Z13.31) Betina is a 79 year-old female who presents for MWV. # Patient up-to-date on all routine vaccinations. Will obtain Tdap as needed. Up-to-date on colonoscopy, declines further. Due for mammogram, which she will schedule. Declines Pap smear/bone density. # Left hearing loss, follow-up with ENT, scheduled for left hearing aid placement # Healthcare proxy completed in office today, it is Giuseppe. Completed 10/07/2024. # Medicare wellness paperwork reviewed extensively. # Audit negative with a total score of 0 # PHQ-9 10/07/2024 with a total score of 0. # 1+ edema bilateral lower extremities, Patient taking furosemide 20 mg daily. Will increase to 20 mg twice daily, second dose to be taken as needed. Is aware of risk factors, no shortness of breath at this time.Emergency department criteria/criteria to call the office # Patient has some concerns in regards to her blood work. She has a family history of leukemia, on the Maternal side. Blood blood cells 3.0, hemoglobin 10.2, hematocrit 31.4, MCV 105, MCH 34, RDW 17.9, mean platelet volume 11.3. Patient is a history of hemochromatosis. Following with heme-onc. Patient was reassured that white blood cell count, platelets, and other values on CBC were within normal limits but she is going to follow with hematology, consider potential peripheral smear, or bone marrow biopsy if change or concern.Most recent CBC on 06/03/2024 showing red blood cell 3.1, hemoglobin 10.5, hematocrit 32.4, MCV 103.2, MCH 33.4, RDW 18.3, MPV 12. Most recent values July 2024 showing iron 198, TIBC 214, saturation 93, white blood cells 3.3, hemoglobin 11.3, hematocrit 34.3, MCV 105, MCH 34.8, RDW 16.3, MPV 11.4. Following with hematology, Dr. Tre Jaimes, they are in the process of scheduling a blood draw. #hypertension: Taking Lisinopril 10 mg, Diltazem 180 mg, Furosemide 20 MG with compliance. She declines any red flag cardiopulmomary symptoms, chest pain, palpitations, shortness of breath, diaphoresis, dizziness, syncope. Continue Lisinopril 10 mg, daily low dose Aspirin 81 mg, measuring BP at home. #Overweight: Patient is actively doing workout classes at the [facility] with her partner. She has goals to eat more vegetables and fruit, continuing exercise classes as tolerated, increasing hydration. Discussed berberine. #Constipation - Intermittent constipation taking certain anticholinergic medications, using miralax, Avoiding fiber, and Occasional manual disimpaction. She admits that she is not adeuqtely hydrated on a daily basis due to busy lifestyle/forgetting . Patient taking magnesium in the morning, and stool softeners in the evening. Tried Linzess but it did not work very well for her. Follow gastroenterology, recommended senna as needed. Patient states that her she did have 1 episode of diarrhea a few days ago, which since resolved. She states this was after she took the laxative. Has been doing well, continue to encourage following with GI #overactive bladder: Discontinued Solifenacin Succinate 10 MG , Taking Myrbetriq 25 MG Extended Release. Wears depends for leakage. Her symptoms are stable currently with proper hygiene. No changes to current plan. #seasonal allergies: stable, no new symptoms. Takes Fexofenadine HCl 180 MG and Fluticasone Furoate 27.5 MCG nasal spray as needed. No refills needed. #arthritis: Stable, unchanging. Discontinued Celecoxib 200 MG. She is physically active, doing exercise classes and stretching. She is ambulating without assistance. No changes to the current plan at this time.Taking turmeric # Bilateral hearing loss: Visit July 2024 # Left shoulder pain, difficulty with overhead movements, negative red flag symptoms. X-ray normal, physical therapy with improvement in range of motion. # Did follow with ENT, left hearing changes, scheduled for left hearing aid. Follow-up in 4 months, sooner as needed. Follow with hematology and gastroenterology in the meantime Patient seen and examined. Comprehensive discussion was done on the following. 1. Nutrition: It is important to follow a healthy diet based on lots of vegetables and legumes and good fat. Avoid processed food and processed carbohydrates. Prepare your own meals. Read labels and avoid high fructose corn syrup, processed chemicals added to increase shelf life and preprepared meals. Avoid fast foods. Eat slowly and plan meals for a week. Try to count calories and be mindful off daily calorie intake. Get into the habit of keeping an eye on your weight by using an appropriate scale. Learn to log exercise and discussed fitness Apps like [employer] which can help keep log off calories taken versus calories burned. Local food should be preferred. Discussed Dirty Dozen Versus Clean Fifteen. Discussed healthy supplements like fish oil, Tumeric, Curcumin, Melatonin, Resveratrol, Probiotics, Vitamin-D, Alpha-Lipoic acid, Vitamin-D and coconut oil. 2. It is important to exercise regularly. Is a good habit to walk at least 30 minutes a day. Gentle weightlifting with standard precautions to protect the back. Finding activity like cycling or hiking and get into the habit of engaging in it. Stretching before and after the exercises important. It is also important to contact me if there are any problems like shortness of breath, chest pain, back pain and joint or muscle pain associated with the exercise. 3. Discussed age appropriate screening guidelines. Colonoscopy needs to start at age 50 with stool for occult blood as appropriate. There is a new test that can test for genetic abnormalities in the stool sample, Cologuard. This would not replace a colonoscopy but could be used as a screening tool for patients who do not want a colonoscopy. We discussed the importance of early detection of colon cancer. 4. Discussed current guidelines with respect to breast examination, mammogram and pap smear for early detection of breast and cervical cancer. Patient advised to follow up with these appointments. 5. Discussed safe driving and no use of smart phone while driving 6. Age-appropriate immunizations were discussed. A tetanus booster is needed every 10 years. Flu vaccine is recommended every year just before the start of the flu season. Shingles vaccine is recommended after age 50 but not all insurances cover it. Pneumonia vaccine is given after age 65 unless there are certain comorbidities for which it is started earlier. 7. Diagnostic labs were discussed. These could include/not limited to CBC CMP and lipids with fasting blood glucose and insulin levels. Vitamin D and hemoglobin A1c testing might be appropriate. All quetsions answered to patients satisfaction. Patient verbalized understanding of diagnosis and treatments explained. To call sooner prior to next visit it any questions/concerns arise. Case discussed with collaborating physician Vern Oglesby who reviewed the assessment and plan. Chart, medications, labs, vital signs reviewed. Dictation was accomplished with the use of [employer] voice recognition software, prone to medical misidentifications and grammatical errors. This is unintentional and the practitioner does try to identify and correct these, but some could still be present. Please do not hesitate to contact practitioner for clarification. 10/07/2024 Encounter for screening for other disorder (ICD-10 - Z13.89) Betina is a 79 year-old female who presents for MWV. # Patient up-to-date on all routine vaccinations. Will obtain Tdap as needed. Up-to-date on colonoscopy, declines further. Due for mammogram, which she will schedule. Declines Pap smear/bone density. # Left hearing loss, follow-up with ENT, scheduled for left hearing aid placement # Healthcare proxy completed in office today, it is Giuseppe. Completed 10/07/2024. # Medicare wellness paperwork reviewed extensively. # Audit negative with a total score of 0 # PHQ-9 10/07/2024 with a total score of 0. # 1+ edema bilateral lower extremities, Patient taking furosemide 20 mg daily. Will increase to 20 mg twice daily, second dose to be taken as needed. Is aware of risk factors, no shortness of breath at this time.Emergency department criteria/criteria to call the office # Patient has some concerns in regards to her blood work. She has a family history of leukemia, on the Maternal side. Blood blood cells 3.0, hemoglobin 10.2, hematocrit 31.4, MCV 105, MCH 34, RDW 17.9, mean platelet volume 11.3. Patient is a history of hemochromatosis. Following with heme-onc. Patient was reassured that white blood cell count, platelets, and other values on CBC were within normal limits but she is going to follow with hematology, consider potential peripheral smear, or bone marrow biopsy if change or concern.Most recent CBC on 06/03/2024 showing red blood cell 3.1, hemoglobin 10.5, hematocrit 32.4, MCV 103.2, MCH 33.4, RDW 18.3, MPV 12. Most recent values July 2024 showing iron 198, TIBC 214, saturation 93, white blood cells 3.3, hemoglobin 11.3, hematocrit 34.3, MCV 105, MCH 34.8, RDW 16.3, MPV 11.4. Following with hematology, Dr. Tre Jaimes, they are in the process of scheduling a blood draw. #hypertension: Taking Lisinopril 10 mg, Diltazem 180 mg, Furosemide 20 MG with compliance. She declines any red flag cardiopulmomary symptoms, chest pain, palpitations, shortness of breath, diaphoresis, dizziness, syncope. Continue Lisinopril 10 mg, daily low dose Aspirin 81 mg, measuring BP at home. #Overweight: Patient is actively doing workout classes at the [facility] with her partner. She has goals to eat more vegetables and fruit, continuing exercise classes as tolerated, increasing hydration. Discussed berberine. #Constipation - Intermittent constipation taking certain anticholinergic medications, using miralax, Avoiding fiber, and Occasional manual disimpaction. She admits that she is not adeuqtely hydrated on a daily basis due to busy lifestyle/forgetting . Patient taking magnesium in the morning, and stool softeners in the evening. Tried Linzess but it did not work very well for her. Follow gastroenterology, recommended senna as needed. Patient states that her she did have 1 episode of diarrhea a few days ago, which since resolved. She states this was after she took the laxative. Has been doing well, continue to encourage following with GI #overactive bladder: Discontinued Solifenacin Succinate 10 MG , Taking Myrbetriq 25 MG Extended Release. Wears depends for leakage. Her symptoms are stable currently with proper hygiene. No changes to current plan. #seasonal allergies: stable, no new symptoms. Takes Fexofenadine HCl 180 MG and Fluticasone Furoate 27.5 MCG nasal spray as needed. No refills needed. #arthritis: Stable, unchanging. Discontinued Celecoxib 200 MG. She is physically active, doing exercise classes and stretching. She is ambulating without assistance. No changes to the current plan at this time.Taking turmeric # Bilateral hearing loss: Visit July 2024 # Left shoulder pain, difficulty with overhead movements, negative red flag symptoms. X-ray normal, physical therapy with improvement in range of motion. # Did follow with ENT, left hearing changes, scheduled for left hearing aid. Follow-up in 4 months, sooner as needed. Follow with hematology and gastroenterology in the meantime Patient seen and examined. Comprehensive discussion was done on the following. 1. Nutrition: It is important to follow a healthy diet based on lots of vegetables and legumes and good fat. Avoid processed food and processed carbohydrates. Prepare your own meals. Read labels and avoid high fructose corn syrup, processed chemicals added to increase shelf life and preprepared meals. Avoid fast foods. Eat slowly and plan meals for a week. Try to count calories and be mindful off daily calorie intake. Get into the habit of keeping an eye on your weight by using an appropriate scale. Learn to log exercise and discussed fitness Apps like [employer] which can help keep log off calories taken versus calories burned. Local food should be preferred. Discussed Dirty Dozen Versus Clean Fifteen. Discussed healthy supplements like fish oil, Tumeric, Curcumin, Melatonin, Resveratrol, Probiotics, Vitamin-D, Alpha-Lipoic acid, Vitamin-D and coconut oil. 2. It is important to exercise regularly. Is a good habit to walk at least 30 minutes a day. Gentle weightlifting with standard precautions to protect the back. Finding activity like cycling or hiking and get into the habit of engaging in it. Stretching before and after the exercises important. It is also important to contact me if there are any problems like shortness of breath, chest pain, back pain and joint or muscle pain associated with the exercise. 3. Discussed age appropriate screening guidelines. Colonoscopy needs to start at age 50 with stool for occult blood as appropriate. There is a new test that can test for genetic abnormalities in the stool sample, Cologuard. This would not replace a colonoscopy but could be used as a screening tool for patients who do not want a colonoscopy. We discussed the importance of early detection of colon cancer. 4. Discussed current guidelines with respect to breast examination, mammogram and pap smear for early detection of breast and cervical cancer. Patient advised to follow up with these appointments. 5. Discussed safe driving and no use of smart phone while driving 6. Age-appropriate immunizations were discussed. A tetanus booster is needed every 10 years. Flu vaccine is recommended every year just before the start of the flu season. Shingles vaccine is recommended after age 50 but not all insurances cover it. Pneumonia vaccine is given after age 65 unless there are certain comorbidities for which it is started earlier. 7. Diagnostic labs were discussed. These could include/not limited to CBC CMP and lipids with fasting blood glucose and insulin levels. Vitamin D and hemoglobin A1c testing might be appropriate. All quetsions answered to patients satisfaction. Patient verbalized understanding of diagnosis and treatments explained. To call sooner prior to next visit it any questions/concerns arise. Case discussed with collaborating physician Vern Oglesby who reviewed the assessment and plan. Chart, medications, labs, vital signs reviewed. Dictation was accomplished with the use of [employer] voice recognition software, prone to medical misidentifications and grammatical errors. This is unintentional and the practitioner does try to identify and correct these, but some could still be present. Please do not hesitate to contact practitioner for clarification. 10/07/2024 Other specified counseling (ICD-10 - Z71.89) Betina is a 79 year-old female who presents for MWV. # Patient up-to-date on all routine vaccinations. Will obtain Tdap as needed. Up-to-date on colonoscopy, declines further. Due for mammogram, which she will schedule. Declines Pap smear/bone density. # Left hearing loss, follow-up with ENT, scheduled for left hearing aid placement # Healthcare proxy completed in office today, it is Giuseppe. Completed 10/07/2024. # Medicare wellness paperwork reviewed extensively. # Audit negative with a total score of 0 # PHQ-9 10/07/2024 with a total score of 0. # 1+ edema bilateral lower extremities, Patient taking furosemide 20 mg daily. Will increase to 20 mg twice daily, second dose to be taken as needed. Is aware of risk factors, no shortness of breath at this time.Emergency department criteria/criteria to call the office # Patient has some concerns in regards to her blood work. She has a family history of leukemia, on the Maternal side. Blood blood cells 3.0, hemoglobin 10.2, hematocrit 31.4, MCV 105, MCH 34, RDW 17.9, mean platelet volume 11.3. Patient is a history of hemochromatosis. Following with heme-onc. Patient was reassured that white blood cell count, platelets, and other values on CBC were within normal limits but she is going to follow with hematology, consider potential peripheral smear, or bone marrow biopsy if change or concern.Most recent CBC on 06/03/2024 showing red blood cell 3.1, hemoglobin 10.5, hematocrit 32.4, MCV 103.2, MCH 33.4, RDW 18.3, MPV 12. Most recent values July 2024 showing iron 198, TIBC 214, saturation 93, white blood cells 3.3, hemoglobin 11.3, hematocrit 34.3, MCV 105, MCH 34.8, RDW 16.3, MPV 11.4. Following with hematology, Dr. Tre Jaimes, they are in the process of scheduling a blood draw. #hypertension: Taking Lisinopril 10 mg, Diltazem 180 mg, Furosemide 20 MG with compliance. She declines any red flag cardiopulmomary symptoms, chest pain, palpitations, shortness of breath, diaphoresis, dizziness, syncope. Continue Lisinopril 10 mg, daily low dose Aspirin 81 mg, measuring BP at home. #Overweight: Patient is actively doing workout classes at the [facility] with her partner. She has goals to eat more vegetables and fruit, continuing exercise classes as tolerated, increasing hydration. Discussed berberine. #Constipation - Intermittent constipation taking certain anticholinergic medications, using miralax, Avoiding fiber, and Occasional manual disimpaction. She admits that she is not adeuqtely hydrated on a daily basis due to busy lifestyle/forgetting . Patient taking magnesium in the morning, and stool softeners in the evening. Tried Linzess but it did not work very well for her. Follow gastroenterology, recommended senna as needed. Patient states that her she did have 1 episode of diarrhea a few days ago, which since resolved. She states this was after she took the laxative. Has been doing well, continue to encourage following with GI #overactive bladder: Discontinued Solifenacin Succinate 10 MG , Taking Myrbetriq 25 MG Extended Release. Wears depends for leakage. Her symptoms are stable currently with proper hygiene. No changes to current plan. #seasonal allergies: stable, no new symptoms. Takes Fexofenadine HCl 180 MG and Fluticasone Furoate 27.5 MCG nasal spray as needed. No refills needed. #arthritis: Stable, unchanging. Discontinued Celecoxib 200 MG. She is physically active, doing exercise classes and stretching. She is ambulating without assistance. No changes to the current plan at this time.Taking turmeric # Bilateral hearing loss: Visit July 2024 # Left shoulder pain, difficulty with overhead movements, negative red flag symptoms. X-ray normal, physical therapy with improvement in range of motion. # Did follow with ENT, left hearing changes, scheduled for left hearing aid. Follow-up in 4 months, sooner as needed. Follow with hematology and gastroenterology in the meantime Patient seen and examined. Comprehensive discussion was done on the following. 1. Nutrition: It is important to follow a healthy diet based on lots of vegetables and legumes and good fat. Avoid processed food and processed carbohydrates. Prepare your own meals. Read labels and avoid high fructose corn syrup, processed chemicals added to increase shelf life and preprepared meals. Avoid fast foods. Eat slowly and plan meals for a week. Try to count calories and be mindful off daily calorie intake. Get into the habit of keeping an eye on your weight by using an appropriate scale. Learn to log exercise and discussed fitness Apps like [employer] which can help keep log off calories taken versus calories burned. Local food should be preferred. Discussed Dirty Dozen Versus Clean Fifteen. Discussed healthy supplements like fish oil, Tumeric, Curcumin, Melatonin, Resveratrol, Probiotics, Vitamin-D, Alpha-Lipoic acid, Vitamin-D and coconut oil. 2. It is important to exercise regularly. Is a good habit to walk at least 30 minutes a day. Gentle weightlifting with standard precautions to protect the back. Finding activity like cycling or hiking and get into the habit of engaging in it. Stretching before and after the exercises important. It is also important to contact me if there are any problems like shortness of breath, chest pain, back pain and joint or muscle pain associated with the exercise. 3. Discussed age appropriate screening guidelines. Colonoscopy needs to start at age 50 with stool for occult blood as appropriate. There is a new test that can test for genetic abnormalities in the stool sample, Cologuard. This would not replace a colonoscopy but could be used as a screening tool for patients who do not want a colonoscopy. We discussed the importance of early detection of colon cancer. 4. Discussed current guidelines with respect to breast examination, mammogram and pap smear for early detection of breast and cervical cancer. Patient advised to follow up with these appointments. 5. Discussed safe driving and no use of smart phone while driving 6. Age-appropriate immunizations were discussed. A tetanus booster is needed every 10 years. Flu vaccine is recommended every year just before the start of the flu season. Shingles vaccine is recommended after age 50 but not all insurances cover it. Pneumonia vaccine is given after age 65 unless there are certain comorbidities for which it is started earlier. 7. Diagnostic labs were discussed. These could include/not limited to CBC CMP and lipids with fasting blood glucose and insulin levels. Vitamin D and hemoglobin A1c testing might be appropriate. All quetsions answered to patients satisfaction. Patient verbalized understanding of diagnosis and treatments explained. To call sooner prior to next visit it any questions/concerns arise. Case discussed with collaborating physician Vern Oglesby who reviewed the assessment and plan. Chart, medications, labs, vital signs reviewed. Dictation was accomplished with the use of [employer] voice recognition software, prone to medical misidentifications and grammatical errors. This is unintentional and the practitioner does try to identify and correct these, but some could still be present. Please do not hesitate to contact practitioner for clarification. 10/07/2024 BMI 32.0-32.9,adult (ICD-10 - Z68.32) Betina is a 79 year-old female who presents for MWV. # Patient up-to-date on all routine vaccinations. Will obtain Tdap as needed. Up-to-date on colonoscopy, declines further. Due for mammogram, which she will schedule. Declines Pap smear/bone density. # Left hearing loss, follow-up with ENT, scheduled for left hearing aid placement # Healthcare proxy completed in office today, it is Giuseppe. Completed 10/07/2024. # Medicare wellness paperwork reviewed extensively. # Audit negative with a total score of 0 # PHQ-9 10/07/2024 with a total score of 0. # 1+ edema bilateral lower extremities, Patient taking furosemide 20 mg daily. Will increase to 20 mg twice daily, second dose to be taken as needed. Is aware of risk factors, no shortness of breath at this time.Emergency department criteria/criteria to call the office # Patient has some concerns in regards to her blood work. She has a family history of leukemia, on the Maternal side. Blood blood cells 3.0, hemoglobin 10.2, hematocrit 31.4, MCV 105, MCH 34, RDW 17.9, mean platelet volume 11.3. Patient is a history of hemochromatosis. Following with heme-onc. Patient was reassured that white blood cell count, platelets, and other values on CBC were within normal limits but she is going to follow with hematology, consider potential peripheral smear, or bone marrow biopsy if change or concern.Most recent CBC on 06/03/2024 showing red blood cell 3.1, hemoglobin 10.5, hematocrit 32.4, MCV 103.2, MCH 33.4, RDW 18.3, MPV 12. Most recent values July 2024 showing iron 198, TIBC 214, saturation 93, white blood cells 3.3, hemoglobin 11.3, hematocrit 34.3, MCV 105, MCH 34.8, RDW 16.3, MPV 11.4. Following with hematology, Dr. Tre Jaimes, they are in the process of scheduling a blood draw. #hypertension: Taking Lisinopril 10 mg, Diltazem 180 mg, Furosemide 20 MG with compliance. She declines any red flag cardiopulmomary symptoms, chest pain, palpitations, shortness of breath, diaphoresis, dizziness, syncope. Continue Lisinopril 10 mg, daily low dose Aspirin 81 mg, measuring BP at home. #Overweight: Patient is actively doing workout classes at the [facility] with her partner. She has goals to eat more vegetables and fruit, continuing exercise classes as tolerated, increasing hydration. Discussed berberine. #Constipation - Intermittent constipation taking certain anticholinergic medications, using miralax, Avoiding fiber, and Occasional manual disimpaction. She admits that she is not adeuqtely hydrated on a daily basis due to busy lifestyle/forgetting . Patient taking magnesium in the morning, and stool softeners in the evening. Tried Linzess but it did not work very well for her. Follow gastroenterology, recommended senna as needed. Patient states that her she did have 1 episode of diarrhea a few days ago, which since resolved. She states this was after she took the laxative. Has been doing well, continue to encourage following with GI #overactive bladder: Discontinued Solifenacin Succinate 10 MG , Taking Myrbetriq 25 MG Extended Release. Wears depends for leakage. Her symptoms are stable currently with proper hygiene. No changes to current plan. #seasonal allergies: stable, no new symptoms. Takes Fexofenadine HCl 180 MG and Fluticasone Furoate 27.5 MCG nasal spray as needed. No refills needed. #arthritis: Stable, unchanging. Discontinued Celecoxib 200 MG. She is physically active, doing exercise classes and stretching. She is ambulating without assistance. No changes to the current plan at this time.Taking turmeric # Bilateral hearing loss: Visit July 2024 # Left shoulder pain, difficulty with overhead movements, negative red flag symptoms. X-ray normal, physical therapy with improvement in range of motion. # Did follow with ENT, left hearing changes, scheduled for left hearing aid. Follow-up in 4 months, sooner as needed. Follow with hematology and gastroenterology in the meantime Patient seen and examined. Comprehensive discussion was done on the following. 1. Nutrition: It is important to follow a healthy diet based on lots of vegetables and legumes and good fat. Avoid processed food and processed carbohydrates. Prepare your own meals. Read labels and avoid high fructose corn syrup, processed chemicals added to increase shelf life and preprepared meals. Avoid fast foods. Eat slowly and plan meals for a week. Try to count calories and be mindful off daily calorie intake. Get into the habit of keeping an eye on your weight by using an appropriate scale. Learn to log exercise and discussed fitness Apps like [employer] which can help keep log off calories taken versus calories burned. Local food should be preferred. Discussed Dirty Dozen Versus Clean Fifteen. Discussed healthy supplements like fish oil, Tumeric, Curcumin, Melatonin, Resveratrol, Probiotics, Vitamin-D, Alpha-Lipoic acid, Vitamin-D and coconut oil. 2. It is important to exercise regularly. Is a good habit to walk at least 30 minutes a day. Gentle weightlifting with standard precautions to protect the back. Finding activity like cycling or hiking and get into the habit of engaging in it. Stretching before and after the exercises important. It is also important to contact me if there are any problems like shortness of breath, chest pain, back pain and joint or muscle pain associated with the exercise. 3. Discussed age appropriate screening guidelines. Colonoscopy needs to start at age 50 with stool for occult blood as appropriate. There is a new test that can test for genetic abnormalities in the stool sample, Cologuard. This would not replace a colonoscopy but could be used as a screening tool for patients who do not want a colonoscopy. We discussed the importance of early detection of colon cancer. 4. Discussed current guidelines with respect to breast examination, mammogram and pap smear for early detection of breast and cervical cancer. Patient advised to follow up with these appointments. 5. Discussed safe driving and no use of smart phone while driving 6. Age-appropriate immunizations were discussed. A tetanus booster is needed every 10 years. Flu vaccine is recommended every year just before the start of the flu season. Shingles vaccine is recommended after age 50 but not all insurances cover it. Pneumonia vaccine is given after age 65 unless there are certain comorbidities for which it is started earlier. 7. Diagnostic labs were discussed. These could include/not limited to CBC CMP and lipids with fasting blood glucose and insulin levels. Vitamin D and hemoglobin A1c testing might be appropriate. All quetsions answered to patients satisfaction. Patient verbalized understanding of diagnosis and treatments explained. To call sooner prior to next visit it any questions/concerns arise. Case discussed with collaborating physician Vern Oglesby who reviewed the assessment and plan. Chart, medications, labs, vital signs reviewed. Dictation was accomplished with the use of [employer] voice recognition software, prone to medical misidentifications and grammatical errors. This is unintentional and the practitioner does try to identify and correct these, but some could still be present. Please do not hesitate to contact practitioner for clarification. PLAN OF TREATMENT Pending Test Test Name Order Date MAMMOGRAM, SCREENING 10/25/2024 Bone Density 08/02/2022 XR Shoulder 2+ Views LT 07/01/2024 LIPID PANEL, STANDARD 04/07/2023 LIPID PANEL, STANDARD 04/02/2024 COMPREHENSIVE METABOLIC PANEL 04/02/2024 COMPREHENSIVE METABOLIC PANEL 04/07/2023 CBC (H/H, RBC, INDICES, WBC, PLT) 2023 URINALYSIS, COMPLETE 04/07/2023 HEMOGLOBIN A1c 04/07/2023 VITAMIN B12 04/02/2024 VITAMIN D,25-OH,TOTAL,IA 04/07/2023 Next Appt Details Provider Name:NENO FRANCES, 02/08/2025 10:30:00 AM, [address], [place], [address], Insurance Providers Payer Name Payer Address Payer Phone Subscriber Number Group Number Insured Name Patient Relationship to Insured Coverage Start Date Coverage End Date Medicare Part B J14 [address] Serjio gillaguilar [phone] [id number] BETINA REYNOSO Self - patient is the insured [employer] Medicare Advantage [address] [place] [address] [phone] [id number] BETINA REYNOSO Self - patient is the insured MEDICAL (GENERAL) HISTORY Medical History History ICD Code hx COVID abx prophyaxis prior to dentist procedur es Cataract of both eyes, unspecified catar act type H26.9 Hemochromatosis, unspecified hemochromat osis type E83.119 Hypertension, essential I10 History of pneumonia Z87.01 GERD (gastroesophageal reflux disease) K 21.9 Seasonal allergies J30.2 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
--- OUTSIDE RECORDS SUMMARY | 2024-10-26 16:03 | XMS_ITS | Clinical Summary ---
Author Organization [facility] Address [address] [place] [address] Care Team Providers Care Faith Doctor Name Role Phone Alejandro Oglesby MD Primary [...] age to complete this topic Care Teams Faith Doctor Relationship Specialty Start Date End Date Alejandro Oglesby MD [address] [place] [address] PCP - General Internal Medicine 08/13/22
--- OUTSIDE RECORDS SUMMARY | 2024-10-26 16:03 | XMS_ITS | Clinical Summary ---
Author Organization [facility] Address [address] [place] [address] Phone Care Team Providers Care Logging Engineer Name Role Phone Alejandro Oglesby MD Primary Care Provider [phone] Allergies Active Allergy Reactions Criticality Noted Date Comments Iodine 07/15/2017 Nitrofurantoin Monohyd/M-Cryst 08/18 Medications acetaminophen (TYLENOL) 500 mg tablet 2 Active aspirin 81 mg EC tablet Take 1 tablet (81 mg total) by mouth 1 (one) time each day. Active betamethasone, augmented, (DIPROLENE-AF) 0.05 % cream APPLY TO RASH ON LEGS TWICE A DAY FOR 2 WEEKS ON, 1 WEEK OFF 7 Active celecoxib (CeleBREX) 200 mg capsule Take 1 capsule (200 mg total) by mouth 1 (one) time each day. 2 Active clobetasoL (TEMOVATE) 0.05 % cream 8 Active dilTIAZem LA (CARDIZEM LA) 180 mg 24 hr tablet Take 1 tablet (180 mg total) by mouth 1 (one) time each day. Active famotidine (PEPCID) 20 mg tablet 1 Active fesoterodine 8 mg tablet extended release 24 hr Take 8 mg by mouth daily. Active fluticasone propionate (FLONASE) 50 mcg/actuation nasal spray spray/apply 1 spray in each nostril daily. Active furosemide (LASIX) 20 mg tablet Take 1 tablet (20 mg total) by mouth. Active ondansetron (ZOFRAN) 4 mg tablet Take 1 tab every 8 hours as needed for nausea 2 Active ranitidine HCl (ACID CONTROL, RANITIDINE, ORAL) raNITIdine (ZANTAC) 150 MG capsule-Sig: ranitidine HCl Take 1 capsule (oral) 2 times per day for 14 days [id number] capsule 2 times per day oral 14 days suspended 150 mg 9 Active Active Problems Problem Noted Date Diagnosed Date Hereditary hemochromatosis 01/28/2022 Arthritis of knee, right 01/08/2022 Iron overload 11/25/2021 Arthritis of knee, left 01/22/2019 Arthritis of knee, right 05/21/2018 Encounters Date Type Department Care Team Description 10/25/2024 Telephone [facility] Hematology Oncology [address] [place] [phone] Tre Michel MD 09/06/2024 Telephone [facility] Hematology Oncology [address] [place] [phone] Tre Michel MD 08/18/2024 10:30 AM EST Office Visit [facility] Hematology Oncology [address] [place] [phone] Tre Michel MD Hereditary hemochromatosis (CMS/HCC) (Primary [...] on file Sexual Orientation Not on file Obstetrics History Last Filed [...] Description 12/01/2024 11:10 AM EDT Office Visit [facility] [address] [place] [address] [address] [place] [phone] Monalisa Cueva NP [address] [place] [address] [address] [place] [address] 12/16/2024 10:30 AM EDT Office Visit [facility] Hematology Oncology [address] [place] [address] Tre Michel MD [address] [place] [address] Health Maintenance Due Date Last Done Comments DTaP,Tdap,and Td Vaccines (1 - Tdap) 10[birth year]03/1964 Cholesterol Screening (Lipid Panel) 07/05/2022 Depression Screening 07/05/2022 Falls Risk Assessment 07/05/2022 Social Influencers of Health Screening 07/05/2022 Medicare Annual Wellness Visit 02/20/2023 02/20/2022 Hypertension/CHF/CAD Annual BMP Blood Test 08/17/2025 08/17/2024, 06/03/2024 Osteoporosis Screening (Bone Density Screening) 09/24/2032 09/24/2022 Zoster Vaccines Completed 11/09/2020, 07/28, 2013 Pneumococcal Vaccine: 50+ Years Completed 06/25/2021, 06/04/2020, 06/11/2018 RSV Immunization [...] patient's age to complete this topic Meningococcal B Vacine Aged Out No lo nger eligible based on patient's age to complete [...] 08/17/2024 10:45 AM EST Hereditary hemochromatosis (CMS/HCC) JOSE DE JESUS DEXA AXIAL SKELETON Routine 09/24/2022 4:53 PM EST Encounter for screening for osteoporosis from Last 3 Months or Most Recently Relevant to Health Maintenance Results * (ABNORMAL) CBC auto differential (08/17/2024 10:45 AM EST) [facility] WBC 6.9 4.8 - 10.8 K/mcL LAB HEMETOLOGY METHOD 08/17/2024 11:21 AM [facility] RBC 3.30(L) 3.80 - 4.80 M/mcL LAB HEMETOLOGY METHOD 08/17/2024 11:21 AM [facility] Hemoglobin 11.3(L) 11.5 - 16.0 g/dL LAB HEMETOLOGY METHOD 08/17/2024 11:21 AM [facility] Hematocrit 34.3(L) 35.0 - 47.0 % LAB HEMETOLOGY METHOD 08/17/2024 11:21 AM [facility] MCV 105.5(H) 79.0 - 98.0 FL LAB HEMETOLOGY METHOD 08/17/2024 11:21 AM [facility] MCH 34.8(H) 27.0 - 32.0 pcg LAB HEMETOLOGY METHOD 08/17/2024 11:21 AM [facility] MCHC 32.9 32.0 - 37.0 g/dL LAB HEMETOLOGY METHOD 08/17/2024 11:21 AM [facility] RDW 16.3(H) 11.0 - 15.0 % LAB HEMETOLOGY METHOD 08/17/2024 11:21 AM [facility] Platelets 368 130 - 400 K/mcL LAB HEMETOLOGY METHOD 08/17/2024 11:21 AM [facility] MPV 11.4(H) 7.0 - 11.0 FL LAB HEMETOLOGY METHOD 08/17/2024 11:21 AM [facility] NRBC 0.0 <1.0 % LAB HEMETOLOGY METHOD 08/17/2024 11:21 AM [facility] NRBC Absolute 0.00 <0.10 K/mcL LAB HEMETOLOGY METHOD 08/17/2024 11:21 AM [facility] Neutrophils Relative 55.8 % LAB HEMETOLOGY METHOD 08/17/2024 11:21 AM [facility] Lymphocytes Relative 28.0 % LAB HEMETOLOGY METHOD 08/17/2024 11:21 AM [facility] Monocytes Relative 13.6 % LAB HEMETOLOGY METHOD 08/17/2024 11:21 AM [facility] Eosinophils Relative 1.0 % LAB HEMETOLOGY METHOD 08/17/2024 11:21 AM [facility] Basophils Relative 1.0 % LAB HEMETOLOGY METHOD 08/17/2024 11:21 AM [facility] Immature Granulocytes Relative 0.6 % LAB HEMETOLOGY METHOD 08/17/2024 11:21 AM [facility] Neutrophils Absolute 3.86 1.50 - 7.00 K/mcL LAB HEMETOLOGY METHOD 08/17/2024 11:21 AM [facility] Lymphocytes Absolute 1.94 1.00 - 5.00 K/mcL LAB HEMETOLOGY METHOD 08/17/2024 11:21 AM [facility] Monocytes Absolute 0.94 0.20 - 1.00 K/mcL LAB HEMETOLOGY METHOD 08/17/2024 11:21 AM [facility] Eosinophils Absolute 0.07 0.00 - 0.50 K/mcL LAB HEMETOLOGY METHOD 08/17/2024 11:21 AM [facility] Basophils Absolute 0.07 0.00 - 0.20 K/mcL LAB HEMETOLOGY METHOD 08/17/2024 11:21 AM [facility] Immature Granulocytes Absolute 0.04(H) 0.00 - 0.03 K/mcL LAB HEMETOLOGY METHOD 08/17/2024 11:21 AM EST [facility] Blood Venous blood specimen / Unknown Venipuncture / Unknown 08/17/2024 10:45 AM EST 08/17/2024 11:07 AM EST Tre Michel MD LAB BLOOD ORDERABLES Final Result Performing Organization Address [facility]/ZIP Co de Phone Number [facility] [address] [place] [address], [place] [phone] * (ABNORMAL) Iron and TIBC (08/17/2024 10:45 AM EST) Iron 198(H) 40 - 150 mcg/dL LAB CHEMISTRY METHOD 08/17/2024 11:49 AM EST [facility] TIBC 214(L) 250 - 450 mcg/dL LAB CHEMISTRY METHOD 08/17/2024 11:49 AM EST [facility] Iron Saturation 93(H) 15 - 50 % LAB CHEMISTRY METHOD 08/17/2024 11:49 AM EST [facility] Blood Venous blood specimen / Unknown Venipuncture / Unknown 08/17/2024 10:45 AM EST 08/17/2024 11:07 AM EST Tre Michel MD LAB BLOOD ORDERABLES Final Result Performing Organization Address City/[facility]/ZIP Co de Phone Number [facility] [address] [place] [address], [place] [phone] * Ferritin (08/17/2024 10:45 AM EST) Ferritin 96 8 - 252 ng/mL LAB CHEMISTRY METHOD 08/17/2024 12:11 PM EST [facility] Blood Venous blood specimen / Unknown Venipuncture / Unknown 08/17/2024 10:45 AM EST 08/17/2024 11:07 AM EST Tre Michel MD LAB BLOOD ORDERABLES Final Result Performing Organization Address [facility]/ZIP Co de Phone Number [facility] [address] [place] [address], [place] [phone] * (ABNORMAL) Vitamin B12 (08/17/2024 10:45 AM EST) [facility] Vitamin B-12 925(H) 250 - 900 pcg/mL LAB CHEMISTRY METHOD 08/17/2024 12:11 PM [facility] Blood Venous blood specimen / Unknown Venipuncture / Unknown 08/17/2024 10:45 AM EST 08/17/2024 11:07 AM EST Tre Michel MD LAB BLOOD ORDERABLES Final Result Performing Organization Address [facility]/ZIP Co de Phone Number [facility] [address] [place] [address], [place] [phone] * (ABNORMAL) Comprehensive metabolic panel (08/17/2024 10:45 AM EST) [facility] Sodium 139 133 - 145 mmol/L LAB CHEMISTRY METHOD 08/17/2024 12:11 PM [facility] Potassium 4.5 3.5 - 5.5 mmol/L LAB CHEMISTRY METHOD 08/17/2024 12:11 PM [facility] Chloride 104 96 - 110 mmol/L LAB CHEMISTRY METHOD 08/17/2024 12:11 PM [facility] CO2 31 21 - 32 mmol/L LAB CHEMISTRY METHOD 08/17/2024 12:11 PM [facility] Anion Gap 4 3 - 11 LAB CHEMISTRY METHOD 08/17/2024 12:11 PM [facility] Glucose 87 70 - 100 mg/dL LAB CHEMISTRY METHOD 08/17/2024 12:11 PM [facility] BUN 22 5 - 25 mg/dL LAB CHEMISTRY METHOD 08/17/2024 12:11 PM [facility] Creatinine 1.00 0.50 - 1.10 mg/dL LAB CHEMISTRY METHOD 08/17/2024 12:11 PM [facility] eGFR 57(L) >=60 mL/min/1. 73m2 LAB CHEMISTRY METHOD 08/17/2024 12:11 PM [facility] Comment:Calculation based on the??Chronic Kidney Disease Epidemiology Collaboration (CKD-EPI) equation refit??without adjustment for race. BUN/Creatinine Ratio 22.0 LAB CHEMISTRY METHOD 08/17/2024 12:11 PM [facility] Calcium 8.8 8.5 - 10.5 mg/dL LAB CHEMISTRY METHOD 08/17/2024 12:11 PM [facility] AST (SGOT) 20 10 - 42 unit/L LAB CHEMISTRY METHOD 08/17/2024 12:11 PM [facility] ALT (SGPT) 22 10 - 60 unit/L LAB CHEMISTRY METHOD 08/17/2024 12:11 PM [facility] Alkaline Phosphatase 87 42 - 121 unit/L LAB CHEMISTRY METHOD 08/17/2024 12:11 PM [facility] Total Protein 7.1 6.0 - 8.0 g/dL LAB CHEMISTRY METHOD 08/17/2024 12:11 PM [facility] Albumin 3.5 3.2 - 5.0 g/dL LAB CHEMISTRY METHOD 08/17/2024 12:11 PM [facility] Total Bilirubin 1.0 0.0 - 1.4 mg/dL LAB CHEMISTRY METHOD 08/17/2024 12:11 PM [facility] Blood Venous blood specimen / Unknown Venipuncture / Unknown 08/17/2024 10:45 AM EST 08/17/2024 11:07 AM EST Tre Michel MD LAB BLOOD ORDERABLES Final Result [facility] [address] [place] [address], * JOSE DE JESUS DEXA AXIAL SKELETON (09/24/2022 4:53 PM EST) Anatomical Region Laterality Modality Mammography 09/20/2022 1:25 PM EST Narrative 09/24/2022 4:53 PM EST [facility] Diagnostic Imaging Department [address] [place] [address] Patient: ??BETINA REYNOSO ?/Age/Sex: 1945 - 76 - F Unit#: ??[id number] ? Location/Status: ??SPDIMAM/REG CLI ? Mnemonic/Ordering Site: ??MAMDEXAAX/SPMAM Ordering Physician: ??NENO UGARTE PA-C [facility] Dexa Axial Skeleton - 09/20/22 - [id number] History: Low estrogen state due to menopause. Parent hip fracture. Comparison: 11/09/15 Findings: Bone densitometry is performed utilizing dual energy x-ray absorptiometry (DXA) in the Predictry unit. The lumbar spine and proximal femora [...] 21.3 percent ??Hip 11.6 percent. IMPRESSION: Osteopenia. [id number] Dictating Physician: ??BERNA PONCE MD Electronically Signed by: ??BERNA PONCE MD Dic Date/Time: ??09/24/221651 Sign date/Time: ??09/24/221652 Procedure Note Berna Ponce MD - 08/29/2023 [facility] Diagnostic Imaging Department [address] [place] [address] Patient: EDGARDOBETINAO.B./Age/Sex: 1945 - 76 -F Unit#: [id number] Location/Status: [facility] CLI [facility]emonic[facility] Ordering Physician: NENO UGARTE PA-C [facility] Dexa Axial Skeleton - 09/20/22 - [id number] History: Low estrogen state due to menopause. Parent hip fracture. Comparison: 11/09/15 Findings: Bone densitometry is performed utilizing dual energy x-ray absorptiometry(DXA) in the Predictry unit. The lumbar spine and proximal femora [...] 21.3 percent Hip 11.6 percent. IMPRESSION: Osteopenia. [id number] Dictating Physician: BERNA PONCE MD Electronically Signed by: BERNA PONCE MD Dic Date/Time: 09/24/221651 Sign date/Time: 09/24/221652 Neno ARTEAGA IMG BI PROCEDURES Final Res ult from Last 3 Months or Most Recently Relevant to Health Maintenance Insurance [facility] Care Teams Logging Engineer Relationship Specialty Start Date End Date Alejandro Oglesby MD [address] [place] [phone] PCP - General 08/13/22
--- OUTSIDE RECORDS SUMMARY | 2024-10-26 16:03 | XMS_ITS ---
Author Organization [facility] Address [address] [place] [address] Care Team Providers Care Control System Computer Scientist Name Role Phone NENO FRANCES Unavailable [phone] ALLERGIES Allergen (clinical drug ingredient) Drug/Non Drug Allergy documented on EMR Reaction Allergy Type Onset Date Status Iodine hives Drug Allergy Active REASON FOR VISIT Patient presents for complete physical. Labs were drawn back on 08/17/24. The patient has been experiencing recent diarrhea which has been resolved the night prior. No additional questions or concernsneeded to be addressed MEDICATIONS Medication SIG (Take, Route, Frequency, Duration) Notes Start Date End Date Status Celecoxib 200 MG TAKE 1 CAPSULE ONCE DAILY WITH FOOD for 90 Active Multi Complete Activ e Famotidine 20 MG 1 tablet Orally twic e daily for 90 days Active Fluticasone Furoate 27.5 MCG/SPRAY 2 sprays (1 spray in each nostril) Nasally Once a day Active Senna Active Aspir-81 Active Clotrimazole-Betameth & Zn Ox 1-0.05 & 20 % as directed Externally A ctive Fexofenadine HCl 180 MG 1 tablet Swallow whole with water; do not take with fruit juices. Orally Once a day Active Omeprazole 20 MG 1 capsule 1/2 to 1 h our before morning meal Orally Once a day Active Myrbetriq 25 MG 1 tablet Orally Once a day Active Multi Vitamin Active Estradiol Active CoQ-10 Active dilTIAZem HCl 120 MG as directed Orally Active Furosemide 20 MG 1-2 tablets a day pr n Orally once-twice daily for 90 days Active Biotin Active Magnesium Citrate Ac tive PROBLEMS Problem Type ICD Code Onset Dates Problem Status W/U Status Risk SNOMED Code Notes Problem BMI 32.0-32.9,ad ult (Z68.32) Active confirmed [id number] VITAL SIGNS Blood pressure systolic 128 mm Hg 10/08/19 25 Blood pressure diastolic 70 mm Hg 025 Heart Rate 87 /min 10/07/2024 Height 66 in 10/07/2024 Weight 203.1 lbs 10/07/2024 BMI 32.78 kg/m2 10/07/2024 Oximetry 98 % 10/07/2024 Encounters Encounter Location Date Provider Diagnosis [facility] [address] [place] [address] 10/07/2024 NENO FRANCES Chronic constipation K59.09 ; Wellness examination Z00.00 ; Hereditary hemochromatosis E83.110 ; Hypertension, unspecified type I10 ; Seasonal allergies J30.2 ; Left shoulder pain, unspecified chronicity M25.512 ; Encounter for screening for depression Z13.31 ; Encounter for screening for other disorder Z13.89 ; Other specified counseling Z71.89 and BMI 32.0-32.9,adult Z68.32 ASSESSMENTS Encounter Date Diagnosis Assessment Notes Treatment Notes Treatment Clinical Notes Section Notes 10/07/2024 Chronic constipation (ICD-10 - K59.09) Betina [...] MPV 11.4. Following with hematology, Dr. Tre Michel, they are in the process of scheduling a blood draw. #hypertension: Taking Lisinopril 10 mg, Diltazem 180 mg, Furosemide 20 MG with compliance. She declines any red flag cardiopulmomary symptoms, chest pain, palpitations, shortness of breath, diaphoresis, dizziness, syncope. Continue Lisinopril 10 mg, daily low dose Aspirin 81 mg, measuring BP at home. #Overweight: Patient is actively doing workout classes at the [facility] with her partner. She has goals [...] log exercise and discussed fitness Apps like Flexis which can help keep log off calories [...] Dictation was accomplished with the use of Autobase voice recognition software, prone to medical misidentifications [...] MPV 11.4. Following with hematology, Dr. Tre Michel, they are in the process of scheduling a blood draw. #hypertension: Taking Lisinopril 10 mg, Diltazem 180 mg, Furosemide 20 MG with compliance. She declines any red flag cardiopulmomary symptoms, chest pain, palpitations, shortness of breath, diaphoresis, dizziness, syncope. Continue Lisinopril 10 mg, daily low dose Aspirin 81 mg, measuring BP at home. #Overweight: Patient is actively doing workout classes at the [facility] with her partner. She has goals [...] log exercise and discussed fitness Apps like Flexis which can help keep log off calories [...] Dictation was accomplished with the use of Aut[employer]ase voice recognition software, prone to medical misidentifications [...] MPV 11.4. Following with hematology, Dr. Tre Michel, they are in the process of scheduling a blood draw. #hypertension: Taking Lisinopril 10 mg, Diltazem 180 mg, Furosemide 20 MG with compliance. She declines any red flag cardiopulmomary symptoms, chest pain, palpitations, shortness of breath, diaphoresis, dizziness, syncope. Continue Lisinopril 10 mg, daily low dose Aspirin 81 mg, measuring BP at home. #Overweight: Patient is actively doing workout classes at the [facility] with her partner. She has goals [...] log exercise and discussed fitness Apps like Flexis which can help keep log off calories [...] Dictation was accomplished with the use of Aut[employer]ase voice recognition software, prone to medical misidentifications and grammatical errors. This is unintentional and the practitioner does try to identify and correct these, but some could still be present. Please do not hesitate to contact practitioner for clarification. 10/07/2024 Hypertension, unspecified type [...] MPV 11.4. Following with hematology, Dr. Tre Michel, they are in the process of scheduling a blood draw. #hypertension: Taking Lisinopril 10 mg, Diltazem 180 mg, Furosemide 20 MG with compliance. She declines any red flag cardiopulmomary symptoms, chest pain, palpitations, shortness of breath, diaphoresis, dizziness, syncope. Continue Lisinopril 10 mg, daily low dose Aspirin 81 mg, measuring BP at home. #Overweight: Patient is actively doing workout classes at the [facility] with her partner. She has goals [...] log exercise and discussed fitness Apps like Flexis which can help keep log off calories [...] Dictation was accomplished with the use of Autobase voice recognition software, prone to medical misidentifications [...] MPV 11.4. Following with hematology, Dr. Tre Michel, they are in the process of scheduling a blood draw. #hypertension: Taking Lisinopril 10 mg, Diltazem 180 mg, Furosemide 20 MG with compliance. She declines any red flag cardiopulmomary symptoms, chest pain, palpitations, shortness of breath, diaphoresis, dizziness, syncope. Continue Lisinopril 10 mg, daily low dose Aspirin 81 mg, measuring BP at home. #Overweight: Patient is actively doing workout classes at the [facility] with her partner. She has goals [...] log exercise and discussed fitness Apps like Flexis which can help keep log off calories [...] Dictation was accomplished with the use of Autobase voice recognition software, prone to medical misidentifications [...] MPV 11.4. Following with hematology, Dr. Tre Michel, they are in the process of scheduling a blood draw. #hypertension: Taking Lisinopril 10 mg, Diltazem 180 mg, Furosemide 20 MG with compliance. She declines any red flag cardiopulmomary symptoms, chest pain, palpitations, shortness of breath, diaphoresis, dizziness, syncope. Continue Lisinopril 10 mg, daily low dose Aspirin 81 mg, measuring BP at home. #Overweight: Patient is actively doing workout classes at the [facility] with her partner. She has goals [...] log exercise and discussed fitness Apps like Flexis which can help keep log off calories [...] Dictation was accomplished with the use of Aut[employer]ase voice recognition software, prone to medical misidentifications [...] MPV 11.4. Following with hematology, Dr. Tre Michel, they are in the process of scheduling a blood draw. #hypertension: Taking Lisinopril 10 mg, Diltazem 180 mg, Furosemide 20 MG with compliance. She declines any red flag cardiopulmomary symptoms, chest pain, palpitations, shortness of breath, diaphoresis, dizziness, syncope. Continue Lisinopril 10 mg, daily low dose Aspirin 81 mg, measuring BP at home. #Overweight: Patient is actively doing workout classes at the [facility] with her partner. She has goals [...] log exercise and discussed fitness Apps like Flexis which can help keep log off calories [...] Dictation was accomplished with the use of Autobase voice recognition software, prone to medical misidentifications [...] MPV 11.4. Following with hematology, Dr. Tre Michel, they are in the process of scheduling a blood draw. #hypertension: Taking Lisinopril 10 mg, Diltazem 180 mg, Furosemide 20 MG with compliance. She declines any red flag cardiopulmomary symptoms, chest pain, palpitations, shortness of breath, diaphoresis, dizziness, syncope. Continue Lisinopril 10 mg, daily low dose Aspirin 81 mg, measuring BP at home. #Overweight: Patient is actively doing workout classes at the [facility] with her partner. She has goals [...] log exercise and discussed fitness Apps like Flexis which can help keep log off calories [...] Dictation was accomplished with the use of Autobase voice recognition software, prone to medical misidentifications [...] MPV 11.4. Following with hematology, Dr. Tre Michel, they are in the process of scheduling a blood draw. #hypertension: Taking Lisinopril 10 mg, Diltazem 180 mg, Furosemide 20 MG with compliance. She declines any red flag cardiopulmomary symptoms, chest pain, palpitations, shortness of breath, diaphoresis, dizziness, syncope. Continue Lisinopril 10 mg, daily low dose Aspirin 81 mg, measuring BP at home. #Overweight: Patient is actively doing workout classes at the [facility] with her partner. She has goals [...] log exercise and discussed fitness Apps like Flexis which can help keep log off calories [...] Dictation was accomplished with the use of Aut[employer]ase voice recognition software, prone to medical misidentifications [...] MPV 11.4. Following with hematology, Dr. Tre Michel, they are in the process of scheduling a blood draw. #hypertension: Taking Lisinopril 10 mg, Diltazem 180 mg, Furosemide 20 MG with compliance. She declines any red flag cardiopulmomary symptoms, chest pain, palpitations, shortness of breath, diaphoresis, dizziness, syncope. Continue Lisinopril 10 mg, daily low dose Aspirin 81 mg, measuring BP at home. #Overweight: Patient is actively doing workout classes at the [facility] with her partner. She has goals [...] log exercise and discussed fitness Apps like Flexis which can help keep log off calories [...] Dictation was accomplished with the use of Aut[employer] voice recognition software, prone to medical misidentifications and grammatical errors. This is unintentional and the practitioner does try to identify and correct these, but some could still be present. Please do not hesitate to contact practitioner for clarification. PLAN OF TREATMENT Medication Medication Name Sig Start Date Stop Date Notes Furosemide 20 MG 1-2 tablets a day pr n Orally once-twice daily for 90 days Next Appt Details Provider Name:NENO FRANCES, 02/08/2025 10:30:00 AM, [address] [facility], [place], [address], Progress Notes * MARY REYNOSOADOB:03/1946 (79 yo F)Acc No.[id number]:10/07/2024 Progress Note Patient:??TENZIN REYNOSO Provider:??NENO UGARTE PA-C :1945?Age:79 Y?Sex:Fe male Date:10/07/2024 Address:[address] [place], [place] [id number] Subjective: * Chief Complaints: * ?1. Patient presents fo r complete physical. Labs were drawn back on 08/17/24. The patient has been experiencing recent diarrhea which has been resolved the night prior. No additional questions or concerns needed to be addressed. * HPI: ?Constitutional:? Betina is here for routine MWV. ?RSV: 08/08/2023 ?Pneumonia: 06/11/2018, 06/04/2020, 06/25/2021 ?Shingles: 2013, repeat series 08/09/2020, 11/09/2020 ?Flu: 04/02/2024 ?COVID: 07/13/2024 ?Tdap: Obtain at local pharmacy as needed ?Bone density: 09/20/2022, osteopenia ?Mammogram: 09/24/2023: Negative, due for repeat, pt will schedule. ?Colonoscopy:Declines further secondary to age ?PAP:Declines ?We reviewed medical history, surgical history, allergies, hospitalization or changes in family history since his last visit. ?Medications reviewed. ?Most recent blood work 08/17/2024. Iron 198, TIBC 214, iron saturation 93, ferritin within normal limits, B12 elevated at 925, GFR mildly low at 57, CBC with red blood cell 3.3, hemoglobin 11.3, hematocrit 34.3, MCV 105, MCH 34.8, RDW 16.3, MPV 11.4 ?Patient following with Patient following with cardiology at [facility], dentist, dermatology, ENT, gastroenterology, hematology Dr. Tre Michel, ophthalmology Dr. Wes Lopez, orthopedics, rheumatology, and urology. ?ETOH Use: declines ?Tob Use: declines ?Drug Use: declines ?Caffeine Use: Yes ?Smoke detectors in home: Yes ?Seatbelt use: Yes ?PHQ-9: 0 ?Audit: 0 ?Other concerns addressed today: ?Patient had 1 episode of diarrhea yesterday, but took 2 senna and 2 stool softeners prior recommended by GI for constipation. Doing well since. ?Also followed with her corporate law specialist, who recommends increasing Lasix to 20 mg Daily to 20 mg twice daily as needed.Second doses as needed. * ROS:?Constitutional: Patient denies any excessive fatigue with exercise, no weight loss, no fever, no night sweats, no changes in sleep. ???Eyes: No eye discharge, no itching, no redness, no vision changes. Advised the significance of regular eye exams to screen for glaucoma and other eye problems. ???Ear nose throat: No ear pain, No sore throat, no postnasal drip, no runny nose, no sneezing, no hearing changes ???Cardiovascular: No chest pain, no dyspnea on exertion, no PND, no orthopnea, no irregular pulse, no palpitations, no claudication, no diaphoresis, no claudication. ???Respiratory: No chronic cough, no hemoptysis, no sputum, no wheezing, no SOB, no pleuritic pain. ???GI, No diarrhea, no constipation, no blood in the stools, no pain associated with eating, no indigestion, no difficulty swallowing, no appetite change. ???Genitourinary: No painful urination, no hesitancy, no blood in the urine, no incontinence, no frequency, no urgency, no abnormal discharge. ???Musculoskeletal: No back pain, no joint pain, no limitations to walking and running, no joint deformity, no joint stiffness, no muscle weakness ???Integumentary: No new skin rash. No new changes in skin moles, no pruritis, no color change. ???Neurological: No history of seizures, no memory loss, no language dysfunction, no inability to concentrate, no localized weakness, no sensation loss, no confusion, no dizziness, no tremor, no numbness, no tingling. ???Psychiatric: no anxiety, no depression, no suicidal thoughts, feels safe at home. ???Endocrine: No polyuria, no polyphagia, no polydipsia. No heat/cold intolerance, no excesss thirst. ???Hematological: No easy bruising or bleeding, no lymph node swelling. 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 * Surgical History:??partial h ysterectomy , tonsillectomy 1949, bilateral knee replacements 2021, 3 live , right leg varicose vein stripping , cataract surgery bilateral, with left eye laser correction . * Hospitalization/Major Diagno stic Procedure:??pneumonia 2021, chicken pox , 3 miscarriage D+C . * Family History:??Father: dec eased 47 yrs.??Mother: 93 yrs.??Paternal Grand Mother: diagnosed with Other malignant neoplasm of unspecified site.??2 brother(s) , 1 sister(s) . .?? Brother: possible heart attack, recently from falling father: cancer stomach uncle: cancer of throat Patient has three siblings, all , history of cardiac arrest patient has three children, living, 50, 46, 41. * Social History:?Patient currently lives alone, has a fiance ??? ETOH Use: declines ??? Tob Use: declines ??? Drug Use: declines ??? Caffeine Use: Yes ??? Smoke detectors in home: Yes ??? Seatbelt use: Yes ???Patient has no concerns regarding her mental health at this time. * Medications:??Taking dilTIAZ em HCl 120 MG Tablet as directed Orally , Taking Biotin , Taking Magnesium Citrate , Taking CoQ-10 , Taking Multi Vitamin , Taking Estradiol , Taking Omeprazole 20 MG Capsule Delayed Release 1 capsule 1/2 to 1 hour before morning meal Orally Once a day , Taking Myrbetriq 25 MG Tablet Extended Release 24 Hour 1 tablet Orally Once a day , Taking Fluticasone Furoate 27.5 MCG/SPRAY Suspension 2 sprays (1 spray in each nostril) Nasally Once a day , Taking Clotrimazole-Betameth & Zn Ox 1-0.05 & 20 % Therapy Pack as directed Externally , Taking Fexofenadine HCl 180 MG Tablet 1 tablet Swallow whole with water; do not take with fruit juices. Orally Once a day , Taking Senna , Taking Aspir-81 , Taking Multi Complete , Taking Famotidine 20 MG Tablet 1 tablet Orally twice daily , Taking Celecoxib 200 MG Capsule TAKE 1 CAPSULE ONCE DAILY WITH FOOD , Taking Furosemide 20 MG Tablet TAKE 1 TABLET ONCE DAILY ASNEEDED , Discontinued Magnesium , Discontinued Betamethasone Dipropionate Aug 0.05 % Cream PLEASE SEE ATTACHED FOR DETAILED DIRECTIONS External , Medication List reviewed and reconciled with the patient * Allergies:??Iodine: hives. Objective: * Vitals:??HR: 87 /min, BP: 12 8/70 mm Hg, Wt: 203.1 lbs, BMI: 32.78 Index, Ht: 66 in, Oxygen sat %: 98 %. * Physical Examination:?General: Age appropriate female, well appearing, no acute distress, speaking in full sentences without respiratory compromise. Well groomed, well developed. Alert, Interactive. ?Skin: Warm, dry and intact. No lesions/rashes/erythema. ?HEENT: Normocephalic/atraumatic. EOMI intact. PERRLA. Vision intact. No ptosis or lid lag. Nares without discharge or inflammation. Oral cavity free of plaques or exudates. Dentition well maintained. No pharyngeal erythema. Ear canal without cerumen or discharge. Tympanic membrane visualized including bony structures and cone of light. ?Neck/Thyroid: Supple, with no lymphadenopathy. Full ROM. Thyroid free of nodules and nonenlarged. ?Lung: Clear to auscultation bilaterally, no wheezes, rales or rhonchi. No barrel chest. Equal chest rise and fall bilaterally. ?Cardiac: S1 and S2 appreciated. No murmurs/rubs or gallops. DP pulses intact 2+ bilaterally. Capillary refill <2 seconds. ?Abdomen: Soft, nontender, normoactive bowel sounds. No rebound/guarding. No CVA tenderness. No Masses. ?Extremities: Bilateral lower extremities with no edema or rubor. No evidence of varicose veins. Equal tone bilaterally. ?MSK: Bilateral upper and lower extremities 5/5 strength with flexion/extension. Trackwalker strength 5/5. Sensation intact. 1+ pitting edema around the ankles, without any extension to the shins. ?Neuro: CN II-XI grossly intact. Steady gait with ambulation observed. Symmetric reflexes. ?Psych: Stable mood and affect. Assessment: * Assessment: 1.??Wellness examination - Z 00.00 (Primary)??2.??Chronic constipation - K59.09??3.??Hereditary hemochromatosis - E83.110??4.??Hypertension, unspecified type - I10??5.??Seasonal allergies - J30.2??6.??Left shoulder pain, unspecified chronicity - M25.512??7.??Encounter for screening for depression - Z13.31??8.??Encounter for screening for other disorder - Z13.89??9.??Other specified counseling - Z71.89??10.??BMI 32.0-32.9,adult - Z68.32?? Betina is a 79 year-old female who [...] MPV 11.4. Following with hematology, Dr. Tre Michel, they are in the process of scheduling a blood draw. #hypertension: Taking Lisinopril 10 mg, Diltazem 180 mg, Furosemide 20 MG with compliance. She declines any red flag cardiopulmomary symptoms, chest pain, palpitations, shortness of breath, diaphoresis, dizziness, syncope. Continue Lisinopril 10 mg, daily low dose Aspirin 81 mg, measuring BP at home. #Overweight: Patient is actively doing workout classes at the [facility] with her partner. She has goals to eat more vegetables and fruit, continuing exercise classes as tolerated, increasing hydration. Discussed berberine. #Constipation - Intermittent constipation taking certain anticholinergic medications, using miralax, Avoiding fiber, and Occasional manual disimpaction. She admits that she is not adeuqtely hydrated on a daily basis due to busy lifestyle/forgetting. Patient taking magnesium in the morning, and [...] log exercise and discussed fitness Apps like Flexis which can help keep log off calories taken versus calories burned. Local food should be preferred. Discussed Dirty Dozen Versus Clean Fifteen. Discussed healthy supplements like fish oil, Tumeric, Curcumin, Melatonin, Resveratrol, Probiotics, Vitamin-D, Alpha- Lipoic acid, Vitamin-D and coconut oil. 2. It [...] Dictation was accomplished with the use of Aut[employer] voice recognition software, prone to medical misidentifications and grammatical errors. This is unintentional and the practitioner does try to identify and correct these, but some could still be present. Please do not hesitate to contact practitioner for clarification. Plan: * Treatment: * Procedure Codes:??G0439 ERIC AL WELLNESS VST; PPS SUBSQT VST, G0444 ANNUAL DEPRESSION SCREENING 15 MIN, Modifiers: 59 , G0442 ANNUAL ALCOHOL MISUSE SCREEN 15 MIN, Modifiers: 59 , G0447 FCE-FCE BEHAVRL CNSL OBESITY 15 MIN, Modifiers: 59 , 01509 ADVNCD CARE PLAN 30 MIN, Modifiers: 33 * Images: Billing Information: * Visit Code:?? * Procedure Codes:?? G0439 ANNUAL WELLNESS VST; PPS SUBSQT VST. G0444 ANNUAL DEPRESSION SCREENING 15 MIN. Modifiers: 59 G0442 ANNUAL ALCOHOL MISUSE SCREEN 15 MIN. Modifiers: 59 G0447 FCE-FCE BEHAVRL CNSL OBESITY 15 MIN. Modifiers: 59 [id number] ADVNCD CARE PLAN 30 MIN. Modifiers: 33 Care Plan Details* * Sign off status: Completed true * Provider:??NENO UGARTE PA-C Date:??09/25 History and Physical Notes * HPI (History of Present Illness) Category Sub-Category Detail Notes Category Not es Constitutional Betina is here for routine MWV. RSV: 08/08/2023 Pneumonia: 06/11/2018, 06/04/2020, 06/25/2021 Shingles: 2013, repeat series 08/09/2020, 11/09/2020 Flu: 04/02/2024 COVID: 07/13/2024 Tdap: Obtain at local pharmacy as needed Bone density: 09/20/2022, osteopenia Mammogram: 09/24/2023: Negative, due for repeat, pt will schedule. Colonoscopy:Declines further secondary to age PAP:Declines We reviewed medical history, surgical history, allergies, hospitalization or changes in family history since his last visit. Medications reviewed. Most recent blood work 08/17/2024. Iron 198, TIBC 214, iron saturation 93, ferritin within normal limits, B12 elevated at 925, GFR mildly low at 57, CBC with red blood cell 3.3, hemoglobin 11.3, hematocrit 34.3, MCV 105, MCH 34.8, RDW 16.3, MPV 11.4 Patient following with Patient following with cardiology at [facility], dentist, dermatology, ENT, gastroenterology, hematology Dr. Tre Michel, ophthalmology Dr. Wes Lopez, orthopedics, rheumatology, and urology. ETOH Use: declines Tob Use: declines Drug Use: declines Caffeine Use: Yes Smoke detectors in home: Yes Seatbelt use: Yes PHQ-9: 0 Audit: 0 Other concerns addressed today: Patient had 1 episode of diarrhea yesterday, but took 2 senna and 2 stool softeners prior recommended by GI for constipation. Doing well since. Also followed with her corporate law specialist, who recommends increasing Lasix to 20 mg Daily to 20 mg twice daily as needed.Second doses as needed Physical Examination Category Sub-Category Detail Notes Section Note s General: Age appropriate female, well appearing, no acute distress, speaking in full sentences without respiratory compromise. Well groomed, well developed. Alert, Interactive. Skin: Warm, dry and intact. No lesions/rashes/erythema. HEENT: Normocephalic/atraumatic. EOMI intact. PERRLA. Vision intact. No ptosis or lid lag. Nares without discharge or inflammation. Oral cavity free of plaques or exudates. Dentition well maintained. No pharyngeal erythema. Ear canal without cerumen or discharge. Tympanic membrane visualized including bony structures and cone of light. Neck/Thyroid: Supple, with no lymphadenopathy. Full ROM. Thyroid free of nodules and nonenlarged. Lung: Clear to auscultation bilaterally, no wheezes, rales or rhonchi. No barrel chest. Equal chest rise and fall bilaterally. Cardiac: S1 and S2 appreciated. No murmurs/rubs or gallops. DP pulses intact 2+ bilaterally. Capillary refill <2 seconds. Abdomen: Soft, nontender, normoactive bowel sounds. No rebound/guarding. No CVA tenderness. No Masses. Extremities: Bilateral lower extremities with no edema or rubor. No evidence of varicose veins. Equal tone bilaterally. MSK: Bilateral upper and lower extremities 5/5 strength with flexion/extension. Trackwalker strength 5/5. Sensation intact. 1+ pitting edema around the ankles, without any extension to the shins. Neuro: CN II-XI grossly intact. Steady gait with ambulation observed. Symmetric reflexes. Psych: Stable mood and affect
== END 2024-10-26 13:33 | disposition home or self-care (01) ==
LOC: HO.BBR 13:32
PROVIDERS: Visit Provider Internal Medicine Hematology & Oncology
DX: E83.19 Other disorders of iron metabolism (principal)
CPT/HCPCS: 85018; 99195

== ENCOUNTER 2024-12-21 13:44 | Outpatient (REF) | payer MEDICARE, BC, SELFPAY ==
--- OUTSIDE RECORDS SUMMARY | 2024-12-21 13:59 | XMS_ITS | Data Portability ---
Author Organization [facility] Dalia Graham [facility] [place] Address [address] [place] [address] Care Team Providers Care Carry Out Clerk Name Role Phone MARILU STEEN Primary Care Provider Assessment Encounter Date Assessment Date Assessment LastModified by Organization Details LastModified Time 11/25/2022 11/25/2022 Pleasant 77-year-old female last met Dr. Cardona on 06/11/2022 for her right total knee replacement the performed on April 12, 2022.. She is doing well clinically she can certainly increase the amount of stretching exercises to help with stiffness. She can take hnkj-ivk-xfwespl pain medication for symptomatic relief of discomfort. She does not take her antibiotic prophylaxis. I will have her return in 6 months for repeat clinical exam. She did ask regarding nonsteroidal anti-inflammator y she was on Celebrex however she does have a cardiac history. I would like her to speak with her box strapper before we prescribe a refill on her [...] findings at length with the patient today. We discussed the nature and etiology of this problem along with current treatment options. We discussed the expected course and outcomes and what to expect. We also discussed risks and benefits. All of their questions were answered today, and there was exhibited understanding and comprehension of all that was discussed. 10 minutes were spent reviewing previous imaging and charting. 10 minutes were spent obtaining patient history. 5 minutes were spent on physical exam. 5minutes were spent explaining diagnosis and assessment. Today's [...] findings at length with the patient today. We discussed the nature and etiology of this problem along with current treatment options. We discussed the expected course and outcomes and what to expect. We also discussed risks and benefits. All of their questions were answered today, and there was exhibited understanding and comprehension of all that was discussed. Time Spent: 10 minutes were spent reviewing previous imaging and charting. 10 minutes were spent obtaining patient history. 5 minutes were spent on physical exam. 5minutes were spent explaining diagnosis and assessment. Today's [...] view 2022 023 [place] 14 [facility], [address], [address], [place], [address], 3 16:35:38 XR, knee, 1 or 2 view 2022 023 [email or web address] 14 [facility], [address], [address], [place], [address], 3 16:35:38 Medication Orders amoxicillin 500 mg capsule 2022 023 [id number], [address] [place], [address], 3 07:52:01 Celebrex 100 mg capsule 2022 023 [email or web address] [id number], [address] [place], [address], 3 07:39:07 Patient TargetsNo targets recorded. Patient Instructions Encounter Date Encounter Id Patient Instructions Last Modified By Organization Details Last Modified Time 11/25/2022 [id number] Bilateral knee x-rays reveal well-seated well-positioned total knee arthroplasties bilaterally without signs of loosening. No acute bony abnormality. Not available 11/25/2022 14:19:58 Reason for Referral None Reported. Problems Name Problem SNOMED Code Status Onset Date Resolution Date Notes Provider Name and Address Organization Details Recorded Time Stiffness of left knee 94558811150677 2 Active 2022 LATRELL JIMENEZ PA-C [address], [place], [address], [place] [facility], [facility] 3 14:20:13 Problem Notes None recorded. Medical Equipment None Reported. Allergies Allergen ID Allergen Name Allergen Category Reaction Reaction Severity Criticality Documentation Date Start Date Code Code System Note Provider Name and Address Organization Details Recorded Time 3306 iodine medicatio n Not available Not available Not available 11/25/2022 5933 RxNorm Cindy Linares [facility], [place] [facility], P 3 13:39:53 Medications Name Sig Start [...] Code Diagnosis ICD10 Code Diagnosis Note [id number] JACOB VILLATORO [facility] [address] [address] 11/25/2022 13:24:14 11/25/2022 13:52:41 History of right total knee replacement 3156059108 898723 Z96.651 History of left total knee replacement 1229907479 384121 Z96.652 Stiffness of left knee 7198362909 54346 M25.662 [id number] JACOB VILLATORO [facility] 299 [facility] [address] [place] [address] 04/01/2023 14:51:03 04/01/2023 15:35:17 History of total knee arthroplasty 8158310686 105 Z96.659 Health Concerns Section Related Observation LastModified by Organization Detai ls LastModified Time None Recorded Concern Status LastModified by Organization Details LastModified Time None Recorded Advance Directives Directive None Recorded Payers Encounter Date Sequence Insurance Name Policy Number Policy Lundberg Covered Member ID Lundberg Member ID Guarantor Name 11/25/2022 2 [facility] [id number] Amber Perrin [id number] Amber Perrin 11/25/2022 1 [place]IC[place] [employer] Amber Perrin [id number] Amber Perrin 04/01/2023 2 [facility] [id number] Amber Gómez Marychuy [id number] Amber Marychuy 04/01/2023 1 [place] [facility] Amber Gómez Marychuy [id number] Amber Marychuy Notes Date Note Type Note Provider [...] is currently asymptomatic. LATRELL JIMENEZ PA-C [address] [facility],[address] [address], [place], [address], [place] [facility], P 11/25/2022 14:20:37 04/01/2023 text/html Florentino 77-year-old [...] her amoxicillin and LATRELL JIMENEZ PA-C [address] [facility],[address], [place], [address], [place] [facility], [facility] 04/02/2023 07:52:22 OBGyn Episode No OBEpisode recorded.
== END 2024-12-21 13:45 | disposition home or self-care (01) ==
LOC: HO.BBR 13:44
PROVIDERS: PCP Internal Medicine; Visit Provider Internal Medicine Hematology & Oncology
DX: E83.119 Hemochromatosis, unspecified (principal)
CPT/HCPCS: 85018

== ENCOUNTER 2025-02-01 13:41 | Outpatient (AMB) | payer MEDICARE, BC, SELFPAY ==
--- NOTE | 2025-02-01 13:58 | A.OFFVIS_ITS ---
Intake Visit Reasons: 6m/PVR Intake Note: Patient presents today for a 6m follow up/PVR Urology Medication: Estrace Cream Blood Thinner: aspirin PVR:0ml Fabricator Artificial Breast Required: No Accompanied by: Self / Same As Patient Allergies nitrofurantoin (From Macrobid) Allergy (Intermediate, Verified 02/01/25 13:59) Abdominal Pain iodine Allergy (Unknown, Verified 02/01/25 13:59) Unknown HPI Comments Details: Amber is a pleasant 79-year-old female patient of . She has a past medical history of GERD, arrhythmia, and constipation. She presents to the office today for follow-up of her overactive bladder. In discussion with the patient today she reports to be doing and feeling well. She reports compliance with Estrace cream as prescribed. She denies having had any bothersome urinary issues or concerns since her last office visit. She reports utilizing 2-3 adult diapers per day for incontinence and feels this has been more helpful than overactive bladder medications that have worsened her longstanding history of constipation. We did discussed further treatment options to include in office urodynamics for further assessment evaluation however she feels she is managing symptoms well with her current management. In office urinalysis results reviewed with the patient today. PVR 0 mL. She discusses how well she has been feeling and doing. She also discusses her significant other Josesito's upcoming surgical intervention for his essential tremors out in [place]. When asked she denies urinary urgency, urinary frequency, hematuria, dysuria, foul smelling urine, changes to urinary stream, flank pain, fever, and or chills. She does report noting episodes of nocturia up to 2 times per night however feels this is manageable. She is happy with her current voiding parameters. She otherwise offers no other issues or concerns at this time. 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 Alcohol intake: never Patient Tobacco Use Status: Never used Tobacco Review of Systems Const All systems reviewed & are unremarkable except as noted in HPI and below Reports no additional complaints Eyes Reports no additional complaints ENT Reports no additional complaints Card Reports no additional complaints Resp Reports no additional complaints GI Reports as per HPI Reports as per HPI Musc Reports no additional complaints Neuro Reports no additional complaints Psych Reports no additional complaints Endo Reports no additional complaints Jer/Lymph Reports as per HPI Physical Exam Const General: cooperative, healthy appearing, comfortable, no acute distress, well developed, alert and awake Nutritional Appearance: overweight Orientation/consciousness: patient oriented x3 Limitations: no limitations HEENT Head: Yes normal to inspection, Yes normocephalic and Yes atraumatic Ears: hearing grossly normal bilaterally Eyes General: appearance normal, both eyes and all related structures Neck Neck: Yes normal visual inspection and Yes trachea midline Chest Chest palpation & inspection: normal inspection of the chest Resp Effort & Inspection: normal respiratory effort and able to speak in complete sentences Cardio Rate: regular rate GI Inspection: Yes normal to inspection General: Yes no CVA tenderness Back/Spine/Pelvis Back: no CVA tenderness Neuro General: patient oriented x3 Psych Appearance: grossly normal and well kempt Mental Status: mental status grossly normal Speech and movement: Normal speech and movement present and Clear speech present Affect: normal affect Attitude: cooperative Thought process: Normal thought process present Thought content: Normal thought content present Insight: Fair insight present (Psych) Judgement: Fair judgement present (Psych) Assessment & Plan Assessment & Plan (1) Urinary urgency: Code(s): R39.15 - Urgency of urination Category: Medical (2) Overactive bladder: Code(s): N32.81 - Overactive bladder Category: Medical (3) Recurrent urinary tract infection: Code(s): N39.0 - Urinary tract infection, site not specified Category: Medical (4) Incontinence: Code(s): R32 - Unspecified urinary incontinence Category: Medical Plan In office urinalysis results reviewed with the patient today; as noted above. PVR 0 mL. We discussed at length further treatment options of incontinence and risks and benefits of these treatment options. All questions were answered. She reports be happy with current voiding parameters. She currently denies any bothersome urinary issues or concerns. Prescription provided for incontinent pads Continue Estrace cream as discussed and prescribed. Follow-up in 6 months with PVR; or sooner with any issues, concerns, and or questions. Patient Instructions: The patient had an opportunity to ask questions regarding the treatment plan. All questions were answered. Physical exam, labs, and imaging were discussed and reviewed in detail. As well as risks, benefits, and discussion of treatment choices. No major barriers to understanding were identified. The patient expressed understanding and agreement with the above treatment plan. The patient was made aware they should contact our office by phone for worsening of their current condition, the appearance of new symptoms, or with any questions or concerns. Compliance is encouraged with any medications and follow up testing that is ordered. It is a privilege to be allowed the opportunity to participate in? your urological care.? Again, if you have any questions or concerns If you have any questions or concerns please do not hesitate to contact me. The office is [phone]. This note is constructed using voice recognition software. While every effort has been made to ensure accuracy testing manager errors may have been included. Yours sincerely, JOAN Loza Coding Level of Care Code Est Pt Level 3 (30630) Complex EM visit Add On G2211 Diagnoses Urinary urgency R39.15 Overactive bladder N32.81 Recurrent urinary tract infection N39.0 Incontinence R32
--- OUTSIDE RECORDS SUMMARY | 2025-02-01 14:29 | XMS_ITS | Patient Health Record ---
Author Organization [facility] Address [address] [place] [address] Care Team Providers Care Insecticide Expert Name Role Phone Maranda MARISCAL, [place] Primary Care Provider Pratibha Kip Loza Unavailable [phone] Allergies Allergen (clinical drug ingredient) Drug/Non Drug Allergy documented on EMR Reaction Allergy Type Onset Date Status Iodine Unknown Drug Allergy Active Reason For Referral No Information Medications Medication SIG (Take, Route, Frequency, Duration) Notes Start Date End Date Status Aspir-81 81 MG 1 tablet Orally Once a day Active Fish Oil Active Lisinopril 10 MG 1 tablet Orally Once a day Active Multi Vitamin/Minerals Orally Active Colyte w Flavor Packs 240 GM as directed Orally as directed for 1 day(s) 11/18/2014 Active Vitamin C 500 MG Orally Act alyson Immunizations Vaccine Route Administration Date Status Comme nts Flu vaccine no Preserv 3 and > Unknown 08/10/2014 Admin istered Problems Problem Type SNOMED Code ICD Code Onset Dates Problem Status W/U Status Risk Notes Problem Pre-surgery evaluation (294880148) Other specified pre-operative examination (V72.83) Active confirmed Problem Colon cancer screening (374207146) Colon cancer screening (V76.51) Active confirmed Problem Hypertension (99120666) Hypertension (401.9) Active confirmed Plan Of Treatment Future Test Test Name Order Date COLONOSCOPY 11/15/2014 Insurance Providers Payer Name Payer Address Payer Phone Subscriber Number Group Number Insured Name Patient Relationship to Insured Coverage Start Date Coverage End Date MED[place] [address] [place] [id number] [phone] [id number] ABIEL REYNOSO Self - patient is the insured HMO [facility] CLAIM[facility] [address] [place] [address] [id number] EDGARDOABIEL Self - patient is the insured Medical (General) History Medical History History ICD Code Denies DE,DM,CVA,Lung disease,renal dise ase Hypertension Negative colon[place] [address] Tsering diaz Surgical History Surgery Date(Month/Year) Partial hysterectomy 1997 D & C Right carpal tunnel release Vein ligation in the legs Bladder suspension
--- OUTSIDE RECORDS SUMMARY | 2025-02-01 14:29 | XMS_ITS | Data Portability ---
Author Organization [facility] Dalia Graham [facility] [place] Address [address] [place] [address] Care Team Providers Care Internet Ecommerce Specialist Name Role Phone MARILU SETEN Primary Care Provider Assessment Encounter Date Assessment Date Assessment LastModified by Organization Details LastModified Time 11/25/2022 11/25/2022 Pleasant 77-year-old female last met Dr. Cardona on 06/11/2022 for her right total knee replacement the performed on April 12, 2022.. She is doing well clinically she can certainly increase the amount of stretching exercises to help with stiffness. She can take yamj-bwf-ldugjch pain medication for symptomatic relief of discomfort. She does not take her antibiotic prophylaxis. I will have her return in 6 months for repeat clinical exam. She did ask regarding nonsteroidal anti-inflammator y she was on Celebrex however she does have a cardiac history. I would like her to speak with her junior underwriter before we prescribe a refill on her [...] knee, 1 or 2 view 2022 023 [facility], [address], [address], [place], [address], 3 16:35:38 XR, knee, 1 or 2 view 2022 023 [facility], [address], [place], [address], 3 16:35:38 Medication Orders amoxicillin 500 mg capsule 2022 023 [id number], [address] [place], [address], 3 07:52:01 Celebrex 100 mg capsule 2022 023 [email or web address] [id number], [address] [place], [address], 3 07:39:07 Patient TargetsNo targets recorded. Patient Instructions Encounter Date Encounter Id Patient Instructions Last Modified By Organization Details Last Modified Time 11/25/2022 [id number] Bilateral knee x-rays reveal well-seated well-positioned total knee arthroplasties bilaterally without signs of loosening. No acute bony abnormality. Not available 11/25/2022 14:19:58 Reason for Referral None Reported. Problems Name Problem SNOMED Code Status Onset Date Resolution Date Notes Provider Name and Address Organization Details Recorded Time Stiffness of left knee 78002783488191 2 Active 2022 LATRELL JIMENEZ PA-C [address], [place], [address], [place] [facility], P 3 14:20:13 Problem Notes None recorded. Medical Equipment None Reported. Allergies Allergen ID Allergen Name Allergen Category Reaction Reaction Severity Criticality Documentation Date Start Date Code Code System Note Provider Name and Address Organization Details Recorded Time 3306 iodine medicatio n Not available Not available Not available 11/25/2022 5933 RxNorm Cindy Linares [facility], [place] [facility], P 3 13:39:53 Medications Name Sig Start [...] ICD10 Code Diagnosis Note [id number] JACOB VILLATORO [facility] 299 [facility] [address] [place] [address] 11/25/2022 13:24:14 11/25/2022 13:52:41 History of right total knee replacement 0708950626 691655 Z96.651 History of left total knee replacement 2411186338 285435 Z96.652 Stiffness of left knee 5396623480 92193 M25.662 [id number] JACOB VILLATORO [facility] 299 [facility] [address] [place] [address] 04/01/2023 14:51:03 04/01/2023 15:35:17 History of total knee arthroplasty 5142506448 105 Z96.659 Health Concerns Section Related Observation LastModified by Organization Detai ls LastModified Time None Recorded Concern Status LastModified by Organization Details LastModified Time None Recorded Advance Directives Directive None Recorded Payers Insurance Date Sequence Insurance Name Policy Number Policy Lundberg Covered Member ID Lundberg Member ID Guarantor Name 04/01/2023 2 [facility] [id number] Amber Perrin [id number] Amber Perrin 03/29/2023 1 MEDICARE [place]: [facility] Amber Perrin [id number] Amber Perrin Notes Date Note Type [...] is currently asymptomatic. LATRELL JIMENEZ PA-C 299 [facility],[address] [address], [place], [address], [place] [facility], P 11/25/2022 14:20:37 04/01/2023 text/html Florentino 77-year-old [...] her amoxicillin and LATRELL JIMENEZ PA-C 299 [facility],[address], [place], [address], [place] [facility], P 04/02/2023 07:52:22 OBGyn Episode No OBEpisode recorded.
--- OUTSIDE RECORDS SUMMARY | 2025-02-01 14:30 | XMS_ITS | Clinical Summary ---
Author Organization [facility] Address [address] [place] [address] Care Team Providers Care Vending Machine Assembler Name Role Phone Alejandro Oglesby MD Primary Care Provider [phone] Allergies Active Allergy Reactions Criticality Noted Date [...] 77 03/31/2024 11:03 AM EDT Temperature 36.4 C (97.6 F) 03/31/2024 11:03 AM EDT Respiratory Rate - - Oxygen Saturation 100% [...] 1-dose 75+ series) 10/03/2018 Influenza Vaccine (#1) 2025 07/28/2018 Hepatitis B Vaccines Aged Out No long er eligible based on patient's age to complete this topic RSV Ped < 20 months Aged Out No longe r eligible based on patient's age to complete this topic Care Teams Vending Machine Assembler Relationship Specialty Start Date End Date Alejandro Oglesby MD [address] [place] [address] PCP - General Internal Medicine 08/13/22
--- OUTSIDE RECORDS SUMMARY | 2025-02-01 14:30 | XMS_ITS | Patient Health Record ---
Author Organization [facility] [address] Address [address] [place] [address] Care Team Providers Care Ski Technician Name Role Phone NENO FRANCES Unavailable [phone] OGLESBYMARILU BEAR Unavailable [phone] KATHY TEZ Unavailable [phone] Allergies Allergen (clinical drug ingredient) Drug/Non Drug Allergy documented on EMR Reaction Allergy Type Onset Date Status Iodine hives Drug Allergy Active Results Component Value Reference Range Notes FERRITIN Reviewed date:08/27/2024 10:06:13 AM Interpretation: Performing Lab: Notes/Report: Ferritin 96 8-252 ng/mL IRON AND TIBC Reviewed date:08/27/2024 10:06:13 AM Interpretation: Performing Lab: Notes/Report: Iron 198 40-150 mcg/dL TIBC 214 250-450 mcg/dL Iron Saturation 93 15-50 % VITAMIN B12 Reviewed date:08/27/2024 10:06:13 AM Interpretation: Performing Lab: Notes/Report: Vitamin B-12 925 250-900 pcg/mL COMPREHENSIVE METABOLIC PANE L Reviewed date:08/27/2024 10:06:13 [...] 3.2-5.0 g/dL Total Bilirubin 1.0 0.0-1.4 mg/dL CBC WITH AUTO DIFFERENTIAL Reviewed date:08/27/2024 10:06:13 [...] K/mcL Immature Granulocytes Absolute 0.04 0.00-0.03 K/mcL VITAMIN B12 Reviewed date:04/12/2024 07:49:43 AM Interpretation: Performing Lab: Notes/Report: [employer], a member of [address] [address] [employer]ice - Meg Campos MD VITAMIN B12 892 250-900 pg/mL LIPID PROFILE Reviewed date:04/12/2024 07:49:43 AM Interpretation: Performing Lab: Notes/Report: CHOLESTEROL 141 0-200 mg/dL TRIGLYCERIDES 53 0-150 mg/dL HDL CHOLESTEROL 65 >40 mg/dL LDL CALCULATED 66 0-100 mg/dL TC-HDLC RATIO 2.2 0-4.4 mg/dL CBC WITH AUTO DIFF Reviewed date:03/30/2024 07:51:16 AM Interpretation: Performing Lab: Notes/Report: Original Ordering Provider: TRE JAIMES MD [employer], [place] [address] [employer] - Meg Campos MD WBC 6.7 4.8-10.8 x10-3/uL RBC 2.9 3.8-4.8 [...] x10-3/uL IMMATURE GRANULOCYTES # 0.04 0-0.03 x10-3/uL COMPREHENSIVE METABOLIC PANE L Reviewed date:04/12/2024 07:49:43 AM Interpretation: Performing Lab: Notes/Report: Note Original Orderi ng Provider: NENO UGARTE PA-C GLUCOSE 99 70-100 [...] U/L ALK PHOS 72 42-121 U/L CBC Reviewed date:04/12/2024 07:49:53 AM Interpretation: Performing Lab: Notes/Report: Note Original Ordering Provider: NENO UGARTE PA-C [employer] [address] [employer] - Meg Campos MD WBC 5.7 4.8-10.8 [...] Note Original Ordering Provider: NENO UGARTE PA-C [employer], a member of [address] [address] [employer] - Meg Campos MD FERRITIN Reviewed date:06/10/2024 11:55:29 AM Interpretation: Performing Lab: Notes/Report: Ferritin 65 8-252 ng/mL IRON AND TIBC Reviewed date:06/10/2024 11:55:29 AM Interpretation: Performing Lab: Notes/Report: Iron 149 40-150 mcg/dL TIBC 213 250-450 mcg/dL Iron Saturation 70 15-50 % VITAMIN B12 Reviewed date:06/10/2024 11:55:29 AM Interpretation: Performing Lab: Notes/Report: Vitamin B-12 1074 250-900 pcg/mL MG MAMMO DIGITAL SCREENING W LOCO BILAT Reviewed date:12/16/2024 09:09:31 AM Interpretation: Performing Lab: Notes/Report: Note See Note [facility], a member of [employer] Patient Name: BETINA REYNOSO Date of : 1945 Reason for Exam: Exam Date: 11/26/2024 [id number] EST Report Status: Final Ordering Provider: SELF REFERRAL SPPL PCP: CRAIG OGLESBY CLINICAL: 79 years o ld, Female, routine annual exam. COMPARISON: 09/16/19, 09/20/2022, 09/18/2021, 08/28/2020 and 05/10/2019 TECHNIQUE: Bilateral MLO and CC views were obtained digitally with 3-D mammogram (digital breast tomosynthesis). Computer-aided detection was utilized in evaluation of this exam (CAD). FINDINGS: There is no evidence of suspicious mass or architectural distortion. No worrisome calcifications are evident. There has been no significant change from prior exam(s). BREAST DENSITY: A - The breasts are almost entirely fatty. IMPRESSION: No evidence of breas t malignancy. BI-RADS CATEGORY: 1 - NEGATIVE RECOMMENDATION: Screening bilateral mammogram is recommended in 1 year. Mammo Location: [facility], [address] [place] [address], [id number], . -------- FINAL REPOR T -------- Dictated By: Jeniffer Garza Dictated Date: 11/26/2024 14:47 ET Assigned Physician: Jeniffer Garza Reviewed and Electronically Signed By: Jeniffer Garza Signed Date: 025 14:59 ET Workstation ID: [id number] Transcribed By: Self Edit Transcribed Date: 11/26/2024 14:47 ET COMPREHENSIVE METABOLIC PANE L Reviewed date:06/10/2024 11:30:03 [...] 3.2-5.0 g/dL Total Bilirubin 0.8 0.0-1.4 mg/dL CBC WITH AUTO DIFFERENTIAL Reviewed date:06/10/2024 11:24:09 [...] K/mcL Immature Granulocytes Absolute 0.07 0.00-0.03 K/mcL FERRITIN Reviewed date:03/29/2024 09:41:32 AM Interpretation: Performing Lab: Notes/Report: FERRITIN 53 8-252 ng/mL Note [employer], a member of [address] [address] [employer] - Meg Campos MD TOTAL IRON BINDING CAPACITY Reviewed date:03/30/2024 07:51:02 AM Interpretation: Performing Lab: Notes/Report: TOTAL IRON BINDING CAPACITY 233 250-450 ug/dL IRON (FE) 96 40-150 ug/dL % FE SATURATION 41 15-50 % BASIC METABOLIC PANEL (BMP) Reviewed date:03/30/2024 07:50:27 AM Interpretation: Performing Lab: Notes/Report: REQ# [id number] Original Ordering Provider: EDIL GEE [employer], a member of [address] [address] [employer] - Meg Campos MD GLUCOSE 110 70-100 mg/dL Reference range applicable to fasting specimens only BUN 20 5-25 mg/dL CREAT 0.89 0.5-1.1 mg/dL GLOMERULAR FILTRATION RATE 66 >60 This eGFR result was calculated using the CKD-EPI 2020 Creatinine Equation SODIUM 137 135-145 mEq/L POTASSIUM 4.4 3.5-5.5 mmol/L CHLORIDE 106 96-110 mmol/L CO2 25 21-32 mmol/L ANION GAP 6 3-11 CALCIUM 8.7 8.5-10.5 mg/dL VITAMIN B12 Reviewed date:03/30/2024 07:50:37 AM Interpretation: Performing Lab: Notes/Report: VITAMIN B12 1142 250-900 pg/mL COMPREHENSIVE METABOLIC PANE L Reviewed date:03/30/2024 07:51:10 AM Interpretation: Performing Lab: Notes/Report: Note Original Orderi ng Provider: TRE JAIMES MD GLUCOSE 110 70-100 mg/dL Reference range applicable to fasting specimens only BUN 20 5-25 mg/dL CREAT 0.89 0.5-1.1 mg/dL GLOMERULAR FILTRATION RATE 66 >60 This eGFR result was calculated using the CKD-EPI 202 Creatinine Equation SODIUM 137 135-145 mEq/L POTASSIUM 4.4 3.5-5.5 mmol/L CHLORIDE 106 96-110 mmol/L CO2 25 21-32 mmol/L ANION GAP 6 3-11 CALCIUM 8.7 8.5-10.5 mg/dL TOTAL PROTEIN 6.7 6.0-8.0 G/dL ALBUMIN 3.5 3.2-5.0 G/dL BILI,TOTAL 0.7 0.0-1.4 mg/dL SGOT 18 10-42 U/L SGPT 20 10-60 U/L ALK PHOS 72 42-121 U/L Reason For Referral Reason Bobby Jerome MD Diagnosis 1 Bilateral hearing lo ss, unspecified hearing loss type (H91.93) [facility] Referring Provider First Name NENO Referring Provider Last Name YVROSE Referring Provider Speciality Internal M edicine Referred Provider Specialty Ear, nose an d throat surgeon General Notes MINDY LONI 0 02/05/2024 10:48:27 AM >info sent over to ent with forms- pt has number to call Referral Priority Routine Diagnosis 1 Left shoulder pain, unspecified chronicity (M25.512) Diagnosis 2 Left ankle pain, uns pecified chronicity (M25.572) Referral Organization [facility] Referring Provider First Name NENO Referring Provider Last Name YVROSE Ref[facility] Referred Provider Specialty Physical The rapist General Notes Irma Norman 2023 02:57:41 PM > ati form filled out and faxed over with recent note Referral Priority Routine Medications Medication SIG (Take, Route, Frequency, Duration) Notes Start Date End Date Status Furosemide 20 MG 1 tablet Orally Twic e daily PRN; Duration: 90 days Active dilTIAZem HCl 120 MG as directed Orally Active Senna Active Biotin Active Aspir-81 Active Clotrimazole-Betameth & Zn Ox 1-0.05 & 20 % as directed Externally A ctive Fexofenadine HCl 180 MG 1 tablet Swallow whole with water; do not take with fruit juices. Orally Once a day Active Multi Vitamin Active Celecoxib 200 MG TAKE 1 CAPSULE ONCE DAILY WITH FOOD; Duration: 90 Active Estradiol Active Magnesium Citrate Ac tive Multi Complete Activ e CoQ-10 Active Famotidine 20 MG 1 tablet Orally twic e daily; Duration: 90 days Active Fluticasone Furoate 27.5 MCG/SPRAY 2 sprays (1 spray in each nostril) Nasally Once a day Active Omeprazole 20 MG 1 capsule 1/2 to 1 h our before morning meal Orally Once a day Active Myrbetriq 25 MG 1 tablet Orally Once a day Active Immunizations Vaccine Route Administration Date Status Comme nts RSV-MAb (Respiratory syncyti al virus immune globulin), IM use Unknown 08/08/2023 Administered Problems Problem Type SNOMED Code ICD Code Onset Dates Problem Status W/U Status Risk Notes Problem Vitamin D deficiency (52030795) Vitamin D deficiency, unspecified (E55.9) Active confirmed Problem Hereditary hemochromatosis (89058238) Hereditary hemochromatosis (E83.110) Active confirmed Problem Arthritis (7461470) Arthritis (M19.90) Active c onfirmed Problem Shoulder joint pain (487508823) Left shoulder pain, unspecified chronicity (M25.512) Active confirmed Problem Seasonal allergy (157074083) Seasonal allergies (J30.2) Active confirmed Problem Osteopenia (646394292) Osteopenia, unspecified location (M85.80) Active confirmed Problem COVID-19 (994491781) COVID-19 (U07.1) Active confirmed Problem Essential hypertension (96482356) Hypertension, unspecified type (I10) Active confirmed Problem Gastroesophageal reflux disease (352561794) Gastroesophageal reflux disease, unspecified whether esophagitis present (K21.9) Active confirmed Problem Hearing loss (09989963) Bilateral hearing loss, unspecified hearing loss type (H91.93) Active confirmed Problem Cataract (663930967) Cataract of both eyes, unspecified cataract type (H26.9) Active confirmed Problem BMI 30+ - obesity (460854219) BMI 32.0-32.9,adult (Z68.32) Active confirmed Problem Amnesia (76810285) Memory change (R41.3) Active confirmed Problem Primary hypertension (93520049) Primary hypertension (I10) Active confirmed Problem Body mass index 30+ - obesity (103857980) BMI 30.0-30.9,adult (Z68.30) Active confirmed Problem Hemochromatosis (714767153) Hemochromatosis, unspecified hemochromatosis type (E83.119) Active confirmed Problem Essential hypertension (38195994) Hypertension, essential (I10) Active confirmed Problem Gastroesophageal reflux disease (509942639) GERD (gastroesophageal reflux disease) (K21.9) Active confirmed Problem Urinary incontinence (180719610) Urinary incontinence in female (R32) Active confirmed Vital Signs Heart Rate 87 /min 10/07/2024 Oximetry 98 % 10/07/2024 Blood pressure diastolic 70 mm Hg 10/07/2024 Height 66 in 10/07/2024 Blood pressure systolic 128 mm Hg 10/07/2024 Weight 203.1 lbs 10/07/2024 BMI 32.78 kg/m2 10/07/2024 Encounters Encounter Location Date Provider Diagnosis [facility] [address] [place] [address] 02/04/2024 NENO FRANCES Memory change R41.3 ; Chronic constipation K59.09 ; Hereditary hemochromatosis E83.110 ; Hypertension, unspecified type I10 and Seasonal allergies J30.[address] [facility] [address] [place] [address] 03/15/2024 TEZ CHAVEZ COVID-19 U07.1 ; Mer karissa hypertension I10 ; Urinary incontinence in female R32 and Hereditary hemochromatosis E83.[address] [facility] [address] [place] [address] 05/06/2024 NENO FRANCES Chronic constipation K59.09 ; Hereditary hemochromatosis E83.110 ; Hypertension, unspecified type I10 and Seasonal allergies J30.[address] [facility] [address] [place] [address] 07/01/2024 NENO FRANCES Hereditary hemochromatosis E83.110 ; Chronic constipation K59.09 ; Hypertension, unspecified type I10 ; Seasonal allergies J30.2 and Left shoulder pain, unspecified chronicity M25.[address] [facility] [place] [address] 10/07/2024 NENO FRANCES Chronic constipation K59.09 ; Wellness examination Z00.00 ; Hereditary hemochromatosis E83.110 ; Hypertension, unspecified type I10 ; Seasonal allergies J30.2 ; Left shoulder pain, unspecified chronicity M25.512 ; Encounter for screening for depression Z13.31 ; Encounter for screening for other disorder Z13.89 ; Other specified counseling Z71.89 and BMI 32.0-32.9,adult Z68.[address] [facility] [address] [place] [address] 03/15/2024 NENO FRANCES [facility] [address] [place] [address] 04/02/2024 NENO FRANCES Lipid screening Z13. 220 ; Routine adult health maintenance Z00.00 and Vitamin B12 deficiency E53.8 [facility] [address] [place] [address] 04/09/2024 NENO FRANCES [facility] [address] [place] [address] 04/19/2024 NENO FRANCES [facility] [address] [place] [address] 04/26/2024 NENO SETHNER [facility] [address] [place] [address] 08/10/2024 NENO FRANCES [facility] [address] [place] [address] 08/19/2024 NENO FRANCES [facility] [address] [place] [address] 10/18/2024 TALBELLA OGLESBY [facility] [address] [place] [address] 10/25/2024 NENO FRANCES Breast screening Z12 .39 [facility] [address] [place] [address] 12/02/2024 TALBELLA OGLESBY [facility] [address] [place] [address] 02/01/2025 NENO FRANCES Assessments Encounter Date Diagnosis (ICD Code) Assessment Notes Treatment Notes Treatment Clinical Notes Section Notes 02/04/2024 Memory change (ICD-10 - R41.3) Betina [...] is [facility] with her [facility]. She has goals to [...] Dictation was accomplished with the use of [employer] voice recognition software, prone to medical misidentifications [...] is actively doing workout classes at the [facility] with her partner. She has goals [...] working, will follow with gastroenterology, but trial Latoya. If no bowel movement in 3 days, [...] Dictation was accomplished with the use of [employer] voice recognition software, prone to medical misidentifications and grammatical errors. This is unintentional and the practitioner does try to identify and correct these, but some could still be present. Please do not hesitate to contact practitioner for clarification. 03/15/2024 COVID-19 (ICD-10 - U07.1) Patient consents [...] reviewed. Dictation completed with the use of [employer] voice recognition software, prone to medical misidentifications [...] reviewed. Dictation completed with the use of [employer] voice recognition software, prone to medical misidentifications and grammatical errors. All errors are unintentional. Although the practitioner does try to identify and correct errors, some may be present. Please do not hesitate to contact the practitioner for clarification. 04/02/2024 Lipid screening (ICD-10 [...] is actively doing workout classes at the [facility] with her partner. She has goals [...] Dictation was accomplished with the use of [employer] voice recognition software, prone to medical misidentifications [...] is actively doing workout classes at the [facility] with her partner. She has goals [...] Dictation was accomplished with the use of [employer] voice recognition software, prone to medical misidentifications [...] is actively doing workout classes at the [facility] with her partner. She has goals [...] Dictation was accomplished with the use of [employer] voice recognition software, prone to medical misidentifications [...] is actively doing workout classes at the [facility] with her partner. She has goals [...] log exercise and discussed fitness Apps like [email or web address] which can help keep log off calories [...] Dictation was accomplished with the use of [employer] voice recognition software, prone to medical misidentifications [...] is actively doing workout classes at the [facility] with her partner. She has goals [...] log exercise and discussed fitness Apps like [email or web address] which can help keep log off calories [...] Dictation was accomplished with the use of [employer] voice recognition software, prone to medical misidentifications and grammatical errors. This is unintentional and the practitioner does try to identify and correct these, but some could still be present. Please do not hesitate to contact practitioner for clarification. 10/25/2024 Breast screening (ICD-10 - Z12.39) 05/06/2024 Hypertension, unspecified type (ICD-10 - I10) [...] is actively doing workout classes at the [facility] with her partner. She has goals [...] Dictation was accomplished with the use of [employer] voice recognition software, prone to medical misidentifications and grammatical errors. This is unintentional and the practitioner does try to identify and correct these, but some could still be present. Please do not hesitate to contact practitioner for clarification. 04/02/2024 Routine adult health maintenance (ICD-10 - Z00.00) 07/01/2024 Chronic constipation (ICD-10 - K59.09) Betina [...] is actively doing workout classes at the [facility] with her partner. She has goals [...] Dictation was accomplished with the use of [employer] voice recognition software, prone to medical misidentifications [...] is actively doing workout classes at the [facility] with her partner. She has goals [...] log exercise and discussed fitness Apps like [email or web address] which can help keep log off calories [...] Dictation was accomplished with the use of [employer] voice recognition software, prone to medical misidentifications [...] reviewed. Dictation completed with the use of [employer] voice recognition software, prone to medical misidentifications [...] is actively doing workout classes at the [facility] with her partner. She has goals [...] Dictation was accomplished with the use of [employer] voice recognition software, prone to medical misidentifications [...] reviewed. Dictation completed with the use of [employer] voice recognition software, prone to medical misidentifications and grammatical errors. All errors are unintentional. Although the practitioner does try to identify and correct errors, some may be present. Please do not hesitate to contact the practitioner for clarification. 04/02/2024 Vitamin B12 deficiency (ICD-10 - E53.8) 07/01/2024 Hypertension, unspecified type (ICD-10 - I10) [...] is actively doing workout classes at the [facility] with her partner. She has goals [...] Dictation was accomplished with the use of [employer] voice recognition software, prone to medical misidentifications [...] is actively doing workout classes at the [facility] with her partner. She has goals [...] Dictation was accomplished with the use of [employer] voice recognition software, prone to medical misidentifications and grammatical errors. This is unintentional and the practitioner does try to identify and correct these, but some could still be present. Please do not hesitate to contact practitioner for clarification. 05/06/2024 Seasonal allergies (ICD-10 - J30.2) Betina [...] is actively doing workout classes at the [facility] with her partner. She has goals [...] Dictation was accomplished with the use of [employer] voice recognition software, prone to medical misidentifications [...] is actively doing workout classes at the [facility] with her partner. She has goals [...] log exercise and discussed fitness Apps like [email or web address] which can help keep log off calories [...] Dictation was accomplished with the use of [employer] voice recognition software, prone to medical misidentifications [...] is actively doing workout classes at the [facility] with her partner. She has goals [...] Dictation was accomplished with the use of [employer] voice recognition software, prone to medical misidentifications [...] is actively doing workout classes at the [facility] with her partner. She has goals [...] log exercise and discussed fitness Apps like [email or web address] which can help keep log off calories [...] Dictation was accomplished with the use of [employer] voice recognition software, prone to medical misidentifications [...] [facility]. She has goals to [...] Dictation was accomplished with the use of [employer] voice recognition software, prone to medical misidentifications [...] is actively doing workout classes at the [facility] with her partner. She has goals [...] log exercise and discussed fitness Apps like [email or web address] which can help keep log off calories [...] Dictation was accomplished with the use of [employer] voice recognition software, prone to medical misidentifications [...] is actively doing workout classes at the [facility] with her partner. She has goals [...] Dictation was accomplished with the use of [employer] voice recognition software, prone to medical misidentifications [...] is actively doing workout classes at the [facility] with her partner. She has goals [...] log exercise and discussed fitness Apps like [email or web address] which can help keep log off calories [...] Dictation was accomplished with the use of [employer] voice recognition software, prone to medical misidentifications [...] is actively doing workout classes at the [facility] with her partner. She has goals [...] log exercise and discussed fitness Apps like [email or web address] which can help keep log off calories [...] Dictation was accomplished with the use of [employer] voice recognition software, prone to medical misidentifications [...] is actively doing workout classes at the [facility] with her partner. She has goals [...] log exercise and discussed fitness Apps like [email or web address] which can help keep log off calories [...] Dictation was accomplished with the use of [employer] voice recognition software, prone to medical misidentifications [...] is actively doing workout classes at the [facility] with her partner. She has goals [...] log exercise and discussed fitness Apps like [email or web address] which can help keep log off calories [...] Dictation was accomplished with the use of [employer] voice recognition software, prone to medical misidentifications and grammatical errors. This is unintentional and the practitioner does try to identify and correct these, but some could still be present. Please do not hesitate to contact practitioner for clarification. Plan Of Treatment Pending Test Test Name Order Date MAMMOGRAM, [...] FRANCES, 02/08/2025 10:30:00 AM, [address], [place], [address], Insurance Providers Payer Name Payer Address Payer Phone Subscriber Number Group Number Insured Name Patient Relationship to Insured Coverage Start Date Coverage End Date Medicare Part B J14 [address] [facility] [place] [address] [id number] BETINA REYNOSO Self - patient is the insured [employer]vantage [address] [place] [address] [phone] [id number] BETINA REYNOSO Self - patient is the insured Medical (General) History Medical History History ICD Code hx COVID [...]
--- OUTSIDE RECORDS SUMMARY | 2025-02-01 14:30 | XMS_ITS | Clinical Summary ---
Author Organization [facility] Address [address] [place] [address] Phone Care Team Providers Care Rn Iv Therapy Name Role Phone Unavailable Primary Care Provider Unavailabl e Allergies Active Allergy Reactions Criticality Noted Date Comments Iodine 07/15/2017 Nitrofurantoin Monohyd/M-Cryst 08/18 Medications acetaminophen (TYLENOL) 500 mg tablet 2 Active aspirin 81 mg EC tablet Take 1 tablet (81 mg total) by mouth 1 (one) time each day. Active betamethasone, augmented, (DIPROLENE-AF) 0.05 % cream APPLY TO RASH ON LEGS TWICE A DAY FOR 2 WEEKS ON, 1 WEEK OFF 7 Active clobetasoL (TEMOVATE) 0.05 % cream 8 Active famotidine (PEPCID) 20 mg tablet Take 1 tablet (20 mg total) by mouth 2 (two) times a day. 1 Active fluticasone propionate (FLONASE) 50 mcg/actuation nasal spray spray/apply 1 spray in each nostril daily. Active furosemide (LASIX) 20 mg tablet Take 1 tablet (20 mg total) by mouth 1 (one) time each day. Active estradioL (ESTRACE) 0.01 % (0.1 mg/gram) vaginal cream Insert 2 g into the vagina every 3 (three) days. Active docusate sodium (COLACE) 100 mg capsule Take 1 capsule (100 mg total) by mouth 1 (one) time each day. Active MAGNESIUM ORAL Take 420 mg by mouth 1 (one) time each day. Active dihydroberberi ne (BERBERINE ES-5 ORAL) Take 2,000 mg by mouth 1 (one) time each day. Active coenzyme Q-10 (Co Q-10) 100 mg capsule Take 1 capsule (100 mg total) by mouth 1 (one) time each day. Active COLLAGEN-BIOTI N-ASCORBIC ACID ORAL Take 1 tablet by mouth 1 (one) time each day. Active multivitamin tablet Take 1 tablet by mouth 1 (one) time each day. Active ascorbic acid (VITAMIN C) 500 mg tablet Take 1 tablet (500 mg total) by mouth 1 (one) time each day. Active cholecalcifero l (VITAMIN D-3) 25 mcg (1,000 unit) tablet Take 1 tablet (1,000 Units total) by mouth 1 (one) time each day. Active TURMERIC ORAL Take 1 tablet by mouth 1 (one) time each day. Active celecoxib (CeleBREX) 200 mg capsule Take 1 capsule (200 mg total) by mouth 1 (one) time each day. 01/11/20 25 Discontinued Active Problems Problem Noted Date Diagnosed Date PAC (premature atrial contraction) 12/01/2024 Assessment & Plan (12/01/2024 12:57 PM EDT): Previous hospital monitor showed frequent PACs of about 26.3%. Patient was asymptomatic. She has been on diltiazem but this is causing issues with significant constipation. We will monitor for recurrent PACs. Hereditary hemochromatosis ([facility]/HCC V24) 022 Arthritis of knee, right 01/08/2022 Hyperlipidemia 12/13/2021 Overview (12/01/2024): Last Assessment & Plan: Patient states that she recently underwent evaluation for blood work with her primary care provider. Her last LDL on file was 64 and this is with range. Patient encouraged to continue with a low-fat diet. Assessment & Plan (12/01/2024 12:57 PM EDT): She is following low fat diet. I have reviewed with the patient the importance of a heart healthy lifestyle which includes eating a low-fat low-salt diet, getting regular exercise, maintaining a healthy weight, not smoking, and following up with routine medical care. Hypertension 12/13/2021 Overview (12/01/2024): Last Assessment & Plan: Patient's blood pressure borderline with a reading today of 140/70. Home blood pressure readings also have been running slightly elevated. I will add back lisinopril 10 mg daily and repeat a basic metabolic panel in 1 week. Assessment & Plan (12/01/2024 12:57 PM EDT): Due to issues with constipation we will stop Diltiazem and instead try lisinopril 20mg daily for her hypertension. She will continue to monitor BP and we will see her back in 6 weeks for reassessment. She will let us know if palpitations return. Iron overload 11/25/2021 Arthritis of knee, left 01/22/2019 Arthritis of knee, right 05/21/2018 Encounters Date Type Department Care Team Description 01/10/2025 11:00 AM EDT Office Visit [facility] Hematology Oncology [address] [place] [address] Tre Michel MD Hereditary hemochromatosis (CMS/HCC V24) (Primary Dx) 12/13/2024 Telephone [facility] Cardiology [facility] [address] [facility] [address] [place] [address] Monalisa Cueva NP Medication Problem 12/01/2024 11:10 AM EDT Office Visit [facility] [place] [address] [facility] [address] [place] [address] Monalisa Cueva NP Primary hypertension (Primary Dx); Mixed hyperlipidemia; PAC (premature atrial contraction) 11/26/2024 1:00 PM EDT - 11/26/2024 11:59 PM EDT Hospital Encounter [facility] [address] [place] [address] Encounter for screening mammogram for breast cancer Discharge Disposition: Home or Self Care from Last 3 Months Surgical History Surgery [...] = 0.6 oz pur e alcohol) Comments No Sex and Gender Information Value Date Recorded Sex Assigned at Not on file Legal Sex Female 2:20 AM EST Gender Identity Not on file Sexual Orientation Not on file Obstetrics History Para Term AB IAB SAB Ectopic Multiple Livin g Live Births 3 Last Filed Vital Signs Vital Sign Reading Time Taken Comments Blood Pressure 147/61 01/10/2025 10:54 AM EDT Pulse 64 01/10/2025 10:54 AM EDT Temperature 36.1 C (97 F) 01/10/2025 10:54 AM EDT Respiratory Rate - - Oxygen Saturation 98% 01/10/2025 10:54 AM EDT Inhaled Oxygen Concentration - - Weight 90.7 kg (200 lb) 01/10/2025 10:54 AM EDT Height 157.5 cm (5' 2 ) 12/01/2024 11:12 AM EDT Body Mass Index 36.58 12/01/2024 11:12 AM EDT Plan of Treatment Upcoming Encounters Date Type Department Care Team (Late st Contact Info) Description 07/12/2025 11:15 AM EST Office Visit [facility] Hematology Oncology [address] [place] [address] Tre Michel MD [address] [place] [address] Health Maintenance Due Date Last Done Comments DTaP,Tdap,and Td Vaccines (1 - Tdap) 10/03/1964 Cholesterol Screening (Lipid Panel) 07/05/2022 Depression Screening 07/05/2022 Falls Risk Assessment 07/05/2022 Social Influencers of Health Screening 07/05/2022 Medicare Annual Wellness Visit 02/20/2023 02/20/2022 COVID-19 Vaccine ( season) 2025 07/13/2024, 12/10/2022, 05/19/2022, Additional history exists Influenza Vaccine (#1) 2025 , 09/15/2023, 05/30/2022, Additional history exists Hypertension/CHF/CAD Annual BMP Blood Test 12/09/2025 12/09/2024, 08/17/2024, 06/03/2024 Osteoporosis Screening (Bone Density Screening) 09/24/2032 09/24/2022 Zoster Vaccines Completed 11/09/2020, 07/28, 2013 Pneumococcal Vaccine: 50+ Years Completed 06/25/2021, 06/04/2020, 06/11/2018 RSV Immunization Adult Patients Completed 08/08/2023 HIB Vaccines Aged Out No longer eligi [...] age to complete this topic Meningococcal B Vaccine Aged Out No l onger eligible based on patient's age to complete this topic RSV Immunization Patients Under 20 months Aged Out No longer eligible based on patient's age to complete this topic Varicella Vaccines Aged Out No longer eligible based on patient's age to complete this topic Procedures Procedure Name Priority Date/Time Associated Diagnosis Comments CBC WITH AUTO DIFFERENTIAL Routine 12/09/2024 12:56 PM EDT Hereditary hemochromatosis (CMS/HCC V24) COMPREHENSIVE METABOLIC PANEL Routine 12/09/2024 12:56 PM EDT Hereditary hemochromatosis (CMS/HCC V24) IRON AND TIBC Routine 12/09/2024 12:56 PM EDT Hereditary hemochromatosis ([facility] V24) FERRITIN Routine 12/09/2024 12:56 PM EDT Hereditary hemochromatosis ([facility] V24) CBC AND DIFFERENTIAL Routine 12/09/2024 12:56 PM EDT Hereditary hemochromatosis ([facility] V24) ECG 12-LEAD Routine 12/01/2024 12:57 PM EDT Primary hypertension MG MAMMO DIGITAL SCREENING W JAMES BILAT Routine 11/26/2024 1:20 PM EDT Encounter for screening mammogram for breast cancer JOSE DE JESUS DEXA AXIAL SKELETON Routine 09/24/2022 4:53 PM EST Encounter for screening for osteoporosis from Last 3 Months or Most Recently Relevant to Health Maintenance Results * (ABNORMAL) CBC auto differential (12/09/2024 12:56 PM EDT) WBC 7.6 4.8 - 10.8 K/mcL LAB HEMETOLOGY METHOD 12/09/2024 4:57 PM EDT [facility] RBC 3.10(L) 3.80 - 4.80 M/mcL LAB HEMETOLOGY METHOD 12/09/2024 4:57 PM EDT [facility] Hemoglobin 10.8(L) 11.5 - 16.0 g/dL LAB HEMETOLOGY METHOD 12/09/2024 4:57 PM EDT [facility] Hematocrit 33.9(L) 35.0 - 47.0 % LAB HEMETOLOGY METHOD 12/09/2024 4:57 PM EDT [facility] MCV 109.4(H) 79.0 - 98.0 FL LAB HEMETOLOGY METHOD 12/09/2024 4:57 PM EDT [facility] MCH 34.8(H) 27.0 - 32.0 pcg LAB HEMETOLOGY METHOD 12/09/2024 4:57 PM EDT [facility] MCHC 31.9(L) 32.0 - 37.0 g/dL LAB HEMETOLOGY METHOD 12/09/2024 4:57 PM [facility] RDW 15.5(H) 11.0 - 15.0 % LAB HEMETOLOGY METHOD 12/09/2024 4:57 PM EDT [facility] Platelets 348 130 - 400 K/mcL LAB HEMETOLOGY METHOD 12/09/2024 4:57 PM T [facility] MPV 12.0(H) 7.0 - 11.0 FL LAB HEMETOLOGY METHOD 12/09/2024 4:57 PM [facility] NRBC 0.0 <1.0 % LAB [facility] NR[facility] Absolute 0.00 <0.10 K/mcL LAB HEMETOLOGY METHOD 12/09/2024 4:57 PM [facility] Neutrophils Relative 59.5 % LAB HEMETOLOGY METHOD 12/09/2024 4:57 PM [facility] Lymphocytes Relative 27.0 % LAB HEMETOLOGY METHOD 12/09/2024 4:57 PM [facility] Monocytes Relative 10.2 % LAB HEMETOLOGY METHOD 12/09/2024 4:57 PM [facility] Eosinophils Relative 1.6 % LAB HEMETOLOGY METHOD 12/09/2024 4:57 [facility] Basophils Relative 1.2 % LAB HEMETOLOGY METHOD 12/09/2024 4:57 PM [facility] Immature Granulocytes Relative 0.5 % LAB HEMETOLOGY METHOD 12/09/2024 4:57 PM EDT [facility] Neutrophils Absolute 4.49 1.50 - 7.00 K/mcL LAB HEMETOLOGY METHOD 12/09/2024 4:57 PM EDT [facility] Lymphocytes Absolute 2.04 1.00 - 5.00 K/mcL LAB HEMETOLOGY METHOD 12/09/2024 4:57 PM EDT [facility] Monocytes Absolute 0.77 0.20 - 1.00 K/mcL LAB HEMETOLOGY METHOD 12/09/2024 4:57 PM EDT [facility] Eosinophils Absolute 0.12 0.00 - 0.50 K/mcL LAB HEMETOLOGY METHOD 12/09/2024 4:57 PM EDT [facility] Basophils Absolute 0.09 0.00 - 0.20 K/mcL LAB HEMETOLOGY METHOD 12/09/2024 4:57 PM EDT [facility] Immature Granulocytes Absolute 0.04(H) 0.00 - 0.03 K/mcL LAB HEMETOLOGY METHOD 12/09/2024 4:57 PM EDT [facility] Blood Venous blood specimen / Unknown Venipuncture / Unknown 12/09/2024 12:56 PM EDT 12/09/2024 4:38 PM EDT Tre Michel MD LAB BLOOD ORDERABLES Final Result [facility] [address] [place] [address], * (ABNORMAL) Iron and TIBC (12/09/2024 12:56 PM EDT) Iron 182(H) 40 - 150 mcg/dL LAB CHEMISTRY METHOD 12/09/2024 6:42 PM EDT [facility] TIBC 204(L) 250 - 450 mcg/dL LAB CHEMISTRY METHOD 12/09/2024 6:42 PM EDT [facility] Iron Saturation 89(H) 15 - 50 % LAB CHEMISTRY METHOD 12/09/2024 6:42 PM EDT [facility] Blood Venous blood specimen / Unknown Venipuncture / Unknown 12/09/2024 12:56 PM EDT 12/09/2024 4:37 PM EDT Tre Michel MD LAB BLOOD ORDERABLES Final Result Performing Organization Address City/[facility]/ZIP Co de Phone Number [facility] [address] [place] [address], [place] [phone] * Ferritin (12/09/2024 12:56 PM EDT) [facility] Ferritin 136 8 - 252 ng/mL LAB CHEMISTRY METHOD 12/09/2024 6:42 PM EDT [facility] Blood Venous blood specimen / Unknown Venipuncture / Unknown 12/09/2024 12:56 PM EDT 12/09/2024 4:37 PM EDT us Tre Michel MD LAB BLOOD ORDERABLES Final Result Performing Organization Address [facility]/ZIP Co de Phone Number [facility] [address] [place] [address], [place] [phone] * Comprehensive metabolic panel (12/09/2024 12:56 PM EDT) [facility] Sodium 136 133 - 145 mmol/L LAB CHEMISTRY METHOD 12/09/2024 6:42 PM EDT [facility] Potassium 4.8 3.5 - 5.5 mmol/L LAB CHEMISTRY METHOD 12/09/2024 6:42 PM EDT [facility] Chloride 104 96 - 110 mmol/L LAB CHEMISTRY METHOD 12/09/2024 6:42 PM EDT [facility] CO2 28 21 - 32 mmol/L LAB CHEMISTRY METHOD 12/09/2024 6:42 PM EDT [facility] Anion Gap 4 3 - 11 LAB CHEMISTRY METHOD 12/09/2024 6:42 PM [facility] Glucose 97 70 - 100 mg/dL LAB CHEMISTRY METHOD 12/09/2024 6:42 PM [facility] BUN 20 5 - 25 mg/dL LAB CHEMISTRY METHOD 12/09/2024 6:42 PM [facility] Creatinine 0.79 0.50 - 1.10 mg/dL LAB CHEMISTRY METHOD 12/09/2024 6:42 PM [facility] eGFR 75 >=60 mL/min/1. 73m2 LAB CHEMISTRY METHOD 12/09/2024 6:42 PM [facility] Comment:Calculation based on the Chronic Kidney Disease Epidemiology Collaboration (CKD-EPI) equation refit without adjustment for race. BUN/Creatinine Ratio 25.3 LAB CHEMISTRY METHOD 12/09/2024 6:42 PM [facility] Calcium 9.0 8.5 - 10.5 mg/dL LAB CHEMISTRY METHOD 12/09/2024 6:42 PM [facility] AST (SGOT) 16 10 - 42 unit/L LAB CHEMISTRY METHOD 12/09/2024 6:42 PM [facility] ALT (SGPT) 19 10 - 60 unit/L LAB CHEMISTRY METHOD 12/09/2024 6:42 PM [facility] Alkaline Phosphatase 100 42 - 121 unit/L LAB CHEMISTRY METHOD 12/09/2024 6:42 PM [facility] Total Protein 7.1 6.0 - 8.0 g/dL LAB CHEMISTRY METHOD 12/09/2024 6:42 PM [facility] Albumin 3.7 3.2 - 5.0 g/dL LAB CHEMISTRY METHOD 12/09/2024 6:42 PM [facility] Total Bilirubin 1.1 0.0 - 1.4 mg/dL LAB CHEMISTRY METHOD 12/09/2024 6:42 PM EDT [facility] Blood Venous blood specimen / Unknown Venipuncture / Unknown 12/09/2024 12:56 PM EDT 12/09/2024 4:37 PM EDT Tre Michel MD LAB BLOOD ORDERABLES Final Result Performing Organization Address [facility] Co de Phone Number [facility] [address] [place] [address], [place] [phone] * ECG 12 lead (12/01/2024 12:57 PM EDT) Ventricular Rate ECG 69 BPM GEMUSE Atrial Rate 69 BPM GEMUSE P-R Interval 138 ms GEMUSE QRS Duration 82 ms GEMUSE Q-T Interval 398 ms GEMUSE QTc 426 ms GEMUSE P Wave Solen 50 degrees GEMUSE R Solen 31 degrees GEMUSE T Solen -32 degrees GEMUSE ECG Interpretation Sinus rhythm with Premature atrial complexes Nonspecific T wave abnormality Abnormal ECG When compared with ECG of 12-APR-2022 07:40, Premature atrial complexes are now Present QRS duration has increased ST no longer depressed in Inferior leads ST no longer elevated in Lateral leads Confirmed by SAMEER JEAN-BAPTISTE ([id number]) on 12/02/2024 10:04:54 AM GEMUSE 12/01/2024 11:2 6 AM EDT 12/02/2024 10:04 AM EDT Monalisa Cueva CALIBRATION TESTER ECG ORDERABLES Edited Resul t - Final GEMUSE * MG Mammo Digital Screening w James bilat (11/26/2024 1:20 PM EDT) Anatomical Region Laterality Modality Breast Bilateral Mammography 11/26/2024 2:47 PM EDT Impressions 11/26/2024 2:59 PM EDT No evidence of breast malignancy. BI-RADS CATEGORY: 1 - NEGATIVE RECOMMENDATION: Screening bilateral mammogram is recommended in 1 year. Mammo Location: [facility], [address], [place], [address], . -------- FINAL REPORT -------- Dictated By: Jeniffer Garza Dictated Date: 11/26/2024 14:47 ET Assigned Physician: Jeniffer Garza Reviewed and Electronically Signed By: Jeniffer Garza Signed Date: 11/26/2024 14:59 ET Workstation ID: [id number] Transcribed By: Self Edit Transcribed Date: 11/26/2024 14:47 ET Narrative 11/26/2024 2:59 PM EDT CLINICAL: 79 years old, Female, routine annual exam. COMPARISON: 09/16/2023, 09/20/2022, 09/18/2021, 08/28/2020 and 05/10/2019 TECHNIQUE: Bilateral [...] - The breasts are almost entirely fatty. Procedure Note Jeniffer Garza MD - 11/26/2024 CLINICAL: 79 years old, Female, routine annual exam. COMPARISON: 09/16/2023, 09/20/2022, 09/18/2021, 08/28/2020 and 05/10/2019 TECHNIQUE: Bilateral MLO and CC views were obtained digitally with 3-Dmammogram (digital breast tomosynthesis). Computer-aided detection wasutilized in evaluation of this exam (CAD). FINDINGS: There is no evidence of suspicious mass or architectural distortion. Noworrisome calcifications are evident. There has been no significantchange from prior exam(s). BREAST DENSITY: A - The breasts are almost entirely fatty. IMPRESSION: No evidence of breast malignancy. BI-RADS CATEGORY: 1 - NEGATIVE RECOMMENDATION: Screening bilateral mammogram is recommended in 1 year. Mammo Location: [facility], [address] [place] [address], [id number], . -------- FINAL REPORT -------- Dictated By: Jeniffer Garza Dictated Date: 11/26/2024 14:47 ET Assigned Physician: Jeniffer Garza Reviewed and Electronically Signed By: Jeniffer Garza Signed Date: 11/26/2024 14:59 ET Workstation ID: [id number] Transcribed By: Self Edit Transcribed Date: 11/26/2024 14:47 ET us Self Referral Sppl IMG BI PROCEDURES Final Resul t * JOSE DE JESUS DEXA AXIAL SKELETON (09/24/2022 4:53 PM EST) Anatomical Region Laterality Modality Mammography 09/20/2022 1:2 5 PM EST Narrative 09/24/2022 4:53 PM EST [facility] Diagnostic Imaging Department [address] [place] [address] Patient: EDGARDOBETINA /Age/Sex: 1945 - 76 - F Unit#: [id number] Location/Status: SPDIMA/REG CLI Mnemonic[facility] Ordering Physician: JOHN UGARTE PA-C Jose De Jesus Dexa Axial Skeleton - 09/20/22 - 141 History: Low estrogen state due to menopause. Parent hip fracture. Comparison: 11/09/15 Findings: Bone densitometry is performed utilizing dual energy x-ray absorptiometry (DXA) in the [employer] unit. The lumbar spine and proximal [...] 21.3 percent Hip 11.6 percent. IMPRESSION: Osteopenia. [id number] Dictating Physician: BERNA PONCE MD Electronically Signed by: BERNA PONCE MD Dic Date/Time: 09/24/221651 Sign date/Time: 09/24/221652 Procedure Note Berna Ponce MD - 08/29/2023 [facility] Diagnostic Imaging Department [address] [place] [address] Patient: RAYNA REYNOSOCLAU FlowersO.B./Age/Sex: 1945 - 76 -F Unit#: [id number] Location/Status: [facility]/REG I Mnemonic/[facility] Ordering Physician: JOHN UGARTE PA-C Jose De Jesus Dexa Axial Skeleton - 09/20/22 - 1419 History: Low estrogen state due to menopause. Parent hip fracture. Comparison: 11/09/15 Findings: Bone densitometry is performed utilizing dual energy x-ray absorptiometry(DXA) in the [employer] unit. The lumbar spine and proximal femora [...] 21.3 percent Hip 11.6 percent. IMPRESSION: Osteopenia. [id number] Dictating Physician: BERNA PONCE MD Electronically Signed by: BERNA PONCE MD Dic Date/Time: 09/24/22 165 Sign date/Time: 09/24/221652 John ARTEAGA IMG BI PROCEDURES Final Re sult from Last 3 Months or Most Recently Relevant to Health Maintenance Insurance MEDICARE [employer]
--- OUTSIDE RECORDS SUMMARY | 2025-02-01 14:30 | XMS_ITS | Patient Health Record ---
Author Organization [facility] Address [address] [place] [address] Care Team Providers Care Knitter Helper Name Role Phone -Do Not use, PCP Primary Care Provider Unavailab le Allergies Allergen (clinical drug ingredient) Drug/Non Drug Allergy documented on EMR Reaction Allergy Type Onset Date Status Iodine anaphylaxis Drug Allergy Activ e Reason For Referral No Information Medications Medication SIG (Take, Route, Frequency, Duration) Notes Start Date End Date Status Lisinopril-hydroCHLOROthia zide 10-12.5 MG 1 tablet Orally Once a day for 90 Active Omeprazole 20 MG 1 capsule 30 minutes before morning meal Orally Once a day for 90 Active Toviaz 8 MG 1 tablet Orally Once a day for 90 Active Lasix 20 MG as directed Orally prn Active Problems Problem Type SNOMED Code ICD Code Onset Dates Problem Status W/U Status Risk Notes Problem [id number] Extrasystole (I49.49) Active confirmed Plan Of Treatment No Information Insurance Providers Payer Name Payer Address Payer Phone Subscriber Number Group Number Insured Name Patient Relationship to Insured Coverage Start Date Coverage End Date Medicare of [place] [employer] [address] [place] [phone] [id number] BETINA REYNOSO Self - patient is the insured [address] [facility] [address] [place] [address] [id number] BETINA REYNOSO Self - patient is the insured 0 Medical (General) History Medical History History ICD Code Hypertension I10 GERD (gastroesophageal reflux disease) K 21.9 Surgical History Surgery Date(Month/Year) Hospitalization History Reason Date(Month/Year)
--- OUTSIDE RECORDS SUMMARY | 2025-02-01 14:31 | XMS_ITS ---
Author Name [facility] Organization Unknown History of Medication Use Medication Directions Dispensed Refills Start Date End Date Stat us Celebrex 100 mg capsule Take 1 capsule p.o. as needed for pain 04/02/2023 active celecoxib 200 mg capsule TAKE 1 CAPSULE BY MOUTH EVERY DAY 04/02/2023 completed amoxicillin 250 mg capsule TAKE 2 CAPSULES BY MOUTH EVERY 12 HOURS 11/25/2022 completed oxycodone 5 mg tablet TAKE 1/2 TO 1 TABLET BY MOUTH EVERY 4 TO 6 HOURS NEEDED FOR SEVERE PAIN (SCALE 7-10) 11/25/2022 completed betamethasone dipropionate 0.05 % topical cream APPLY A THIN FILM TOPICALLY TO THE AFFECTED AREA 2 TIMES A DAY NEEDED active furosemide 20 mg tablet Take 1 tablet every day by oral route. active Allergies Allergen Reaction Severity Comment Documented Date Source Statu s IODINE ENS_AONECT Problems Problem Status Onset Date Problem Type Date of Resoluti on Source Stiffness of left knee active 2022-11-25 ProblemAct ENS_AONECT Encounters Encounter Type Encounter Reason Primary Diagnosis [facility] 04/01/2023 Ambulatory [facility] 03/28/2023 Ambulatory [facility] 03/28/2023 Ambulatory [facility] 12/30/2022 Ambulatory [facility] 11/25/2022 Ambulatory [facility] 11/25/2022 Ambulatory [facility] [place] 11/25/2022 Ambulatory [facility] 11/25/2022 Ambulatory [facility] 11/25/2022 Ambulatory [facility] 10/22/2022 Care Team Organization Name Specialty Phone Email Start Date End Da te [facility] 11/20/2024 [facility] JOSE RAFAEL HWANG Primary Care 06/27/2022 03/15/2024
== END 2025-02-01 14:52 | disposition home or self-care (01) ==
PROVIDERS: PCP Internal Medicine; Visit Provider Nurse Practitioner Family
DX: R39.15 Urgency of urination (principal); N32.81 Overactive bladder; N39.0 Urinary tract infection, site not specified; R32 Unspecified urinary incontinence; Z13.9 Encounter for screening, unspecified
CPT/HCPCS: 99213; G2211

== ENCOUNTER → 2025-02-01 13:41 | Outpatient (BNVA) | payer MEDICARE, BC, SELFPAY | PROVIDERS: PCP Internal Medicine; Visit Provider Nurse Practitioner Family | DX: R39.15 Urgency of urination (principal); N32.81 Overactive bladder; N39.0 Urinary tract infection, site not specified; R32 Unspecified urinary incontinence; Z79.82 Long term (current) use of aspirin | CPT/HCPCS: 51798; 81003; 99212 ==

== ENCOUNTER 2025-02-09 09:38 | Outpatient (AMB) | payer MEDICARE, BC, SELFPAY ==
--- NOTE | 2025-02-09 09:41 | MHC.OFFVIS ---
Vital Signs 02/09/25 09:45 Height 5 ft 3 in Weight 199 lb BMI 35.2 BP 137/64 Blood Pressure Location Lt brachial Position Sitting Pulse 78 Pulse Oximetry (%) 96 Oxygen Delivery Method Room Air Intake Visit Reasons: 3 mo f/u r/s 11/13/23 Intake Note: Patient follow up constipation Patient cc: abdominal bloating on and off, constipation on and off but BM are better with prune juice and heartburn, denies any other GI issues. Equipment Coordinator Required: No Accompanied by: Self / Same As Patient Allergies nitrofurantoin (From Macrobid) Allergy (Intermediate, Verified 02/09/25 09:51) Abdominal Pain iodine Allergy (Unknown, Verified 02/09/25 09:51) Unknown Medication List - Last Reconciled 02/09/25 by JOAN Taylor aspirin (Adult Low Dose Aspirin) 81 mg PO DAILY betamethasone, augmented 0.05 % appl topical calcium carbonate 500 mg PO DAILY diaper,brief,adult,disposable (Select Disposable Briefs) As directed three times daily estradiol 0.01%(0.1mg/gram) Pea-sized amount to urethra daily for the 1st month; 3 times a week thereafter 90 days famotidine 20 mg PO DAILY furosemide 20 mg PO DAILY magnesium oxide PO HPI HPI 3 mo f/u r/s 11/13/23: Details: LAST VISIT: Hemochromatosis Constipation GERD (gastroesophageal reflux disease) Plan Patient will take senna 2 tablets after dinner and Colace. Patient can continue taking Mag oxide daily. Increase fluid intake and activity to promote better bowel motility ultrasound of abdomen to check her liver. History of hemochromatosis. Patient will follow-up in our office in 3 months, sooner on as needed basis. She is agreeable to this plan and verbalizes understanding of instructions. She was given the opportunity to ask questions and all questions answered. ? 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 Alcohol intake: never Patient Tobacco Use Status: Never used Tobacco Review of Systems Const Denies weight gain and Denies weight loss ENT Reports no additional complaints, Denies dysphagia and Denies odynophagia Card Reports no additional complaints Resp Reports no additional complaints GI Denies abdominal pain, Denies belching, Denies melena, Denies bloating, Denies change in bowel habits, Reports constipation, Denies dysphagia, Denies excessive flatus, Denies dyspepsia, Denies heartburn, Denies diarrhea, Denies loose stools, Denies nausea, Denies odynophagia and Denies vomiting Reports no additional complaints Musc Reports no additional complaints Neuro Reports no additional complaints Psych Reports no additional complaints Endo Reports no additional complaints Physical Exam Vital Signs: Last Vital Signs Pulse 78 02/09/25 09:45 BP 137/64 02/09/25 09:45 Pulse Ox 96 02/09/25 09:45 Oxygen Delivery Method Room Air 02/09/25 09:45 BMI result Body Mass Index 35.2 Const General: healthy appearing and no acute distress Nutritional Appearance: obese Orientation/consciousness: patient oriented x3 Resp Effort & Inspection: normal respiratory effort, able to speak in complete sentences, no tracheal deviation and symmetric chest movement Auscultation: clear to auscultation bilaterally Cardio Rate: regular rate GI Inspection: Yes normal to inspection and No distended Palpation (GI): Soft to palpation, not firm, nontender and No hepatosplenomegaly present Auscultation: normal bowel sounds General: Yes no CVA tenderness Back/Spine/Pelvis Back: no CVA tenderness Skin General skin exam: elasticity normal, turgor normal and dry skin Neuro General: patient oriented x3 Psych Appearance: grossly normal Mental Status: mental status grossly normal Results Reviewed Results Reviewed: ABDOMINAL US Findings: The visualized pancreas is normal. The aorta and inferior vena cava are normal caliber. The liver is normal in size and echotexture. There is no intrahepatic bile duct dilatation. The common duct is 4 mm in diameter. The gallbladder is normal. There is no sonographic Silverio sign. The main portal vein is antegrade. The right kidney is 9.4 cm in length. No ascites. IMPRESSION: 1. Unremarkable right upper quadrant abdominal ultrasound. Assessment & Plan Assessment & Plan (1) Constipation: Code(s): K59.00 - Constipation, unspecified Category: Medical Qualifiers: Constipation type: chronic idiopathic constipation Qualified Code(s): K59.04 - Chronic idiopathic constipation (2) Hemochromatosis: Code(s): E83.119 - Hemochromatosis, unspecified Category: Medical Qualifiers: Hemochromatosis type: unspecified Qualified Code(s): E83.119 - Hemochromatosis, unspecified (3) Postprandial abdominal bloating: Code(s): R14.0 - Abdominal distension (gaseous) (4) Gastroesophageal reflux disease: Code(s): K21.9 - Gastro-esophageal reflux disease without esophagitis Qualifiers: Esophagitis presence: esophagitis presence not specified Qualified Code(s): K21.9 - Gastro-esophageal reflux disease without esophagitis Plan Patient will continue taking Pepcid daily. Continue avoiding dietary triggers and late and snacking. Increase fluid intake and activity to promote better bowel motility. Increase fiber in her diet, continue with prune juice daily. Take Senokot as needed. Patient will follow-up in 6 months, sooner on as needed basis. She is agreeable to this plan and verbalizes understanding of instructions. She was given the opportunity to ask questions and all questions answered. Thank you for allowing me to participate in her care Coding Level of Care Code Est Pt Level 3 (75734) Diagnoses Chronic idiopathic constipation K59.04 Constipation type: chronic idiopathic constipation Hemochromatosis, unspecified hemochromatosis type E83.119 Hemochromatosis type: unspecified Postprandial abdominal bloating R14.0 Gastroesophageal reflux disease, unspecified whether esophagitis present K21.9 Esophagitis presence: esophagitis presence not specified Time Spent (min) 30 Comment 20 minutes spent with patient and additional 10 minutes spent reviewing her records
[2025-02-09 09:45] VITALS: BP 137/64; PULSE 78; O2SAT 96; BMI 35.2
--- OUTSIDE RECORDS SUMMARY | 2025-02-09 10:14 | XMS_ITS | Data Portability ---
Author Organization [place] [facility] Dalia [facility] [place] Address [address] [place] [address] Care Team Providers Care Sample Display Preparer Name Role Phone MARILU STEEN Primary Care [...] to help with stiffness. She can take [id number] pain medication for symptomatic relief of discomfort. She does not take her antibiotic prophylaxis. I will have her return in 6 months for repeat clinical exam. She did ask regarding nonsteroidal anti-inflammator y she was on Celebrex however she does have a cardiac history. 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 before we prescribe a refill on her [...] knee, 1 or 2 view 2022 023 [facility], [address], [address], [place], [address], 3 16:35:38 XR, knee, 1 or 2 view 2022 [facility]23 [facility], [address], [address], [place], [address], 3 16:35:38 Medication Orders amoxicillin 500 mg capsule 2022 023 [id number], [address] [place], [address], 3 07:52:01 Celebrex 100 mg capsule 2022 023 [email or web address] [id number], [address] [place], [address], 3 07:39:07 Patient TargetsNo targets recorded. Patient Instructions Encounter Date Encounter Id Patient Instructions Last Modified By Organization Details Last Modified Time 11/25/2022 [id number] Bilateral knee x-rays reveal well-seated well-positioned total knee arthroplasties bilaterally without signs of loosening. No acute bony abnormality. Not available 11/25/2022 14:19:58 Reason for Referral None Reported. Problems Name Problem SNOMED Code Status Onset Date Resolution Date Notes Provider Name and Address Organization Details Recorded Time Stiffness of left knee 03954083005087 2 Active 2022 LATRELL JIMENEZ PA-C [address], [place], [address], [place] [facility] 3 14:20:13 Problem Notes None recorded. Medical Equipment None Reported. Allergies Allergen ID Allergen Name Allergen Category Reaction Reaction Severity Criticality Documentation Date Start Date Code Code System Note Provider Name and Address Organization Details Recorded Time 3306 iodine medicatio n Not available Not available Not available 11/25/2022 5933 RxNorm [facility], [place] [facility] 3 13:39:53 Medications Name Sig Start [...] ICD10 Code Diagnosis Note [id number] JACOB VILLATORO [facility] [address] [facility] [address] [place] [address] 11/25/2022 13:24:14 11/25/2022 13:52:41 History of right total knee replacement 2098611498 947283 Z96.651 History of left total knee replacement 9728563557 458495 Z96.652 Stiffness of left knee 2758602199 12947 M25.662 [id number] JACOB VILLATORO [facility] [address] [facility] [address] [place] [address] 04/01/2023 14:51:03 04/01/2023 15:35:17 History of total knee arthroplasty 0645832909 105 Z96.659 Health Concerns Section Related Observation LastModified by Organization Detai ls LastModified Time None Recorded Concern Status LastModified by Organization Details LastModified Time None Recorded Advance Directives Directive None Recorded Payers Insurance Date Sequence Insurance Name Policy Number Policy Lundberg Covered Member ID Lundberg Member ID Guarantor Name 04/01/2023 2 [facility] [id number] Amber Perrin [id number] Amber Perrin 03/29/2023 1 MEDICARE B-SD: [facility] Amber Perrin [id number] Amber Perrin Notes Date Note Type [...] is currently asymptomatic. LATRELL JIMENEZ PA-C [address] [facility],[place] [place] [address], [place], [address], [place] [facility] 11/25/2022 14:20:37 04/01/2023 text/html Florentino 77-year-old [...] her amoxicillin and LATRELL JIMENEZ PA-C [address] [facility],[address], [place], [address], [place] [facility] 04/02/2023 07:52:22 OBGyn Episode No OBEpisode recorded.
--- OUTSIDE RECORDS SUMMARY | 2025-02-09 10:14 | XMS_ITS | Patient Health Record ---
Author Organization [facility] Address [address] [place] [address] Care Team Providers Care Panel Edge Painter Name Role Phone Maranda MARISCAL, [place] Primary Care Provider Pratibha Kip Loza Unavailable [phone] Allergies Allergen (clinical drug ingredient) Drug/Non Drug [...] W/U Status Risk Notes Problem Pre-surgery evaluation (266843276) Other specified pre-operative examination (V72.83) Active confirmed Problem Colon cancer screening (V76.51) Active confirmed Problem Hypertension (70955103) Hypertension (401.9) Active confirmed Plan Of Treatment Future Test Test Name Order Date COLONOSCOPY 11/15/2014 Insurance Providers Payer Name Payer Address Payer Phone Subscriber Number Group Number Insured Name Patient Relationship to Insured Coverage Start Date Coverage End Date MEDICARE OF [address] [place] [id number] ABIEL REYNOSO Self - patient is the insured O [facility] [address] [place] [address] [phone] [id number] ABIEL REYNOSO Self - patient is the insured Medical (General) History Medical History History ICD Code Denies RI,DM,CVA,Lung disease,renal dise ase Hypertension [place] [address] Jose diaz Surgical History Surgery Date(Month/Year) Partial hysterectomy 1997 D & C Right carpal tunnel release Vein ligation in the legs Bladder suspension
--- OUTSIDE RECORDS SUMMARY | 2025-02-09 10:14 | XMS_ITS | Patient Health Record ---
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 Name Role Phone -Do Not use, PCP [...] Problem Status W/U Status Risk Notes Problem [id number] Extrasystole (I49.49) Active confirmed Plan Of Treatment No Information Insurance Providers Payer Name Payer Address Payer Phone Subscriber Number Group Number Insured Name Patient Relationship to Insured Coverage Start Date Coverage End Date Medicare of [place] [employer] [address] [place] [phone] [id number] BETINA REYNOSO Self - patient is the insured 0 [facility] [address] [place] [address] [id number] BETINA REYNOSO Self - patient is the insured 0 Medical (General) History Medical History History ICD Code Hypertension I10 GERD (gastroesophageal reflux disease) K 21.9 Surgical History Surgery Date(Month/Year) Hospitalization History Reason Date(Month/Year)
--- OUTSIDE RECORDS SUMMARY | 2025-02-09 10:14 | XMS_ITS | Patient Health Record ---
Author Organization [facility] [address] Address [address] [place] [address] Care Team Providers Care Community Living Specialist Name Role Phone NENO FRANCES Unavailable [phone] MARILU OGLESBY Unavailable [phone] GOLDEN CHAVEZYN Unavailable [phone] Allergies Allergen (clinical drug ingredient) Drug/Non Drug Allergy documented on EMR Reaction Allergy Type Onset Date Status Iodine hives Drug Allergy Active Results Component Value Reference Range Notes VITAMIN B12 Reviewed date:04/12/2024 07:49:43 AM Interpretation: Performing Lab: Notes/Report: Superintendent [employer] - Meg Campos MD [address] [place] [id number] [employer], a member of [facility] VITAMIN B12 892 250-900 pg/mL LIPID PROFILE Reviewed date:04/12/2024 07:49:43 AM Interpretation: Performing Lab: Notes/Report: CHOLESTEROL 141 0-200 mg/dL TRIGLYCERIDES 53 0-150 mg/dL HDL CHOLESTEROL 65 >40 mg/dL LDL CALCULATED 66 0-100 mg/dL TC-HDLC RATIO 2.2 0-4.4 mg/dL COMPREHENSIVE METABOLIC PANE L Reviewed date:04/12/2024 07:49:43 [...] Note Original Ordering Provider: NENO UGARTE PA-C [employer] [address] [employer] - Meg Campos MD WBC 5.7 4.8-10.8 [...] Note Original Ordering Provider: NENO UGARTE PA-C [employer] [address] [employer] - Meg Campos MD FERRITIN Reviewed date:06/10/2024 11:55:29 AM Interpretation: Performing Lab: Notes/Report: Ferritin 65 8-252 ng/mL FERRITIN Reviewed date:08/27/2024 10:06:13 AM Interpretation: Performing Lab: Notes/Report: Ferritin 96 8-252 ng/mL IRON AND TIBC Reviewed date:08/27/2024 10:06:13 AM Interpretation: Performing Lab: Notes/Report: Iron 198 40-150 mcg/dL TIBC 214 250-450 mcg/dL Iron Saturation 93 15-50 % IRON AND TIBC Reviewed date:06/10/2024 11:55:29 AM Interpretation: Performing Lab: Notes/Report: Iron 149 40-150 mcg/dL TIBC 213 250-450 mcg/dL Iron Saturation 70 15-50 % VITAMIN B12 Reviewed date:06/10/2024 11:55:29 AM Interpretation: Performing Lab: Notes/Report: Vitamin B-12 1074 250-900 pcg/mL VITAMIN B12 Reviewed date:08/27/2024 10:06:13 AM Interpretation: [...] 3.2-5.0 g/dL Total Bilirubin 1.0 0.0-1.4 mg/dL COMPREHENSIVE METABOLIC PANE L Reviewed date:06/10/2024 11:30:03 [...] K/mcL Immature Granulocytes Absolute 0.07 0.00-0.03 K/mcL CBC WITH AUTO DIFFERENTIAL Reviewed date:08/27/2024 10:06:13 [...] K/mcL Immature Granulocytes Absolute 0.04 0.00-0.03 K/mcL FERRITIN Reviewed date:03/29/2024 09:41:32 AM Interpretation: Performing Lab: Notes/Report: FERRITIN 53 8-252 ng/mL Nola [employer], [place] [address] Superintendent [employer] - Meg Campos MD TOTAL IRON BINDING CAPACITY Reviewed date:03/30/2024 07:51:02 AM Interpretation: Performing Lab: Notes/Report: TOTAL IRON BINDING CAPACITY 233 250-450 ug/dL IRON (FE) 96 40-150 ug/dL % FE SATURATION 41 15-50 % BASIC METABOLIC PANEL (BMP) Reviewed date:03/30/2024 07:50:27 AM Interpretation: Performing Lab: Notes/Report: REQ# [id number] Original Ordering Provider: EDIL GEE NP [employer] [address] Superintendent [employer] - Meg Campos MD GLUCOSE 110 70-100 [...] Lab: Notes/Report: VITAMIN B12 1142 250-900 pg/mL CBC WITH AUTO DIFF Reviewed date:03/30/2024 07:51:16 AM Interpretation: Performing Lab: Notes/Report: Original Ordering Provider: TRE JAIMES MD [employer] [address] Superintendent [employer] - Meg Campos MD WBC 6.7 4.8-10.8 [...] 0-0.03 x10-3/uL COMPREHENSIVE METABOLIC PANE L Reviewed date:03/30/2024 07:51:10 [...] 10-60 U/L ALK PHOS 72 42-121 U/L MG MAMMO DIGITAL SCREENING W LOCO BILAT Reviewed date:12/16/2024 09:09:31 AM Interpretation: Performing Lab: Notes/Report: Note See Note [facility], a member of [employer] Patient Name: BETINA REYNOSO Date of : 1945 Reason for Exam: Exam Date: 11/26/2024 [id number] EST Report Status: Final Ordering Provider: SELF [...] is recommended in 1 year. Mammo Location: [facility] [place] [facility] at [facility], [address] [place] [address], [address], . -------- FINAL REPOR T -------- Dictated By: Jeniffer Garza Dictated Date: 11/26/2024 14:47 ET Assigned Physician: Jeniffer Garza Reviewed and Electronically Signed By: Jeniffer Garza Signed Date: 05/02/2 025 14:59 ET Workstation ID: [id number] Transcribed By: Self Edit Transcribed Date: 11/26/2024 14:47 ET Reason For Referral Diagnosis 1 Left shoulder pain, unspecified chronicity (M25.512) Diagnosis 2 Left ankle pain, uns pecified chronicity (M25.572) Referral Organization [facility] [address] Referring Provider First Name NENO Referring Provider Last Name FRANCES Referring Provider Speciality Internal M edicine Referred Provider Specialty Physical The rapist General Notes Irma Norman 2023 02:57:41 PM > ati form filled out and faxed over with recent note Referral Priority Routine Medications Medication SIG (Take, Route, Frequency, Duration) Notes Start Date End Date Status Clotrimazole-Betameth & Zn Ox 1-0.05 & 20 % as directed Externally Not-Taking Fluticasone Furoate 27.5 MCG/SPRAY 2 sprays (1 spray in each nostril) Nasally Once a day Not-Taking Myrbetriq 25 MG 1 tablet Orally Once a day Not-Taking Omeprazole 20 MG 1 capsule 1/2 to 1 h our before morning meal Orally Once a day Active Estradiol Not-Taking Multi Vitamin Active Celecoxib 100 MG 1 capsule PRN Orally Once a day; Duration: 90 days Active Airsupra 90-80 MCG/ACT 2 puffs as needed Inhalation Six times a day; Duration: 30 days 02/08/2025 Active CoQ-10 Active Furosemide 20 MG 1 tablet Orally Twic e daily PRN; Duration: 90 days Active Magnesium Citrate Ac tive Multi Complete Activ e Famotidine 20 MG 1 tablet Orally twic e daily; Duration: 90 days Active Biotin Not-Taking Aspir-81 Active dilTIAZem HCl 120 MG as directed Orally Not-Taking Senna Not-Taking Lisinopril 10 MG 1 tablet Orally Once a day; Duration: 90 days 02/08/2025 Active Fexofenadine HCl 180 MG 1 tablet Swallow whole with water; do not take with fruit juices. Orally Once a day Not-Taking Immunizations Vaccine Route Administration Date Status Comme nts RSV-MAb (Respiratory syncyti al virus immune globulin), IM use Unknown 08/08/2023 Administered Problems Problem Type SNOMED Code ICD Code Onset Dates Problem Status W/U Status Risk Notes Problem Vitamin D deficiency (22975635) Vitamin D deficiency, unspecified (E55.9) Active confirmed Problem Hereditary hemochromatosis (62681562) Hereditary hemochromatosis (E83.110) Active confirmed Problem Essential hypertension (66663881) Essential hypertension (I10) Active confirmed Problem Arthritis (3097834) Arthritis (M19.90) Active c onfirmed Problem Shoulder joint pain (613296587) Left shoulder pain, unspecified chronicity (M25.512) Active confirmed Problem Seasonal allergy (544710234) Seasonal allergies (J30.2) Active confirmed Problem Osteopenia (491677124) Osteopenia, unspecified location (M85.80) Active confirmed Problem COVID-19 (277942347) COVID-19 (U07.1) Active confirmed Problem Gastroesophageal reflux disease (417495898) Gastroesophageal reflux disease, unspecified whether esophagitis present (K21.9) Active confirmed Problem Hearing loss (87670043) Bilateral hearing loss, unspecified hearing loss type (H91.93) Active confirmed Problem Cataract (341973974) Cataract of both eyes, unspecified cataract type (H26.9) Active confirmed Problem BMI 30+ - obesity (147564874) BMI 32.0-32.9,adult (Z68.32) Active confirmed Problem Amnesia (72977948) Memory change (R41.3) Active confirmed Problem Body mass index 30+ - obesity (477812560) BMI 30.0-30.9,adult (Z68.30) Active confirmed Problem Hemochromatosis (724066678) Hemochromatosis, unspecified hemochromatosis type (E83.119) Active confirmed Problem Gastroesophageal reflux disease (614397026) GERD (gastroesophageal reflux disease) (K21.9) Active confirmed Problem Urinary incontinence (190057932) Urinary incontinence in female (R32) Active confirmed Vital Signs Heart Rate 84 /min 02/08/2025 Oximetry 98 % 02/08/2025 Blood pressure diastolic 74 mm Hg 02/08/2025 Height 66 in 02/08/2025 Blood pressure systolic 132 mm Hg 02/08/2025 Weight 199.8 lbs 02/08/2025 BMI 32.25 kg/m2 02/08/2025 Encounters Encounter Location Date Provider Diagnosis [facility] [address] [place] [address] 03/15/2024 TEZ CHAVEZ COVID-19 U07.1 ; [facility] hypertension I10 ; Urinary incontinence in female R32 and Hereditary hemochromatosis E83.[address] [facility] [address] [place] [address] 05/06/2024 NENO FRANCES Chronic constipation K59.09 ; Hereditary hemochromatosis E83.110 ; Hypertension, unspecified type I10 and Seasonal allergies J30.[address] [facility] [address] [place], [place] 07/01/2024 NENO FRANCES Hereditary hemochromatosis E83.110 ; Chronic constipation K59.09 ; Hypertension, unspecified type I10 ; Seasonal allergies J30.2 and Left shoulder pain, unspecified chronicity M25.[address] [facility] [address] [place], [place] 10/07/2024 NENO FRANCES Chronic constipation K59.09 ; Wellness examination Z00.00 ; Hereditary hemochromatosis E83.110 ; Hypertension, unspecified type I10 ; Seasonal allergies J30.2 ; Left shoulder pain, unspecified chronicity M25.512 ; Encounter for screening for depression Z13.31 ; Encounter for screening for other disorder Z13.89 ; Other specified counseling Z71.89 and BMI 32.0-32.9,adult Z68.[address] [facility] [address] [place], [place] 02/08/2025 NENO FRANCES Chronic constipation K59.09 ; Pain, joint, shoulder, left M25.512 ; Hereditary hemochromatosis E83.110 ; Seasonal allergies J30.2 ; Essential hypertension I10 and Encounter for examination of blood pressure without abnormal findings Z01.[address] [facility] [address] [place], [place] 03/15/2024 NENO FRANCES [facility] [address] [place], [place] 04/02/2024 NENO FRANCES Lipid screening Z13. 220 ; Routine adult health maintenance Z00.00 and Vitamin B12 deficiency E53.8 [address] [address] [address] 04/09/2024 NENO FRANCES [facility] [address] [place], [place] 04/19/2024 NENO FRANCES [facility] [address] [place] [address] 04/26/2024 NENO FRANCES [facility] [address] [place] [address] 08/10/2024 NENO FRANCES [facility] [address] [place] [address] 08/19/2024 NENO FRANCES [facility] [address] [place] [address] 10/18/2024 MARILU OGLESBY [facility] [address] [place] [address] 10/25/2024 NENO FRANCES Breast screening Z12 .39 [facility] [address] [place] [address] 12/02/2024 MARILU OGLESBY [facility] [address] [place] [address] 02/01/2025 NENO FRANCES Assessments Encounter Date Diagnosis [...] reviewed. Dictation completed with the use of [employer] voice recognition software, prone to medical misidentifications [...] reviewed. Dictation completed with the use of [employer] voice recognition software, prone to medical misidentifications [...] is actively doing workout classes at the [facility] with her partner. She has goals to [...] Dictation was accomplished with the use of [employer] voice recognition software, prone to medical misidentifications [...] is actively doing workout classes at the [facility] with her partner. She has goals to [...] Dictation was accomplished with the use of [employer] voice recognition software, prone to medical misidentifications [...] is actively doing workout classes at the [facility] with her partner. She has goals to [...] Dictation was accomplished with the use of [employer] voice recognition software, prone to medical misidentifications and grammatical errors. This is unintentional and the practitioner does try to identify and correct these, but some could still be present. Please do not hesitate to contact practitioner for clarification. 10/07/2024 Wellness examination (ICD-10 - Z00.00) Betina is a 79 year-old female who presents for [facility]. # Patient up-to-date on all routine vaccinations. [...] is actively doing workout classes at the [facility] with her partner. She has goals to [...] log exercise and discussed fitness Apps like myfitnesspal which can help keep log off calories [...] Dictation was accomplished with the use of [employer] voice recognition software, prone to medical misidentifications [...] is actively doing workout classes at the [facility] with her partner. She has goals to [...] log exercise and discussed fitness Apps like Xanodyne which can help keep log off calories [...] Dictation was accomplished with the use of [employer] voice recognition software, prone to medical misidentifications and grammatical errors. This is unintentional and the practitioner does try to identify and correct these, but some could still be present. Please do not hesitate to contact practitioner for clarification. 10/25/2024 Breast screening (ICD-10 - Z12.39) 02/08/2025 Chronic constipation (ICD-10 - K59.09) Betina is a 79-year-old female who presents for Follow-up visit. # Patient up-to-date on all routine vaccinations. Will obtain Tdap as needed. Up-to-date on colonoscopy, declines further. Obtain mammogram, up-to-date. Declines Pap smear/bone density. # Left hearing loss, follow-up with ENT, scheduled for left hearing aid placement, States that she has been having some difficulty with wax in the left hearing aid, she is going to contact ENT. # Healthcare proxy completed in office today, it is Giuseppe. Completed 10/07/2024. # Audit negative with a total score of 0 # PHQ-9 10/07/2024 with a total score of 0. # 1+ edema bilateral lower extremities At last visit, completely self resolved at this time. Taking furosemide 20 mg daily, occasionally twice daily as needed. No red flag symptoms. Limiting salt, trial compression socks.Emergency department criteria/criteria to call the office # Hemochromatosis: Note scanned into chart, following with hematology Dr. Tre Jaimes. Has not needed phlebotomy in the past 2 months. Following next week. #hypertension: Self discontinued lisinopril, diltiazem, and blood pressure stable at home in the 130s over 70s/80s. Will continue with discontinuing medication but prescribe lisinopril 10 mg to have on hand. Patient to start initiating medication if noticing blood pressure increasing. Discussed parameters. She declines any red flag cardiopulmonary symptoms, chest pain, palpitations, Prolonged shortness of breath, diaphoresis, dizziness, syncope. Continue Lisinopril 10 mg, daily low dose Aspirin 81 mg, measuring BP at home. #Overweight: Patient is actively doing workout classes at the [facility] with her partner. She has goals to [...] and stool softeners in the evening. Tried Linzess, but it did not work very well for her. Follow gastroenterology, recommended senna as needed. Patient discontinued all stool softeners/laxatives, trialing prune juice. #overactive bladder: Discontinued Solifenacin Succinate 10 MG, Taking Myrbetriq 25 MG Extended Release. Wears [...] current plan at this time.Taking turmeric # Left shoulder pain, difficulty with overhead movements, negative red flag symptoms. X-ray normal, physical therapy with improvement in range of motion,, Now admits to increased pain. Celebrex as needed but discussed limiting this secondary to mild kidney disease, patient going to contact orthopedics again for potential cortisone injection # Shortness of breath: Questioning benefit of bronchodilation secondary to humidity. Will trial Airsupra. Discussed proper use and side effects. Lungs clear to auscultation.Discuss ed cardiopulmonary symptoms. Follow-up in 4 months, sooner as needed. Follow with hematology and gastroenterology in the meantime All quetsions answered to patients satisfaction. Patient verbalized understanding of diagnosis and treatments explained. To call sooner prior to next visit it any questions/concerns arise. Case discussed with collaborating physician Vern Oglesby who reviewed the assessment and plan. Chart, medications, labs, vital signs reviewed. Dictation was accomplished with the use of [employer] voice recognition software, prone to medical misidentifications and grammatical errors. This is unintentional and the practitioner does try to identify and correct these, but some could still be present. Please do not hesitate to contact practitioner for clarification. 02/08/2025 Pain, joint, shoulder, left (ICD-10 - M25.512) Betina is a 79-year-old female who presents for Follow-up visit. # Patient up-to-date on all routine vaccinations. Will obtain Tdap as needed. Up-to-date on colonoscopy, declines further. Obtain mammogram, up-to-date. Declines Pap smear/bone density. # Left hearing loss, follow-up with ENT, scheduled for left hearing aid placement, States that she has been having some difficulty with wax in the left hearing aid, she is going to contact ENT. # Healthcare proxy completed in office today, it is Giuseppe. Completed 10/07/2024. # Audit negative with a total score of 0 # PHQ-9 10/07/2024 with a total score of 0. # 1+ edema bilateral lower extremities At last visit, completely self resolved at this time. Taking furosemide 20 mg daily, occasionally twice daily as needed. No red flag symptoms. Limiting salt, trial compression socks.Emergency department criteria/criteria to call the office # Hemochromatosis: Note scanned into chart, following with hematology Dr. Tre Jaimes. Has not needed phlebotomy in the past 2 months. Following next week. #hypertension: Self discontinued lisinopril, diltiazem, and blood pressure stable at home in the 130s over 70s/80s. Will continue with discontinuing medication but prescribe lisinopril 10 mg to have on hand. Patient to start initiating medication if noticing blood pressure increasing. Discussed parameters. She declines any red flag cardiopulmonary symptoms, chest pain, palpitations, Prolonged shortness of breath, diaphoresis, dizziness, syncope. Continue Lisinopril 10 mg, daily low dose Aspirin 81 mg, measuring BP at home. #Overweight: Patient is actively doing workout classes at the [employer] [facility] with her partner. She has goals to [...] and stool softeners in the evening. Tried Linzess, but it did not work very well for her. Follow gastroenterology, recommended senna as needed. Patient discontinued all stool softeners/laxatives, trialing prune juice. #overactive bladder: Discontinued Solifenacin Succinate 10 MG, Taking Myrbetriq 25 MG Extended Release. Wears [...] current plan at this time.Taking turmeric # Left shoulder pain, difficulty with overhead movements, negative red flag symptoms. X-ray normal, physical therapy with improvement in range of motion,, Now admits to increased pain. Celebrex as needed but discussed limiting this secondary to mild kidney disease, patient going to contact orthopedics again for potential cortisone injection # Shortness of breath: Questioning benefit of bronchodilation secondary to humidity. Will trial Airsupra. Discussed proper use and side effects. Lungs clear to auscultation.Discuss ed cardiopulmonary symptoms. Follow-up in 4 months, sooner as needed. Follow with hematology and gastroenterology in the meantime All quetsions answered to patients satisfaction. Patient verbalized understanding of diagnosis and treatments explained. To call sooner prior to next visit it any questions/concerns arise. Case discussed with collaborating physician Vern Oglesby who reviewed the assessment and plan. Chart, medications, labs, vital signs reviewed. Dictation was accomplished with the use of [employer] voice recognition software, prone to medical misidentifications and grammatical errors. This is unintentional and the practitioner does try to identify and correct these, but some could still be present. Please do not hesitate to contact practitioner for clarification. 02/08/2025 Hereditary hemochromatosis (ICD-10 - E83.110) Betina is a 79-year-old female who presents for Follow-up visit. # Patient up-to-date on all routine vaccinations. Will obtain Tdap as needed. Up-to-date on colonoscopy, declines further. Obtain mammogram, up-to-date. Declines Pap smear/bone density. # Left hearing loss, follow-up with ENT, scheduled for left hearing aid placement, States that she has been having some difficulty with wax in the left hearing aid, she is going to contact ENT. # Healthcare proxy completed in office today, it is Giuseppe. Completed 10/07/2024. # Audit negative with a total score of 0 # PHQ-9 10/07/2024 with a total score of 0. # 1+ edema bilateral lower extremities At last visit, completely self resolved at this time. Taking furosemide 20 mg daily, occasionally twice daily as needed. No red flag symptoms. Limiting salt, trial compression socks.Emergency department criteria/criteria to call the office # Hemochromatosis: Note scanned into chart, following with hematology Dr. Tre Jaimes. Has not needed phlebotomy in the past 2 months. Following next week. #hypertension: Self discontinued lisinopril, diltiazem, and blood pressure stable at home in the 130s over 70s/80s. Will continue with discontinuing medication but prescribe lisinopril 10 mg to have on hand. Patient to start initiating medication if noticing blood pressure increasing. Discussed parameters. She declines any red flag cardiopulmonary symptoms, chest pain, palpitations, Prolonged shortness of breath, diaphoresis, dizziness, syncope. Continue Lisinopril 10 mg, daily low dose Aspirin 81 mg, measuring BP at home. #Overweight: Patient is actively doing workout classes at the [facility] with her partner. She has goals to [...] and stool softeners in the evening. Tried Linzess, but it did not work very well for her. Follow gastroenterology, recommended senna as needed. Patient discontinued all stool softeners/laxatives, trialing prune juice. #overactive bladder: Discontinued Solifenacin Succinate 10 MG, Taking Myrbetriq 25 MG Extended Release. Wears [...] current plan at this time.Taking turmeric # Left shoulder pain, difficulty with overhead movements, negative red flag symptoms. X-ray normal, physical therapy with improvement in range of motion,, Now admits to increased pain. Celebrex as needed but discussed limiting this secondary to mild kidney disease, patient going to contact orthopedics again for potential cortisone injection # Shortness of breath: Questioning benefit of bronchodilation secondary to humidity. Will trial Airsupra. Discussed proper use and side effects. Lungs clear to auscultation.Discuss ed cardiopulmonary symptoms. Follow-up in 4 months, sooner as needed. Follow with hematology and gastroenterology in the meantime All quetsions answered to patients satisfaction. Patient verbalized understanding of diagnosis and treatments explained. To call sooner prior to next visit it any questions/concerns arise. Case discussed with collaborating physician Vern Oglesby who reviewed the assessment and plan. Chart, medications, labs, vital signs reviewed. Dictation was accomplished with the use of [employer] voice recognition software, prone to medical misidentifications [...] is actively doing workout classes at the [facility] with her partner. She has goals to [...] Dictation was accomplished with the use of [employer] voice recognition software, prone to medical misidentifications [...] is actively doing workout classes at the [facility] with her partner. She has goals to [...] log exercise and discussed fitness Apps like [employer] which can help keep log off calories [...] Dictation was accomplished with the use of [employer] voice recognition software, prone to medical misidentifications [...] is actively doing workout classes at the [facility] with her partner. She has goals to [...] Dictation was accomplished with the use of [employer] voice recognition software, prone to medical misidentifications [...] reviewed. Dictation completed with the use of [employer] voice recognition software, prone to medical misidentifications [...] is actively doing workout classes at the [facility] with her partner. She has goals to [...] Dictation was accomplished with the use of [employer] voice recognition software, prone to medical misidentifications [...] reviewed. Dictation completed with the use of [employer] voice recognition software, prone to medical misidentifications and grammatical errors. All errors are unintentional. Although the practitioner does try to identify and correct errors, some may be present. Please do not hesitate to contact the practitioner for clarification. 07/01/2024 Hypertension, unspecified type [...] is actively doing workout classes at the [facility] with her partner. She has goals to [...] Dictation was accomplished with the use of [employer] voice recognition software, prone to medical misidentifications [...] is actively doing workout classes at the [facility] with her partner. She has goals to [...] log exercise and discussed fitness Apps like Xanodyne which can help keep log off calories [...] Dictation was accomplished with the use of [employer] voice recognition software, prone to medical misidentifications and grammatical errors. This is unintentional and the practitioner does try to identify and correct these, but some could still be present. Please do not hesitate to contact practitioner for clarification. 02/08/2025 Seasonal allergies (ICD-10 - J30.2) Betina is a 79-year-old female who presents for Follow-up visit. # Patient up-to-date on all routine vaccinations. Will obtain Tdap as needed. Up-to-date on colonoscopy, declines further. Obtain mammogram, up-to-date. Declines Pap smear/bone density. # Left hearing loss, follow-up with ENT, scheduled for left hearing aid placement, States that she has been having some difficulty with wax in the left hearing aid, she is going to contact ENT. # Healthcare proxy completed in office today, it is Giuseppe. Completed 10/07/2024. # Audit negative with a total score of 0 # PHQ-9 10/07/2024 with a total score of 0. # 1+ edema bilateral lower extremities At last visit, completely self resolved at this time. Taking furosemide 20 mg daily, occasionally twice daily as needed. No red flag symptoms. Limiting salt, trial compression socks.Emergency department criteria/criteria to call the office # Hemochromatosis: Note scanned into chart, following with hematology Dr. Tre Jaimes. Has not needed phlebotomy in the past 2 months. Following next week. #hypertension: Self discontinued lisinopril, diltiazem, and blood pressure stable at home in the 130s over 70s/80s. Will continue with discontinuing medication but prescribe lisinopril 10 mg to have on hand. Patient to start initiating medication if noticing blood pressure increasing. Discussed parameters. She declines any red flag cardiopulmonary symptoms, chest pain, palpitations, Prolonged shortness of breath, diaphoresis, dizziness, syncope. Continue Lisinopril 10 mg, daily low dose Aspirin 81 mg, measuring BP at home. #Overweight: Patient is actively doing workout classes at the [facility] with her partner. She has goals to [...] and stool softeners in the evening. Tried Linzess, but it did not work very well for her. Follow gastroenterology, recommended senna as needed. Patient discontinued all stool softeners/laxatives, trialing prune juice. #overactive bladder: Discontinued Solifenacin Succinate 10 MG, Taking Myrbetriq 25 MG Extended Release. Wears [...] current plan at this time.Taking turmeric # Left shoulder pain, difficulty with overhead movements, negative red flag symptoms. X-ray normal, physical therapy with improvement in range of motion,, Now admits to increased pain. Celebrex as needed but discussed limiting this secondary to mild kidney disease, patient going to contact orthopedics again for potential cortisone injection # Shortness of breath: Questioning benefit of bronchodilation secondary to humidity. Will trial Airsupra. Discussed proper use and side effects. Lungs clear to auscultation.Discuss ed cardiopulmonary symptoms. Follow-up in 4 months, sooner as needed. Follow with hematology and gastroenterology in the meantime All quetsions answered to patients satisfaction. Patient verbalized understanding of diagnosis and treatments explained. To call sooner prior to next visit it any questions/concerns arise. Case discussed with collaborating physician Vern Oglesby who reviewed the assessment and plan. Chart, medications, labs, vital signs reviewed. Dictation was accomplished with the use of [employer] voice recognition software, prone to medical misidentifications [...] is actively doing workout classes at the [facility] with her partner. She has goals to [...] log exercise and discussed fitness Apps like Xanodyne which can help keep log off calories [...] Dictation was accomplished with the use of [employer] voice recognition software, prone to medical misidentifications and grammatical errors. This is unintentional and the practitioner does try to identify and correct these, but some could still be present. Please do not hesitate to contact practitioner for clarification. 02/08/2025 Essential hypertension (ICD-10 - I10) Betina is a 79-year-old female who presents for Follow-up visit. # Patient up-to-date on all routine vaccinations. Will obtain Tdap as needed. Up-to-date on colonoscopy, declines further. Obtain mammogram, up-to-date. Declines Pap smear/bone density. # Left hearing loss, follow-up with ENT, scheduled for left hearing aid placement, States that she has been having some difficulty with wax in the left hearing aid, she is going to contact ENT. # Healthcare proxy completed in office today, it is Giuseppe. Completed 10/07/2024. # Audit negative with a total score of 0 # PHQ-9 10/07/2024 with a total score of 0. # 1+ edema bilateral lower extremities At last visit, completely self resolved at this time. Taking furosemide 20 mg daily, occasionally twice daily as needed. No red flag symptoms. Limiting salt, trial compression socks.Emergency department criteria/criteria to call the office # Hemochromatosis: Note scanned into chart, following with hematology Dr. Tre Jaimes. Has not needed phlebotomy in the past 2 months. Following next week. #hypertension: Self discontinued lisinopril, diltiazem, and blood pressure stable at home in the 130s over 70s/80s. Will continue with discontinuing medication but prescribe lisinopril 10 mg to have on hand. Patient to start initiating medication if noticing blood pressure increasing. Discussed parameters. She declines any red flag cardiopulmonary symptoms, chest pain, palpitations, Prolonged shortness of breath, diaphoresis, dizziness, syncope. Continue Lisinopril 10 mg, daily low dose Aspirin 81 mg, measuring BP at home. #Overweight: Patient is actively doing workout classes at the [facility] with her partner. She has goals to [...] and stool softeners in the evening. Tried Linzess, but it did not work very well for her. Follow gastroenterology, recommended senna as needed. Patient discontinued all stool softeners/laxatives, trialing prune juice. #overactive bladder: Discontinued Solifenacin Succinate 10 MG, Taking Myrbetriq 25 MG Extended Release. Wears [...] current plan at this time.Taking turmeric # Left shoulder pain, difficulty with overhead movements, negative red flag symptoms. X-ray normal, physical therapy with improvement in range of motion,, Now admits to increased pain. Celebrex as needed but discussed limiting this secondary to mild kidney disease, patient going to contact orthopedics again for potential cortisone injection # Shortness of breath: Questioning benefit of bronchodilation secondary to humidity. Will trial Airsupra. Discussed proper use and side effects. Lungs clear to auscultation.Discuss ed cardiopulmonary symptoms. Follow-up in 4 months, sooner as needed. Follow with hematology and gastroenterology in the meantime All quetsions answered to patients satisfaction. Patient verbalized understanding of diagnosis and treatments explained. To call sooner prior to next visit it any questions/concerns arise. Case discussed with collaborating physician Vern Oglesby who reviewed the assessment and plan. Chart, medications, labs, vital signs reviewed. Dictation was accomplished with the use of [employer] voice recognition software, prone to medical misidentifications [...] is actively doing workout classes at the [facility] with her partner. She has goals to [...] Dictation was accomplished with the use of [employer] voice recognition software, prone to medical misidentifications [...] is actively doing workout classes at the [facility] with her partner. She has goals to [...] Dictation was accomplished with the use of [employer] voice recognition software, prone to medical misidentifications [...] is actively doing workout classes at the [facility] with her partner. She has goals to [...] log exercise and discussed fitness Apps like Xanodyne which can help keep log off calories [...] Dictation was accomplished with the use of [employer] voice recognition software, prone to medical misidentifications and grammatical errors. This is unintentional and the practitioner does try to identify and correct these, but some could still be present. Please do not hesitate to contact practitioner for clarification. 02/08/2025 Encounter for examination of blood pressure without abnormal findings (ICD-10 - Z01.30) Betina is a 79-year-old female who presents for Follow-up visit. # Patient up-to-date on all routine vaccinations. Will obtain Tdap as needed. Up-to-date on colonoscopy, declines further. Obtain mammogram, up-to-date. Declines Pap smear/bone density. # Left hearing loss, follow-up with ENT, scheduled for left hearing aid placement, States that she has been having some difficulty with wax in the left hearing aid, she is going to contact ENT. # Healthcare proxy completed in office today, it is Giuseppe. Completed 10/07/2024. # Audit negative with a total score of 0 # PHQ-9 10/07/2024 with a total score of 0. # 1+ edema bilateral lower extremities At last visit, completely self resolved at this time. Taking furosemide 20 mg daily, occasionally twice daily as needed. No red flag symptoms. Limiting salt, trial compression socks.Emergency department criteria/criteria to call the office # Hemochromatosis: Note scanned into chart, following with hematology Dr. Tre Jaimes. Has not needed phlebotomy in the past 2 months. Following next week. #hypertension: Self discontinued lisinopril, diltiazem, and blood pressure stable at home in the 130s over 70s/80s. Will continue with discontinuing medication but prescribe lisinopril 10 mg to have on hand. Patient to start initiating medication if noticing blood pressure increasing. Discussed parameters. She declines any red flag cardiopulmonary symptoms, chest pain, palpitations, Prolonged shortness of breath, diaphoresis, dizziness, syncope. Continue Lisinopril 10 mg, daily low dose Aspirin 81 mg, measuring BP at home. #Overweight: Patient is actively doing workout classes at the [facility] with her partner. She has goals to [...] and stool softeners in the evening. Tried Linzess, but it did not work very well for her. Follow gastroenterology, recommended senna as needed. Patient discontinued all stool softeners/laxatives, trialing prune juice. #overactive bladder: Discontinued Solifenacin Succinate 10 MG, Taking Myrbetriq 25 MG Extended Release. Wears [...] current plan at this time.Taking turmeric # Left shoulder pain, difficulty with overhead movements, negative red flag symptoms. X-ray normal, physical therapy with improvement in range of motion,, Now admits to increased pain. Celebrex as needed but discussed limiting this secondary to mild kidney disease, patient going to contact orthopedics again for potential cortisone injection # Shortness of breath: Questioning benefit of bronchodilation secondary to humidity. Will trial Airsupra. Discussed proper use and side effects. Lungs clear to auscultation.Discuss ed cardiopulmonary symptoms. Follow-up in 4 months, sooner as needed. Follow with hematology and gastroenterology in the meantime All quetsions answered to patients satisfaction. Patient verbalized understanding of diagnosis and treatments explained. To call sooner prior to next visit it any questions/concerns arise. Case discussed with collaborating physician Vern Oglesby who reviewed the assessment and plan. Chart, medications, labs, vital signs reviewed. Dictation was accomplished with the use of [employer] voice recognition software, prone to medical misidentifications [...] log exercise and discussed fitness Apps like Xanodyne which can help keep log off calories [...] Dictation was accomplished with the use of [employer] voice recognition software, prone to medical misidentifications [...] is actively doing workout classes at the [facility] with her partner. She has goals to [...] log exercise and discussed fitness Apps like Xanodyne which can help keep log off calories [...] arise. Case discussed with collaborating physician Vern Ogelsby who reviewed the assessment and plan. Chart, medications, labs, vital signs reviewed. Dictation was accomplished with the use of [employer] voice recognition software, prone to medical misidentifications [...] is actively doing workout classes at the [facility] with her partner. She has goals to [...] log exercise and discussed fitness Apps like Xanodyne which can help keep log off calories [...] Dictation was accomplished with the use of [employer] voice recognition software, prone to medical misidentifications [...] is actively doing workout classes at the [facility] with her partner. She has goals to [...] log exercise and discussed fitness Apps like Xanodyne which can help keep log off calories [...] Dictation was accomplished with the use of [employer] voice recognition software, prone to medical misidentifications and grammatical errors. This is unintentional and the practitioner does try to identify and correct these, but some could still be present. Please do not hesitate to contact practitioner for clarification. Plan Of Treatment Pending Test Test Name Order Date MAMMOGRAM, SCREENING 10/25/2024 Bone Density 08/02/2022 XR Shoulder 2+ Views LT 07/01/2024 LIPID PANEL, STANDARD 02/08/2025 LIPID PANEL, STANDARD 04/02/2024 LIPID PANEL, STANDARD 04/07/2023 COMPREHENSIVE METABOLIC PANEL 02/08/2025 COMPREHENSIVE METABOLIC PANEL 04/07/2023 COMPREHENSIVE METABOLIC PANEL 04/02/2024 CBC (H/H, RBC, INDICES, WBC, PLT) 2023 CBC (INCLUDES DIFF/PLT) 02/08/2025 URINALYSIS, COMPLETE 02/08/2025 URINALYSIS, COMPLETE 04/07/2023 HEMOGLOBIN A1c 04/07/2023 HEMOGLOBIN A1c 02/08/2025 VITAMIN B12 04/02/2024 VITAMIN D,25-OH,TOTAL,IA 04/07/2023 Next Appt Details Provider Name:NENO SETHNER, 04/12/2025 10:30:00 AM, [address], [place], [address], Insurance Providers Payer Name Payer Address Payer Phone Subscriber Number Group Number Insured Name Patient Relationship to Insured Coverage Start Date Coverage End Date Medicare Part B [id number] [address] [place] [phone] [id number] BETINA REYNOSO Self - patient is the insured [employer]vantage [address] [place] [address] [phone] [id number] ROMMEL REYNOSOMINA Self - patient is the insured Medical (General) History Medical History History ICD Code hx COVID abx prophyaxis prior to dentist procedur es Cataract of both eyes, unspecified catar act type H26.9 Hemochromatosis, unspecified hemochromat osis type E83.119 Hypertension, essential I10 History of pneumonia Z87.01 GERD (gastroesophageal reflux disease) K 21.9 Seasonal allergies J30.2 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
--- OUTSIDE RECORDS SUMMARY | 2025-02-09 10:15 | XMS_ITS | Clinical Summary ---
Author Organization [facility] Address [address] [place] [address] Care Team Providers Care Pipefitter Welder Name Role Phone Alejandro Oglesby MD Primary [...] age to complete this topic Care Teams Pipefitter Welder Relationship Specialty Start Date End Date Alejandro Oglesby MD [address] [place] [address] PCP - General Internal Medicine 08/13/22
--- OUTSIDE RECORDS SUMMARY | 2025-02-09 10:15 | XMS_ITS | Clinical Summary ---
Author Organization [facility] Address [address] [place] [address] Phone Care Team Providers Care Communication Instructor Name Role Phone Unavailable Primary Care Provider Unavailabl e Allergies Active Allergy Reactions Criticality Noted Date Comments Iodine 07/15/2017 Nitrofurantoin Monohyd/M-Cryst 08/18 Medications acetaminophen (TYLENOL) 500 mg tablet 08/21/2021 Active aspirin 81 mg EC tablet Take 1 tablet (81 mg total) by mouth 1 (one) time each day. Active betamethasone, augmented, (DIPROLENE-AF) 0.05 % cream APPLY TO RASH ON LEGS TWICE A DAY FOR 2 WEEKS ON, 1 WEEK OFF 06/17/2017 Active clobetasoL (TEMOVATE) 0.05 % cream 11/12/2017 Active famotidine (PEPCID) 20 mg tablet Take 1 tablet (20 mg total) by mouth 2 (two) times a day. 04/03/2021 Active fluticasone propionate (FLONASE) 50 mcg/actuation nasal [...] mouth 1 (one) time each day. Active dihydroberberin e (BERBERINE ES-5 ORAL) Take 2,000 mg by mouth 1 (one) time each day. Active coenzyme Q-10 (Co Q-10) 100 mg capsule Take 1 capsule (100 mg total) by mouth 1 (one) time each day. Active COLLAGEN-BIOTIN -ASCORBIC ACID ORAL Take 1 tablet by mouth 1 (one) time each day. Active multivitamin tablet Take 1 tablet by mouth 1 (one) time each day. Active ascorbic acid (VITAMIN C) 500 mg tablet Take 1 tablet (500 mg total) by mouth 1 (one) time each day. Active cholecalciferol (VITAMIN D-3) 25 mcg (1,000 unit) tablet Take 1 tablet (1,000 Units total) by mouth 1 (one) time each day. Active TURMERIC ORAL Take 1 tablet by mouth 1 (one) time each day. Active Active Problems Problem Noted Date Diagnosed Date PAC (premature atrial contraction) 12/01/2024 Assessment & Plan (12/01/2024 12:57 PM EDT): Previous engine monitor showed frequent PACs of about 26.3%. Patient was asymptomatic. She has been on diltiazem but this is causing issues with significant constipation. We will monitor for recurrent PACs. Hereditary hemochromatosis (CMS/HCC V24) 022 Arthritis of knee, right 01/08/2022 [...] Description 01/10/2025 11:00 AM EDT Office Visit [facility] Hematology Oncology [address] [place] [address] Tre Michel MD Hereditary hemochromatosis ([facility] V24) (Primary Dx) 12/13/2024 Telephone [facility] Cardiology [place] [address] [place] [address] Monalisa Cueva NP Medication Problem 12/01/2024 11:10 AM EDT Office Visit [place] [address] [place] [address] Monalisa Cueva NP Primary hypertension (Primary Dx); Mixed hyperlipidemia; PAC (premature atrial contraction) 11/26/2024 1:00 PM EDT - 11/26/2024 11:59 PM EDT Hospital [facility] [address] [address] Encounter for screening mammogram for breast cancer [...] Description 07/12/2025 11:15 AM EST Office Visit [facility] Hematology Oncology [address] [place] [phone] Tre Michel MD [address] [place] [phone] Health Maintenance Due Date Last Done Comments [...] 12:56 PM EDT Hereditary hemochromatosis (CMS/HCC V24) FERRITIN Routine 12/09/2024 12:56 PM EDT Hereditary hemochromatosis (CMS/HCC V24) CBC AND DIFFERENTIAL Routine 12/09/2024 12:56 PM EDT Hereditary hemochromatosis (CMS/HCC V24) ECG 12-LEAD Routine 12/01/2024 12:57 PM EDT Primary hypertension MG MAMMO DIGITAL SCREENING W JAMES BILAT Routine 11/26/2024 1:20 PM EDT Encounter for screening mammogram for breast cancer MAURICE DEXA AXIAL SKELETON Routine 09/24/2022 4:53 PM EST Encounter for screening for osteoporosis from Last 3 Months or Most Recently Relevant to Health Maintenance Results * (ABNORMAL) CBC auto differential (12/09/2024 12:56 PM EDT) WBC 7.6 4.8 - 10.8 K/mcL LAB HEMETOLOGY METHOD 12/09/2024 4:[address] [facility] RBC 3.10(L) 3.80 - 4.80 M/mcL LAB HEMETOLOGY METHOD 12/09/2024 4:[address] [facility] Hemoglobin 10.8(L) 11.5 - 16.0 g/dL LAB HEMETOLOGY METHOD 12/09/2024 4:[address] [facility] Hematocrit 33.9(L) 35.0 - 47.0 % LAB HEMETOLOGY METHOD 12/09/2024 4:[address] [facility] MCV 109.4(H) 79.0 - 98.0 FL LAB HEMETOLOGY METHOD 12/09/2024 4:[address] [facility] MCH 34.8(H) 27.0 - 32.0 pcg LAB HEMETOLOGY METHOD 12/09/2024 4:[address] [facility] MCHC 31.9(L) 32.0 - 37.0 g/dL LAB HEMETOLOGY METHOD 12/09/2024 4:[address] [facility] RDW 15.5(H) 11.0 - 15.0 % LAB HEMETOLOGY METHOD 12/09/2024 4:57 PM [facility] Platelets 348 130 - 400 K/mcL LAB HEMETOLOGY METHOD 12/09/2024 4:[address] [facility] MPV 12.0(H) 7.0 - 11.0 FL LAB [facility]OLOGY [facility] NRBC 0.0 <1.0 % LAB HEMETOLOGY METHOD 12/09/2024 4:57 PM [facility] NRBC Absolute 0.00 <0.10 K/mcL LAB HEMETOLOGY METHOD [facility] Neutrophils Relative 59.5 % LAB HEMETOLOGY METHOD 12/09/2024 4:57 PM [facility] Lymphocytes Relative 27.0 % LAB HEMETOLOGY METHOD 12/09/2024 4:57 PM [facility] Monocytes Relative 10.2 % LAB HEMETOLOGY METHOD 12/09/2024 4:57 PM [facility] Eosinophils Relative 1.6 % LAB HEMETOLOGY METHOD 12/09/2024 4:57 PM [facility] Basophils Relative 1.2 % LAB HEMETOLOGY METHOD [facility] Immature Granulocytes Relative 0.5 % LAB HEMETOLOGY METHOD 12/09/2024 4:57 PM [facility] Neutrophils Absolute 4.49 1.50 - 7.00 K/mcL LAB HEMETOLOGY METHOD 12/09/2024 4:[address] [facility] Lymphocytes Absolute 2.04 1.00 - 5.00 K/mcL LAB HEMETOLOGY METHOD 12/09/2024 4:[address] [facility] Monocytes Absolute 0.77 0.20 - 1.00 K/Health system LAB HEMETOLOGY METHOD 12/09/2024 4:[address] [facility] Eosinophils Absolute 0.12 0.00 - 0.50 K/Health system LAB HEMETOLOGY METHOD 12/09/2024 4:[address] [facility] Basophils Absolute 0.09 0.00 - 0.20 K/Health system LAB HEMETOLOGY METHOD 12/09/2024 4:[address] [facility] Immature Granulocytes Absolute 0.04(H) 0.00 - 0.03 K/Health system LAB HEMETOLOGY METHOD 12/09/2024 4:[address] [facility] Blood Venous blood specimen / Unknown Venipuncture / Unknown 12/09/2024 12:56 PM EDT 12/09/2024 4:38 PM EDT us Tre Michel MD LAB BLOOD ORDERABLES Final Result [facility] [address] [place] [address], * (ABNORMAL) Iron and TIBC (12/09/2024 12:56 PM EDT) Iron 182(H) 40 - 150 mcg/dL LAB CHEMISTRY METHOD 12/09/2024 6:[address] [facility] TIBC 204(L) 250 - 450 mcg/dL LAB CHEMISTRY METHOD 12/09/2024 6:[address] [facility] Iron Saturation 89(H) 15 - 50 % LAB CHEMISTRY METHOD 12/09/2024 6:[address] [facility] Blood Venous blood specimen / Unknown Venipuncture / Unknown 12/09/2024 12:56 PM EDT 12/09/2024 4:37 PM EDT us Tre Michel MD LAB BLOOD ORDERABLES Final Result Performing Organization Address [facility]/ZIP Co de Phone Number [facility] [address] [place] [address], [place] [phone] * Ferritin (12/09/2024 12:56 PM EDT) Ferritin 136 8 - 252 ng/mL LAB CHEMISTRY METHOD 12/09/2024 6:[address] [facility] Blood Venous blood specimen / Unknown Venipuncture / Unknown 12/09/2024 12:56 PM EDT 12/09/2024 4:37 PM EDT us Tre Michel MD LAB BLOOD ORDERABLES Final Result Performing Organization Address [facility]/ZIP Co de Phone Number [facility] [address] [place] [address], [place] [phone] * Comprehensive metabolic panel (12/09/2024 12:56 PM EDT) Sodium 136 133 - 145 mmol/L LAB CHEMISTRY METHOD 12/09/2024 6:[address] [facility] Potassium 4.8 3.5 - 5.5 mmol/L LAB CHEMISTRY METHOD 12/09/2024 6:[address] [facility] Chloride 104 96 - 110 mmol/L LAB CHEMISTRY METHOD 12/09/2024 6:[address] [facility] CO2 28 21 - 32 mmol/L LAB CHEMISTRY METHOD 12/09/2024 6:[address] [facility] Anion Gap 4 3 - 11 LAB CHEMISTRY METHOD 12/09/2024 6:[address] [facility] Glucose 97 70 - 100 mg/dL LAB CHEMISTRY METHOD 12/09/2024 6:42 PM [facility] BUN 20 5 - 25 mg/dL LAB CHEMISTRY METHOD 12/09/2024 6:42 PM [facility] Creatinine 0.79 0.50 - 1.10 mg/dL LAB CHEMISTRY METHOD 12/09/2024 6:42 PM [facility] eGFR 75 >=60 mL/min/1. 73m2 LAB CHEMISTRY METHOD 12/09/2024 6:42 PM [facility] Comment:Calculation based on the Chronic Kidney Disease Epidemiology Collaboration (CKD-EPI) equation refit without adjustment for race. BUN/Creatinine Ratio 25.3 LAB CHEMISTRY METHOD 12/09/2024 6:42 PM [facility] Calcium 9.0 8.5 - 10.5 mg/dL LAB CHEMISTRY METHOD 12/09/2024 6:42 PM [facility] AST (SGOT) 16 10 - 42 unit/L LAB CHEMISTRY METHOD 12/09/2024 6:42 PM [facility] ALT (SGPT) 19 10 - 60 unit/L LAB CHEMISTRY METHOD 12/09/2024 6:42 PM [facility] Alkaline Phosphatase 100 42 - 121 unit/L LAB CHEMISTRY METHOD 12/09/2024 6:42 PM [facility] Total Protein 7.1 6.0 - 8.0 g/dL LAB CHEMISTRY METHOD 12/09/2024 6:42 PM [facility] Albumin 3.7 3.2 - 5.0 g/dL LAB CHEMISTRY METHOD 12/09/2024 6:42 PM [facility] Total Bilirubin 1.1 0.0 - 1.4 mg/dL LAB CHEMISTRY METHOD 12/09/2024 6:42 PM [facility] Blood Venous blood specimen / Unknown Venipuncture / Unknown 12/09/2024 12:56 PM EDT 12/09/2024 4:37 PM EDT us Tre Michel MD LAB BLOOD ORDERABLES Final Result [facility] [address] [place] [address], [place] [phone] * ECG 12 lead (12/01/2024 12:57 PM EDT) Ventricular Rate ECG 69 BPM GEMUSE Atrial Rate 69 BPM GEMUSE P-R Interval 138 ms GEMUSE QRS Duration 82 ms GEMUSE Q-T Interval 398 ms GEMUSE QTc 426 ms GEMUSE P Wave Odin 50 degrees GEMUSE R Odin 31 degrees GEMUSE T Odin -32 degrees GEMUSE ECG Interpretation Sinus rhythm [...] EDT 12/02/2024 10:04 AM EDT Monalisa Cueva SPORTS COMMENTATOR ECG ORDERABLES Edited Resul t - Final Performing Organization Address City/[facility]/ZIP Co de Phone Number SARMAD * MG Mammo Digital Screening w James bilat (11/26/2024 1:20 PM EDT) Anatomical Region Laterality Modality Breast Bilateral Mammography 11/26/2024 2:47 PM EDT Impressions 11/26/2024 2:59 PM EDT No evidence of breast malignancy. BI-RADS CATEGORY: 1 - NEGATIVE RECOMMENDATION: Screening bilateral mammogram is recommended in 1 year. Mammo Location: [facility], [address] [place], [place], [address], . -------- FINAL REPORT -------- Dictated By: Jeniffer Garza Dictated Date: 11/26/2024 14:47 ET Assigned Physician: Jeniffer Garza Reviewed and Electronically Signed By: Jeniffer Garza Signed Date: 11/26/2024 14:59 ET Workstation ID: [id number] Transcribed By: Self Edit Transcribed Date: 11/26/2024 [...] year. Mammo Location: [facility], [address] [place] [address], [address], . -------- FINAL REPORT -------- Dictated By: Jeniffer Garza Dictated Date: 11/26/2024 14:47 ET Assigned Physician: Jeniffer Garza Reviewed and Electronically Signed By: Jeniffer Garza Signed Date: 11/26/2024 14:59 ET Workstation ID: [id number] Transcribed By: Self Edit Transcribed Date: 11/26/2024 14:47 ET us Self Referral Sppl IMG BI PROCEDURES Final Resul t * MAURICE DEXA AXIAL SKELETON (09/24/2022 4:53 PM EST) Anatomical Region Laterality Modality Mammography 09/20/2022 1:25 PM EST Narrative 09/24/2022 4:53 PM EST [facility] Diagnostic Imaging Department [address] [place] [address] Patient: BETINA REYNOSO D.O.B./Age/Sex: 1945 - 76 - F Unit#: [id number] Location/Status: SPDIMA/REG CLI Mnemonic[facility] Ordering Physician: NENO UGARTE PA-C [facility] Dexa Axial Skeleton - 09/20/22 - 1419 History: Low estrogen state due to menopause. Parent hip fracture. Comparison: 11/09/15 Findings: Bone densitometry is performed utilizing dual energy x-ray absorptiometry (DXA) in the Savelli unit. The lumbar spine and proximal femora [...] 21.3 percent Hip 11.6 percent. IMPRESSION: Osteopenia. [id number] Dictating Physician: BERNA PONCE MD Electronically Signed by: BERNA PONCE MD Dic Date/Time: 09/24/221651 Sign date/Time: 09/24/221652 Procedure Note Berna Ponce MD - 08/29/2023 [facility] Diagnostic Imaging Department [address] [place], [place] [id number] Patient: BETINA REYNOSO D.O.B./Age/Sex: 1945 - 76 -F Unit#: [id number] Location/Status: [facility] Mnemonic/Ordering Site: [facility] Ordering Physician: NENO UGARTE PA-C [facility] Dexa Axial Skeleton - 09/20/22 - 5289 History: Low estrogen state due to menopause. Parent hip fracture. Comparison: 11/09/15 Findings: Bone densitometry is performed utilizing dual energy x-ray absorptiometry(DXA) in the Savelli unit. The lumbar spine and proximal femora [...] 21.3 percent Hip 11.6 percent. IMPRESSION: Osteopenia. 10150 Dictating Physician: BERNA PONCE MD Electronically Signed by: BERNA PONCE MD Dic Date/Time: 09/24/22 165 Sign date/Time: 09/24/221652 Neno ARTEAGA IM BI PROCEDURES Final Re sult from Last 3 Months or Most Recently Relevant to Health Maintenance Insurance MEDICARE [facility]
== END 2025-02-09 10:35 | disposition home or self-care (01) ==
LOC: HO.HGI 09:39
PROVIDERS: PCP Internal Medicine; Visit Provider Nurse Practitioner Family
DX: K59.04 Chronic idiopathic constipation (principal); E83.119 Hemochromatosis, unspecified; R14.0 Abdominal distension (gaseous); K21.9 Gastro-esophageal reflux disease without esophagitis
CPT/HCPCS: 99213

== ENCOUNTER → 2025-02-09 09:38 | Outpatient (BNVA) | payer MEDICARE, BC, SELFPAY | PROVIDERS: PCP Internal Medicine; Visit Provider Nurse Practitioner Family | DX: K59.04 Chronic idiopathic constipation (principal); K21.9 Gastro-esophageal reflux disease without esophagitis; E83.119 Hemochromatosis, unspecified; R14.0 Abdominal distension (gaseous) | CPT/HCPCS: 99212 ==

== ENCOUNTER 2025-02-22 13:50 | Outpatient (REF) | payer MEDICARE, BC, SELFPAY ==
--- OUTSIDE RECORDS SUMMARY | 2025-02-22 14:34 | XMS_ITS | Data Portability ---
Author Organization [place] [facility] [place] Address [address] [place] [address] Care Team Providers Care Supervisor Cloth Winding Name Role Phone MARILU STEEN Primary Care [...] to help with stiffness. She can take [id number] pain medication for symptomatic relief of discomfort. She does not take her antibiotic prophylaxis. I will have her return in 6 months for repeat clinical exam. She did ask regarding nonsteroidal anti-inflammator y she was on Celebrex however she does have a cardiac history. I would like her to speak with her financial quantitative analyst before we prescribe a refill on her [...] knee, 1 or 2 view 2022 023 [facility], [address], [place], [address], 3 16:35:38 XR, knee, 1 or 2 view 2022 023 [facility], [address], [place], [address], 3 16:35:38 Medication Orders amoxicillin 500 mg capsule 2022 023 [id number], [address] [place], [address], 3 07:52:01 Celebrex 100 mg capsule 2022 023 [email or web address] [id number], [address] [place], [address], 3 07:39:07 Patient TargetsNo targets recorded. Patient Instructions Encounter Date Encounter Id Patient Instructions Last Modified By Organization Details Last Modified Time 11/25/2022 [id number] Bilateral knee x-rays reveal well-seated well-positioned total knee arthroplasties bilaterally without signs of loosening. No acute bony abnormality. Not available 11/25/2022 14:19:58 Reason for Referral None Reported. Problems Name Problem SNOMED Code Status Onset Date Resolution Date Notes Provider Name and Address Organization Details Recorded Time Stiffness of left knee 49401871245295 2 Active 2022 LATRELL JIMENEZ PA-C [address], [place], [address], [place] [facility], P 3 14:20:13 Problem Notes None recorded. Medical Equipment None Reported. Allergies Allergen ID Allergen Name Allergen Category Reaction Reaction Severity Criticality Documentation Date Start Date Code Code System Note Provider Name and Address Organization Details Recorded Time 3306 iodine medicatio n Not available Not available Not available 11/25/2022 5933 RxNorm Cindy Linares [facility], [place] [facility], P 3 13:39:53 Medications Name Sig Start [...] Code Diagnosis Note [id number] JACOB VILLATORO [facility] [address] [facility] [address] [place] [address] 11/25/2022 13:24:14 11/25/2022 13:52:41 History of right total knee replacement 1078211541 523017 Z96.651 History of left total knee replacement 4385139955 074377 Z96.652 Stiffness of left knee 4514862545 48495 M25.662 [id number] JACOB VILLATORO [facility] [address] [facility] [address] [place] [address] 04/01/2023 14:51:03 04/01/2023 15:35:17 History of total knee arthroplasty 3055580154 105 Z96.659 Health Concerns Section Related Observation LastModified by Organization Detai ls LastModified Time None Recorded Concern Status LastModified by Organization Details LastModified Time None Recorded Advance Directives Directive None Recorded Payers Insurance Date Sequence Insurance Name Policy Number Policy Lundberg Covered Member ID Lundberg Member ID Guarantor Name 04/01/2023 2 [facility] [id number] Amber Perrin [id number] Amber Perrin 03/29/2023 1 [place]ARE [place]: [facility] Amber Perrin [id number] Amber Perrin OBGyn Episode No OBEpisode recorded.
--- OUTSIDE RECORDS SUMMARY | 2025-02-22 14:34 | XMS_ITS | Patient Health Record ---
Author Organization [facility] Address [address] [place] [address] Care Team Providers Care Plant Accountant Name Role Phone Maranda MARISCAL, [place] Primary Care Provider Pratibha Kip Loza Unavailable [phone] Allergies Allergen (clinical drug ingredient) Drug/Non Drug [...] W/U Status Risk Notes Problem Pre-surgery evaluation (571139178) Other specified pre-operative examination (V72.83) Active confirmed Problem Colon cancer screening (V76.51) Active confirmed Problem Hypertension (89149937) Hypertension (401.9) Active confirmed Plan Of Treatment Future Test Test Name Order Date COLONOSCOPY 11/15/2014 Insurance Providers Payer Name Payer Address Payer Phone Subscriber Number Group Number Insured Name Patient Relationship to Insured Coverage Start Date Coverage End Date MEDICARE OF [address] [place] [id number] ABIEL REYNOSO Self - patient is the insured [facility] [address] [place] [address] [phone] [id number] ABIEL REYNOSO Self - patient is the insured Medical (General) History Medical History History ICD Code Denies [place],DM,CVA,Lung disease,renal dise ase Hypertension Negative colon[place] [address] Jose diaz Surgical History Surgery Date(Month/Year) Partial hysterectomy 1997 D & C Right carpal tunnel release Vein ligation in the legs Bladder suspension
--- OUTSIDE RECORDS SUMMARY | 2025-02-22 14:35 | XMS_ITS | Clinical Summary ---
Author Organization [facility] Address [address] [place] [address] Phone Care Team Providers Care Tube Buffer Name Role Phone Unavailable Primary Care Provider [...] & Plan (12/01/2024 12:57 PM EDT): Previous monitoring engineer showed frequent PACs of about 26.3%. Patient [...] Description 01/10/2025 11:00 AM EDT Office Visit [facility] Hematology Oncology [address] [place] [phone] Tre Michel MD Hereditary hemochromatosis ([facility] V24) (Primary Dx) 12/13/2024 Telephone [facility] Cardiology [place] [address] [place] [address] Monalisa Cueva NP Medication Problem 12/01/2024 11:10 AM EDT Office Visit [place] [address] [place] [address] Monalisa Cueva NP Primary hypertension (Primary Dx); Mixed hyperlipidemia; PAC (premature atrial contraction) 11/26/2024 1:00 PM EDT - 11/26/2024 11:59 PM EDT Hospital [facility] [address] [phone] Encounter for screening mammogram for breast cancer [...] Description 07/12/2025 11:15 AM EST Office Visit [facility] Hematology Oncology [address] [place] [phone] Tre Michel MD [address] [place] [phone] Health Maintenance Due Date Last Done Comments DTaP,Tdap,and Td Vaccines (1 - Tdap) 10/03/1964 Cholesterol Screening (Lipid Panel) 07/05/2022 Falls Risk Assessment 07/05/2022 Social Influencers of Health Screening 07/05/2022 Medicare Annual Wellness Visit 02/20/2023 02/20/2022 Depression Screening 07/28/2024 COVID-19 Vaccine ( season) 2025 07/13/2024, 12/10/2022, [...] LAB HEMETOLOGY METHOD 12/09/2024 4:57 PM EDT [facility] RBC 3.10(L) 3.80 - 4.80 M/mcL LAB HEMETOLOGY METHOD 12/09/2024 4:57 PM EDT [facility] Hemoglobin 10.8(L) 11.5 - 16.0 g/dL LAB HEMETOLOGY METHOD 12/09/2024 4:57 PM EDT [facility] Hematocrit 33.9(L) 35.0 - 47.0 % LAB HEMETOLOGY METHOD 12/09/2024 4:57 PM EDT [facility] MCV 109.4(H) 79.0 - 98.0 FL LAB HEMETOLOGY METHOD 12/09/2024 4:57 PM EDT [facility] MCH 34.8(H) 27.0 - 32.0 pcg LAB HEMETOLOGY METHOD 12/09/2024 4:57 PM EDT [facility] MCHC 31.9(L) 32.0 - 37.0 g/dL LAB HEMETOLOGY METHOD 12/09/2024 4:57 PM EDT [facility] RDW 15.5(H) 11.0 - 15.0 % LAB HEMETOLOGY METHOD 12/09/2024 4:57 PM [facility] Platelets 348 130 - 400 K/mcL LAB HEMETOLOGY METHOD 12/09/2024 4:57 PM EDT [facility] MPV 12.0(H) 7.0 - 11.0 FL LAB HEMETOLOGY METHOD [facility] NRBC 0.0 <1.0 % LAB HEMETOLOGY METHOD 12/09/2024 4:57 PM [facility] NRBC Absolute 0.00 <0.10 K/mcL LAB HEMETOLOGY METHOD 12/[facility]24 [facility] Neutrophils Relative 59.5 % LAB HEMETOLOGY METHOD 12/09/2024 4:57 PM [facility] Lymphocytes Relative 27.0 % LAB HEMETOLOGY METHOD 12/09/2024 4:57 PM [facility] Monocytes Relative 10.2 % LAB HEMETOLOGY METHOD 12/09/2024 4:57 PM [facility] Eosinophils Relative 1.6 % LAB HEMETOLOGY METHOD 12/09/2024 4:57 PM [facility] Basophils Relative 1.2 % LAB HEMETOLOGY METHOD 12/09[facility]24 [facility] Immature Granulocytes Relative 0.5 % LAB HEMETOLOGY METHOD 12/09/2024 4:57 PM [facility] Neutrophils Absolute 4.49 1.50 - 7.00 K/mcL LAB HEMETOLOGY METHOD 12/09/2024 4:57 PM EDT [facility] Lymphocytes Absolute 2.04 1.00 - 5.00 K/mcL LAB HEMETOLOGY METHOD 12/09/2024 4:57 PM EDT [facility] Monocytes Absolute 0.77 0.20 - 1.00 K/[facility] LAB HEMETOLOGY METHOD 12/09/2024 4:57 PM EDT [facility] Eosinophils Absolute 0.12 0.00 - 0.50 K/[facility] LAB HEMETOLOGY METHOD 12/09/2024 4:57 PM EDT [facility] Basophils Absolute 0.09 0.00 - 0.20 K/[facility] LAB HEMETOLOGY METHOD 12/09/2024 4:57 PM EDT [facility] Immature Granulocytes Absolute 0.04(H) 0.00 - 0.03 K/[facility] LAB HEMETOLOGY METHOD 12/09/2024 4:57 PM EDT [facility] Blood Venous blood specimen / Unknown Venipuncture / Unknown 12/09/2024 12:56 PM EDT 12/09/2024 4:38 PM EDT us Tre Michel MD LAB BLOOD ORDERABLES Final Result [facility] [address] [place] [address], * (ABNORMAL) Iron and TIBC (12/09/2024 12:56 PM EDT) Iron 182(H) 40 - 150 mcg/dL LAB CHEMISTRY METHOD 12/09/2024 6:42 PM EDT [facility] TIBC 204(L) 250 - 450 mcg/dL LAB CHEMISTRY METHOD 12/09/2024 6:42 PM EDT [facility] Iron Saturation 89(H) 15 - 50 % LAB CHEMISTRY METHOD 12/09/2024 6:42 PM EDT [facility] Blood Venous blood specimen / Unknown Venipuncture / Unknown 12/09/2024 12:56 PM EDT 12/09/2024 4:37 PM EDT us Tre Michel MD LAB BLOOD ORDERABLES Final Result Performing Organization Address [facility]/ZIP Co de Phone Number [facility] [address] [place] [address], [place] [phone] * Ferritin (12/09/2024 12:56 PM EDT) Ferritin 136 8 - 252 ng/mL LAB CHEMISTRY METHOD 12/09/2024 6:42 PM EDT [facility] Blood Venous blood specimen / Unknown Venipuncture / Unknown 12/09/2024 12:56 PM EDT 12/09/2024 4:37 PM EDT us Tre Michel MD LAB BLOOD ORDERABLES Final Result Performing Organization Address [facility]/ZIP Co de Phone Number [facility] [address] [place] [address], [place] [phone] * Comprehensive metabolic panel (12/09/2024 12:56 PM EDT) Sodium 136 133 - 145 mmol/L LAB CHEMISTRY METHOD 12/09/2024 6:42 PM EDT [facility] Potassium 4.8 3.5 - 5.5 mmol/L LAB CHEMISTRY METHOD 12/09/2024 6:42 PM EDT [facility] Chloride 104 96 - 110 mmol/L LAB CHEMISTRY METHOD 12/09/2024 6:42 PM EDT [facility] CO2 28 21 - 32 mmol/L LAB CHEMISTRY METHOD 12/09/2024 6:42 PM EDT [facility] Anion Gap 4 3 - 11 LAB CHEMISTRY METHOD 12/09/2024 6:42 PM EDT [facility] Glucose 97 70 - 100 mg/dL LAB CHEMISTRY METHOD 12/09/2024 6:42 PM [facility] BUN 20 5 - 25 mg/dL LAB CHEMISTRY METHOD 12/09/2024 6:42 PM [facility] Creatinine 0.79 0.50 - 1.10 mg/dL LAB CHEMISTRY METHOD 12/09/2024 6:42 PM [facility] eGFR 75 >=60 mL/min/1. 73m2 LAB CHEMISTRY METHOD 12/09/2024 6:42 PM [facility] Comment:Calculation based on the Chronic Kidney Disease Epidemiology Collaboration (CKD-EPI) equation refit without adjustment for race. BUN/Creatinine Ratio 25.3 LAB CHEMISTRY METHOD 12/09/2024 6:42 PM [facility] Calcium 9.0 8.5 - 10.5 mg/dL LAB CHEMISTRY METHOD 12/09/2024 6:42 PM [facility] AST (SGOT) 16 10 - 42 unit/L LAB CHEMISTRY METHOD 12/09/2024 6:42 PM [facility] ALT (SGPT) 19 10 - 60 unit/L LAB CHEMISTRY METHOD 12/09/2024 6:42 PM [facility] Alkaline Phosphatase 100 42 - 121 unit/L LAB CHEMISTRY METHOD 12/09/2024 6:42 PM [facility] Total Protein 7.1 6.0 - 8.0 g/dL LAB CHEMISTRY METHOD 12/09/2024 6:42 PM [facility] Albumin 3.7 3.2 - 5.0 g/dL LAB CHEMISTRY METHOD 12/09/2024 6:42 PM [facility] Total Bilirubin 1.1 0.0 - 1.4 mg/dL LAB CHEMISTRY METHOD 12/09/2024 6:42 PM [facility] Blood Venous blood specimen / Unknown Venipuncture / Unknown 12/09/2024 12:56 PM EDT 12/09/2024 4:37 PM EDT us Tre Michel MD LAB BLOOD ORDERABLES Final Result [facility] [address] [place] [address], [place] [phone] * ECG 12 lead (12/01/2024 12:57 PM EDT) Ventricular Rate ECG 69 BPM GEMUSE Atrial Rate 69 BPM GEMUSE P-R Interval 138 ms GEMUSE QRS Duration 82 ms GEMUSE Q-T Interval 398 ms GEMUSE QTc 426 ms GEMUSE P Wave [place]ancock 50 degrees GEMUSE R [place] 31 degrees GEMUSE T Hancock -32 degrees GEMUSE ECG Interpretation Sinus rhythm [...] EDT 12/02/2024 10:04 AM EDT Monalisa Cueva CAKE DECORATOR ECG ORDERABLES Edited Resul t - Final Performing Organization Address City/[facility]/ZIP Co de Phone Number SARMAD * MG Mammo Digital Screening w James bilat (11/26/2024 1:20 PM EDT) Anatomical Region Laterality Modality Breast Bilateral Mammography 11/26/2024 2:47 PM EDT Impressions 11/26/2024 2:59 PM EDT No evidence of breast malignancy. BI-RADS CATEGORY: 1 - NEGATIVE RECOMMENDATION: Screening bilateral mammogram is recommended in 1 year. Mammo Location: [facility], [address], [place], [address], . -------- FINAL REPORT -------- Dictated By: Jeniffer Garza Dictated Date: 11/26/2024 14:47 ET Assigned Physician: Jeniffer Garza Reviewed and Electronically Signed By: Jeniffer Garza Signed Date: 11/26/2024 14:59 ET Workstation ID: [id number] Transcribed By: Self Edit Transcribed Date: 11/26/2024 [...] year. Mammo Location: [facility], [address] [place] [address], [id number], . -------- FINAL REPORT -------- Dictated By: Jeniffer Garza Dictated Date: 11/26/2024 14:47 ET Assigned Physician: Jeniffer Garza Reviewed and Electronically Signed By: Jeniffer Garza Signed Date: 11/26/2024 14:59 ET Workstation ID: [id number] Transcribed By: Self Edit Transcribed Date: 11/26/2024 14:47 ET us Self Referral Sppl IMG BI PROCEDURES Final Resul t * MAURICE DEXA AXIAL SKELETON (09/24/2022 4:53 PM EST) Anatomical Region Laterality Modality Mammography 09/20/2022 1:25 PM EST Narrative 09/24/2022 4:53 PM EST [facility] Diagnostic Imaging Department [address] [place] [address] Patient: BETINA REYNOSO D.O.B./Age/Sex: 1945 - 76 - F Unit#: [id number] Location/Status: SPDIMA/REG CLI Mnemonic[facility] Ordering Physician: NENO UGARTE PA-C [facility] Dexa Axial Skeleton - 09/20/22 - 1419 History: Low estrogen state due to menopause. Parent hip fracture. Comparison: 11/09/15 Findings: Bone densitometry is performed utilizing dual energy x-ray absorptiometry (DXA) in the [employer] unit. The lumbar spine and proximal femora [...] 21.3 percent Hip 11.6 percent. IMPRESSION: Osteopenia. [id number] Dictating Physician: BERNA PONCE MD Electronically Signed by: BERNA PONCE MD Dic Date/Time: 09/24/221651 Sign date/Time: 09/24/221652 Procedure Note Berna Ponce MD - 08/29/2023 [facility] Diagnostic Imaging Department [address] [place], [place] [id number] Patient: BETINA REYNOSO D.O.B./Age/Sex: 1945 - 76 -F Unit#: [id number] Location/Status: [facility] Mnemonic/Ordering Site: [facility] Ordering Physician: NENO UGARTE PA-C [facility] Dexa Axial Skeleton - 09/20/22 - 3119 History: Low estrogen state due to menopause. Parent hip fracture. Comparison: 11/09/15 Findings: Bone densitometry is performed utilizing dual energy x-ray absorptiometry(DXA) in the [employer] unit. The lumbar spine and proximal femora [...] 21.3 percent Hip 11.6 percent. IMPRESSION: Osteopenia. [id number] Dictating Physician: BERNA PONCE MD Electronically Signed by: BERNA PONCE MD Dic Date/Time: 09/24/22 165 Sign date/Time: 09/24/221652 Neno ARTEAGA IM BI PROCEDURES Final Re sult from Last 3 Months or Most Recently Relevant to Health Maintenance Insurance MEDICARE [facility]
--- OUTSIDE RECORDS SUMMARY | 2025-02-22 14:35 | XMS_ITS | Clinical Summary ---
Author Organization [facility] Address [address] [place] [address] Care Team Providers Care Receiving Inspector Name Role Phone Alejandro Oglesby MD Primary Care Provider [phone] Allergies Active Allergy Reactions Criticality Noted Date [...] age to complete this topic Care Teams Receiving Inspector Relationship Specialty Start Date End Date Alejandro Oglesby MD [address] [place] [address] PCP - General Internal Medicine 08/13/22
--- OUTSIDE RECORDS SUMMARY | 2025-02-22 14:35 | XMS_ITS | Patient Health Record ---
Author Organization [facility] [address] Address [address] [place] [address] Care Team Providers Care Metal Trim Erector Name Role Phone NENO FRANCES Unavailable [phone] MARILU OGLESBY Unavailable [phone] TEZ CHAVEZ Unavailable [phone] Allergies Allergen (clinical drug ingredient) Drug/Non Drug Allergy documented on EMR Reaction Allergy Type Onset Date Status Iodine hives Drug Allergy Active Results Component Value Reference Range Notes MG MAMMO DIGITAL SCREENING W LOCO BILAT Reviewed date:12/16/2024 09:09:31 AM Interpretation: Performing Lab: Notes/Report: Note See Note [facility], a member of [facility] Patient Name: BETINA REYNOSO Date of : 1945 Reason for Exam: Exam Date: 11/26/2024 [id number] EST Report Status: Final Ordering Provider: SELF [...] is recommended in 1 year. Mammo Location: [facility], [address] [place] [address], [address], . -------- FINAL REPOR T -------- Dictated By: Jeniffer Garza Dictated Date: 11/26/2024 14:47 ET Assigned Physician: Jeniffer Garza Reviewed and Electronically Signed By: Jeniffer Garza Signed Date: 025 14:59 ET Workstation ID: [id number] Transcribed By: Self Edit Transcribed Date: 11/26/2024 14:47 ET FERRITIN Reviewed date:08/27/2024 10:06:13 AM Interpretation: Performing [...] Granulocytes Absolute 0.04 0.00-0.03 K/mcL FERRITIN Reviewed date:06/10/2024 11:55:29 AM Interpretation: Performing Lab: Notes/Report: Ferritin 65 8-252 ng/mL IRON AND TIBC Reviewed date:06/10/2024 11:55:29 AM Interpretation: Performing Lab: Notes/Report: Iron 149 40-150 mcg/dL TIBC 213 250-450 mcg/dL Iron Saturation 70 15-50 % VITAMIN B12 Reviewed date:06/10/2024 11:55:29 AM Interpretation: Performing Lab: Notes/Report: Vitamin B-12 1074 250-900 pcg/mL COMPREHENSIVE METABOLIC PANE L Reviewed date:06/10/2024 11:30:03 [...] K/mcL Immature Granulocytes Absolute 0.07 0.00-0.03 K/mcL VITAMIN B12 Reviewed date:04/12/2024 07:49:43 AM Interpretation: Performing Lab: Notes/Report: [facility], a member of [address] [address] Automation Control Integrator - Meg Campos MD VITAMIN B12 892 [...] Note Original Ordering Provider: NENO UGARTE PA-C [facility], a member of [address] [address] Automation Control Integrator - Meg Campos MD WBC 5.7 4.8-10.8 [...] Note Original Ordering Provider: NENO UGARTE PA-C [facility] [address] Automation Control Integrator - Meg Campos MD FERRITIN Reviewed date:03/29/2024 09:41:32 AM Interpretation: Performing Lab: Notes/Report: FERRITIN 53 8-252 ng/mL Note [facility] [address] Automation Control Integrator - Meg Campos MD TOTAL IRON BINDING CAPACITY Reviewed date:03/30/2024 07:51:02 AM Interpretation: Performing Lab: Notes/Report: TOTAL IRON BINDING CAPACITY 233 250-450 ug/dL IRON (FE) 96 40-150 ug/dL % FE SATURATION 41 15-50 % BASIC METABOLIC PANEL (BMP) Reviewed date:03/30/2024 07:50:27 AM Interpretation: Performing Lab: Notes/Report: REQ# [id number] Original Ordering Provider: EDIL GEE NP [facility] [address] Automation Control Integrator - Meg Campos MD GLUCOSE 110 70-100 [...] Notes/Report: Original Ordering Provider: TRE JAIMES MD [facility], a member of [address] [place] [address] Automation Control Integrator - Meg Campos MD WBC 6.7 4.8-10.8 [...] PHOS 72 42-121 U/L Reason For Referral Diagnosis 1 Left shoulder pain, unspecified chronicity (M25.512) Diagnosis 2 Left ankle pain, uns pecified chronicity (M25.572) Referral Organization [facility] [address] Referring Provider First Name NENO Referring [...] day Active Estradiol Not-Taking Multi Vitamin Active Losartan Potassium 25 MG 1 tablet Orally Once a day; Duration: 30 days 02/18/2025 Active Celecoxib 100 MG 1 capsule PRN [...] Status Risk Notes Problem Vitamin D deficiency (26468910) Vitamin D deficiency, unspecified (E55.9) Active confirmed Problem Hereditary hemochromatosis (34636242) Hereditary hemochromatosis (E83.110) Active confirmed Problem Essential hypertension (13854918) Essential hypertension (I10) Active confirmed Problem Arthritis (8738712) Arthritis (M19.90) Active c onfirmed Problem Shoulder joint pain (233188580) Left shoulder pain, unspecified chronicity (M25.512) Active confirmed Problem Seasonal allergy (769097270) Seasonal allergies (J30.2) Active confirmed Problem Osteopenia (715348789) Osteopenia, unspecified location (M85.80) Active confirmed Problem COVID-19 (437385979) COVID-19 (U07.1) Active confirmed Problem Gastroesophageal reflux disease (931669536) Gastroesophageal reflux disease, unspecified whether esophagitis present (K21.9) Active confirmed Problem Hearing loss (12638972) Bilateral hearing loss, unspecified hearing loss type (H91.93) Active confirmed Problem Cataract (992413817) Cataract of both eyes, unspecified cataract type (H26.9) Active confirmed Problem BMI 30+ - obesity (927382714) BMI 32.0-32.9,adult (Z68.32) Active confirmed Problem Amnesia (90994707) Memory change (R41.3) Active confirmed Problem Body mass index 30+ - obesity (362063229) BMI 30.0-30.9,adult (Z68.30) Active confirmed Problem Hemochromatosis (555996450) Hemochromatosis, unspecified hemochromatosis type (E83.119) Active confirmed Problem Gastroesophageal reflux disease (465198579) GERD (gastroesophageal reflux disease) (K21.9) Active confirmed Problem Urinary incontinence (279377888) Urinary incontinence in female (R32) Active confirmed Vital Signs Heart Rate 84 /min 02/08/2025 Oximetry 98 % 02/08/2025 Blood pressure diastolic 74 mm Hg 02/08/2025 Height 66 in 02/08/2025 Blood pressure systolic 132 mm Hg 02/08/2025 Weight 199.8 lbs 02/08/2025 BMI 32.25 kg/m2 02/08/2025 Encounters Encounter Location Date Provider Diagnosis [facility] [address] [place] [address] 03/15/2024 TEZ CHAVEZ COVID-19 U07.1 ; Mer karissa hypertension I10 ; Urinary incontinence in female R32 and Hereditary hemochromatosis E83.[address] [place] [address] 05/06/2024 NENO FRANCES Chronic constipation K59.09 ; Hereditary hemochromatosis E83.110 ; Hypertension, unspecified type I10 and Seasonal allergies J30.[address] [place] [address] 07/01/2024 NENO FRANCES Hereditary hemochromatosis E83.110 ; Chronic constipation K59.09 ; Hypertension, unspecified type I10 ; Seasonal allergies J30.2 and Left shoulder pain, unspecified chronicity M25.[address] [place] [address] 10/07/2024 NENO FRANCES Chronic constipation K59.09 ; Wellness examination Z00.00 ; Hereditary hemochromatosis E83.110 ; Hypertension, unspecified type I10 ; Seasonal allergies J30.2 ; Left shoulder pain, unspecified chronicity M25.512 ; Encounter for screening for depression Z13.31 ; Encounter for screening for other disorder Z13.89 ; Other specified counseling Z71.89 and BMI 32.0-32.9,adult Z68.32 [facility] [address] [place] [address] 02/08/2025 NENO FRANCES Chronic constipation K59.09 ; Pain, joint, shoulder, left M25.512 ; Hereditary hemochromatosis E83.110 ; Seasonal allergies J30.2 ; Essential hypertension I10 and Encounter for examination of blood pressure without abnormal findings Z01.[address] [place] [address] 03/15/2024 NENO FRANCES [facility] [address] [place], [place] 04/02/2024 NENO FRANCES Lipid screening Z13. 220 ; Routine adult health maintenance Z00.00 and Vitamin B12 deficiency E53.8 [facility] [address] [place] [address] 04/09/2024 NENO FRANCES [facility] [address] [place] [address] 04/19/2024 NENO SETHNER [facility] [address] [place] [address] 04/26/2024 NENORowan FRANCES [facility] [address] [place] [address] 08/10/2024 NENO FRANCES [facility] [address] [place] [address] 08/19/2024 NENORowan FRANCES [facility] [address] [place] [address] 10/18/2024 MARILU BRAYAN [facility] [address] [place] [address] 10/25/2024 NENO FRANCES Breast screening Z12 .39 [facility] [address] [place] [address] 12/02/2024 TALBELLA BRAYAN [facility] [address] [place] [address] 02/01/2025 NENORowan FRANCES [facility] [address] [place] [address] 02/11/2025 NENO FRANCES [facility] [address] [place] [address] 02/18/2025 NENO FRANCES Assessments Encounter Date Diagnosis (ICD [...] reviewed. Dictation completed with the use of [employer] voice recognition software, prone to medical misidentifications [...] reviewed. Dictation completed with the use of [employer] voice recognition software, prone to medical misidentifications [...] is actively doing workout classes at the [facility] with her partner. She has goals [...] Dictation was accomplished with the use of [employer] voice recognition software, prone to medical misidentifications [...] actively doing workout classes at the [facility] her partner. She has goals to [...] Dictation was accomplished with the use of [employer] voice recognition software, prone to medical misidentifications [...] is actively doing workout classes at the [facility] with her partner. She has goals [...] Dictation was accomplished with the use of [employer] voice recognition software, prone to medical misidentifications [...] is actively doing workout classes at the [facility] with her partner. She has goals [...] log exercise and discussed fitness Apps like [employer] which can help keep log off calories [...] Dictation was accomplished with the use of [employer] voice recognition software, prone to medical misidentifications [...] 16.3, MPV 11.4. Following with hematology, Dr. Ter Jaimes, they are in the process of scheduling a blood draw. #hypertension: Taking Lisinopril 10 mg, Diltazem 180 mg, Furosemide 20 MG with compliance. She declines any red flag cardiopulmomary symptoms, chest pain, palpitations, shortness of breath, diaphoresis, dizziness, syncope. Continue Lisinopril 10 mg, daily low dose Aspirin 81 mg, measuring BP at home. #Overweight: Patient is actively doing workout classes at the [facility] with her partner. She has goals [...] log exercise and discussed fitness Apps like [employer] which can help keep log off calories [...] Dictation was accomplished with the use of [employer] voice recognition software, prone to medical misidentifications [...] is actively doing workout classes at the [facility] with her partner. She has goals [...] Dictation was accomplished with the use of [employer] voice recognition software, prone to medical misidentifications [...] is actively doing workout classes at the [facility] with her partner. She has goals [...] Dictation was accomplished with the use of [employer] voice recognition software, prone to medical misidentifications [...] actively doing workout classes [facility] her partner. She has goals to [...] Dictation was accomplished with the use of [employer] voice recognition software, prone to medical misidentifications [...] is actively doing workout classes at the [facility] with her partner. She has goals [...] Dictation was accomplished with the use of [employer] voice recognition software, prone to medical misidentifications [...] is actively doing workout classes at the [facility] with her partner. She has goals [...] Dictation was accomplished with the use of [employer] voice recognition software, prone to medical misidentifications and grammatical errors. This is unintentional and the practitioner does try to identify and correct these, but some could still be present. Please do not hesitate to contact practitioner for clarification. 10/07/2024 Hereditary hemochromatosis (ICD-10 - E83.110) Betina is a 79 year-old female who presents for [facility]. # Patient up-to-date on all routine vaccinations. [...] is actively doing workout classes at the [facility] with her partner. She has goals [...] log exercise and discussed fitness Apps like [employer] which can help keep log off calories [...] Dictation was accomplished with the use of [employer] voice recognition software, prone to medical misidentifications [...] reviewed. Dictation completed with the use of [employer] voice recognition software, prone to medical misidentifications [...] is actively doing workout classes at the [facility] with her partner. She has goals [...] Dictation was accomplished with the use of [employer] voice recognition software, prone to medical misidentifications [...] reviewed. Dictation completed with the use of [employer] voice recognition software, prone to medical misidentifications [...] is actively doing workout classes at the [facility] with her partner. She has goals [...] Dictation was accomplished with the use of [employer] voice recognition software, prone to medical misidentifications [...] is actively doing workout classes at the [facility] with her partner. She has goals [...] Dictation was accomplished with the use of [employer] voice recognition software, prone to medical misidentifications [...] is actively doing workout classes at the [facility] with her partner. She has goals [...] log exercise and discussed fitness Apps like [employer] which can help keep log off calories [...] Dictation was accomplished with the use of [employer] voice recognition software, prone to medical misidentifications [...] is actively doing workout classes at the [facility] with her partner. She has goals [...] log exercise and discussed fitness Apps like [employer] which can help keep log off calories [...] Dictation was accomplished with the use of [employer] voice recognition software, prone to medical misidentifications [...] is actively doing workout classes at the [facility] with her partner. She has goals [...] Dictation was accomplished with the use of [employer] voice recognition software, prone to medical misidentifications [...] is actively doing workout classes at the [facility] with her partner. She has goals [...] Dictation was accomplished with the use of [employer] voice recognition software, prone to medical misidentifications [...] is actively doing workout classes at the [facility] with her partner. She has goals [...] log exercise and discussed fitness Apps like [employer] which can help keep log off calories [...] Dictation was accomplished with the use of [employer] voice recognition software, prone to medical misidentifications [...] is actively doing workout classes at the [facility] with her partner. She has goals [...] Dictation was accomplished with the use of [employer] voice recognition software, prone to medical misidentifications [...] is actively doing workout classes at the [facility] with her partner. She has goals [...] Dictation was accomplished with the use of [employer] voice recognition software, prone to medical misidentifications [...] is actively doing workout classes at the [facility] with her partner. She has goals [...] log exercise and discussed fitness Apps like [employer] which can help keep log off calories [...] Dictation was accomplished with the use of [employer] voice recognition software, prone to medical misidentifications [...] is actively doing workout classes at the [facility] with her partner. She has goals [...] log exercise and discussed fitness Apps like [employer] which can help keep log off calories [...] Dictation was accomplished with the use of [employer] voice recognition software, prone to medical misidentifications [...] is actively doing workout classes at the [facility] with her partner. She has goals [...] log exercise and discussed fitness Apps like [employer] which can help keep log off calories [...] Dictation was accomplished with the use of [employer] voice recognition software, prone to medical misidentifications [...] is actively doing workout classes at the [facility] with her partner. She has goals [...] log exercise and discussed fitness Apps like [employer] which can help keep log off calories [...] Dictation was accomplished with the use of [employer] voice recognition software, prone to medical misidentifications [...] PANEL, STANDARD 04/07/2023 LIPID PANEL, STANDARD 04/02/2024 LIPID PANEL, STANDARD 02/08/2025 COMPREHENSIVE METABOLIC PANEL 02/08/2025 COMPREHENSIVE METABOLIC PANEL 04/02/2024 COMPREHENSIVE METABOLIC PANEL 04/07/2023 CBC (H/H, RBC, INDICES, WBC, PLT) 2023 CBC (INCLUDES DIFF/PLT) 02/08/2025 URINALYSIS, COMPLETE 04/07/2023 URINALYSIS, COMPLETE 02/08/2025 HEMOGLOBIN A1c 02/08/2025 HEMOGLOBIN A1c 04/07/2023 VITAMIN B12 04/02/2024 VITAMIN D,25-OH,TOTAL,IA 04/07/2023 Next Appt Details Provider Name:NENO FRANCES, 03/15/2025 10:45:00 AM, [address], [place], [address], Provider Name:NENO FRANCES, 04/12/2025 10:30:00 AM, [address], [place], [address], Insurance Providers Payer Name Payer Address Payer Phone Subscriber Number Group Number Insured Name Patient Relationship to Insured Coverage Start Date Coverage End Date Medicare Part B J14 [address] [place] [phone] [id number] EDGARDOBETINA RAYMOND Self - patient is the insured [employer] Medicare Advantage [address] [place] [address] [phone] [id number] BETINA REYNOSO Self - patient is [...]
--- OUTSIDE RECORDS SUMMARY | 2025-02-22 14:35 | XMS_ITS | Patient Health Record ---
Author Organization [facility] Address [address] [place] [address] Care Team Providers Care Automotive Assembler Name Role Phone -Do Not use, PCP [...] Problem Status W/U Status Risk Notes Problem [id number] Extrasystole (I49.49) Active confirmed Plan Of Treatment No Information Insurance Providers Payer Name Payer Address Payer Phone Subscriber Number Group Number Insured Name Patient Relationship to Insured Coverage Start Date Coverage End Date Medicare of [place] [employer] [address] [place] [phone] [id number] BETINA REYNOSO Self - patient is the insured [facility] [address] [place] [address] [phone] [id number] BETINA REYNOSO Self - patient is the insured 0 Medical (General) History Medical History History ICD Code Hypertension I10 GERD (gastroesophageal reflux disease) K 21.9 Surgical History Surgery Date(Month/Year) Hospitalization History Reason Date(Month/Year)
== END 2025-02-22 13:51 | disposition home or self-care (01) ==
LOC: HO.BBR 13:50
PROVIDERS: PCP Internal Medicine; Visit Provider Internal Medicine Hematology & Oncology
DX: E83.119 Hemochromatosis, unspecified (principal)
CPT/HCPCS: 85018; 99195

== ENCOUNTER 2025-04-08 09:06 | Outpatient (REF) | payer MEDICARE, BC, SELFPAY ==
--- OUTSIDE RECORDS SUMMARY | 2025-04-08 10:00 | XMS_ITS | Patient Health Record ---
Author Organization [facility] Address [address] [place] [address] Care Team Providers Care Medical Instrument Cable Fabricator Name Role Phone Maranda MARISCAL, [place] Primary Care Provider Pratibha Kip Loza Unavailable [phone] Allergies Allergen (clinical drug ingredient) Drug/Non Drug [...] W/U Status Risk Notes Problem Pre-surgery evaluation (684671287) Other specified pre-operative examination (V72.83) Active confirmed Problem Colon cancer screening (994928874) Colon cancer screening (V76.51) Active confirmed Problem Hypertension (05761028) Hypertension (401.9) Active confirmed Plan Of Treatment Future Test Test Name Order Date COLONOSCOPY 11/15/2014 Insurance Providers Payer Name Payer Address Payer Phone Subscriber Number Group Number Insured Name Patient Relationship to Insured Coverage Start Date Coverage End Date MEDICARE OF [place] [address] [place] [phone] [id number] ABIEL REYNOSO Self - patient is the insured HMO [facility] [address] [place] [address] [id number] EDGARDOABIEL Self - patient is the insured Medical (General) History Medical History History ICD Code Denies RI,DM,CVA,Lung disease,renal dise ase Hypertension Negative colonoscopy [place] [address] Tsering diaz Surgical History Surgery Date(Month/Year) Partial hysterectomy 1997 D & C Right carpal tunnel release Vein ligation in the legs Bladder suspension
--- OUTSIDE RECORDS SUMMARY | 2025-04-08 10:00 | XMS_ITS | Clinical Summary ---
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 Patient [...] Description 01/10/2025 11:00 AM EDT Office Visit [facility] Hematology Oncology [address] [place] [phone] Tre Michel MD Hereditary hemochromatosis ([facility] V24) (Primary Dx) from Last 3 Months Surgical [...] Description 07/12/2025 11:15 AM EST Office Visit [facility] Hematology Oncology [address] [place] [phone] Tre Michel MD [address] [place] [address] Health Maintenance Due Date Last Done Comments DTaP,Tdap,and Td Vaccines (1 - Tdap) 10/03/1964 Falls Risk Assessment 07/05/2022 Medicare Annual Wellness Visit 07/05/2022 Social Influencers of Health Screening 07/05/2022 Depression Screening 07/28/2024 COVID-19 Vaccine ( season) 2025 07/13/2024, 12/10/2022, 05/19/2022, Additional history exists Influenza Vaccine (#1) 2025 , 09/15/2023, 05/30/2022, Additional history exists Hypertension/CHF/CAD Annual BMP Blood Test 03/01/2026 03/01/2025, 12/09/2024, 08/17/2024, Additional history exists Cholesterol Screening (Lipid Panel) 03/01/2030 03/01/2025 Osteoporosis Screening (Bone Density Screening) 09/24/2032 09/24/2022 [...] Procedure Name Priority Date/Time Associated Diagnosis Comments URINALYSIS WITH REFLEX MICROSCOPIC Routine 03/01/2025 1:36 PM EDT Screening for diabetes mellitus Routine general medical examination at a peoples hospital care facility Screening for lipoid disorders URINALYSIS WITH REFLEX MICROSCOPIC Routine 03/01/2025 1:36 PM EDT Screening for diabetes mellitus Routine general medical examination at a peoples hospital care facility Screening for lipoid disorders IRON AND TIBC Routine 03/01/2025 1:31 PM EDT Hereditary hemochromatosis (CMS/HCC V24) FERRITIN Routine 03/01/2025 1:31 PM EDT Hereditary hemochromatosis (CMS/HCC V24) CBC WITH AUTO DIFFERENTIAL Routine 03/01/2025 1:30 PM EDT Screening for diabetes mellitus Routine general medical examination at a health care facility Screening for lipoid disorders LIPID PANEL WITH REFLEX TO DIRECT LDL Routine 03/01/2025 1:30 PM EDT Screening for diabetes mellitus Routine general medical examination at a peoples hospital care facility Screening for lipoid disorders CBC AND DIFFERENTIAL Routine 03/01/2025 1:30 PM EDT Screening for diabetes mellitus Routine general medical examination at a health care facility Screening for lipoid disorders COMPREHENSIVE METABOLIC PANEL Routine 03/01/2025 1:30 PM EDT Screening for diabetes mellitus Routine general medical examination at a [facility] Screening for lipoid disorders HEMOGLOBIN A1C Routine 03/01/2025 1:30 PM EDT Screening for diabetes mellitus Routine general medical examination at a [facility] Screening for lipoid disorders JOSE DE JESUS DEXA AXIAL SKELETON Routine 09/24/2022 4:53 PM EST Encounter for screening for osteoporosis from Last 3 Months or Most Recently Relevant to Health Maintenance Results * (ABNORMAL) Urinalysis with reflex microscopic (03/01/2025 1:36 PM EDT) Specific [place] Urine 1.011 1.003 - 1.030 LAB URINALYSIS - AUTOMATED METHOD 03/01/2025 2:42 PM [facility] pH, Urine 5.0 5.0 - 8.0 pH LAB URINALYSIS - AUTOMATED METHOD 03/01/2025 2:42 PM [facility] Leukocytes, Urine Large(A) Negative LAB URINALYSIS - AUTOMATED METHOD 03/01/2025 2:42 PM [facility] Nitrite, Urine Negative Negative LAB URINALYSIS - AUTOMATED METHOD 03/01/2025 2:42 PM [facility] Protein, Urine Negative <=Trace mg/dL LAB URINALYSIS - AUTOMATED METHOD 03/01/2025 2:42 PM [facility] Glucose, Urine Negative Negative mg/dL LAB URINALYSIS - AUTOMATED METHOD 03/01/2025 2:42 PM [facility] Ketones, Urine Negative Negative mg/dL LAB URINALYSIS - AUTOMATED METHOD 03/01/2025 2:42 PM [facility] Urobilinogen, Urine 0.2 0.2 - 1.0 mg/dL LAB URINALYSIS - AUTOMATED METHOD 03/01/2025 2:42 PM EDT [facility] Bilirubin, Urine Negative Negative LAB URINALYSIS - AUTOMATED METHOD 03/01/2025 2:42 PM EDT [facility] Blood, Urine Trace(A) Negative LAB URINALYSIS - AUTOMATED METHOD 03/01/2025 2:42 PM [facility] RBC, Urine 2.3 0 - 4 /HPF LAB URINALYSIS - AUTOMATED METHOD 03/01/2025 2:42 PM [facility] WBC, Urine 150.6(H) 0 - 4 /HPF LAB URINALYSIS - AUTOMATED METHOD 03/01/2025 2:42 PM [facility] Squamous Epithelial, Urine 57 0 - 60 /LPF LAB URINALYSIS - AUTOMATED METHOD 03/01/2025 2:42 PM [facility] Bacteria, Urine Many(A) Negative /HPF LAB URINALYSIS - AUTOMATED METHOD 03/01/2025 2:42 PM [facility] Hyaline Casts, Urine 6.4(H) 0 - 3 /LPF LAB URINALYSIS - AUTOMATED METHOD 03/01/2025 2:42 PM [facility] Urine Urine specimen obtained by clean catch procedure / Unknown Non-blood Collection / Unknown 03/01/2025 1:36 PM EDT 03/01/2025 2:33 PM EDT Neno ARTEAGA LAB URINE ORDERABLES Final Result [facility] [address] [place] [address], * (ABNORMAL) Iron and TIBC (03/01/2025 1:31 PM EDT) Iron 120 40 - 150 mcg/dL LAB CHEMISTRY METHOD 03/01/2025 3:34 PM EDT [facility] TIBC 197(L) 250 - 450 mcg/dL LAB CHEMISTRY METHOD 03/01/2025 3:34 PM EDT [facility] Iron Saturation 61(H) 15 - 50 % LAB CHEMISTRY METHOD 03/01/2025 3:34 PM EDT [facility] Blood Venous blood specimen / Unknown Venipuncture / Unknown 03/01/2025 1:31 PM EDT 03/01/2025 2:32 PM EDT Tre Michel MD LAB BLOOD ORDERABLES Final Result Performing Organization Address City/[facility]/ZIP Co de Phone Number [facility] [address] [place] [address], [place] [phone] * Ferritin (03/01/2025 1:31 PM EDT) Ferritin 169 8 - 252 ng/mL LAB CHEMISTRY METHOD 03/01/2025 3:34 PM EDT [facility] Blood Venous blood specimen / Unknown Venipuncture / Unknown 03/01/2025 1:31 PM EDT 03/01/2025 2:32 PM EDT Tre Michel MD LAB BLOOD ORDERABLES Final Result Performing Organization Address [facility]/ZIP Co de Phone Number [facility] [address] [place] [address], [place] [phone] * Lipid panel with reflex to direct LDL (03/01/2025 1:30 PM EDT) Cholesterol 131 0 - 200 mg/dL LAB CHEMISTRY METHOD 03/01/2025 3:34 PM EDT [facility] Triglycerides 88 0 - 150 mg/dL LAB CHEMISTRY METHOD 03/01/2025 3:34 PM EDT [facility] HDL 58 >=40 mg/dL LAB CHEMISTRY METHOD 03/01/2025 3:34 PM EDT [facility] LDL Calculated 55 0 - 100 mg/dL LAB CHEMISTRY METHOD 03/01/2025 3:34 PM EDT [facility] Comment:Estimated LDL Calcul ated using equation: Total cholesterol - HDL cholesterol - (Triglycerides/5) VLDL Cholesterol Nicholas 17.6 mg/dL LAB CHEMISTRY METHOD 03/01/2025 3:34 PM EDT [facility] Non HDL Chol. (LDL+VLDL) 73 <145 mg/dL LAB CHEMISTRY METHOD 03/01/2025 3:34 PM EDT [facility] Chol/HDL Ratio 2.3 0.0 - 4.4 LAB CHEMISTRY METHOD 03/01/2025 3:34 PM EDT [facility] Blood Venous blood specimen / Unknown Venipuncture / Unknown 03/01/2025 1:30 PM EDT 03/01/2025 2:32 PM EDT [facility] LAB BLOOD ORDERABLES Final Result [facility] [address] [place] [address], [place] [phone] * (ABNORMAL) CBC auto differential (03/01/2025 1:30 PM EDT) WBC 8.2 4.8 - 10.8 K/mcL LAB HEMETOLOGY METHOD 03/01/2025 2:42 PM EDT [facility] RBC 3.00(L) 3.80 - 4.80 M/mcL LAB HEMETOLOGY METHOD 03/01/2025 2:42 PM EDT [facility] Hemoglobin 10.3(L) 11.5 - 16.0 g/dL LAB HEMETOLOGY METHOD 03/01/2025 2:42 PM EDT [facility] Hematocrit 32.1(L) 35.0 - 47.0 % LAB HEMETOLOGY METHOD 03/01/2025 2:42 PM EDT [facility] MCV 108.4(H) 79.0 - 98.0 FL LAB HEMETOLOGY METHOD 03/01/2025 2:[facility] MCH 34.8(H) 27.0 - 32.0 pcg LAB HEMETOLOGY METHOD 03/01/2025 2:42 PM [facility] MCHC 32.1 32.0 - 37.0 g/dL LAB HEMETOLOGY METHOD 03/01/2025 2:42 PM [facility] RDW 15.8(H) 11.0 - 15.0 % LAB HEMETOLOGY METHOD 03/01/2025 2:42 PM [facility] Platelets 354 130 - 400 K/mcL LAB HEMETOLOGY METHOD 03/01/2025 2:42 PM [facility] MPV 11.3(H) 7.0 - 11.0 FL LAB HEMETOLOGY METHOD 03/01/2025 2:42 PM [facility] NRBC 0.2 <1.0 % LAB HEMETOLOGY METHOD 03/01/2025 2:42 PM [facility] NRBC Absolute 0.02 <0.10 K/mcL LAB HEMETOLOGY METHOD 03/01/2025 2:42 PM [facility] Neutrophils Relative 63.5 % LAB HEMETOLOGY METHOD 03/01/2025 2:42 PM [facility] Lymphocytes Relative 21.7 % LAB HEMETOLOGY METHOD 03/01/2025 2:42 PM [facility] Monocytes Relative 11.2 % LAB HEMETOLOGY METHOD 03/01/2025 2:42 PM [facility] Eosinophils Relative 2.1 % LAB HEMETOLOGY METHOD 03/01/2025 2:42 PM [facility] Basophils Relative 1.1 % LAB HEMETOLOGY METHOD 03/01/2025 2:42 PM EDT [facility] Immature Granulocytes Relative 0.4 % LAB HEMETOLOGY METHOD 03/01/2025 2:42 PM EDT [facility] Neutrophils Absolute 5.22 1.50 - 7.00 K/[facility] LAB HEMETOLOGY METHOD 03/01/2025 2:42 PM EDT [facility] Lymphocytes Absolute 1.78 1.00 - 5.00 K/mcL LAB HEMETOLOGY METHOD 03/01/2025 2:42 PM EDT [facility] Monocytes Absolute 0.92 0.20 - 1.00 K/[facility] LAB HEMETOLOGY METHOD 03/01/2025 2:42 PM EDT [facility] Eosinophils Absolute 0.17 0.00 - 0.50 K/mcL LAB HEMETOLOGY METHOD 03/01/2025 2:42 PM EDT [facility] Basophils Absolute 0.09 0.00 - 0.20 K/mcL LAB HEMETOLOGY METHOD 03/01/2025 2:42 PM EDT [facility] Immature Granulocytes Absolute 0.03 0.00 - 0.03 K/mcL LAB HEMETOLOGY METHOD 03/01/2025 2:42 PM EDT [facility] Blood Venous blood specimen / Unknown Venipuncture / Unknown 03/01/2025 1:30 PM EDT 03/01/2025 2:33 PM EDT us Neno [facility]A LAB BLOOD ORDERABLES Final Result [facility] [address] [place] [address], * Hemoglobin A1c (03/01/2025 1:30 PM EDT) Hemoglobin A1C 5.4 <6.5 % LAB CHEMISTRY METHOD 03/01/2025 9:24 PM EDT [facility] Mean Bld Glu Estim. 108 mg/dL LAB CHEMISTRY METHOD 03/01/2025 9:24 PM [facility] Blood Venous blood specimen / Unknown Venipuncture / Unknown 03/01/2025 1:30 PM EDT 03/01/2025 2:33 PM EDT [facility] LAB BLOOD ORDERABLES Final Result [facility] [address] [place] [address], [place] [phone] * (ABNORMAL) Comprehensive metabolic panel (03/01/2025 1:30 PM EDT) Sodium 135 133 - 145 mmol/L LAB CHEMISTRY METHOD 03/01/2025 3:39 PM [facility] Potassium 4.5 3.5 - 5.5 mmol/L LAB CHEMISTRY METHOD 03/01/2025 3:39 PM [facility] Chloride 105 96 - 110 mmol/L LAB CHEMISTRY METHOD 03/01/2025 3:39 PM [facility] CO2 28 21 - 32 mmol/L LAB CHEMISTRY METHOD 03/01/2025 3:39 PM [facility] Anion Gap 2(L) 3 - 11 LAB CHEMISTRY METHOD 03/01/2025 3:39 PM [facility] Glucose 96 70 - 100 mg/dL LAB CHEMISTRY METHOD 03/01/2025 3:39 PM [facility] BUN 18 5 - 25 mg/dL LAB CHEMISTRY METHOD 03/01/2025 3:39 PM [facility] Creatinine 0.84 0.50 - 1.10 mg/dL LAB CHEMISTRY METHOD 03/01/2025 3:39 PM [facility] eGFR 70 >=60 mL/min/1. 73m2 LAB CHEMISTRY METHOD 03/01/2025 3:39 PM [facility] Comment:Calculation based on the Chronic Kidney Disease Epidemiology Collaboration (CKD-EPI) equation refit without adjustment for race. BUN/Creatinine Ratio 21.4 LAB CHEMISTRY METHOD 03/01/2025 3:39 PM EDT [facility] Calcium 9.0 8.5 - 10.5 mg/dL LAB CHEMISTRY METHOD 03/01/2025 3:39 PM [facility] AST (SGOT) 17 10 - 42 unit/L LAB CHEMISTRY METHOD 03/01/2025 3:39 PM T [facility] ALT (SGPT) 24 10 - 60 unit/L LAB CHEMISTRY METHOD 03/01/2025 3:39 PM EDT [facility] Alkaline Phosphatase 89 42 - 121 unit/L LAB CHEMISTRY METHOD 03/01/2025 3:39 PM [facility] Total Protein 6.7 6.0 - 8.0 g/dL LAB CHEMISTRY METHOD 03/01/2025 3:39 PM EDT [facility] Albumin 3.5 3.2 - 5.0 g/dL LAB CHEMISTRY METHOD 03/01/2025 3:39 PM [facility] Total Bilirubin 0.9 0.0 - 1.4 mg/dL LAB CHEMISTRY METHOD 03/01/2025 3:39 PM EDT [facility] Blood Venous blood specimen / Unknown Venipuncture / Unknown 03/01/2025 1:30 PM EDT 03/01/2025 2:32 PM EDT us [facility] LAB BLOOD ORDERABLES Final Result [facility] [address] [place] [address], * JOSE DE JESUS DEXA AXIAL SKELETON (09/24/2022 4:53 PM EST) Anatomical Region Laterality Modality Mammography 09/20/2022 1:25 PM EST Narrative 09/24/2022 4:53 PM EST [facility] Diagnostic Imaging Department [address] [place] [id number] Patient: BETINA REYNOSO Dalia Velazquez./Age/Sex: 1945 - 76 - F Unit#: [id number] Location/Status: SPDIMAM/REG CLI Mnemonic/Ordering Site: MAMDEXAAX/SPMAM Ordering Physician: NENO UGARTE PA-C [facility] Dexa Axial Skeleton - 09/20/22 - 1419 History: Low estrogen state due to menopause. Parent hip fracture. Comparison: 11/09/15 Findings: Bone densitometry is performed utilizing dual energy x-ray absorptiometry (DXA) in the [employer] unit. The lumbar spine and proximal femora [...] 21.3 percent Hip 11.6 percent. IMPRESSION: Osteopenia. [id number] Dictating Physician: BERNA PONCE MD Electronically Signed by: BERNA PONCE MD Dic Date/Time: 09/24/221651 Sign date/Time: 02/28/23 1653 Procedure Note Berna Ponce MD - 08/29/2023 [facility] Diagnostic Imaging Department [address] [place] [id number] Patient: BETINA REYNOSO Dalia BaileyB./Age/Sex: 1945 - 76 -F Unit#: [id number] Location/Status: SPDIMA/REG CLI [facility]em[facility] Ordering Physician: NENO UGARTE PA-C [facility] Dexa Axial Skeleton - 09/20/22 - 1419 History: Low estrogen state due to menopause. Parent hip fracture. Comparison: 11/09/15 Findings: Bone densitometry is performed utilizing dual energy x-ray absorptiometry(DXA) in the [employer] unit. The lumbar spine and proximal femora [...] 21.3 percent Hip 11.6 percent. IMPRESSION: Osteopenia. [id number] Dictating Physician: BERNA PONCE MD Electronically Signed by: BERNA PONCE MD Dic Date/Time: 09/24/221651 Sign date/Time: 09/24/221652 Neno ARTEAGA IMG BI PROCEDURES Final Re sult from Last 3 Months or Most Recently Relevant to Health Maintenance Insurance MEDICARE [facility]
--- OUTSIDE RECORDS SUMMARY | 2025-04-08 10:00 | XMS_ITS | Patient Health Record ---
Author Organization [facility] Address [address] [place] [address] Care Team Providers Care Logistics Account Manager Name Role Phone -Do Not use, PCP Primary Care Provider Unavailab le Allergies Allergen (clinical drug ingredient) Drug/Non Drug Allergy documented on EMR Reaction Allergy Type Onset Date Status Iodine anaphylaxis Drug Allergy Activ e Reason For Referral No Information Medications Medication SIG (Take, Route, Frequency, Duration) Notes Start Date End Date Status Lisinopril-hydroCHLOROthia zide 10-12.5 MG 1 tablet Orally Once a day; Duration: 90 Active Omeprazole 20 MG 1 capsule 30 minutes before morning meal Orally Once a day; Duration: 90 Active Toviaz 8 MG 1 tablet Orally Once a day; Duration: 90 Active Lasix 20 MG as directed Orally prn Active Problems Problem Type SNOMED Code ICD Code Onset Dates Problem Status W/U Status Risk Notes Problem Premature beats (disorder) (77547571) Extrasystole (I49.49) Active confirmed Plan Of Treatment No Information Insurance Providers Payer Name Payer Address Payer Phone Subscriber Number Group Number Insured Name Patient Relationship to Insured Coverage Start Date Coverage End Date [employer] of [place] [employer] [address] [place] [phone] [id number] BETINA REYNOSO Self - patient is the insured 0 [facility] [address] [place] [address] [phone] [id number] BETINA REYNOSO Self - patient is the insured 0 Medical (General) History Medical History History ICD Code Hypertension I10 GERD (gastroesophageal reflux disease) K 21.9 Surgical History Surgery Date(Month/Year) Hospitalization History Reason Date(Month/Year)
--- OUTSIDE RECORDS SUMMARY | 2025-04-08 10:00 | XMS_ITS | Patient Health Record ---
Author Organization [facility] [address] Address [address] [place] [address] Care Team Providers Care Wheel Fitter Name Role Phone NENO FRANCES Unavailable [phone] OGLESBYMARILU BEAR Unavailable [phone] Allergies Allergen (clinical drug ingredient) Drug/Non Drug Allergy documented on EMR Reaction Allergy Type Onset Date Status Iodine hives Drug Allergy Active Results Component Value Reference Range Notes FERRITIN Reviewed date:06/10/2024 11:55:29 AM Interpretation: Performing [...] 3.2-5.0 g/dL Total Bilirubin 0.8 0.0-1.4 mg/dL URINALYSIS WITH REFLEX MICRO SCOPIC Reviewed date:03/01/2025 03:07:37 PM Interpretation: Performing Lab: Notes/Report: Specific [place] Urine 1.011 1.003-1.030 pH, Urine 5.0 5.0-8.0 pH Leukocytes, Urine Large Negative Nitrite, Urine Negative Negative Protein, Urine Negative <=Trace mg/dL Glucose, Urine Negative Negative mg/dL Ketones, Urine Negative Negative mg/dL Urobilinogen, Urine 0.2 0.2-1.0 mg/dL Bilirubin, Urine Negative Negative Blood, Urine Trace Negative RBC, Urine 2.3 0-4 /HPF WBC, Urine 150.6 0-4 /HPF Squamous Epithelial, Urine 57 0-60 /LPF Bacteria, Urine Many Negative /HPF Hyaline Casts, Urine 6.4 0-3 /LPF COMPREHENSIVE METABOLIC PANE L Reviewed date:03/01/2025 04:04:02 PM Interpretation: Performing Lab: Notes/Report: Sodium 135 133-145 mmol/L Potassium 4.5 3.5-5.5 mmol/L Chloride 105 96-110 mmol/L CO2 28 21-32 mmol/L Anion Gap 2 3-11 Glucose 96 70-100 mg/dL BUN 18 5-25 mg/dL Creatinine 0.84 0.50-1.10 mg/dL eGFR 70 >=60 mL/min/1.73m2 Calculati on based on the Chronic Kidney Disease Epidemiology Collaboration (CKD-EPI) equation refit without adjustment for race. BUN/Creatinine Ratio 21.4 Calcium 9.0 8.5-10.5 mg/dL AST (SGOT) 17 10-42 unit/L ALT (SGPT) 24 10-60 unit/L Alkaline Phosphatase 89 42-121 unit/L Total Protein 6.7 6.0-8.0 g/dL Albumin 3.5 3.2-5.0 g/dL Total Bilirubin 0.9 0.0-1.4 mg/dL LIPID PANEL WITH REFLEX TO D IRECT LDL Reviewed date:03/01/2025 04:04:02 PM Interpretation: Performing Lab: Notes/Report: Cholesterol 131 0-200 mg/dL Triglycerides 88 0-150 mg/dL HDL 58 >=40 mg/dL LDL Calculated 55 0-100 mg/dL Estimated LDL Calculated using equation: Total cholesterol - HDL cholesterol - (Triglycerides/5) VLDL Cholesterol Nicholas 17.6 Non HDL Chol. (LDL+VLDL) 73 <145 mg/dL Chol/HDL Ratio 2.3 0.0-4.4 CBC WITH AUTO DIFFERENTIAL Reviewed date:06/10/2024 11:24:09 [...] 0.00-0.03 K/mcL CBC WITH AUTO DIFFERENTIAL Reviewed date:03/01/2025 03:07:37 PM Interpretation: Performing Lab: Notes/Report: WBC 8.2 4.8-10.8 K/mcL RBC 3.00 3.80-4.80 M/mcL Hemoglobin 10.3 11.5-16.0 g/dL Hematocrit 32.1 35.0-47.0 % MCV 108.4 79.0-98.0 FL MCH 34.8 27.0-32.0 pcg MCHC 32.1 32.0-37.0 g/dL RDW 15.8 11.0-15.0 % Platelets 354 130-400 K/mcL MPV 11.3 7.0-11.0 FL NRBC 0.2 <1.0 % NRBC Absolute 0.02 <0.10 K/mcL Neutrophils Relative 63.5 Lymphocytes Relative 21.7 Monocytes Relative 11.2 Eosinophils Relative 2.1 Basophils Relative 1.1 Immature Granulocytes Relative 0.4 Neutrophils Absolute 5.22 1.50-7.00 K/mcL Lymphocytes Absolute 1.78 1.00-5.00 K/mcL Monocytes Absolute 0.92 0.20-1.00 K/mcL Eosinophils Absolute 0.17 0.00-0.50 K/mcL Basophils Absolute 0.09 0.00-0.20 K/mcL Immature Granulocytes Absolute 0.03 0.00-0.03 K/mcL FERRITIN Reviewed date:08/27/2024 10:06:13 AM Interpretation: Performing Lab: Notes/Report: Ferritin 96 8-252 ng/mL IRON AND TIBC Reviewed date:08/27/2024 10:06:13 AM Interpretation: Performing Lab: Notes/Report: Iron 198 40-150 mcg/dL TIBC 214 250-450 mcg/dL Iron Saturation 93 15-50 % VITAMIN B12 Reviewed date:08/27/2024 10:06:13 AM Interpretation: Performing Lab: Notes/Report: Vitamin B-12 925 250-900 pcg/mL MG MAMMO DIGITAL SCREENING W LOCO BILAT Reviewed date:12/16/2024 09:09:31 AM Interpretation: Performing Lab: Notes/Report: Note See Note [facility], a member of [facility] Patient Name: BETINA REYNOSO Date of : 1945 Reason for Exam: Exam Date: 11/26/2024 [id number] EST Report Status: Final Ordering Provider: SELF REFERRAL SPPL PCP: CRAIG OGLESBY CLINICAL: 79 years o ld, Female, routine annual exam. COMPARISON: 09/16/19 24, 09/20/2022, 09/18/2021, 08/28/2020 and 05/10/2019 TECHNIQUE: Bilateral [...] is recommended in 1 year. Mammo Location: [facility] er For Mammography at [facility], [address] [place] [address], [id number], . -------- FINAL REPOR T -------- Dictated By: Jeniffer Garza Dictated Date: 11/26/2024 14:47 ET Assigned Physician: Jeniffer Garza Reviewed and Electronically Signed By: Jeniffer Garza Signed Date: 14:59 ET Workstation ID: [id number] Transcribed By: Self Edit Transcribed Date: 11/26/2024 14:47 ET HEMOGLOBIN A1C Reviewed date:03/02/2025 07:59:47 AM Interpretation: Performing Lab: Notes/Report: Hemoglobin A1C 5.4 <6.5 % Mean Bld Glu Estim. 108 COMPREHENSIVE METABOLIC PANE L Reviewed date:08/27/2024 10:06:13 [...] Bilirubin 1.0 0.0-1.4 mg/dL VITAMIN B12 Reviewed date:04/12/2024 07:49:43 AM Interpretation: Performing Lab: Notes/Report: Merchant Seaman - Mge Campos MD [address] [place] [address] [employer], a member of [facility] VITAMIN B12 892 250-900 pg/mL LIPID PROFILE [...] Note Original Ordering Provider: NENO UGARTE PA-C [employer], a member of [address] [address] Merchant Seaman - Meg Campos MD WBC 5.7 4.8-10.8 [...] Note Original Ordering Provider: NENO UGARTE PA-C [employer], a member of [address] [address] Merchant Seaman - Meg Campos MD CBC WITH AUTO [...] K/mcL Immature Granulocytes Absolute 0.04 0.00-0.03 K/mcL Reason For Referral Diagnosis 1 Left shoulder pain, unspecified chronicity (M25.512) Diagnosis 2 Left ankle pain, uns pecified chronicity (M25.572) Referral Organization [facility] [address] Referring Provider First Name NENO Referring Provider Last Name YVROSE Referring Provider Speciality Internal M edicine Referred Provider Specialty Physical The rapist General Notes Irma Norman 2023 02:57:41 PM > ati form filled out and faxed over with recent note Referral Priority Routine Medications Medication SIG (Take, Route, Frequency, Duration) Notes Start Date End Date Status Celecoxib 100 MG 1 capsule PRN Orally Once a day; Duration: 90 days Active Losartan Potassium 25 MG 1 tablet Orally Once a day; Duration: 90 days Active Famotidine 20 MG 1 tablet Orally twic e daily; Duration: 90 days Active Furosemide 20 MG TAKE 1 TABLET 2 TIME S DAILYAS NEEDED; Duration: 90 Active Aspir-81 Active Multi Complete Activ e Omeprazole 20 MG 1 capsule 1/2 to 1 h our before morning meal Orally Once a day Active CoQ-10 Active Multi Vitamin Active Airsupra 90-80 MCG/ACT 2 puffs as needed Inhalation Six times a day; Duration: 30 days 02/08/2025 Active Magnesium Citrate Ac tive Immunizations Vaccine Route Administration Date Status Comme nts RSV-MAb (Respiratory syncyti al virus immune globulin), IM use Unknown 08/08/2023 Administered Problems Problem Type SNOMED Code ICD Code Onset Dates Problem Status W/U Status Risk Notes Problem Vitamin D deficiency (36198037) Vitamin D deficiency, unspecified (E55.9) Active confirmed Problem Hereditary hemochromatosis (03385921) Hereditary hemochromatosis (E83.110) Active confirmed Problem Essential hypertension (87644633) Essential hypertension (I10) Active confirmed Problem Arthritis (6213945) Arthritis (M19.90) Active c onfirmed Problem Shoulder joint pain (225750300) Left shoulder pain, unspecified chronicity (M25.512) Active confirmed Problem Seasonal allergy (519965212) Seasonal allergies (J30.2) Active confirmed Problem Osteopenia (605514815) Osteopenia, unspecified location (M85.80) Active confirmed Problem COVID-19 (847772127) COVID-19 (U07.1) Active confirmed Problem Gastroesophageal reflux disease (262466363) Gastroesophageal reflux disease, unspecified whether esophagitis present (K21.9) Active confirmed Problem Hearing loss (12414053) Bilateral hearing loss, unspecified hearing loss type (H91.93) Active confirmed Problem Cataract (508661741) Cataract of both eyes, unspecified cataract type (H26.9) Active confirmed Problem BMI 30+ - obesity (206179396) BMI 32.0-32.9,adult (Z68.32) Active confirmed Problem Amnesia (44087874) Memory change (R41.3) Active confirmed Problem Body mass index 30+ - obesity (430868129) BMI 30.0-30.9,adult (Z68.30) Active confirmed Problem Hemochromatosis (724771533) Hemochromatosis, unspecified hemochromatosis type (E83.119) Active confirmed Problem Gastroesophageal reflux disease (546193935) GERD (gastroesophageal reflux disease) (K21.9) Active confirmed Problem Urinary incontinence (953452904) Urinary incontinence in female (R32) Active confirmed Vital Signs Heart Rate 88 /min 03/15/2025 Oximetry 98 % 03/15/2025 Blood pressure diastolic 78 mm Hg 03/15/2025 Height 66 in 03/15/2025 Blood pressure systolic 122 mm Hg 03/15/2025 Weight 206.5 lbs 03/15/2025 BMI 33.33 kg/m2 03/15/2025 Encounters Encounter Location Date Provider Diagnosis [facility] [address] [place] [address] 05/06/2024 NENO FRANCES Chronic constipation K59.09 ; Hereditary hemochromatosis E83.110 ; Hypertension, unspecified type I10 and Seasonal allergies J30.[address] [facility] [address] [place] [address] 07/01/2024 NENO FRANCES Hereditary hemochrom atosis E83.110 ; Chronic constipation K59.09 ; Hypertension, unspecified type I10 ; Seasonal allergies J30.2 and Left shoulder pain, unspecified chronicity M25.[address] [facility] [address] [place] [address] 10/07/2024 NENO FRANCES Chronic constipation K59.09 ; Wellness examination Z00.00 ; Hereditary hemochromatosis E83.110 ; Hypertension, unspecified type I10 ; Seasonal allergies J30.2 ; Left shoulder pain, unspecified chronicity M25.512 ; Encounter for screening for depression Z13.31 ; Encounter for screening for other disorder Z13.89 ; Other specified counseling Z71.89 and BMI 32.0-32.9,adult Z68.[address] [facility] [address] [place] [address] 02/08/2025 NENO FRANCES Chronic constipation K59.09 ; Pain, joint, shoulder, left M25.512 ; Hereditary hemochromatosis E83.110 ; Seasonal allergies J30.2 ; Essential hypertension I10 and Encounter for examination of blood pressure without abnormal findings Z01.[address] [facility] [address] [place], [place] 03/15/2025 NENO FRANCES Pain, joint, shoulde r, left M25.512 ; Essential hypertension I10 ; Chronic constipation K59.09 ; Hereditary hemochromatosis E83.110 ; Seasonal allergies J30.2 and Encounter for examination of blood pressure without abnormal findings Z01.30 [facility] [address] [place] [address] 04/09/2024 NENORowan FRANCES [facility] [address] [place] [address] 04/19/2024 NENO FRANCES [facility] [address] [place] [address] 04/26/2024 NENORowan FRANCES [facility] [address] [place] [address] 08/10/2024 NENORowan FRANCES [facility] [address] [place] [address] [place] [address] 08/19/2024 NENO FRANCES [facility] [address] [place] [address] 10/18/2024 TALBELLA BRAYAN [facility] [address] [place] [address] 10/25/2024 NENORowan FRANCES Breast screening Z12 .39 [facility] [address] [place] [address] 12/02/2024 TALAL OGLESBY [facility] [address] [place] [address] 02/01/2025 NENORowan FRANCES [facility] [address] [place] [address] 02/11/2025 NENO FRANCES [facility] [address] [place], [place] /25/2025 NENO FRANCES [facility] [address] [place] [address] [place] [address] 03/15/2025 NENO FRANCES Essential hypertensi on I10 [facility] [address] [place] [address] [place] [address] 03/16/2025 NENO FRANCES Assessments Encounter Date Diagnosis (ICD Code) Assessment Notes Treatment Notes Treatment Clinical Notes Section Notes 05/06/2024 Hereditary hemochromatosis (ICD-10 - E83.110) Betina [...] is actively doing workout classes at the [facility] with her partner. She has goals [...] Dictation was accomplished with the use of iSSimple voice recognition software, prone to medical misidentifications [...] is actively doing workout classes at the [facility] with her partner. She has goals [...] Dictation was accomplished with the use of [employer]imple voice recognition software, prone to medical misidentifications [...] is actively doing workout classes at the [facility] with her partner. She has goals [...] Dictation was accomplished with the use of i[employer]imple voice recognition software, prone to medical misidentifications [...] is actively doing workout classes at the [facility] with her partner. She has goals [...] log exercise and discussed fitness Apps like [employer] which can help keep log off calories [...] Dictation was accomplished with the use of i[employer]imple voice recognition software, prone to medical misidentifications [...] is actively doing workout classes at the [facility] with her partner. She has goals [...] log exercise and discussed fitness Apps like [employer] which can help keep log off calories [...] Dictation was accomplished with the use of iSSimple voice recognition software, prone to medical misidentifications [...] into chart, following with hematology Dr. Tre Michel. Has not needed phlebotomy in the past [...] is actively doing workout classes at the [facility] with her partner. She has goals [...] Dictation was accomplished with the use of i[employer]imple voice recognition software, prone to medical misidentifications [...] into chart, following with hematology Dr. Tre Michel. Has not needed phlebotomy in the past [...] is actively doing workout classes at the [facility] with her partner. She has goals [...] Dictation was accomplished with the use of i[employer]imple voice recognition software, prone to medical misidentifications and grammatical errors. This is unintentional and the practitioner does try to identify and correct these, but some could still be present. Please do not hesitate to contact practitioner for clarification. 03/15/2025 Essential hypertension (ICD-10 - I10) Betina is [...] hearing aid, she is going to contact ENT.Has hearing aid in left ear, doing well # Healthcare proxy completed in office today, it is Giuseppe. Completed 10/07/2024. # Audit negative with a total score of 0 # PHQ-9 10/07/2024 with a total score of 0. #2+ edema bilateral lower extremities Increase furosemide 20 mg twice daily for the next 7 days. Patient was concerned that she had cellulitis so she did go to an urgent care last week and was prescribed clobetasol, and cephalexin which completely took away the redness. Limiting salt, trial compression socks.Emergency department criteria/criteria to call the office. Yanira monitoring weight at home. No increasing shortness of breath but discussed criteria to call the office/call her marble ceiling installer. # Hemochromatosis: Note scanned into chart, following with hematology Dr. Tre Michel. Has not needed phlebotomy in the past 2 months. Following next week. #hypertension: Patient self Discontinued diltiazem and lisinopril. Patient states that she has not taken losartan 25 mg with improvement in symptoms. Patient is Going to contact marble ceiling installer #Overweight: Patient is actively doing workout classes at the [facility] with her partner. She has goals to eat more vegetables and fruit, continuing exercise classes as tolerated, increasing hydration. Discussed berberine.Has had some weight gain but recently came back from vacation. Will monitor weight secondary to increased swelling in lower extremities #Constipation - Intermittent constipation taking certain anticholinergic [...] to auscultation.Discuss ed cardiopulmonary symptoms. Follow-up in 1 month, call sooner as needed if no improvement in lower extremity swelling, and discussed emergency department criteria/criteria to call the office All quetsions answered to patients satisfaction. Patient verbalized understanding of diagnosis and treatments explained. To call sooner prior to next visit it any questions/concerns arise. Case discussed with collaborating physician Vern Oglesby who reviewed the assessment and plan. Chart, medications, labs, vital signs reviewed. Dictation was accomplished with the use of iSSimple voice recognition software, prone to medical misidentifications and grammatical errors. This is unintentional and the practitioner does try to identify and correct these, but some could still be present. Please do not hesitate to contact practitioner for clarification. 03/15/2025 Pain, joint, shoulder, left (ICD-10 - M25.512) [...] hearing aid, she is going to contact ENT.Has hearing aid in left ear, doing well # Healthcare proxy completed in office today, it is Giuseppe. Completed 10/07/2024. # Audit negative with a total score of 0 # PHQ-9 10/07/2024 with a total score of 0. #2+ edema bilateral lower extremities Increase furosemide 20 mg twice daily for the next 7 days. Patient was concerned that she had cellulitis so she did go to an urgent care last week and was prescribed clobetasol, and cephalexin which completely took away the redness. Limiting salt, trial compression socks.Emergency department criteria/criteria to call the office. Yanira monitoring weight at home. No increasing shortness of breath but discussed criteria to call the office/call her marble ceiling installer. # Hemochromatosis: Note scanned into chart, following with hematology Dr. Tre Michel. Has not needed phlebotomy in the past 2 months. Following next week. #hypertension: Patient self Discontinued diltiazem and lisinopril. Patient states that she has not taken losartan 25 mg with improvement in symptoms. Patient is Going to contact marble ceiling installer #Overweight: Patient is actively doing workout classes at the [facility] with her partner. She has goals to eat more vegetables and fruit, continuing exercise classes as tolerated, increasing hydration. Discussed berberine.Has had some weight gain but recently came back from vacation. Will monitor weight secondary to increased swelling in lower extremities #Constipation - Intermittent constipation taking certain anticholinergic [...] to auscultation.Discuss ed cardiopulmonary symptoms. Follow-up in 1 month, call sooner as needed if no improvement in lower extremity swelling, and discussed emergency department criteria/criteria to call the office All quetsions answered to patients satisfaction. Patient verbalized understanding of diagnosis and treatments explained. To call sooner prior to next visit it any questions/concerns arise. Case discussed with collaborating physician Vern Oglesby who reviewed the assessment and plan. Chart, medications, labs, vital signs reviewed. Dictation was accomplished with the use of iSSimple voice recognition software, prone to medical misidentifications and grammatical errors. This is unintentional and the practitioner does try to identify and correct these, but some could still be present. Please do not hesitate to contact practitioner for clarification. 03/15/2025 Essential hypertension (ICD-10 - I10) 03/15/2025 Chronic constipation (ICD-10 - K59.09) Betina is [...] hearing aid, she is going to contact ENT.Has hearing aid in left ear, doing well # Healthcare proxy completed in office today, it is Giuseppe. Completed 10/07/2024. # Audit negative with a total score of 0 # PHQ-9 10/07/2024 with a total score of 0. #2+ edema bilateral lower extremities Increase furosemide 20 mg twice daily for the next 7 days. Patient was concerned that she had cellulitis so she did go to an urgent care last week and was prescribed clobetasol, and cephalexin which completely took away the redness. Limiting salt, trial compression socks.Emergency department criteria/criteria to call the office. Yanira monitoring weight at home. No increasing shortness of breath but discussed criteria to call the office/call her marble ceiling installer. # Hemochromatosis: Note scanned into chart, following with hematology Dr. Tre Michel. Has not needed phlebotomy in the past 2 months. Following next week. #hypertension: Patient self Discontinued diltiazem and lisinopril. Patient states that she has not taken losartan 25 mg with improvement in symptoms. Patient is Going to contact marble ceiling installer #Overweight: Patient is actively doing workout classes at the [facility] with her partner. She has goals to eat more vegetables and fruit, continuing exercise classes as tolerated, increasing hydration. Discussed berberine.Has had some weight gain but recently came back from vacation. Will monitor weight secondary to increased swelling in lower extremities #Constipation - Intermittent constipation taking certain anticholinergic [...] to auscultation.Discuss ed cardiopulmonary symptoms. Follow-up in 1 month, call sooner as needed if no improvement in lower extremity swelling, and discussed emergency department criteria/criteria to call the office All quetsions answered to patients satisfaction. Patient verbalized understanding of diagnosis and treatments explained. To call sooner prior to next visit it any questions/concerns arise. Case discussed with collaborating physician Vern Oglesby who reviewed the assessment and plan. Chart, medications, labs, vital signs reviewed. Dictation was accomplished with the use of i[employer]imple voice recognition software, prone to medical misidentifications [...] into chart, following with hematology Dr. Tre Michel. Has not needed phlebotomy in the past [...] Dictation was accomplished with the use of iSSimple voice recognition software, prone to medical misidentifications and grammatical errors. This is unintentional and the practitioner does try to identify and correct these, but some could still be present. Please do not hesitate to contact practitioner for clarification. 05/06/2024 Hypertension, unspecified type (ICD-10 - I10) [...] is actively doing workout classes at the [facility] with her partner. She has goals [...] Dictation was accomplished with the use of iSSimple voice recognition software, prone to medical misidentifications [...] is actively doing workout classes at the [facility] with her partner. She has goals [...] Dictation was accomplished with the use of iSSimple voice recognition software, prone to medical misidentifications and grammatical errors. This is unintentional and the practitioner does try to identify and correct these, but some could still be present. Please do not hesitate to contact practitioner for clarification. 10/07/2024 Hereditary hemochromatosis (ICD-10 - E83.110) Betina is a 79 year-old female who presents for V. # Patient up-to-date on all routine vaccinations. [...] is actively doing workout classes at the [facility] with her partner. She has goals [...] Dictation was accomplished with the use of iSSimple voice recognition software, prone to medical misidentifications [...] is actively doing workout classes at the [facility] with her partner. She has goals [...] Dictation was accomplished with the use of iSSimple voice recognition software, prone to medical misidentifications [...] is actively doing workout classes at the [facility] with her partner. She has goals [...] Dictation was accomplished with the use of iSSimple voice recognition software, prone to medical misidentifications and grammatical errors. This is unintentional and the practitioner does try to identify and correct these, but some could still be present. Please do not hesitate to contact practitioner for clarification. 03/15/2025 Hereditary hemochromatosis (ICD-10 - E83.110) Betina is [...] hearing aid, she is going to contact ENT.Has hearing aid in left ear, doing well # Healthcare proxy completed in office today, it is Giuseppe. Completed 10/07/2024. # Audit negative with a total score of 0 # PHQ-9 10/07/2024 with a total score of 0. #2+ edema bilateral lower extremities Increase furosemide 20 mg twice daily for the next 7 days. Patient was concerned that she had cellulitis so she did go to an urgent care last week and was prescribed clobetasol, and cephalexin which completely took away the redness. Limiting salt, trial compression socks.Emergency department criteria/criteria to call the office. Yanira monitoring weight at home. No increasing shortness of breath but discussed criteria to call the office/call her marble ceiling installer. # Hemochromatosis: Note scanned into chart, following with hematology Dr. Tre Michel. Has not needed phlebotomy in the past 2 months. Following next week. #hypertension: Patient self Discontinued diltiazem and lisinopril. Patient states that she has not taken losartan 25 mg with improvement in symptoms. Patient is Going to contact marble ceiling installer #Overweight: Patient is actively doing workout classes at the [facility] with her partner. She has goals to eat more vegetables and fruit, continuing exercise classes as tolerated, increasing hydration. Discussed berberine.Has had some weight gain but recently came back from vacation. Will monitor weight secondary to increased swelling in lower extremities #Constipation - Intermittent constipation taking certain anticholinergic [...] to auscultation.Discuss ed cardiopulmonary symptoms. Follow-up in 1 month, call sooner as needed if no improvement in lower extremity swelling, and discussed emergency department criteria/criteria to call the office All quetsions answered to patients satisfaction. Patient verbalized understanding of diagnosis and treatments explained. To call sooner prior to next visit it any questions/concerns arise. Case discussed with collaborating physician Vern Oglesby who reviewed the assessment and plan. Chart, medications, labs, vital signs reviewed. Dictation was accomplished with the use of iSSimple voice recognition software, prone to medical misidentifications [...] log exercise and discussed fitness Apps like Isentropic which can help keep log off calories [...] Dictation was accomplished with the use of iSSimple voice recognition software, prone to medical misidentifications [...] into chart, following with hematology Dr. Tre Michel. Has not needed phlebotomy in the past [...] is actively doing workout classes at the [facility] with her partner. She has goals [...] Dictation was accomplished with the use of iSSimple voice recognition software, prone to medical misidentifications and grammatical errors. This is unintentional and the practitioner does try to identify and correct these, but some could still be present. Please do not hesitate to contact practitioner for clarification. 03/15/2025 Seasonal allergies (ICD-10 - J30.2) Betina is [...] hearing aid, she is going to contact ENT.Has hearing aid in left ear, doing well # Healthcare proxy completed in office today, it is Giuseppe. Completed 10/07/2024. # Audit negative with a total score of 0 # PHQ-9 10/07/2024 with a total score of 0. #2+ edema bilateral lower extremities Increase furosemide 20 mg twice daily for the next 7 days. Patient was concerned that she had cellulitis so she did go to an urgent care last week and was prescribed clobetasol, and cephalexin which completely took away the redness. Limiting salt, trial compression socks.Emergency department criteria/criteria to call the office. Yanira monitoring weight at home. No increasing shortness of breath but discussed criteria to call the office/call her marble ceiling installer. # Hemochromatosis: Note scanned into chart, following with hematology Dr. Tre Michel. Has not needed phlebotomy in the past 2 months. Following next week. #hypertension: Patient self Discontinued diltiazem and lisinopril. Patient states that she has not taken losartan 25 mg with improvement in symptoms. Patient is Going to contact marble ceiling installer #Overweight: Patient is actively doing workout classes at the [facility] with her partner. She has goals to eat more vegetables and fruit, continuing exercise classes as tolerated, increasing hydration. Discussed berberine.Has had some weight gain but recently came back from vacation. Will monitor weight secondary to increased swelling in lower extremities #Constipation - Intermittent constipation taking certain anticholinergic [...] to auscultation.Discuss ed cardiopulmonary symptoms. Follow-up in 1 month, call sooner as needed if no improvement in lower extremity swelling, and discussed emergency department criteria/criteria to call the office All quetsions answered to patients satisfaction. Patient verbalized understanding of diagnosis and treatments explained. To call sooner prior to next visit it any questions/concerns arise. Case discussed with collaborating physician Vern Oglesby who reviewed the assessment and plan. Chart, medications, labs, vital signs reviewed. Dictation was accomplished with the use of iSSimple voice recognition software, prone to medical misidentifications [...] is actively doing workout classes at the [facility] with her partner. She has goals [...] log exercise and discussed fitness Apps like Isentropic which can help keep log off calories [...] Dictation was accomplished with the use of iSSimple voice recognition software, prone to medical misidentifications [...] into chart, following with hematology Dr. Tre Michel. Has not needed phlebotomy in the past [...] is actively doing workout classes at the [facility] with her partner. She has goals [...] Dictation was accomplished with the use of iSSimple voice recognition software, prone to medical misidentifications [...] is actively doing workout classes at the [facility] with her partner. She has goals [...] Dictation was accomplished with the use of iSSimple voice recognition software, prone to medical misidentifications [...] is actively doing workout classes at the [facility] with her partner. She has goals [...] log exercise and discussed fitness Apps like Isentropic which can help keep log off calories [...] Dictation was accomplished with the use of iSSimple voice recognition software, prone to medical misidentifications [...] into chart, following with hematology Dr. Tre Michel. Has not needed phlebotomy in the past [...] is actively doing workout classes at the [facility] with her partner. She has goals [...] Dictation was accomplished with the use of iSSimple voice recognition software, prone to medical misidentifications and grammatical errors. This is unintentional and the practitioner does try to identify and correct these, but some could still be present. Please do not hesitate to contact practitioner for clarification. 03/15/2025 Encounter for examination of blood pressure without [...] hearing aid, she is going to contact ENT.Has hearing aid in left ear, doing well # Healthcare proxy completed in office today, it is Giuseppe. Completed 10/07/2024. # Audit negative with a total score of 0 # PHQ-9 10/07/2024 with a total score of 0. #2+ edema bilateral lower extremities Increase furosemide 20 mg twice daily for the next 7 days. Patient was concerned that she had cellulitis so she did go to an urgent care last week and was prescribed clobetasol, and cephalexin which completely took away the redness. Limiting salt, trial compression socks.Emergency department criteria/criteria to call the office. Yanira monitoring weight at home. No increasing shortness of breath but discussed criteria to call the office/call her marble ceiling installer. # Hemochromatosis: Note scanned into chart, following with hematology Dr. Tre Michel. Has not needed phlebotomy in the past 2 months. Following next week. #hypertension: Patient self Discontinued diltiazem and lisinopril. Patient states that she has not taken losartan 25 mg with improvement in symptoms. Patient is Going to contact marble ceiling installer #Overweight: Patient is actively doing workout classes at the [facility] with her partner. She has goals to eat more vegetables and fruit, continuing exercise classes as tolerated, increasing hydration. Discussed berberine.Has had some weight gain but recently came back from vacation. Will monitor weight secondary to increased swelling in lower extremities #Constipation - Intermittent constipation taking certain anticholinergic [...] to auscultation.Discuss ed cardiopulmonary symptoms. Follow-up in 1 month, call sooner as needed if no improvement in lower extremity swelling, and discussed emergency department criteria/criteria to call the office All quetsions answered to patients satisfaction. Patient verbalized understanding of diagnosis and treatments explained. To call sooner prior to next visit it any questions/concerns arise. Case discussed with collaborating physician Vern Oglesby who reviewed the assessment and plan. Chart, medications, labs, vital signs reviewed. Dictation was accomplished with the use of iSSimple voice recognition software, prone to medical misidentifications [...] is actively doing workout classes at the [facility] with her partner. She has goals [...] Dictation was accomplished with the use of iSSimple voice recognition software, prone to medical misidentifications [...] is actively doing workout classes at the [facility] with her partner. She has goals [...] log exercise and discussed fitness Apps like Isentropic which can help keep log off calories [...] Dictation was accomplished with the use of iSSimple voice recognition software, prone to medical misidentifications [...] is actively doing workout classes at the [facility] with her partner. She has goals [...] log exercise and discussed fitness Apps like Isentropic which can help keep log off calories [...] Dictation was accomplished with the use of iSSimple voice recognition software, prone to medical misidentifications [...] is actively doing workout classes at the [facility] with her partner. She has goals [...] log exercise and discussed fitness Apps like Isentropic which can help keep log off calories [...] Dictation was accomplished with the use of iSSimple voice recognition software, prone to medical misidentifications [...] is actively doing workout classes at the [facility] with her partner. She has goals [...] log exercise and discussed fitness Apps like Isentropic which can help keep log off calories [...] Dictation was accomplished with the use of iSSimple voice recognition software, prone to medical misidentifications [...] 04/07/2023 Next Appt Details Provider Name:NENO FRANCES, 04/12/2025 10:30:00 AM, [address], [place], [address], Insurance Providers Payer Name Payer Address Payer Phone Subscriber Number Group Number Insured Name Patient Relationship to Insured Coverage Start Date Coverage End Date Medicare Part B [id number] [address] [place] [phone] [id number] BETINA REYNOSO Self - patient is the insured [employer] Advantage [address] [place] [address] [phone] [id number] BETINA REYNOSO Self - patient is [...] homozygosity hereditary hemochroma tosis Elevated B12 asthma left sided hearing aide Surgical History Surgery Date(Month/Year) partial hysterectomy tonsillectomy 1950 bilateral knee replacements 2021 3 live right leg varicose vein stripping cataract surgery bilateral, with left ey e laser correction Hospitalization History Reason Date(Month/Year) chicken pox 3 miscarriage D+C pneumonia 2021
--- OUTSIDE RECORDS SUMMARY | 2025-04-08 10:00 | XMS_ITS | Clinical Summary ---
Author Organization [facility] Address [address] [place] [address] Care Team Providers Care Regional Sales Leader Name Role Phone Alejandro Oglesby MD Primary Care Provider [phone] Allergies Active Allergy Reactions Criticality Noted Date [...] age to complete this topic Care Teams Regional Sales Leader Relationship Specialty Start Date End Date Alejandro Oglesby MD [address] [place] [address] PCP - General Internal Medicine 08/13/22
[2025-04-08 13:42] LABS: Appearance Urine Cloudy; Glucose Urine UA Negative (Negative); PH 7.0 (5.0-9.0); Specific Gravity - Urine <= 1.005 (1.005-1.025); UMIC TRIGGER UA YES
== END 2025-04-08 09:07 | disposition home or self-care (01) ==
LOC: HO.HMGCLDS 09:06
PROVIDERS: PCP Internal Medicine; Visit Provider Nurse Practitioner Family
DX: R39.15 Urgency of urination (principal); N32.81 Overactive bladder; R32 Unspecified urinary incontinence; N39.0 Urinary tract infection, site not specified
CPT/HCPCS: 81001; 87086; 87088; 87186

== ENCOUNTER 2025-04-20 13:49 | Outpatient (REF) | payer MEDICARE, BC, SELFPAY ==
--- OUTSIDE RECORDS SUMMARY | 2025-04-20 16:20 | XMS_ITS | Patient Health Record ---
Author Organization [facility] Address [address] [place] [address] Care Team Providers Care Hybrid Derivatives Trader Name Role Phone Maranda MARISCAL, [place] Primary Care Provider Pratibha Kip Loza Unavailable [phone] Allergies Allergen (clinical drug ingredient) Drug/Non Drug [...] W/U Status Risk Notes Problem Pre-surgery evaluation (598008243) Other specified pre-operative examination (V72.83) Active confirmed Problem Colon cancer screening (772302584) Colon cancer screening (V76.51) Active confirmed Problem Hypertension (55991515) Hypertension (401.9) Active confirmed Plan Of Treatment Future Test Test Name Order Date COLONOSCOPY 11/15/2014 Insurance Providers Payer Name Payer Address Payer Phone Subscriber Number Group Number Insured Name Patient Relationship to Insured Coverage Start Date Coverage End Date [place] [address] [place] [id number] ABIEL REYNOSO Self - patient is the insured HMO [facility] [employer] [facility] CLAIMS [address] [place] [address] [id number] Self - patient is the insured Medical (General) History Medical History History ICD Code Denies OR,DM,CVA,Lung disease,renal dise ase Hypertension Negative colonoscopy [place] [address] Tsering diaz Surgical History Surgery Date(Month/Year) Partial hysterectomy 1997 D & C Right carpal tunnel release Vein ligation in the legs Bladder suspension
--- OUTSIDE RECORDS SUMMARY | 2025-04-20 16:20 | XMS_ITS | Patient Health Record ---
Author Organization [facility] Address [address] [place] [address] Care Team Providers Care Pss Delivery Professional Name Role Phone -Do Not use, PCP [...] Status Risk Notes Problem Premature beats (disorder) (32882325) Extrasystole (I49.49) Active confirmed Plan Of Treatment No Information Insurance Providers Payer Name Payer Address Payer Phone Subscriber Number Group Number Insured Name Patient Relationship to Insured Coverage Start Date Coverage End Date Medicare of [place] [employer] [address] [place] [phone] [id number] BETINA REYNOSO Self - patient is the insured 0 [facility] [address] [place] [address] [phone] [id number] BETINA REYNOSO Self - patient is the insured 0 Medical (General) History Medical History History ICD Code Hypertension I10 GERD (gastroesophageal reflux disease) K 21.9 Surgical History Surgery Date(Month/Year) Hospitalization History Reason Date(Month/Year)
--- OUTSIDE RECORDS SUMMARY | 2025-04-20 16:20 | XMS_ITS | Clinical Summary ---
Author Organization [facility] Address [address] [place] [address] Care Team Providers Care Black Off Worker Name Role Phone Alejandro Oglesby MD Primary [...] age to complete this topic Care Teams Black Off Worker Relationship Specialty Start Date End Date Alejandro Oglesby MD [address] [place] [address] PCP - General Internal Medicine 08/13/22
--- OUTSIDE RECORDS SUMMARY | 2025-04-20 16:20 | XMS_ITS | Patient Health Record ---
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 Mammo Location: [facility] at [facility], [address] [place] [address], [id number], . -------- FINAL REPOR T -------- Dictated By: Jeniffer Garza Dictated Date: 11/26/2024 14:47 ET Assigned Physician: Jeniffer Garza Reviewed and Electronically Signed By: Jeniffer Garza Signed Date: 025 14:59 ET Workstation ID: [id number] Transcribed By: Self Edit Transcribed Date: 11/26/2024 [...] K/mcL Immature Granulocytes Absolute 0.04 0.00-0.03 K/mcL EKG (Not yet reviewed by pro vider) Interpretation: Performing Lab: Notes/Report: ECGDiastolicBP 82 ECGHr 68 ECGPRInterval 140 ECGPWaveAxis 35 ECGQRSDuration 88 ECGQrsWaveAxis 2 ECGQTcInterval 392 ECGQTInterval 378 ECGSystolicBP 124 ECGTWaveAxis 19 RR_DiastolicBP 0 RR_MaxRRInterval 0 RR_MeanHR 0 RR_MeanRRInterval 0 RR_MinRRInterval 0 RR_NumBeats 0 RR_NumNormalBeats 0 RR_SystolicBP 0 URINALYSIS WITH REFLEX MICRO SCOPIC Reviewed date:03/01/2025 03:07:37 PM Interpretation: Performing Lab: Notes/Report: Specific [place] Urine 1.011 1.003-1.030 pH, Urine 5.0 5.0-8.0 [...] 2.3 0.0-4.4 CBC WITH AUTO DIFFERENTIAL Reviewed date:03/01/2025 03:07:37 [...] K/mcL Immature Granulocytes Absolute 0.03 0.00-0.03 K/mcL Reason For Referral Diagnosis 1 [...] Notes Start Date End Date Status Aspir-81 Active Multi Complete Activ e Multi Vitamin Active Omeprazole 20 MG 1 capsule 1/2 to 1 h our before morning meal Orally Once a day Active Losartan Potassium 25 MG 1 tablet Orally Once a day; Duration: 90 days Active Furosemide 20 MG TAKE 1 TABLET 2 TIME S DAILYAS NEEDED; Duration: 90 Active Airsupra 90-80 MCG/ACT 2 puffs as needed Inhalation Six times a day; Duration: 30 days 02/08/2025 Active CoQ-10 Active Celecoxib 100 MG TAKE 1 CAPSULE ONCE DAILY NEEDED; Duration: 90 Active Famotidine 20 MG 1 tablet Orally twic e daily; Duration: 90 days Active Magnesium Citrate Ac tive Immunizations Vaccine Route Administration Date Status Comme nts RSV-MAb (Respiratory syncyti al virus immune globulin), IM use Unknown 08/08/2023 Administered Problems Problem Type SNOMED Code ICD Code Onset Dates Problem Status W/U Status Risk Notes Problem Vitamin D deficiency (95023259) Vitamin D deficiency, unspecified (E55.9) Active confirmed Problem Hereditary hemochromatosis (62392682) Hereditary hemochromatosis (E83.110) Active confirmed Problem Essential hypertension (31403215) Essential hypertension (I10) Active confirmed Problem Arthritis (1481451) Arthritis (M19.90) Active c onfirmed Problem Shoulder joint pain (180807409) Left shoulder pain, unspecified chronicity (M25.512) Active confirmed Problem Seasonal allergy (952677170) Seasonal allergies (J30.2) Active confirmed Problem Osteopenia (908835091) Osteopenia, unspecified location (M85.80) Active confirmed Problem COVID-19 (739189368) COVID-19 (U07.1) Active confirmed Problem Gastroesophageal reflux disease (292599044) Gastroesophageal reflux disease, unspecified whether esophagitis present (K21.9) Active confirmed Problem Hearing loss (88796889) Bilateral hearing loss, unspecified hearing loss type (H91.93) Active confirmed Problem Cataract (993770370) Cataract of both eyes, unspecified cataract type (H26.9) Active confirmed Problem BMI 30+ - obesity (587963580) BMI 32.0-32.9,adult (Z68.32) Active confirmed Problem Amnesia (93465267) Memory change (R41.3) Active confirmed Problem Body mass index 30+ - obesity (505668080) BMI 30.0-30.9,adult (Z68.30) Active confirmed Problem Hemochromatosis (414633457) Hemochromatosis, unspecified hemochromatosis type (E83.119) Active confirmed Problem Gastroesophageal reflux disease (556856694) GERD (gastroesophageal reflux disease) (K21.9) Active confirmed Problem Urinary incontinence (089794676) Urinary incontinence in female (R32) Active confirmed Vital Signs Heart Rate 86 /min 04/12/2025 Oximetry 98 % 04/12/2025 Blood pressure diastolic 82 mm Hg 04/12/2025 Height 66 in 04/12/2025 Blood pressure systolic 124 mm Hg 04/12/2025 Weight 205.0 lbs 04/12/2025 BMI 33.08 kg/m2 04/12/2025 Encounters Encounter Location Date Provider Diagnosis [facility] [address] [place] [address] 05/06/2024 NENO FRANCES Chronic constipation K59.09 ; Hereditary hemochromatosis E83.110 ; Hypertension, unspecified type I10 and Seasonal allergies J30.[address] [facility] [address] [place] [address] 07/01/2024 NENO FRANCES Hereditary hemochrom atosis E83.110 ; Chronic constipation K59.09 ; Hypertension, unspecified type I10 ; Seasonal allergies J30.2 and Left shoulder pain, unspecified chronicity M25.[address] [facility] [address] [place] [address] 10/07/2024 NENO FRANCES Chronic constipation K59.09 ; Wellness examination Z00.00 ; Hereditary hemochromatosis E83.110 ; Hypertension, unspecified type I10 ; Seasonal allergies J30.2 ; Left shoulder pain, unspecified chronicity M25.512 ; Encounter for screening for depression Z13.31 ; Encounter for screening for other disorder Z13.89 ; Other specified counseling Z71.89 and BMI 32.0-32.9,adult Z68.[address] [facility] [address] [place] [address] 02/08/2025 NENO FRANCES Chronic constipation K59.09 ; Pain, joint, shoulder, left M25.512 ; Hereditary hemochromatosis E83.110 ; Seasonal allergies J30.2 ; Essential hypertension I10 and Encounter for examination of blood pressure without abnormal findings Z01.[address] [facility] [address] [place] [address] 03/15/2025 NENO FRANCES Pain, joint, shoulde r, left M25.512 ; Essential hypertension I10 ; Chronic constipation K59.09 ; Hereditary hemochromatosis E83.110 ; Seasonal allergies J30.2 and Encounter for examination of blood pressure without abnormal findings Z01.[address] [facility] [address] [place], [place] 04/12/2025 NENO FRANCES Essential hypertensi on I10 ; Dizziness R42 ; Pain, joint, shoulder, left M25.512 ; Chronic constipation K59.09 ; Hereditary hemochromatosis E83.110 ; Seasonal allergies J30.2 and Encounter for examination of blood pressure without abnormal findings Z01.[address] [facility] [address] [place] [address] 04/26/2024 NENO FRANCES [facility] [address] [place] [address] 08/10/2024 NENO FRANCES [facility] [address] [place] [address] 08/19/2024 NENO FRANCES [facility] [address] [place] [address] 10/18/2024 TALBELLA OGLESBY [facility] [address] [place] [address] 10/25/2024 NENO FRANCES Breast screening Z12 .39 [facility] [address] [place] [address] 12/02/2024 TALAL OGLESBY [facility] [address] [place] [address] 02/01/2025 NENO FRANCES [facility] [address] [place] [address] 02/11/2025 NENO SETHNER [facility] [address] [place] [address] 02/18/2025 NENO FRANCES [facility] [address] [place] [address] 03/15/2025 NENO FRANCES Essential hypertensi on I10 [facility] [address] [place] [address] 03/16/2025 NENO FRANCES Assessments Encounter Date Diagnosis [...] is actively doing workout classes at the [facility] with her partner. She has goals [...] Dictation was accomplished with the use of Beat[employer] voice recognition software, prone to medical misidentifications [...] is actively doing workout classes at the [facility] with her partner. She has goals [...] questions/concerns arise. Case discussed with collaborating physician eVrn Oglesby who reviewed the assessment and plan. Chart, medications, labs, vital signs reviewed. Dictation was accomplished with the use of [employer] voice recognition software, prone to medical misidentifications [...] is actively doing workout classes at the [facility] with her partner. She has goals [...] Dictation was accomplished with the use of [employer] voice recognition software, prone to medical misidentifications [...] is actively doing workout classes at the [facility] with her partner. She has goals [...] log exercise and discussed fitness Apps like [employer] which can help keep log off calories [...] Dictation was accomplished with the use of [employer] voice recognition software, prone to medical misidentifications [...] is actively doing workout classes at the [facility] with her partner. She has goals [...] log exercise and discussed fitness Apps like [employer] which can help keep log off calories [...] Dictation was accomplished with the use of [employer] voice recognition software, prone to medical misidentifications [...] actively doing workout classes at [facility] [employer] with her partner. She has goals to [...] Dictation was accomplished with the use of [employer] voice recognition software, prone to medical misidentifications [...] is actively doing workout classes at the [facility] with her partner. 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 # Hemochromatosis: Note scanned into chart, following with hematology Dr. Tre Michel. Has not needed phlebotomy in the past 2 months. Following next week. #hypertension: Patient self Discontinued diltiazem and lisinopril. Patient states that she has not taken losartan 25 mg with improvement in symptoms. Patient is Going to contact hatch boss #Overweight: Patient is actively doing workout classes at the [facility] with her partner. She has goals [...] Dictation was accomplished with the use of [employer] voice recognition software, prone to medical misidentifications and grammatical errors. This is unintentional and the practitioner does try to identify and correct these, but some could still be present. Please do not hesitate to contact practitioner for clarification. 03/15/2025 Essential hypertension (ICD-10 - I10) 03/15/2025 Essential hypertension (ICD-10 - I10) Betina [...] discussed criteria to call the office/call her hatch boss. # Hemochromatosis: Note scanned into chart, following with hematology Dr. Tre Michel. Has not needed phlebotomy in the past 2 months. Following next week. #hypertension: Patient self Discontinued diltiazem and lisinopril. Patient states that she has not taken losartan 25 mg with improvement in symptoms. Patient is Going to contact hatch boss #Overweight: Patient is actively doing workout classes at the [facility] with her partner. She has goals [...] Dictation was accomplished with the use of [employer] voice recognition software, prone to medical misidentifications and grammatical errors. This is unintentional and the practitioner does try to identify and correct these, but some could still be present. Please do not hesitate to contact practitioner for clarification. 04/12/2025 Essential hypertension (ICD-10 - I10) Betina is a 79-year-old female who presents for Follow-up visit. # Patient up-to-date on all routine vaccinations. Will obtain Tdap as needed. Up-to-date on colonoscopy, declines further. Mammogram reviewed from November 2024, within normal limits. Due November 2025. Declines Pap smear/bone density. # Left hearing loss, follow-up with ENT, scheduled for left hearing aid placement,Doing well post replacement, hearing has improved. # Healthcare proxy completed in office today, it is Giuseppe. Completed 10/07/2024. # Audit negative with a total score of 0 # PHQ-9 10/07/2024 with a total score of 0. #History of 2+ pitting edema, that has improved to 1+ pitting edema, she was taking furosemide 20 mg once daily, increase to twice daily, but now she is only taking it once daily. Was recently treated for cellulitis on her lower extremities with clobetasol and cephalexin, notes completely resolved. She is limiting salt, trialing compression socks. Monitoring her weight at home. Shortness of breath has improved. 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 # Hemochromatosis: Note scanned into chart, following with hematology Dr. Tre Michel. Has not needed phlebotomy in the past 4 months. Following next week. #hypertension:Blood pressure stable in office today. Taking losartan 25 mg. Did have an episode of dizziness this morning, EKG in office 04/12/2025 without acute concern. Patient is going to contact cardiology. Declines any further workup at this time including coronary calcium scan/ultrasound of bilateral carotid arteries. Could be a side effect of the Bactrim, discussed the importance of nutrition/hydration. Discussed emergency department criteria. # Patient was recently stung by a wasp, treated with topical Benadryl, with improvement. #Overweight: Patient is actively doing workout classes at the [facility] with her partner. She has goals to eat more vegetables and fruit, continuing exercise classes as tolerated, increasing hydration. Discussed berberine.Has had some weight gain but recently came back from vacation. Weight stable. #Constipation - Intermittent constipation taking certain anticholinergic [...] current plan at this time.Taking turmeric # Shoulder pain: Plans to contact orthopedics for cortisone injection. # Mammogram reviewed November 2024 within normal limits Time spent with patient 60 minutes or greater than 50% on patient occasion and care coordination Follow-up in 3 months to assess lower extremity swelling, and specialist visits, sooner as needed. All quetsions answered to patients satisfaction. Patient verbalized understanding of diagnosis and treatments explained. To call sooner prior to next visit it any questions/concerns arise. Case discussed with collaborating physician Vern Oglesby who reviewed the assessment and plan. Chart, medications, labs, vital signs reviewed. Dictation was accomplished with the use of [employer] voice recognition software, prone to medical misidentifications and grammatical errors. This is unintentional and the practitioner does try to identify and correct these, but some could still be present. Please do not hesitate to contact practitioner for clarification. 04/12/2025 Dizziness (ICD-10 - R42) Betina is a 79-year-old female who presents for Follow-up visit. # Patient up-to-date on all routine vaccinations. Will obtain Tdap as needed. Up-to-date on colonoscopy, declines further. Mammogram reviewed from November 2024, within normal limits. Due November 2025. Declines Pap smear/bone density. # Left hearing loss, follow-up with ENT, scheduled for left hearing aid placement,Doing well post replacement, hearing has improved. # Healthcare proxy completed in office today, it is Giuseppe. Completed 10/07/2024. # Audit negative with a total score of 0 # PHQ-9 10/07/2024 with a total score of 0. #History of 2+ pitting edema, that has improved to 1+ pitting edema, she was taking furosemide 20 mg once daily, increase to twice daily, but now she is only taking it once daily. Was recently treated for cellulitis on her lower extremities with clobetasol and cephalexin, notes completely resolved. She is limiting salt, trialing compression socks. Monitoring her weight at home. Shortness of breath has improved. 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 # Hemochromatosis: Note scanned into chart, following with hematology Dr. Tre Michel. Has not needed phlebotomy in the past 4 months. Following next week. #hypertension:Blood pressure stable in office today. Taking losartan 25 mg. Did have an episode of dizziness this morning, EKG in office 04/12/2025 without acute concern. Patient is going to contact cardiology. Declines any further workup at this time including coronary calcium scan/ultrasound of bilateral carotid arteries. Could be a side effect of the Bactrim, discussed the importance of nutrition/hydration. Discussed emergency department criteria. # Patient was recently stung by a wasp, treated with topical Benadryl, with improvement. #Overweight: Patient is actively doing workout classes at the [facility] with her partner. She has goals to eat more vegetables and fruit, continuing exercise classes as tolerated, increasing hydration. Discussed berberine.Has had some weight gain but recently came back from vacation. Weight stable. #Constipation - Intermittent constipation taking certain anticholinergic [...] current plan at this time.Taking turmeric # Shoulder pain: Plans to contact orthopedics for cortisone injection. # Mammogram reviewed November 2024 within normal limits Time spent with patient 60 minutes or greater than 50% on patient occasion and care coordination Follow-up in 3 months to assess lower extremity swelling, and specialist visits, sooner as needed. All quetsions answered to patients satisfaction. Patient verbalized understanding of diagnosis and treatments explained. To call sooner prior to next visit it any questions/concerns arise. Case discussed with collaborating physician Vern Oglesby who reviewed the assessment and plan. Chart, medications, labs, vital signs reviewed. Dictation was accomplished with the use of [employer] voice recognition software, prone to medical misidentifications and grammatical errors. This is unintentional and the practitioner does try to identify and correct these, but some could still be present. Please do not hesitate to contact practitioner for clarification. 03/15/2025 Chronic constipation (ICD-10 - K59.09) Betina [...] discussed criteria to call the office/call her hatch boss. # Hemochromatosis: Note scanned into chart, following with hematology Dr. Tre Michel. Has not needed phlebotomy in the past 2 months. Following next week. #hypertension: Patient self Discontinued diltiazem and lisinopril. Patient states that she has not taken losartan 25 mg with improvement in symptoms. Patient is Going to contact hatch boss #Overweight: Patient is actively doing workout classes at the [facility] with her partner. She has goals [...] Dictation was accomplished with the use of [employer] voice recognition software, prone to medical misidentifications and grammatical errors. This is unintentional and the practitioner does try to identify and correct these, but some could still be present. Please do not hesitate to contact practitioner for clarification. 04/12/2025 Pain, joint, shoulder, left (ICD-10 - M25.512) Betina is a 79-year-old female who presents for Follow-up visit. # Patient up-to-date on all routine vaccinations. Will obtain Tdap as needed. Up-to-date on colonoscopy, declines further. Mammogram reviewed from November 2024, within normal limits. Due November 2025. Declines Pap smear/bone density. # Left hearing loss, follow-up with ENT, scheduled for left hearing aid placement,Doing well post replacement, hearing has improved. # Healthcare proxy completed in office today, it is Giuseppe. Completed 10/07/2024. # Audit negative with a total score of 0 # PHQ-9 10/07/2024 with a total score of 0. #History of 2+ pitting edema, that has improved to 1+ pitting edema, she was taking furosemide 20 mg once daily, increase to twice daily, but now she is only taking it once daily. Was recently treated for cellulitis on her lower extremities with clobetasol and cephalexin, notes completely resolved. She is limiting salt, trialing compression socks. Monitoring her weight at home. Shortness of breath has improved. 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 # Hemochromatosis: Note scanned into chart, following with hematology Dr. Tre Michel. Has not needed phlebotomy in the past 4 months. Following next week. #hypertension:Blood pressure stable in office today. Taking losartan 25 mg. Did have an episode of dizziness this morning, EKG in office 04/12/2025 without acute concern. Patient is going to contact cardiology. Declines any further workup at this time including coronary calcium scan/ultrasound of bilateral carotid arteries. Could be a side effect of the Bactrim, discussed the importance of nutrition/hydration. Discussed emergency department criteria. # Patient was recently stung by a wasp, treated with topical Benadryl, with improvement. #Overweight: Patient is actively doing workout classes at the [facility] with her partner. She has goals to eat more vegetables and fruit, continuing exercise classes as tolerated, increasing hydration. Discussed berberine.Has had some weight gain but recently came back from vacation. Weight stable. #Constipation - Intermittent constipation taking certain anticholinergic [...] current plan at this time.Taking turmeric # Shoulder pain: Plans to contact orthopedics for cortisone injection. # Mammogram reviewed November 2024 within normal limits Time spent with patient 60 minutes or greater than 50% on patient occasion and care coordination Follow-up in 3 months to assess lower extremity swelling, and specialist visits, sooner as needed. All quetsions answered to patients satisfaction. Patient verbalized understanding of diagnosis and treatments explained. To call sooner prior to next visit it any questions/concerns arise. Case discussed with collaborating physician Vern Oglesby who reviewed the assessment and plan. Chart, medications, labs, vital signs reviewed. Dictation was accomplished with the use of [employer] voice recognition software, prone to medical misidentifications [...] is actively doing workout classes at the [facility] with her partner. She has goals [...] Dictation was accomplished with the use of [employer] voice recognition software, prone to medical misidentifications [...] is actively doing workout classes at the [facility] with her partner. She has goals [...] Dictation was accomplished with the use of [employer] voice recognition software, prone to medical misidentifications [...] is actively doing workout classes at the [facility] with her partner. She has goals [...] Dictation was accomplished with the use of [employer] voice recognition software, prone to medical misidentifications [...] is actively doing workout classes at the [facility] with her partner. She has goals [...] log exercise and discussed fitness Apps like [employer] which can help keep log off calories [...] Dictation was accomplished with the use of Beatro[employer] voice recognition software, prone to medical misidentifications [...] is actively doing workout classes at the [facility] with her partner. She has goals [...] Dictation was accomplished with the use of [employer] voice recognition software, prone to medical misidentifications [...] is actively doing workout classes at the [facility] with her partner. 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 # Hemochromatosis: Note scanned into chart, following with hematology Dr. Tre Michel. Has not needed phlebotomy in the past 2 months. Following next week. #hypertension: Patient self Discontinued diltiazem and lisinopril. Patient states that she has not taken losartan 25 mg with improvement in symptoms. Patient is Going to contact hatch boss #Overweight: Patient is actively doing workout classes at the [facility] with her partner. She has goals [...] Dictation was accomplished with the use of [employer] voice recognition software, prone to medical misidentifications [...] is actively doing workout classes at the [facility] with her partner. She has goals [...] log exercise and discussed fitness Apps like [employer] which can help keep log off calories [...] Dictation was accomplished with the use of [employer] voice recognition software, prone to medical misidentifications [...] is actively doing workout classes at the [facility] with her partner. She has goals [...] Dictation was accomplished with the use of [employer] voice recognition software, prone to medical misidentifications and grammatical errors. This is unintentional and the practitioner does try to identify and correct these, but some could still be present. Please do not hesitate to contact practitioner for clarification. 04/12/2025 Chronic constipation (ICD-10 - K59.09) Betina is a 79-year-old female who presents for Follow-up visit. # Patient up-to-date on all routine vaccinations. Will obtain Tdap as needed. Up-to-date on colonoscopy, declines further. Mammogram reviewed from November 2024, within normal limits. Due November 2025. Declines Pap smear/bone density. # Left hearing loss, follow-up with ENT, scheduled for left hearing aid placement,Doing well post replacement, hearing has improved. # Healthcare proxy completed in office today, it is Giuseppe. Completed 10/07/2024. # Audit negative with a total score of 0 # PHQ-9 10/07/2024 with a total score of 0. #History of 2+ pitting edema, that has improved to 1+ pitting edema, she was taking furosemide 20 mg once daily, increase to twice daily, but now she is only taking it once daily. Was recently treated for cellulitis on her lower extremities with clobetasol and cephalexin, notes completely resolved. She is limiting salt, trialing compression socks. Monitoring her weight at home. Shortness of breath has improved. 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 # Hemochromatosis: Note scanned into chart, following with hematology Dr. Tre Michel. Has not needed phlebotomy in the past 4 months. Following next week. #hypertension:Blood pressure stable in office today. Taking losartan 25 mg. Did have an episode of dizziness this morning, EKG in office 04/12/2025 without acute concern. Patient is going to contact cardiology. Declines any further workup at this time including coronary calcium scan/ultrasound of bilateral carotid arteries. Could be a side effect of the Bactrim, discussed the importance of nutrition/hydration. Discussed emergency department criteria. # Patient was recently stung by a wasp, treated with topical Benadryl, with improvement. #Overweight: Patient is actively doing workout classes at the [facility] with her partner. She has goals to eat more vegetables and fruit, continuing exercise classes as tolerated, increasing hydration. Discussed berberine.Has had some weight gain but recently came back from vacation. Weight stable. #Constipation - Intermittent constipation taking certain anticholinergic [...] current plan at this time.Taking turmeric # Shoulder pain: Plans to contact orthopedics for cortisone injection. # Mammogram reviewed November 2024 within normal limits Time spent with patient 60 minutes or greater than 50% on patient occasion and care coordination Follow-up in 3 months to assess lower extremity swelling, and specialist visits, sooner as needed. All quetsions answered to patients satisfaction. Patient verbalized understanding of diagnosis and treatments explained. To call sooner prior to next visit it any questions/concerns arise. Case discussed with collaborating physician Vern Oglesby who reviewed the assessment and plan. Chart, medications, labs, vital signs reviewed. Dictation was accomplished with the use of [employer] voice recognition software, prone to medical misidentifications [...] is actively doing workout classes at the [facility] with her partner. 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 # Hemochromatosis: Note scanned into chart, following with hematology Dr. Tre Michel. Has not needed phlebotomy in the past 2 months. Following next week. #hypertension: Patient self Discontinued diltiazem and lisinopril. Patient states that she has not taken losartan 25 mg with improvement in symptoms. Patient is Going to contact hatch boss #Overweight: Patient is actively doing workout classes at the [facility] with her partner. She has goals [...] Dictation was accomplished with the use of [employer] voice recognition software, prone to medical misidentifications and grammatical errors. This is unintentional and the practitioner does try to identify and correct these, but some could still be present. Please do not hesitate to contact practitioner for clarification. 04/12/2025 Hereditary hemochromatosis (ICD-10 - E83.110) Betina is a 79-year-old female who presents for Follow-up visit. # Patient up-to-date on all routine vaccinations. Will obtain Tdap as needed. Up-to-date on colonoscopy, declines further. Mammogram reviewed from November 2024, within normal limits. Due November 2025. Declines Pap smear/bone density. # Left hearing loss, follow-up with ENT, scheduled for left hearing aid placement,Doing well post replacement, hearing has improved. # Healthcare proxy completed in office today, it is Giuseppe. Completed 10/07/2024. # Audit negative with a total score of 0 # PHQ-9 10/07/2024 with a total score of 0. #History of 2+ pitting edema, that has improved to 1+ pitting edema, she was taking furosemide 20 mg once daily, increase to twice daily, but now she is only taking it once daily. Was recently treated for cellulitis on her lower extremities with clobetasol and cephalexin, notes completely resolved. She is limiting salt, trialing compression socks. Monitoring her weight at home. Shortness of breath has improved. 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 # Hemochromatosis: Note scanned into chart, following with hematology Dr. Tre Michel. Has not needed phlebotomy in the past 4 months. Following next week. #hypertension:Blood pressure stable in office today. Taking losartan 25 mg. Did have an episode of dizziness this morning, EKG in office 04/12/2025 without acute concern. Patient is going to contact cardiology. Declines any further workup at this time including coronary calcium scan/ultrasound of bilateral carotid arteries. Could be a side effect of the Bactrim, discussed the importance of nutrition/hydration. Discussed emergency department criteria. # Patient was recently stung by a wasp, treated with topical Benadryl, with improvement. #Overweight: Patient is actively doing workout classes at the [facility] with her partner. She has goals to eat more vegetables and fruit, continuing exercise classes as tolerated, increasing hydration. Discussed berberine.Has had some weight gain but recently came back from vacation. Weight stable. #Constipation - Intermittent constipation taking certain anticholinergic [...] current plan at this time.Taking turmeric # Shoulder pain: Plans to contact orthopedics for cortisone injection. # Mammogram reviewed November 2024 within normal limits Time spent with patient 60 minutes or greater than 50% on patient occasion and care coordination Follow-up in 3 months to assess lower extremity swelling, and specialist visits, sooner as needed. All quetsions answered to patients satisfaction. Patient verbalized understanding of diagnosis and treatments explained. To call sooner prior to next visit it any questions/concerns arise. Case discussed with collaborating physician Vern Oglesby who reviewed the assessment and plan. Chart, medications, labs, vital signs reviewed. Dictation was accomplished with the use of [employer] voice recognition software, prone to medical misidentifications [...] is actively doing workout classes at the [facility] with her partner. She has goals [...] log exercise and discussed fitness Apps like [employer] which can help keep log off calories [...] Dictation was accomplished with the use of [employer] voice recognition software, prone to medical misidentifications [...] is actively doing workout classes at the [facility] with her partner. She has goals [...] Dictation was accomplished with the use of [employer] voice recognition software, prone to medical misidentifications [...] is actively doing workout classes at the [facility] with her partner. She has goals [...] Dictation was accomplished with the use of [employer] voice recognition software, prone to medical misidentifications [...] is actively doing workout classes at the [facility] with her partner. She has goals [...] log exercise and discussed fitness Apps like [employer] which can help keep log off calories [...] Dictation was accomplished with the use of [employer] voice recognition software, prone to medical misidentifications [...] is actively doing workout classes at the [facility] with her partner. She has goals [...] Dictation was accomplished with the use of [employer] voice recognition software, prone to medical misidentifications and grammatical errors. This is unintentional and the practitioner does try to identify and correct these, but some could still be present. Please do not hesitate to contact practitioner for clarification. 04/12/2025 Seasonal allergies (ICD-10 - J30.2) Betina is a 79-year-old female who presents for Follow-up visit. # Patient up-to-date on all routine vaccinations. Will obtain Tdap as needed. Up-to-date on colonoscopy, declines further. Mammogram reviewed from November 2024, within normal limits. Due November 2025. Declines Pap smear/bone density. # Left hearing loss, follow-up with ENT, scheduled for left hearing aid placement,Doing well post replacement, hearing has improved. # Healthcare proxy completed in office today, it is Giuseppe. Completed 10/07/2024. # Audit negative with a total score of 0 # PHQ-9 10/07/2024 with a total score of 0. #History of 2+ pitting edema, that has improved to 1+ pitting edema, she was taking furosemide 20 mg once daily, increase to twice daily, but now she is only taking it once daily. Was recently treated for cellulitis on her lower extremities with clobetasol and cephalexin, notes completely resolved. She is limiting salt, trialing compression socks. Monitoring her weight at home. Shortness of breath has improved. 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 # Hemochromatosis: Note scanned into chart, following with hematology Dr. Tre Michel. Has not needed phlebotomy in the past 4 months. Following next week. #hypertension:Blood pressure stable in office today. Taking losartan 25 mg. Did have an episode of dizziness this morning, EKG in office 04/12/2025 without acute concern. Patient is going to contact cardiology. Declines any further workup at this time including coronary calcium scan/ultrasound of bilateral carotid arteries. Could be a side effect of the Bactrim, discussed the importance of nutrition/hydration. Discussed emergency department criteria. # Patient was recently stung by a wasp, treated with topical Benadryl, with improvement. #Overweight: Patient is actively doing workout classes at the [facility] with her partner. She has goals to eat more vegetables and fruit, continuing exercise classes as tolerated, increasing hydration. Discussed berberine.Has had some weight gain but recently came back from vacation. Weight stable. #Constipation - Intermittent constipation taking certain anticholinergic [...] current plan at this time.Taking turmeric # Shoulder pain: Plans to contact orthopedics for cortisone injection. # Mammogram reviewed November 2024 within normal limits Time spent with patient 60 minutes or greater than 50% on patient occasion and care coordination Follow-up in 3 months to assess lower extremity swelling, and specialist visits, sooner as needed. All quetsions answered to patients satisfaction. Patient verbalized understanding of diagnosis and treatments explained. To call sooner prior to next visit it any questions/concerns arise. Case discussed with collaborating physician Vern Oglesby who reviewed the assessment and plan. Chart, medications, labs, vital signs reviewed. Dictation was accomplished with the use of [employer] voice recognition software, prone to medical misidentifications [...] discussed criteria to call the office/call her hatch boss. # Hemochromatosis: Note scanned into chart, following with hematology Dr. Tre Michel. Has not needed phlebotomy in the past 2 months. Following next week. #hypertension: Patient self Discontinued diltiazem and lisinopril. Patient states that she has not taken losartan 25 mg with improvement in symptoms. Patient is Going to contact hatch boss #Overweight: Patient is actively doing workout classes at the [facility] with her partner. She has goals [...] Dictation was accomplished with the use of [employer] voice recognition software, prone to medical misidentifications and grammatical errors. This is unintentional and the practitioner does try to identify and correct these, but some could still be present. Please do not hesitate to contact practitioner for clarification. 04/12/2025 Encounter for examination of blood pressure without abnormal findings (ICD-10 - Z01.30) Betina is a 79-year-old female who presents for Follow-up visit. # Patient up-to-date on all routine vaccinations. Will obtain Tdap as needed. Up-to-date on colonoscopy, declines further. Mammogram reviewed from November 2024, within normal limits. Due November 2025. Declines Pap smear/bone density. # Left hearing loss, follow-up with ENT, scheduled for left hearing aid placement,Doing well post replacement, hearing has improved. # Healthcare proxy completed in office today, it is Giuseppe. Completed 10/07/2024. # Audit negative with a total score of 0 # PHQ-9 10/07/2024 with a total score of 0. #History of 2+ pitting edema, that has improved to 1+ pitting edema, she was taking furosemide 20 mg once daily, increase to twice daily, but now she is only taking it once daily. Was recently treated for cellulitis on her lower extremities with clobetasol and cephalexin, notes completely resolved. She is limiting salt, trialing compression socks. Monitoring her weight at home. Shortness of breath has improved. 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 # Hemochromatosis: Note scanned into chart, following with hematology Dr. Tre Michel. Has not needed phlebotomy in the past 4 months. Following next week. #hypertension:Blood pressure stable in office today. Taking losartan 25 mg. Did have an episode of dizziness this morning, EKG in office 04/12/2025 without acute concern. Patient is going to contact cardiology. Declines any further workup at this time including coronary calcium scan/ultrasound of bilateral carotid arteries. Could be a side effect of the Bactrim, discussed the importance of nutrition/hydration. Discussed emergency department criteria. # Patient was recently stung by a wasp, treated with topical Benadryl, with improvement. #Overweight: Patient is actively doing workout classes at the [facility] with her partner. She has goals to eat more vegetables and fruit, continuing exercise classes as tolerated, increasing hydration. Discussed berberine.Has had some weight gain but recently came back from vacation. Weight stable. #Constipation - Intermittent constipation taking certain anticholinergic [...] current plan at this time.Taking turmeric # Shoulder pain: Plans to contact orthopedics for cortisone injection. # Mammogram reviewed November 2024 within normal limits Time spent with patient 60 minutes or greater than 50% on patient occasion and care coordination Follow-up in 3 months to assess lower extremity swelling, and specialist visits, sooner as needed. All quetsions answered to patients satisfaction. Patient verbalized understanding of diagnosis and treatments explained. To call sooner prior to next visit it any questions/concerns arise. Case discussed with collaborating physician Vern Oglesby who reviewed the assessment and plan. Chart, medications, labs, vital signs reviewed. Dictation was accomplished with the use of [employer] voice recognition software, prone to medical misidentifications [...] is actively doing workout classes at the [facility] with her partner. She has goals [...] log exercise and discussed fitness Apps like [employer] which can help keep log off calories [...] Dictation was accomplished with the use of [employer] voice recognition software, prone to medical misidentifications [...] is actively doing workout classes at the [facility] with her partner. She has goals [...] log exercise and discussed fitness Apps like [employer] which can help keep log off calories [...] Dictation was accomplished with the use of [employer] voice recognition software, prone to medical misidentifications [...] is actively doing workout classes at the [facility] with her partner. She has goals [...] log exercise and discussed fitness Apps like [employer] which can help keep log off calories [...] Dictation was accomplished with the use of [employer] voice recognition software, prone to medical misidentifications [...] is actively doing workout classes at the [facility] with her partner. She has goals [...] log exercise and discussed fitness Apps like [employer] which can help keep log off calories [...] Dictation was accomplished with the use of [employer] voice recognition software, prone to medical misidentifications and grammatical errors. This is unintentional and the practitioner does try to identify and correct these, but some could still be present. Please do not hesitate to contact practitioner for clarification. Plan Of Treatment Pending Test Test Name Order Date MAMMOGRAM, SCREENING 10/25/2024 Bone Density 08/02/2022 EKG 04/12/2025 XR Shoulder 2+ Views LT 07/01/2024 LIPID PANEL, STANDARD 04/07/2023 LIPID PANEL, STANDARD 02/08/2025 LIPID PANEL, STANDARD 04/02/2024 COMPREHENSIVE METABOLIC PANEL 04/02/2024 COMPREHENSIVE METABOLIC PANEL 02/08/2025 COMPREHENSIVE METABOLIC PANEL 04/07/2023 CBC (H/H, RBC, INDICES, WBC, PLT) 2023 CBC (INCLUDES DIFF/PLT) 02/08/2025 URINALYSIS, COMPLETE 04/07/2023 URINALYSIS, COMPLETE 02/08/2025 HEMOGLOBIN A1c 02/08/2025 HEMOGLOBIN A1c 04/07/2023 VITAMIN B12 04/02/2024 VITAMIN D,25-OH,TOTAL,IA 04/07/2023 Next Appt Details Provider Name:NENO FRANCES, 06/29/2025 11:45:00 AM, [address], [facility] [place], [address], Insurance Providers Payer Name Payer Address Payer Phone Subscriber Number Group Number Insured Name Patient Relationship to Insured Coverage Start Date Coverage End Date Medicare Part B [id number] [address] [place] [phone] [id number] BETINA REYNOSO Self - patient is the insured [employer]age [address] [place] [address] [phone] [id number] BETINA REYNOSO Self - patient is [...]
== END 2025-04-20 13:50 | disposition home or self-care (01) ==
LOC: HO.BBR 13:49
PROVIDERS: PCP Internal Medicine; Visit Provider Internal Medicine Hematology & Oncology
DX: E83.119 Hemochromatosis, unspecified (principal)
CPT/HCPCS: 85018; 99195

== ENCOUNTER 2025-06-15 10:32 | Outpatient (REF) | payer MEDICARE, BC, SELFPAY ==
--- NOTE | ~2025-06-15 | XR_ITS ---
EXAMINATION: XR SHOULDER, LEFT CLINICAL INFORMATION: M25.512 - Pain in left shoulder COMPARISON: None available. TECHNIQUE: Two views of the left shoulder. FINDINGS: Severe glenohumeral joint arthritis. Acromioclavicular joint space is maintained. No visible acute fracture, dislocation or suspicious bony lesions. No abnormal soft tissue calcification. XR/XR shoulder LT min 2V IMPRESSION: Severe glenohumeral arthritis. Electronically signed by: Dayne Kingston MD 06/15/2025 03:58 PM EST
--- OUTSIDE RECORDS SUMMARY | 2025-06-16 15:31 | XMS_ITS | Clinical Summary ---
Author Organization [facility] Address [address] [place] [phone] Phone Care Team Providers Care Esthetics Instructor Name Role Phone Unavailable Primary Care [...] & Plan (12/01/2024 12:57 PM EDT): Previous equipment monitor phototypesetting showed frequent PACs of about 26.3%. Patient [...] Description 07/12/2025 11:15 AM EST Office Visit [facility] Hematology Oncology [address] [place] [address] Tre Michel MD [address] [place] [address] Health Maintenance Due Date Last [...] mellitus Routine general medical examination at a [facility] care facility Screening for lipoid disorders [facility] DEXA AXIAL SKELETON Routine 09/24/2022 4:53 PM EST Encounter for screening for osteoporosis from Last 3 Months or Most Recently Relevant to Health Maintenance Results * Lipid panel with reflex to direct LDL (03/01/2025 1:30 PM EDT) Cholesterol 131 0 - 200 mg/dL LAB CHEMISTRY METHOD 03/01/2025 3:34 PM EDT [facility] Triglycerides 88 0 - 150 mg/dL LAB CHEMISTRY METHOD 03/01/2025 3:34 PM EDT [facility] HDL 58 >=40 mg/dL LAB CHEMISTRY METHOD 03/01/2025 3:34 PM EDT [facility] LDL Calculated 55 0 - 100 mg/dL LAB CHEMISTRY METHOD 03/01/2025 3:34 PM EDT [facility] Comment:Estimated LDL Calcul ated using equation: Total cholesterol - HDL cholesterol - (Triglycerides/5) VLDL Cholesterol Nicholas 17.6 mg/dL LAB CHEMISTRY METHOD 03/01/2025 3:34 PM EDT [facility] Non HDL Chol. (LDL+VLDL) 73 <145 mg/dL LAB CHEMISTRY METHOD 03/01/2025 3:34 PM EDT [facility] Chol/HDL Ratio 2.3 0.0 - 4.4 LAB [facility] Blood Venous blood specimen / Unknown Venipuncture / Unknown 03/01/2025 1:30 PM EDT 03/01/2025 2:32 PM EDT us [facility] LAB BLOOD ORDERABLES Final Result [facility] [address] [place] [address], [place] [phone] * (ABNORMAL) Comprehensive metabolic panel (03/01/2025 1:30 PM EDT) Sodium 135 133 - 145 mmol/L LAB CHEMISTRY METHOD 03/01/2025 3:39 PM [facility] Potassium 4.5 3.5 - 5.5 mmol/L LAB CHEMISTRY METHOD 03/01/2025 3:39 PM [facility] Chloride 105 96 - 110 mmol/L LAB CHEMISTRY METHOD 03/01/2025 3:39 PM [facility] CO2 28 21 - 32 mmol/L LAB CHEMISTRY METHOD 03/01/2025 3:39 PM [facility] Anion Gap 2(L) 3 - 11 LAB CHEMISTRY METHOD 03/01/2025 3:39 PM [facility] Glucose 96 70 - 100 mg/dL LAB CHEMISTRY METHOD 03/01/2025 3:39 PM [facility] BUN 18 5 - 25 mg/dL LAB CHEMISTRY METHOD 03/01/2025 3:39 PM [facility] Creatinine 0.84 0.50 - 1.10 mg/dL LAB CHEMISTRY METHOD 03/01/2025 3:39 PM EDT [facility] eGFR 70 >=60 mL/min/1. 73m2 LAB CHEMISTRY METHOD 03/01/2025 3:39 PM T [facility] Comment:Calculation based on the Chronic Kidney Disease Epidemiology Collaboration (CKD-EPI) equation refit without adjustment for race. BUN/Creatinine Ratio 21.4 LAB CHEMISTRY METHOD 03/01/2025 3:39 PM T [facility] Calcium 9.0 8.5 - 10.5 mg/dL LAB CHEMISTRY METHOD 03/01/2025 3:39 PM [facility] AST (SGOT) 17 10 - 42 unit/L LAB CHEMISTRY METHOD 03/01/2025 3:39 PM [facility] ALT (SGPT) 24 10 - 60 unit/L LAB CHEMISTRY METHOD 03/01/2025 3:39 PM [facility] Alkaline Phosphatase 89 42 - 121 unit/L LAB CHEMISTRY METHOD 03/01/2025 3:39 PM [facility] Total Protein 6.7 6.0 - 8.0 g/dL LAB CHEMISTRY METHOD 03/01/2025 3:39 PM [facility] Albumin 3.5 3.2 - 5.0 g/dL LAB CHEMISTRY METHOD 03/01/2025 3:39 PM [facility] Total Bilirubin 0.9 0.0 - 1.4 mg/dL LAB CHEMISTRY METHOD 03/01/2025 3:39 PM T [facility] Blood Venous blood specimen / Unknown Venipuncture / Unknown 03/01/2025 1:30 PM EDT 03/01/2025 2:32 PM EDT us [facility] LAB BLOOD ORDERABLES Final Result [facility] [address] [place] [address], * [facility] DEXA AXIAL SKELETON (09/24/2022 4:53 PM EST) Anatomical Region Laterality Modality Mammography 09/20/2022 1:25 PM EST Narrative 09/24/2022 4:53 PM EST [facility] Diagnostic Imaging Department [address] [place] [id number] Patient: ROMMEL REYNOSOMINA Dalia Flowers/Age/Sex: 1945 - 76 - F Unit#: [id number] Location/Status: SPDIMAM/REG CLI Mnemonic[facility] Ordering Physician: NENO UGARTE PA-C [facility] Dexa Axial Skeleton - 09/20/22 - 1419 History: Low estrogen state due to menopause. Parent hip fracture. Comparison: 11/09/15 Findings: Bone densitometry is performed utilizing dual energy x-ray absorptiometry (DXA) in the [employer] unit. The lumbar spine and proximal femora [...] 21.3 percent Hip 11.6 percent. IMPRESSION: Osteopenia. [id number] Dictating Physician: BERNA PONCE MD Electronically Signed by: BERNA PONCE MD Dic Date/Time: 09/24/221651 Sign date/Time: 09/24/221652 Procedure Note Berna Ponce MD - 08/29/2023 [facility] Diagnostic Imaging Department [address] [place] [id number] Patient: BETINA REYNOSO Dalia BaileyB./Age/Sex: 1945 - 76 -F Unit#: [id number] Location/Status: [facility] CLI Mnemonic/Ordering Site: [facility]DEXAAX/SPMAM Ordering Physician: NENO UGARTE PA-C [facility] Dexa Axial Skeleton - 09/20/22 - 6439 History: Low estrogen state due to menopause. Parent hip fracture. Comparison: 11/09/15 Findings: Bone densitometry is performed utilizing dual energy x-ray absorptiometry(DXA) in the [employer] unit. The lumbar spine and proximal femora [...] 21.3 percent Hip 11.6 percent. IMPRESSION: Osteopenia. [id number] Dictating Physician: BERNA PONCE MD Electronically Signed by: BERNA PONCE MD Dic Date/Time: 09/24/221651 Sign date/Time: 09/24/221652 [facility] IM BI PROCEDURES Final Re sult from Last 3 Months or Most Recently Relevant to Health Maintenance Insurance MEDICARE [facility]
--- OUTSIDE RECORDS SUMMARY | 2025-06-16 15:31 | XMS_ITS | Clinical Summary ---
Author Organization [facility] Address [address] [place] [address] Care Team Providers Care Jeep Mechanic Name Role Phone Alejandro Oglesby MD [...] age to complete this topic Care Teams Jeep Mechanic Relationship Specialty Start Date End Date Alejandro Oglesby MD [address] [place] [address] PCP - General Internal Medicine 08/13/22
== END 2025-06-15 10:33 | disposition home or self-care (01) ==
LOC: HO.HOSX 10:32
PROVIDERS: Visit Provider Orthopaedic Surgery
DX: M75.42 Impingement syndrome of left shoulder (principal)
CPT/HCPCS: 20610; 73030; J1010; J2003

== ENCOUNTER 2025-06-15 10:34 | Outpatient (AMB) | payer BC, MEDICARE, SELFPAY ==
--- NOTE | 2025-06-15 10:44 | MHC.OFFVIS ---
Vital Signs 06/15/25 11:05 Height 5 ft 3 in Handedness Right Intake Visit Reasons: Left shoulder pain Intake Note: Amber is a 79 year old right hand dominant female who presents with complaints of left shoulder pain. She describes her pain as sharp in nature. Most of the pain is along the lateral aspect of her shoulder. The patient states that she did injure her shoulder several years ago while exercising. She has tried Tylenol and Celebrex which gave her mild relief. She wishes to hold off on surgery if at all possible. Allergies nitrofurantoin (From Macrobid) Allergy (Intermediate, Verified 06/15/25 11:04) Abdominal Pain iodine Allergy (Unknown, Verified 06/15/25 11:04) Unknown Medication List - Last Reconciled 06/15/25 by Mustapha Cardona MD aspirin (Adult Low Dose Aspirin) 81 mg PO DAILY betamethasone, augmented 0.05 % appl topical calcium carbonate 500 mg PO DAILY celecoxib 100 mg PO DAILY PRN diaper,brief,adult,disposable (Select Disposable Briefs) As directed three times daily estradiol 0.01%(0.1mg/gram) Pea-sized amount to urethra daily for the 1st month; 3 times a week thereafter 90 days famotidine 20 mg PO DAILY furosemide 20 mg PO DAILY losartan 25 mg PO DAILY magnesium oxide PO sulfamethoxazole-trimethoprim 800-160 mg (Bactrim DS) 1 tab PO BID 5 days PFSH Medical History GERD (gastroesophageal reflux disease) Nocturia Overactive bladder Urinary urgency Surgical History Hx of colonoscopy Hx of carpal tunnel repair Hx of total knee replacement History of partial hysterectomy Social History (Updated 06/15/25 @ 11:05 by Tyler Serrato) Household Members: Family Household Members Other:: 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 Alcohol intake: never Patient Tobacco Use Status: Never used Tobacco Current occupational status: retired Current occupation: right hand dominant Physical Exam Const Other: Well-nourished well-developed very friendly female awake alert and oriented x3 in no acute distress Extrem Other: Left shoulder examination shows slightly decreased range of motion when compared to her right shoulder, 4+ out of 5 strength with supraspinatus testing, positive impingement signs, no instability Office Procedures AMB Joint Injection/Aspiration Joint Injection/Aspiration Primary Site: Left Shoulder Prep: site was prepped using aseptic technique Injected: 40 mg of, DepoMedrol, with 3 mL of and 1% plain Lidocaine Procedure: The patient tolerated the procedure well Coding 51377 - Large joint Procedure code (CPT) selection complete Results Reviewed Results Reviewed: X-rays of the patient's left shoulder show severe acromioclavicular joint narrowing, a type 2 acromion, moderate glenohumeral joint degenerative changes, no acute bony abnormalities Assessment & Plan Assessment & Plan (1) Impingement syndrome of left shoulder: Code(s): M75.42 - Impingement syndrome of left shoulder Category: Medical (2) Left shoulder pain: Code(s): M25.512 - Pain in left shoulder Category: Medical Plan Ms. Perrin presents with left shoulder pain due to impingement syndrome and degenerative joint disease. The risks and benefits of a left shoulder cortisone injection were discussed at length with the patient. The patient wished to proceed. She tolerated the injection well. She will continue with her home exercise program. She will contact me prior to her follow-up appointment in 3 months should any questions or concerns arise. Feel free to call me at any time should questions regarding her orthopedic management arise. I spent 20 minutes in reviewing the patient's records and imaging studies, seeing the patient and documenting in the medical record. Orders: Orders AMB Joint Injection/Aspiration Today M75.42 - Impingement syndrome of left shoulder XR shoulder LT min 2V Today M25.512 - Pain in left shoulder Coding Level of Care Code Est Pt Level 3 (07267) Complex EM visit Add On G2211 Diagnoses Impingement syndrome of left shoulder M75.42 Left shoulder pain M25.512 CPT Codes Coding - 61823 Large joint: 97346 - Large joint ([id number])
--- OUTSIDE RECORDS SUMMARY | 2025-06-15 20:35 | XMS_ITS | Data Portability ---
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 Cardona on 06/11/2022 for her right total knee replacement the performed on April 12, 2022.. She is doing well clinically she can certainly increase the amount of stretching exercises to help with stiffness. She can take [id number]-[id number] pain medication for symptomatic relief of discomfort. She does not take her antibiotic prophylaxis. I will have her return in 6 months for repeat clinical exam. She did ask regarding nonsteroidal anti-inflammator y she was on Celebrex however she does have a cardiac history. 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 analyst before we prescribe a refill on [...] knee, 1 or 2 view 2022 023 [email or web address], [address], [place], [address], 3 16:35:38 XR, knee, 1 or 2 view 2022 023 [facility], [address], [place], [address], 3 16:35:38 Medication Orders amoxicillin 500 mg capsule 2022 023 [id number], [address] [place], [address], 3 07:52:01 Celebrex 100 mg capsule 2022 023 [email or web address] [id number], [address] [place], [address], 3 07:39:07 Patient TargetsNo targets recorded. Patient Instructions Encounter Date Encounter Id Patient Instructions Last Modified By Organization Details Last Modified Time 11/25/2022 [id number] Bilateral knee x-rays reveal well-seated well-positioned total knee arthroplasties bilaterally without signs of loosening. No acute bony abnormality. Not available 11/25/2022 14:19:58 Reason for Referral None Reported. Problems Name Problem SNOMED Code Status Onset Date Resolution Date Notes Provider Name and Address Organization Details Recorded Time Problem 82413642 Active No known active problems Not Available [facility] 5 00:23:52 Arthritis of right knee joint 45285076996 82691 Active 2017 Arthritis of knee, right Art hritis of knee, right Not Available [facility] 5 00:23:51 Arthritis of left knee joint 83729602471 16016 Active 2018 Arthritis of knee, left Not Available [facility] 5 00:23:51 Iron overload 12362814 Active 2021 Iron overload Not Available [facility] 5 00:23:50 Hereditar y hemochrom atosis 29388882 Active 2021 Hereditar y hemochrom atosis Not Available [facility] 5 00:23:51 Stiffness of left knee 90609371129 9102 Active 2022 LATRELL JIMENEZ PA-C [address] [place] [address],[facility], [address], [place], [address] , [place] [facility] 3 14:20:13 Problem Notes None recorded. Medical Equipment None Reported. Allergies Allergen ID Allergen Name Allergen Category Reaction Reaction Severity Criticality Documentation Date Start Date Code Code System Note Provider Name and Address Organization Details Recorded Time 3306 iodine medicatio n Not available Not available Not available 11/25/2022 5933 RxNorm Cindy Linares [facility] [place], [place] [facility] 3 13:39:53 Medications Name Sig Start Date Stop Date Status Note LastModified by Organization Details LastModified Time celecoxib 200 mg capsule TAKE 1 CAPSULE BY MOUTH EVERY DAY 04/02 completed Not Available Not Available Not Available amoxicillin 500 mg capsule TAKE 4 TABS 1 HOUR PRIOR TO DENTAL PROCEDURE active Not Available Not Available No t Available sennosides 8.6 mg tablet Take 1 tablet by mouth daily. active Not Available Not Available No t Available diltiazem ER 180 mg capsule,24 hr,extended release 2021 active Not Available Not Available Not Avai lable azithromyci n 250 mg tablet 11/25 completed Not Available Not Available Not Available diltiazem CD 180 mg capsule,ext ended release 24 hr active Not Available Not Available Not Available ondansetron HCl 4 mg tablet Take 1 tab every 8 hours as needed for nausea 2021 active Not Available Not Available Not Avai lable betamethaso ne, augmented 0.05 % topical cream APPLY TO RASH ON LEGS TWICE A DAY FOR 2 WEEKS ON, 1 WEEK OFF 2016 active Not Available Not Available Not Avai lable sennosides 8.6 mg-docusate sodium 50 mg tablet 11/25 completed Not Available Not Available Not Available clobetasol 0.05 % topical cream 2017 active Not Available Not Available Not Avai lable sulfamethox azole 800 mg-trimetho prim 160 mg tablet Take 1 tablet (160 mg of trimethop rim total) by mouth 2 (two) times a day. 11/25 completed Not Available Not Available Not Available aspirin 81 mg tablet,cathi yed release Take 1 tablet (81 mg total) by mouth daily. active Not Available Not Available No t Available tramadol 50 mg tablet Take 1 tab every 6 hours as needed for pain 11/25 completed Not Available Not Available Not Available acetaminoph en 500 mg tablet 2021 active Not Available Not Available Not Avai lable amoxicillin 500 mg tablet Take 4 tabs 1 hour prior to dental procedure 2022 active Not Available Not Available Not Avai lable famotidine 20 mg tablet active Not Available Not Available Not Available phenazopyri dine 100 mg tablet Pyridium Take 1 tablet (oral) every 6 hours for 1 days 20200318 tablet every 6 hours oral 1 days suspended 100 mg 11/25 completed Not Available Not Available Not Available benzonatate 100 mg capsule benzonata te Take 1 capsule (oral) 3 times per day for 10 days 20190120 capsule 3 times per day oral 10 days suspended 100 MG 2018 active Not Available Not Available Not Avai lable biotin 10,000 mcg capsule Take by mouth. 11/25 completed Not Available Not Available Not Available methylpredn isolone acetate 40 mg/mL suspension for injection 01/08 completed Not Available Not Available Not Available betamethaso ne dipropionat e 0.05 % topical cream APPLY A THIN FILM TOPICALLY TO THE AFFECTED AREA 2 TIMES A DAY NEEDED 2021 active Not Available Not Available Not Avai lable omeprazole 20 mg capsule,del ayed release TAKE 1 CAPSULE BY MOUTH EVERY DAY active Not Available Not Available No t Available amoxicillin 250 mg capsule TAKE 2 CAPSULES BY MOUTH EVERY 12 HOURS 11/25 completed Not Available Not Available Not Available halobetasol propionate 0.05 % topical cream Apply topically 2 (two) times a day. 11/25 completed Not Available Not Available Not Available ranitidine 150 mg capsule ranitidin e HCl Take 1 capsule (oral) 2 times per day for 14 days [id number] capsule 2 times per day oral 14 days suspended 150 mg 11/25 completed Not Available Not Available Not Available furosemide 20 mg tablet Take 1 tablet every day by oral route. active Not Available Not Available No t Available warfarin 1 mg tablet TAKE 4 TABLETS BY MOUTH EVERY EVENING 2021 active Not Available Not Available Not Avai lable lisinopril 10 mg-hydrochl orothiazide 12.5 mg tablet 2016 active Not Available Not Available Not Avai lable celecoxib 100 mg capsule TAKE 1 CAPSULE BY MOUTH EVERY DAY NEEDED FOR PAIN active Not Available Not Available No t Available fluticasone propionate 50 mcg/actuati on nasal spray,suspe nsion spray/gabi ly 1 spray in each nostril daily. active Not Available Not Available No t Available oxycodone 5 mg tablet TAKE 1/2 TO 1 TABLET BY MOUTH EVERY 4 TO 6 HOURS NEEDED FOR SEVERE PAIN (SCALE 7-10) 11/25 completed Not Available Not Available Not Available enoxaparin 40 mg/0.4 mL subcutaneou s syringe INJECT 1 SYRINGE SUBCUTANE OUSLY DAILY 04/02 completed Not Available Not Available Not Available solifenacin 10 mg tablet Take 1 tablet (10 mg total) by mouth daily. active Not Available Not Available No t Available aspirin active Not Available Not Avail able Not Available calcium active Not Available Not Avail able Not Available famotidine active Not Available Not Av ailable Not Available Senna Plus active Not Available Not Av ailable Not Available lidocaine (PF) 10 mg/mL (1 %) injection solution 01/08 completed Not Available Not Available Not Available cholecalcif concepcion (vitamin D3) 50 mcg (2,000 unit) capsule Take 2,000 Units by mouth daily. 11/25 completed Not Available Not Available Not Available fesoterodin e ER 8 mg tablet,exte nded release 24 hr Take 8 mg by mouth daily. active Not Available Not Available No t Available Vitals Date Recorded Body height Body mass index (BMI) Body weight Heart rate Body temperature Oxygen saturation Oxygen saturation in Arterial blood by Pulse oximetry Systolic And Diastolic Provider Name and Address Organization Details Last Updated DateTime 4 159.5 cm 35.48 kg/m2 08263 g 77 /min 97.592 [degF] 100 % 100 % 155/78 mm[Hg] Not Available [facility] 5 23:33:36 Social History None recorded. Functional Status None recorded. Mental Status None recorded. Family History Nothing Reported. Medical History No medical history recorded. Gynecological HistoryNo gynecological history recorded. Obstetrics History GPAL:G 0 P 0 0 0 0 Past Encounters Encounter ID Performer Location Encounter Start Date Encounter Closed Date Diagnosis/Indication Diagnosis SNOMED-CT Code Diagnosis ICD10 Code Diagnosis IMO Codes Diagnosis Note [id number] J[address]OB VILLATORO [facility] [address] [facility] [address] [place] [address] 11/25/2022 13:24:14 11/25/2022 13:52:41 History of right total knee replacement 4162157757 835558 Z96.651 History of left total knee replacement 0607448187 760310 Z96.652 Stiffness of left knee 1245516704 08900 M25.662 [id number] J[address]OB VILLATOR[address]marco a [address] [facility] [address] [place] [address] 04/01/2023 14:51:03 04/01/2023 15:35:17 History of total knee arthroplasty 8337948422 105 Z96.659 Health Concerns Section Related Observation LastModified by Organization Detai ls LastModified Time None Recorded Concern Status LastModified by Organization Details LastModified Time None Recorded Advance Directives Directive None Recorded Payers Insurance Date Sequence Insurance Name Policy Number Policy Lundberg Covered Member ID Lundberg Member ID Guarantor Name 04/01/2023 2 [facility] [id number] Amber Gómez Marychuy [id number] Amber Marychuy 03/29/2023 1 [place]ARE [place]: [facility] Amber Perrin [id number] Amber Cedenorowski Notes Date Note Type [...] is currently asymptomatic. LATRELL JIMENEZ PA-C [address] [facility],[address] [address], [place], [address], [place] [facility] 11/25/2022 14:20:37 04/01/2023 text/html Florentino 77-year-old [...] amoxicillin and LATRELL JIMENEZ PA-C [address], [place], [address], [place] [facility] 04/02/2023 07:52:22 OBGyn Episode No OBEpisode recorded.
--- OUTSIDE RECORDS SUMMARY | 2025-06-15 20:36 | XMS_ITS | Patient Health Record ---
Author Organization [facility] [address] Address [address] [place] [address] Care Team Providers Care Real Estate Director Name Role Phone NENO FRANCES Unavailable [phone] MARILU OGLESBY Unavailable [phone] Allergies Allergen (clinical drug ingredient) Drug/Non Drug Allergy documented on EMR Reaction Allergy Type Onset Date Status Iodine hives Drug Allergy Active Results Component Value Reference Range Flag Notes EKG (Not yet reviewed by pro vider) Interpretation: Performing Lab: Notes/Report: ECGDiastolicBP 82 ECGHr 68 ECGPRInterval 140 ECGPWaveAxis 35 ECGQRSDuration 88 ECGQrsWaveAxis 2 ECGQTcInterval 392 ECGQTInterval 378 ECGSystolicBP 124 ECGTWaveAxis 19 RR_DiastolicBP 0 RR_MaxRRInterval 0 RR_MeanHR 0 RR_MeanRRInterval 0 RR_MinRRInterval 0 RR_NumBeats 0 RR_NumNormalBeats 0 RR_SystolicBP 0 MG MAMMO DIGITAL SCREENING W LOCO BILAT Reviewed date:12/16/2024 09:09:31 AM Interpretation: Performing Lab: Notes/Report: Note See Note [facility], a member of [employer] Patient Name: BETINA REYNOSO Date of : 1945 Reason for Exam: Exam Date: 11/26/2024 142210 EST Report Status: Final Ordering Provider: SELF REFERRAL SPPL PCP: CRAIG OGLESBY CLINICAL: 79 years old, Female, routine annual [...] is recommended in 1 year. Mammo Location: [facility], [address] [place] [address], [id number], . -------- FINAL REPOR T -------- Dictated By: Jeniffer Garza Dictated Date: 11/26/2024 14:47 ET Assigned Physician: Jeniffer Garza Reviewed and Electronically Signed By: Jeniffer Garza Signed Date: 11/26/2024 14:59 ET Workstation ID: [id number] Transcribed By: Self Edit Transcribed Date: 11/26/2024 14:47 ET FERRITIN Reviewed date:08/27/2024 10:06:13 AM Interpretation: Performing Lab: Notes/Report: Ferritin 96 8-252 ng/mL URINALYSIS WITH REFLEX MICRO SCOPIC Reviewed date:03/01/2025 03:07:37 PM Interpretation: Performing Lab: Notes/Report: Specific [place] Urine 1.011 1.003-1.030 pH, Urine 5.0 5.0-8.0 pH Leukocytes, Urine Large Negative A Nitrite, Urine Negative Negative Protein, Urine Negative <=Trace mg/dL Glucose, Urine Negative Negative mg/dL Ketones, Urine Negative Negative mg/dL Urobilinogen, Urine 0.2 0.2-1.0 mg/dL Bilirubin, Urine Negative Negative Blood, Urine Trace Negative A RBC, Urine 2.3 0-4 /HPF WBC, Urine 150.6 0-4 /HPF H Squamous Epithelial, Urine 57 0-60 /LPF Bacteria, Urine Many Negative /HPF A Hyaline Casts, Urine 6.4 0-3 /LPF H IRON AND TIBC Reviewed date:08/27/2024 10:06:13 AM Interpretation: Performing Lab: Notes/Report: Iron 198 40-150 mcg/dL H TIBC 214 250-450 mcg/dL L Iron Saturation 93 15-50 % H VITAMIN B12 Reviewed date:08/27/2024 10:06:13 AM Interpretation: Performing Lab: Notes/Report: Vitamin B-12 925 250-900 pcg/mL H HEMOGLOBIN A1C Reviewed date:03/02/2025 07:59:47 AM Interpretation: [...] 1.00 0.50-1.10 mg/dL eGFR 57 >=60 mL/min/1.73m2 L Calculation based on the Chronic Kidney Disease Epidemiology Collaboration (CKD-EPI) equation refit without adjustment for race. BUN/Creatinine Ratio 22.0 Calcium 8.8 8.5-10.5 mg/dL AST (SGOT) 20 10-42 unit/L ALT (SGPT) 22 10-60 unit/L Alkaline Phosphatase 87 42-121 unit/L Total Protein 7.1 6.0-8.0 g/dL Albumin 3.5 3.2-5.0 g/dL Total Bilirubin 1.0 0.0-1.4 mg/dL COMPREHENSIVE METABOLIC PANE L Reviewed date:03/01/2025 04:04:02 PM Interpretation: Performing Lab: Notes/Report: Sodium 135 133-145 mmol/L Potassium 4.5 3.5-5.5 mmol/L Chloride 105 96-110 mmol/L CO2 28 21-32 mmol/L Anion Gap 2 3-11 L Glucose 96 70-100 mg/dL BUN 18 5-25 mg/dL Creatinine 0.84 0.50-1.10 mg/dL eGFR 70 >=60 mL/min/1.73m2 Calculation based on the Chronic Kidney Disease Epidemiology [...] 8.2 4.8-10.8 K/mcL RBC 3.00 3.80-4.80 M/mcL L Hemoglobin 10.3 11.5-16.0 g/dL L Hematocrit 32.1 35.0-47.0 % L MCV 108.4 79.0-98.0 FL H MCH 34.8 27.0-32.0 pcg H MCHC 32.1 32.0-37.0 g/dL RDW 15.8 11.0-15.0 % H Platelets 354 130-400 K/mcL MPV 11.3 7.0-11.0 FL H NRBC 0.2 <1.0 % NRBC Absolute 0.02 <0.10 K/mcL Neutrophils Relative 63.5 Lymphocytes Relative 21.7 Monocytes Relative 11.2 Eosinophils Relative 2.1 Basophils Relative 1.1 Immature Granulocytes Relative 0.4 Neutrophils Absolute 5.22 1.50-7.00 K/mcL Lymphocytes Absolute 1.78 1.00-5.00 K/mcL Monocytes Absolute 0.92 0.20-1.00 K/mcL Eosinophils Absolute 0.17 0.00-0.50 K/mcL Basophils Absolute 0.09 0.00-0.20 K/mcL Immature Granulocytes Absolute 0.03 0.00-0.03 K/mcL CBC WITH AUTO DIFFERENTIAL Reviewed date:08/27/2024 10:06:13 AM Interpretation: Performing Lab: Notes/Report: WBC 6.9 4.8-10.8 K/mcL RBC 3.30 3.80-4.80 M/mcL L Hemoglobin 11.3 11.5-16.0 g/dL L Hematocrit 34.3 35.0-47.0 % L MCV 105.5 79.0-98.0 FL H MCH 34.8 27.0-32.0 pcg H MCHC 32.9 32.0-37.0 g/dL RDW 16.3 11.0-15.0 % H Platelets 368 130-400 K/mcL MPV 11.4 7.0-11.0 FL H NRBC 0.0 <1.0 % NRBC Absolute 0.00 <0.10 K/mcL Neutrophils Relative 55.8 Lymphocytes Relative 28.0 Monocytes Relative 13.6 Eosinophils Relative 1.0 Basophils Relative 1.0 Immature Granulocytes Relative 0.6 Neutrophils Absolute 3.86 1.50-7.00 K/mcL Lymphocytes Absolute 1.94 1.00-5.00 K/mcL Monocytes Absolute 0.94 0.20-1.00 K/mcL Eosinophils Absolute 0.07 0.00-0.50 K/mcL Basophils Absolute 0.07 0.00-0.20 K/mcL Immature Granulocytes Absolute 0.04 0.00-0.03 K/mcL H Reason For Referral Diagnosis 1 Left shoulder pain, unspecified chronicity (M25.512) Diagnosis 2 Left ankle pain, uns pecified chronicity (M25.572) Referral Organization [facility] Referring Provider First Name NENO Referring Provider [...] e Multi Vitamin Active Omeprazole 20 MG Capsule Delayed Release 1 capsule 1/2 to 1 hour before morning meal Orally Once a day Active Losartan Potassium 25 MG Tablet 1 tablet Orally Once a day; Duration: 90 days Active Airsupra 90-80 MCG/ACT Aerosol 2 puffs as needed Inhalation Six times a day; Duration: 30 days 02/08/2025 Active Furosemide 20 MG Tablet TAKE 1 TABLET 2 TIMES DAILYAS NEEDED; Duration: 90 Active CoQ-10 Active Celecoxib 100 MG Capsule TAKE 1 CAPSULE ONCE DAILY NEEDED; Duration: 90 Active Famotidine 20 MG Tablet 1 tablet Orally twice daily; Duration: 90 days Active Magnesium Citrate Ac tive Immunizations Vaccine Route Administration Date Status Comme nts RSV-MAb (Respiratory syncyti al virus immune globulin), IM use Unknown 08/08/2023 Administered Social History Section Notes: Patient currently lives alone, has a fiance tobacco: denies alcohol: denies drugs: denies Patient has no concerns regarding her mental health at this time. Patient currently lives alone, has a fiance tobacco: denies alcohol: denies drugs: denies Patient has no concerns regarding her mental health at this time. Patient currently lives alone, has a fiance tobacco: denies alcohol: denies drugs: denies PHQ-9: with a total score of one. Patient has no concerns regarding her mental health at this time. Patient currently lives alone, has a fiance tobacco: denies alcohol: denies drugs: denies Patient has no concerns regarding her mental health at this time. Patient currently lives alone, has a fiance ETOH Use: declines Tob Use: declines Drug Use: declines Caffeine Use: Yes Smoke detectors in home: Yes Seatbelt use: Yes Patient has no concerns regarding her mental health at this time. Patient currently lives alone, has a fiance tobacco: denies alcohol: denies drugs: denies PHQ-9: with a total score of one. Patient has no concerns regarding her mental health at this time. Patient currently lives alone, has a fiance tobacco: denies alcohol: denies drugs: denies Patient has no concerns regarding her mental health at this time. Patient currently lives alone, has a fiance tobacco: denies alcohol: denies drugs: denies Patient has no concerns regarding her mental health at this time. Patient currently lives alone, has a fiance tobacco: denies alcohol: denies drugs: denies Patient has no concerns regarding her mental health at this time. Patient currently lives alone, has a fiance ETOH Use: declines Tob Use: declines Drug Use: declines Caffeine Use: Yes Smoke detectors in home: Yes Seatbelt use: Yes Patient has no concerns regarding her mental health at this time. Patient currently lives alone, has a fiance ETOH Use: declines Tob Use: declines Drug Use: declines Caffeine Use: Yes Smoke detectors in home: Yes Seatbelt use: Yes Patient has no concerns regarding her mental health at this time. Patient currently lives alone, has a fiance ETOH Use: declines Tob Use: declines Drug Use: declines Caffeine Use: Yes Smoke detectors in home: Yes Seatbelt use: Yes Patient has no concerns regarding her mental health at this time. Problems Problem Type SNOMED Code ICD Code Onset Dates Problem Status W/U Status Risk Notes Problem Vitamin D deficiency (62038325) Vitamin D deficiency, unspecified (E55.9) Active confirmed Problem Hereditary hemochromatosis (40583359) Hereditary hemochromatosis (E83.110) Active confirmed Problem Essential hypertension (76129165) Essential hypertension (I10) Active confirmed Problem Arthritis (2141037) Arthritis (M19.90) Active c onfirmed Problem Shoulder joint pain (245389195) Left shoulder pain, unspecified chronicity (M25.512) Active confirmed Problem Seasonal allergy (790821729) Seasonal allergies (J30.2) Active confirmed Problem Osteopenia (372388069) Osteopenia, unspecified location (M85.80) Active confirmed Problem COVID-19 (823041233) COVID-19 (U07.1) Active confirmed Problem Gastroesophageal reflux disease (183944819) Gastroesophageal reflux disease, unspecified whether esophagitis present (K21.9) Active confirmed Problem Hearing loss (37706027) Bilateral hearing loss, unspecified hearing loss type (H91.93) Active confirmed Problem Cataract (726734087) Cataract of both eyes, unspecified cataract type (H26.9) Active confirmed Problem BMI 30+ - obesity (541519463) BMI 32.0-32.9,adult (Z68.32) Active confirmed Problem Amnesia (07566814) Memory change (R41.3) Active confirmed Problem Body mass index 30+ - obesity (182276687) BMI 30.0-30.9,adult (Z68.30) Active confirmed Problem Hemochromatosis (674131168) Hemochromatosis, unspecified hemochromatosis type (E83.119) Active confirmed Problem Gastroesophageal reflux disease (724420644) GERD (gastroesophageal reflux disease) (K21.9) Active confirmed Problem Urinary incontinence (079253942) Urinary incontinence in female (R32) Active confirmed Vital Signs Heart Rate 86 /min 04/12/2025 Oximetry 98 % 04/12/2025 Blood pressure diastolic 82 mm Hg 04/12/2025 Height 66 in 04/12/2025 Blood pressure systolic 124 mm Hg 04/12/2025 Weight 205.0 lbs 04/12/2025 BMI 33.08 kg/m2 04/12/2025 Encounters Encounter Location Date Provider Diagnosis [address] [address] 07/01/2024 NENO FRANCES Hereditary hemochrom atosis E83.110 ; Chronic constipation K59.09 ; Hypertension, unspecified type I10 ; Seasonal allergies J30.2 and Left shoulder pain, unspecified chronicity M25.[address] [address] 10/07/2024 NENO FRANCES Chronic constipation K59.09 ; Wellness examination Z00.00 ; Hereditary hemochromatosis E83.110 ; Hypertension, unspecified type I10 ; Seasonal allergies J30.2 ; Left shoulder pain, unspecified chronicity M25.512 ; Encounter for screening for depression Z13.31 ; Encounter for screening for other disorder Z13.89 ; Other specified counseling Z71.89 and BMI 32.0-32.9,adult Z68.[address] [address] 02/08/2025 NENO FRANCES Chronic constipation K59.09 ; Pain, joint, shoulder, left M25.512 ; Hereditary hemochromatosis E83.110 ; Seasonal allergies J30.2 ; Essential hypertension I10 and Encounter for examination of blood pressure without abnormal findings Z01.[address] [address] 03/15/2025 NENO FRANCES Pain, joint, shoulde r, left M25.512 ; Essential hypertension I10 ; Chronic constipation K59.09 ; Hereditary hemochromatosis E83.110 ; Seasonal allergies J30.2 and Encounter for examination of blood pressure without abnormal findings Z01.[address] [address] 04/12/2025 NENO FRANCES Essential hypertensi on I10 ; Dizziness R42 ; Pain, joint, shoulder, left M25.512 ; Chronic constipation K59.09 ; Hereditary hemochromatosis E83.110 ; Seasonal allergies J30.2 and Encounter for examination of blood pressure without abnormal findings Z01.30 [facility] [address] [facility] [place] [address] [place] [address] 08/10/2024 NENO FRANCES [facility] [address] [facility] [place] [address] [place] [address] 08/19/2024 NENO FRANCES [facility] [address] [facility] [place] [address] [place] [address] 10/18/2024 TALAL OGLESBY [facility] [address] [facility] [place] [address] [place] [address] 10/25/2024 NENO FRANCES Breast screening Z12 .39 [facility] [address] [facility] [place] [address] [place] [address] 12/02/2024 TALAL OGLESBY [facility] [address] [place] [address] 02/01/2025 NENO FRANCES [facility] [address] [place] [address] 02/11/2025 NENORowan FRANCES [facility] [address] [place] [address] 02/18/2025 NENO FRANCES [facility] [address] [place] [address] 03/15/2025 NENO FRANCES Essential hypertensi on I10 [facility] [address] [place] [address] 03/16/2025 NENO FRANCES [facility] [address] [address] 05/27/2025 NENO FRANCES Assessments Encounter Date Diagnosis (ICD Code) Assessment Notes Treatment Notes Treatment Clinical Notes Section Notes 07/01/2024 Hereditary hemochromatosis (ICD-10 - E83.110) Betina [...] is actively doing workout classes at the [facility] with her partner. She has goals [...] Dictation was accomplished with the use of [employer] voice recognition software, prone to medical misidentifications [...] MPV 11.4. Following with hematology, Dr. Tre Micehl, they are in the process of scheduling a blood draw. #hypertension: Taking Lisinopril 10 mg, Diltazem 180 mg, Furosemide 20 MG with compliance. She declines any red flag cardiopulmomary symptoms, chest pain, palpitations, shortness of breath, diaphoresis, dizziness, syncope. Continue Lisinopril 10 mg, daily low dose Aspirin 81 mg, measuring BP at home. #Overweight: Patient is actively doing workout classes at the [facility] with her partner. She has goals [...] log exercise and discussed fitness Apps like [employer] which can help keep log off calories [...] Dictation was accomplished with the use of [employer] voice recognition software, prone to medical misidentifications [...] is actively doing workout classes at the [facility] with her partner. She has goals [...] log exercise and discussed fitness Apps like [employer] which can help keep log off calories [...] Dictation was accomplished with the use of [employer] voice recognition software, prone to medical misidentifications [...] department criteria/criteria to call the office/call her jumpbasting collar baster. # Hemochromatosis: Note scanned into chart, following [...] is actively doing workout classes at the [facility] with her partner. She has goals [...] Dictation was accomplished with the use of [employer] voice recognition software, prone to medical misidentifications [...] department criteria/criteria to call the office/call her jumpbasting collar baster. # Hemochromatosis: Note scanned into chart, following [...] is actively doing workout classes at the [facility] with her partner. She has goals [...] Dictation was accomplished with the use of [employer] voice recognition software, prone to medical misidentifications [...] discussed criteria to call the office/call her jumpbasting collar baster. # Hemochromatosis: Note scanned into chart, following with hematology Dr. Tre Michel. Has not needed phlebotomy in the past 2 months. Following next week. #hypertension: Patient self Discontinued diltiazem and lisinopril. Patient states that she has not taken losartan 25 mg with improvement in symptoms. Patient is Going to contact jumpbasting collar baster #Overweight: Patient is actively doing workout classes at the [facility] with her partner. She has goals [...] Dictation was accomplished with the use of [employer] voice recognition software, prone to medical misidentifications [...] discussed criteria to call the office/call her jumpbasting collar baster. # Hemochromatosis: Note scanned into chart, following with hematology Dr. Tre Michel. Has not needed phlebotomy in the past 2 months. Following next week. #hypertension: Patient self Discontinued diltiazem and lisinopril. Patient states that she has not taken losartan 25 mg with improvement in symptoms. Patient is Going to contact jumpbasting collar baster #Overweight: Patient is actively doing workout classes at the [facility] with her partner. She has goals [...] Dictation was accomplished with the use of [employer] voice recognition software, prone to medical misidentifications and grammatical errors. This is unintentional and the practitioner does try to identify and correct these, but some could still be present. Please do not hesitate to contact practitioner for clarification. 02/08/2025 Chronic constipation (ICD-10 - K59.09) Betina [...] is actively doing workout classes at the [facility] with her partner. She has goals [...] Dictation was accomplished with the use of [employer] voice recognition software, prone to medical misidentifications [...] is actively doing workout classes at the [facility] with her partner. She has goals [...] Dictation was accomplished with the use of [employer] voice recognition software, prone to medical misidentifications and grammatical errors. This is unintentional and the practitioner does try to identify and correct these, but some could still be present. Please do not hesitate to contact practitioner for clarification. 10/25/2024 Breast screening (ICD-10 - Z12.39) 02/08/2025 Hereditary hemochromatosis (ICD-10 - E83.110) Betina [...] is actively doing workout classes at the [facility] with her partner. She has goals [...] Dictation was accomplished with the use of [employer] voice recognition software, prone to medical misidentifications [...] discussed criteria to call the office/call her jumpbasting collar baster. # Hemochromatosis: Note scanned into chart, following with hematology Dr. Tre Michel. Has not needed phlebotomy in the past 2 months. Following next week. #hypertension: Patient self Discontinued diltiazem and lisinopril. Patient states that she has not taken losartan 25 mg with improvement in symptoms. Patient is Going to contact jumpbasting collar baster #Overweight: Patient is actively doing workout classes at the [facility] with her partner. She has goals [...] Dictation was accomplished with the use of [employer] voice recognition software, prone to medical misidentifications [...] department criteria/criteria to call the office/call her jumpbasting collar baster. # Hemochromatosis: Note scanned into chart, following [...] is actively doing workout classes at the [facility] with her partner. She has goals [...] Dictation was accomplished with the use of [employer] voice recognition software, prone to medical misidentifications [...] is actively doing workout classes at the [facility] with her partner. She has goals [...] Dictation was accomplished with the use of [employer] voice recognition software, prone to medical misidentifications [...] is actively doing workout classes at the [facility] with her partner. She has goals [...] log exercise and discussed fitness Apps like [employer] which can help keep log off calories [...] Dictation was accomplished with the use of [employer] voice recognition software, prone to medical misidentifications [...] is actively doing workout classes at the [facility] with her partner. She has goals [...] Dictation was accomplished with the use of [employer] voice recognition software, prone to medical misidentifications [...] is actively doing workout classes at the [facility] with her partner. She has goals [...] log exercise and discussed fitness Apps like [employer] which can help keep log off calories [...] Dictation was accomplished with the use of [employer] voice recognition software, prone to medical misidentifications [...] department criteria/criteria to call the office/call her jumpbasting collar baster. # Hemochromatosis: Note scanned into chart, following [...] is actively doing workout classes at the [facility] with her partner. She has goals [...] Dictation was accomplished with the use of [employer] voice recognition software, prone to medical misidentifications [...] discussed criteria to call the office/call her jumpbasting collar baster. # Hemochromatosis: Note scanned into chart, following with hematology Dr. Tre Michel. Has not needed phlebotomy in the past 2 months. Following next week. #hypertension: Patient self Discontinued diltiazem and lisinopril. Patient states that she has not taken losartan 25 mg with improvement in symptoms. Patient is Going to contact jumpbasting collar baster #Overweight: Patient is actively doing workout classes at the [facility] with her partner. She has goals [...] Dictation was accomplished with the use of [employer] voice recognition software, prone to medical misidentifications [...] is actively doing workout classes at the [facility] with her partner. She has goals [...] Dictation was accomplished with the use of [employer] voice recognition software, prone to medical misidentifications [...] is actively doing workout classes at the [facility] with her partner. She has goals [...] Dictation was accomplished with the use of [employer] voice recognition software, prone to medical misidentifications [...] discussed criteria to call the office/call her jumpbasting collar baster. # Hemochromatosis: Note scanned into chart, following with hematology Dr. Tre Michel. Has not needed phlebotomy in the past 2 months. Following next week. #hypertension: Patient self Discontinued diltiazem and lisinopril. Patient states that she has not taken losartan 25 mg with improvement in symptoms. Patient is Going to contact jumpbasting collar baster #Overweight: Patient is actively doing workout classes at the [facility] with her partner. She has goals [...] Dictation was accomplished with the use of [employer] voice recognition software, prone to medical misidentifications [...] is actively doing workout classes at the [facility] with her partner. She has goals [...] log exercise and discussed fitness Apps like [employer] which can help keep log off calories [...] Dictation was accomplished with the use of [employer] voice recognition software, prone to medical misidentifications [...] department criteria/criteria to call the office/call her jumpbasting collar baster. # Hemochromatosis: Note scanned into chart, following [...] is actively doing workout classes at the [facility] with her partner. She has goals [...] Dictation was accomplished with the use of [employer] voice recognition software, prone to medical misidentifications [...] is actively doing workout classes at the [facility] with her partner. She has goals [...] Dictation was accomplished with the use of [employer] voice recognition software, prone to medical misidentifications [...] is actively doing workout classes at the [facility] with her partner. She has goals [...] Dictation was accomplished with the use of [employer] voice recognition software, prone to medical misidentifications [...] is actively doing workout classes at the [facility] with her partner. She has goals [...] log exercise and discussed fitness Apps like [employer] which can help keep log off calories [...] Dictation was accomplished with the use of [employer] voice recognition software, prone to medical misidentifications [...] department criteria/criteria to call the office/call her jumpbasting collar baster. # Hemochromatosis: Note scanned into chart, following [...] is actively doing workout classes at the [facility] with her partner. She has goals [...] Dictation was accomplished with the use of [employer] voice recognition software, prone to medical misidentifications [...] discussed criteria to call the office/call her jumpbasting collar baster. # Hemochromatosis: Note scanned into chart, following with hematology Dr. Tre Michel. Has not needed phlebotomy in the past 2 months. Following next week. #hypertension: Patient self Discontinued diltiazem and lisinopril. Patient states that she has not taken losartan 25 mg with improvement in symptoms. Patient is Going to contact jumpbasting collar baster #Overweight: Patient is actively doing workout classes at the [facility] with her partner. She has goals [...] Dictation was accomplished with the use of [employer] voice recognition software, prone to medical misidentifications [...] is actively doing workout classes at the [facility] with her partner. She has goals [...] Dictation was accomplished with the use of [employer] voice recognition software, prone to medical misidentifications [...] is actively doing workout classes at the [facility] with her partner. She has goals [...] log exercise and discussed fitness Apps like [employer] which can help keep log off calories [...] Dictation was accomplished with the use of [employer] voice recognition software, prone to medical misidentifications [...] department criteria/criteria to call the office/call her jumpbasting collar baster. # Hemochromatosis: Note scanned into chart, following [...] is actively doing workout classes at the [facility] with her partner. She has goals [...] Dictation was accomplished with the use of [employer] voice recognition software, prone to medical misidentifications [...] is actively doing workout classes at the [facility] with her partner. She has goals [...] log exercise and discussed fitness Apps like [employer] which can help keep log off calories [...] Dictation was accomplished with the use of [employer] voice recognition software, prone to medical misidentifications [...] is actively doing workout classes at the [facility] with her partner. She has goals [...] log exercise and discussed fitness Apps like [employer] which can help keep log off calories [...] Dictation was accomplished with the use of [employer] voice recognition software, prone to medical misidentifications [...] is actively doing workout classes at the [facility] with her partner. She has goals [...] log exercise and discussed fitness Apps like [employer] which can help keep log off calories [...] Dictation was accomplished with the use of [employer] voice recognition software, prone to medical misidentifications [...] 04/07/2023 Next Appt Details Provider Name:NENO FRANCES, 07/25/2025 11:45:00 AM, [address], [place], [address], Insurance Providers Payer Name Payer Address Payer Phone Subscriber Number Group Number Insured Name Patient Relationship to Insured Coverage Start Date Coverage End Date Medicare Part B [id number] [address] [place] [phone] [id number] BETINA REYNOSO Self - patient is the insured [employer] Medicare Advantage [address] [place] [address] [phone] [id number] BETINA REYNOSO Self - patient is [...]
--- OUTSIDE RECORDS SUMMARY | 2025-06-15 20:36 | XMS_ITS | Patient Health Record ---
Author Organization [facility] Address [address] [place] [address] Care Team Providers Care Supervisory Lifeguard Name Role Phone Maranda MARISCAL, [place] Primary Care Provider Pratibha Kip Loza Unavailable [phone] Allergies Allergen (clinical drug ingredient) Drug/Non Drug Allergy documented on EMR Reaction Allergy Type Onset Date Status Iodine Unknown Drug Allergy Active Reason For Referral No Information Medications Medication SIG (Take, Route, Frequency, Duration) Notes Start Date End Date Status Aspir-81 81 MG Tablet Delayed Release 1 tablet Orally Once a day Active Fish Oil Active Lisinopril 10 MG Tablet 1 tablet Orally Once a day Active Multi Vitamin/Minerals Tablet Orally Active Colyte w Flavor Packs 240 GM Solution Reconstituted as directed Orally as directed; Duration: 1 day(s) 11/18/2014 Active Vitamin C 500 MG Capsule Orally Active Immunizations Vaccine Route Administration Date Status Comme nts Flu vaccine no Preserv 3 and > Unknown 08/10/2014 Admin istered Social History Social History Additional Details Category Social Info Options Details Miscellaneous: Marital status: 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 Section Notes: Nonsmoker; no sig alcohol Problems Problem Type SNOMED Code ICD Code Onset Dates Problem Status W/U Status Risk Notes Problem Pre-surgery evaluation (944794993) Other specified pre-operative examination (V72.83) Active confirmed Problem Colon cancer screening (829251726) Colon cancer screening (V76.51) Active confirmed Problem Hypertension (33688821) Hypertension (401.9) Active confirmed Plan Of Treatment Future Test Test Name Order Date COLONOSCOPY 11/15/2014 Insurance Providers Payer Name Payer Address Payer Phone Subscriber Number Group Number Insured Name Patient Relationship to Insured Coverage Start Date Coverage End Date MEDICARE OF [place] [address] [place] [phone] [id number] ABIEL REYNOSO Self - patient is the insured HMO [facility] CLAIMS [address] [place] [address] [phone] [id number] EDGARDO, WILCLAY Self - patient is the insured Medical (General) History Medical History History ICD Code Denies ME,DM,CVA,Lung disease,renal dise ase Hypertension Negative colon[place] [address] Jose diaz Surgical History Surgery Date(Month/Year) Partial hysterectomy 1997 D & C Right carpal tunnel release Vein ligation in the legs Bladder suspension
--- OUTSIDE RECORDS SUMMARY | 2025-06-15 20:36 | XMS_ITS | Patient Health Record ---
Author Organization [facility] Address [address] [place] [address] Care Team Providers Care Hurricane Tracker Name Role Phone -Do Not use, PCP [...] Status Risk Notes Problem Premature beats (disorder) (68207072) Extrasystole (I49.49) Active confirmed Plan Of Treatment No Information Insurance Providers Payer Name Payer Address Payer Phone Subscriber Number Group Number Insured Name Patient Relationship to Insured Coverage Start Date Coverage End Date Medicare of [place] [employer] [address] [place] [phone] [id number] BETINA REYNOSO Self - patient is the insured 0 [facility] [address] [place] [address] [id number] BETINA REYNOSO Self - patient is the insured 0 Medical (General) History Medical History History ICD Code Hypertension I10 GERD (gastroesophageal reflux disease) K 21.9 Surgical History Surgery Date(Month/Year) Hospitalization History Reason Date(Month/Year)
--- OUTSIDE RECORDS SUMMARY | 2025-06-15 20:36 | XMS_ITS | Clinical Summary ---
Author Organization [facility] Address [address] [place] [address] Care Team Providers Care Sheet Metal Mechanic Name Role Phone Alejandro Oglesby MD Primary [...] age to complete this topic Care Teams Sheet Metal Mechanic Relationship Specialty Start Date End Date Alejandro Oglesby MD [address] [place] [address] PCP - General Internal Medicine 08/13/22
--- OUTSIDE RECORDS SUMMARY | 2025-06-15 20:36 | XMS_ITS | Data Portability ---
Author Organization [place] - [facility], Allergy Address [address] [address] Care Team Providers Care Cashier Manager Name Role Phone MARILU STEEN Primary Care Provider TORITO LAZCANO Referring Provider [phone] Assessment Encounter Date Assessment Date Assessment LastModified by Organization Details LastModified Time 11/11/2024 11/11/2024 Discussed various types, models and levels of technology. Patient is interested in best technology in rechargeable option. 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 [email or web address] Not available 11/30/2024 09:34:29 12/30/2024 12/30/2024 Good fit to NAL2 real ear tatget. gave 3 programs 1-3 to act as VC for push button. Downloaded and demoed gabi.. Reviewed daily care and maintenance. f/u 2 weeks Not available 01/03/2025 11:37:30 01/13/2025 01/13/2025 Doing very well - loves new hearing aid quickly acclimated. deleted softer gain settings programs and left her with just one universal program full adaptation setting. Reviewed gabi. Wanted a restaurant program - set to forward directional and saved in gabi. 6mo appt made before my half-way. [email or web address] Not available 01/13/2025 14:16:13 Plan of Treatment Reminders Order Date Submit Date Provider Last Modified By Organization Details Last Modified Time Details Appointments [facility] Fitting Follow Up (30) 2024 01:00P YELENA ROBERTSON Not available Not [...] Sensorineur al hearing loss of bilateral ears 921528857 Active 2024 SANDRA Silva MD [address] [place] [address], [phone], [facility] 11:05:22 Impacted cerumen of bilateral ears 0297243377431 108 Active 2024 SANDRA Silva MD [address] [place] [address], [phone], [facility] 5 11:05:25 Sensorineur al hearing loss of bilateral ears 452960295 Active 2024 YELENA HAYNES [address] [place] [address], [phone], [facility] 09:34:31 Problem Notes None recorded. Procedures Surgical History Date Name Laterality Status Provider Name and Address Organization Details Recorded Time 5 Comp Audio 44415 completed YELENA HAYNES [address], [address], [facility] 08/24/2024 11:16:49 Cerumen removal with microscope bilateral completed SANDRA SOLIZ MD 100 [facility],[address], [address], [facility] 08/24/2024 11:05:38 Imaging Results None [...] Not Available Not Available No t Available lisinopril 20 mg tablet TAKE 1 TABLET (20 MG TOTAL) BY MOUTH ONE TIME EACH DAY active Not Available Not Available No t Available ondansetron HCl 4 mg tablet TAKE 1 TABLET EVERY 12 HOURS active Not Available Not Available No t Available betamethason e, augmented 0.05 % topical cream APPLY TOPICALLY TWO TIMES A DAY TO AFFECTED AREAS ON LOWER EXTREMITIES FOR 2 WEEKS ON, 1 WEEK OFF; REPEAT NEEDED; NOT FOR FACE OR BODY FOLDS active Not Available Not Available N ot Available ciprofloxaci n 250 mg tablet TAKE 1 TABLET BY MOUTH EVERY 12 HOURS FOR 3 DAYS active Not Available Not Available N ot Available ciprofloxaci n 500 mg tablet TAKE 1 TAB TWICE A DAY active Not Available Not Available Not Available sulfamethoxa zole 800 mg-trimethop rim 160 [...] furosemide 20 mg tablet TAKE 1 TABLET TWICE A DAY NEEDED active Not Available Not [...] Updated DateTime 08/24/2024 157.48 cm 35.7 kg/m2 48516.51 g Brenden Barron [place] - [facility] 08/24/2024 11:28:27 Social History None recorded. 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 Family History Nothing Reported. Medical History No medical history recorded. Gynecological HistoryNo gynecological history recorded. Obstetrics History GPAL:G 0 P 0 0 0 0 Past Encounters Encounter ID Performer Location Encounter Start Date Encounter Closed Date Diagnosis/Indication Diagnosis SNOMED-CT Code Diagnosis ICD10 Code Diagnosis IMO Codes Diagnosis Note [id number] SANDRA SOLIZ MD [facility] [address] [address] 08/24/2024 10:15:22 08/24/2024 11:44:43 Sensorineural hearing loss of bilateral ears 999940528 H90.3 Patient's audiogram shows bilateral moderate sensorineu ral hearing loss with well maintained speech discrimina tion. There is enough hearing loss to affect day-to-day hearing performanc e. We discussed in detail the pros and cons of amplificat ion (hearing aids). Patient would like to learn more about this option so we will set them up for a hearing aid evaluation . Patient is medically cleared for amplificat ion bilaterall y. She does have asymmetry hearing loss. I offered an MRI IAC but she deferred in favor of yearly surveillan ce audiograms . She will f/u in a year with an audio and if the asymmetry widens we will consider an MRI. Impacted c erumen of bilateral ears 3746941175 347877 H61.23 Recurrent Cerumen Impactions : Ears were meticulous ly cleaned bilaterall y today with a curette and suction. The patient tolerated this well and will follow up for repeat debridemen t per routine. [id number] YELENA HAYNES [facility] [address] [place] [address] 08/24/2024 11:16:38 08/25/2024 07:46:12 Sensorineural hearing loss of bilateral ears 380716939 H90.3 Audiologic al evaluation results: 08/24/2024 Right ear: Normal through 2 kHz sloping to a moderate sensorineu ral hearing loss with excellent word recognitio n. Left ear: Normal sloping to a moderate sensorineu ral hearing loss with fair word recognitio n. Tympanomet ry: Right Ear:Could not maintain a hermetic seal Left Ear:Could not maintain a hermetic seal [id number] YELENA HAYNES [facility] [place] [address] [place] [address],[address] [address] 11/11/2024 14:10:54 11/15/2024 11:52:36 Sensorineural hearing loss of bilateral ears 787019300 H90.3 [id number] Audiologic al evaluation results: 08/24/2024 Right ear: Normal through 2 kHz sloping to a moderate sensorineu ral hearing loss with excellent word recognitio n. Left ear: Normal sloping to a moderate sensorineu ral hearing loss with fair word recognitio n. Tympanomet ry: Right Ear:Could not maintain a hermetic seal Left Ear:Could not maintain a hermetic seal [id number] YELENA HAYNES [facility] [place] [address] [place] [address] 01/13/2025 13:33:44 01/14/2025 08:58:02 Sensorineural hearing loss of bilateral ears 034231215 H90.3 [id number] Audiologic al evaluation results: 08/24/2024 Right ear: Normal through 2 kHz sloping to a moderate sensorineu ral hearing loss with excellent word recognitio n. Left ear: Normal sloping to a moderate sensorineu ral hearing loss with fair word recognitio n. Tympanomet ry: Right Ear:Could not maintain a hermetic seal Left Ear:Could not maintain a hermetic seal [id number] HARVINDER YELENA BRENNAN [facility] [place] 100 [facility],[address] [place] [address] 12/30/2024 13:27:31 12/30/2024 14:43:24 Sensorineural hearing loss of bilateral ears 338516207 H90.3 [id number] Audiologic al evaluation results: 08/24/2024 Right ear: Normal through 2 kHz sloping to a moderate sensorineu ral hearing loss with excellent word recognitio n. Left ear: Normal sloping to a moderate sensorineu ral hearing loss with fair word recognitio n. Tympanomet ry: Right Ear:Could not maintain a hermetic seal Left Ear:Could not maintain a hermetic seal Health Concerns Section Related Observation LastModified by Organization Detai ls LastModified Time None Recorded Concern Status LastModified by Organization Details LastModified Time None Recorded Advance Directives Directive None Recorded Payers Insurance Date Sequence Insurance Name Policy Number Policy Lundberg Covered Member ID Lundberg Member ID Guarantor Name 01/13/2025 2 [facility] [facility] [place] [place] [id number] Amber Perrin [id number] Amber Perrin 01/13/2025 1 [place] [employer] Amber Perrin [id number] Amber Perrin Notes Date Note Type Note Provider Name and Address Organization Details Recorded Time 08/24/2024 text/html ROS as noted in the HPI No hearing loss which is much worse on the left and has progressed gradually over time. Audiology noted cerumen impactions most notably on the right today. 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 She is borderline candidate in the right ear and a definite candidate in the left ear. She has noticed some increased difficulty hearing in everyday situations. She has no hearing aid benefit. She wants to fit the left ear at this time. 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 She was recently cleared for amplification in the left ear by Dr Soliz. She has noticed increased difficulty hearing in every day situations and is interested in pursuing amplification. Discussed various types models and levels of technology. Patient is interested in best technology in rechargeable option. Recommended Widex Allure 440 KAREN R in silver cueto color. MIKE 12/30/2024 HARVINDER BRENNAN, AUD 100 [facility],[address], [address], 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 She is borderline candidate in the right ear and a definite candidate in the left ear. She has noticed some increased difficulty hearing in everyday situations. She has no hearing aid benefit. She wants to fit the left ear at this time. Discussed various types, models and levels of technology. Patient is interested in best technology in rechargeable option. 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 HARVINDER BRENNAN, AUD 100 [facility],[address], [address], [facility] 01/13/2025 14:16:34 OBGyn Episode No OBEpisode recorded.
--- OUTSIDE RECORDS SUMMARY | 2025-06-15 20:36 | XMS_ITS | Clinical Summary ---
Author Organization [facility] Address [address] [place] [phone] Phone Care Team Providers Care Associate Director Financial Aid Name Role Phone Unavailable Primary Care Provider [...] & Plan (12/01/2024 12:57 PM EDT): Previous cardiac technologist showed frequent PACs of about 26.3%. Patient [...] left 01/22/2019 Arthritis of knee, right 05/21/2018 Surgical History Surgery Date Site/Laterality Comments HYSTERECTOMY [...] Description 07/12/2025 11:15 AM EST Office Visit [facility] Oncology [address] [place] [address] Tre Michel MD [address] [place] [address] Health Maintenance Due Date Last [...] Procedure Name Priority Date/Time Associated Diagnosis Comments COMPREHENSIVE METABOLIC PANEL Routine 03/01/2025 1:30 PM EDT Screening for diabetes mellitus Routine general medical examination at a health care facility Screening for lipoid disorders LIPID PANEL WITH REFLEX TO DIRECT LDL Routine 03/01/2025 1:30 PM EDT Screening for diabetes mellitus Routine general medical examination at a [facility] care facility Screening for lipoid disorders [facility] DEXA AXIAL SKELETON Routine 09/24/2022 4:53 PM EST Encounter for screening for osteoporosis from Last 3 Months or Most Recently Relevant to Health Maintenance Results * Lipid panel with reflex to direct LDL (03/01/2025 1:30 PM EDT) Cholesterol 131 0 - 200 mg/dL LAB CHEMISTRY METHOD 03/01/2025 3:34 PM EDT [facility] Triglycerides 88 0 - 150 mg/dL LAB CHEMISTRY METHOD 03/01/2025 3:34 PM EDT [facility] HDL 58 >=40 mg/dL LAB CHEMISTRY METHOD 03/01/2025 3:34 PM EDT [facility] LDL Calculated 55 0 - 100 mg/dL LAB CHEMISTRY METHOD 03/01/2025 3:34 PM EDT [facility] Comment:Estimated LDL Calcul ated using equation: Total cholesterol - HDL cholesterol - (Triglycerides/5) VLDL Cholesterol Nicholas 17.6 mg/dL LAB CHEMISTRY METHOD 03/01/2025 3:34 PM EDT [facility] Non HDL Chol. (LDL+VLDL) 73 <145 mg/dL LAB CHEMISTRY METHOD 03/01/2025 3:34 PM EDT [facility] Chol/HDL Ratio 2.3 0.0 - 4.4 LAB CHEMISTRY METHOD [facility]/01[facility] Blood Venous blood specimen / Unknown Venipuncture / Unknown 03/01/2025 1:30 PM EDT 03/01/2025 2:32 PM EDT us [facility] LAB BLOOD ORDERABLES Final Result [facility] [address] [place] [address], [place] [phone] * (ABNORMAL) Comprehensive metabolic panel (03/01/2025 1:30 [...] LAB CHEMISTRY METHOD 03/01/2025 3:39 PM EDT [facility] eGFR 70 >=60 mL/min/1. 73m2 LAB CHEMISTRY METHOD 03/01/2025 3:39 PM T [facility] Comment:Calculation based on the Chronic Kidney Disease Epidemiology Collaboration (CKD-EPI) equation refit without adjustment for race. BUN/Creatinine Ratio 21.4 LAB CHEMISTRY METHOD 03/01/2025 3:39 PM T [facility] Calcium 9.0 8.5 - 10.5 mg/dL LAB CHEMISTRY METHOD 03/01/2025 3:39 PM [facility] AST (SGOT) 17 10 - 42 unit/L LAB CHEMISTRY METHOD 03/01/2025 3:39 PM [facility] ALT (SGPT) 24 10 - 60 unit/L LAB CHEMISTRY METHOD 03/01/2025 3:39 PM [facility] Alkaline Phosphatase 89 42 - 121 unit/L LAB CHEMISTRY METHOD 03/01/2025 3:39 PM [facility] Total Protein 6.7 6.0 - 8.0 g/dL LAB CHEMISTRY METHOD 03/01/2025 3:39 PM [facility] Albumin 3.5 3.2 - 5.0 g/dL LAB CHEMISTRY METHOD 03/01/2025 3:39 PM [facility] Total Bilirubin 0.9 0.0 - 1.4 mg/dL LAB CHEMISTRY METHOD 03/01/2025 3:39 PM T [facility] Blood Venous blood specimen / Unknown Venipuncture / Unknown 03/01/2025 1:30 PM EDT 03/01/2025 2:32 PM EDT us [facility] LAB BLOOD ORDERABLES Final Result [facility] [address] [place] [address], * [facility] DEXA AXIAL SKELETON (09/24/2022 4:53 PM EST) Anatomical Region Laterality Modality Mammography 09/20/2022 1:25 PM EST Narrative 09/24/2022 4:53 PM EST [facility] Diagnostic Imaging Department [address] [place] [id number] Patient: ROMMEL REYNOSOMINA Dalia Flowers/Age/Sex: 1945 - 76 - F Unit#: [id number] Location/Status: SPDIMAM/REG CLI Mnemonic/[facility] Ordering Physician: NENO UGARTE PA-C [facility] Dexa Axial Skeleton - 09/20/22 - 1419 History: Low estrogen state due to menopause. Parent hip fracture. Comparison: 11/09/15 Findings: Bone densitometry is performed utilizing dual energy x-ray absorptiometry (DXA) in the [employer] unit. The lumbar spine and proximal femora [...] 21.3 percent Hip 11.6 percent. IMPRESSION: Osteopenia. [id number] Dictating Physician: BERNA PONCE MD Electronically Signed by: BERNA PONCE MD Dic Date/Time: 09/24/221651 Sign date/Time: 09/24/221652 Procedure Note Berna Ponce MD - 08/29/2023 [facility] Diagnostic Imaging Department [address] [place] [phone] Patient: BETINA REYNOSO Dalia BaileyB./Age/Sex: 1945 - 76 -F Unit#: [id number] Location/Status: [facility] CLI Mnemonic/Ordering Site: [facility]/SPMAM Ordering Physician: NENO UGARTE PA-C [facility] Dexa Axial Skeleton - 09/20/22 - 2379 History: Low estrogen state due to menopause. Parent hip fracture. Comparison: 11/09/15 Findings: Bone densitometry is performed utilizing dual energy x-ray absorptiometry(DXA) in the [employer] unit. The lumbar spine and proximal femora [...] 21.3 percent Hip 11.6 percent. IMPRESSION: Osteopenia. [id number] Dictating Physician: BERNA PONCE MD Electronically Signed by: BERNA PONCE MD Dic Date/Time: 09/24/221651 Sign date/Time: 09/24/221652 [facility] IM BI PROCEDURES Final Re sult from Last 3 Months or Most Recently Relevant to Health Maintenance Insurance MEDICARE [facility]
--- OUTSIDE RECORDS SUMMARY | 2025-06-15 20:36 | XMS_ITS | Data Portability ---
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 Plan of Treatment Reminders Order Date Submit Date Provider Last Modified By Organization Details Last Modified Time Details Appointments None recorded. Lab vitamin D, 25-hydroxy, total, serum 2019 020 [employer] [facility], [address], [place], [address], 0 08:00:40 fecal occult blood, stool 2019 020 [facility], [address], [place], [address], 0 05:01:30 HbA1c (hemoglobin A1c), blood 2019 020 [facility], [address] [place], [address], 0 08:00:40 vitamin B12 + folate, serum or blood 2019 020 [email or web address], [address], [place], [address], 0 08:00:41 CMP, serum or plasma 2019 020 [facility], [address] [place], [address], 0 08:00:39 CBC w/ auto diff 2019 020 [facility], [address], [place], [address], 0 08:00:40 urinalysis complete, reflex culture 2019 020 [facility], [address], [place], [address], 0 05:01:30 lipid panel, serum 2019 020 [facility], [address], [place], [address], 0 05:01:30 fecal occult blood, stool 2019 020 [email or web address], [address], [place], [address], 0 18:43:44 HbA1c (hemoglobin A1c), blood 2019 020 [email or web address], [address], [place], [address], 0 07:54:23 lipid panel, blood 2019 020 [facility], [address], [place], [address], 0 07:54:21 TSH + free T4, serum 2019 020 [facility], [address], [place], [address], 0 07:54:22 CMP, serum or plasma 2019 020 [facility], [address], [place], [address], 0 07:54:22 TSH + free T4, serum 2019 020 [email or web address], [address], [place], [address], 0 18:43:45 CBC w/ auto diff 2019 020 [facility], [address], [place], [address], 0 07:54:23 T3, free, serum or plasma 2019 020 [facility], [address], [place], [address], 0 07:54:23 urinalysis complete, reflex culture 2019 020 [email or web address] [facility], [address], [place], [address], 0 18:43:45 Referral None recorded. Procedures None recorded. Surgeries None recorded. Imaging None recorded. Medication Orders Golytely 236 gram-22.74 gram-6.74 gram-5.86 gram oral solution 2019 020 [facility] [address] [place], [address], 0 15:38:30 amoxicillin 500 mg tablet 2019 020 [email or web address] [address] [place], [address], 0 11:14:25 prednisone 10 mg tablet 2019 020 [email or web address] [address] [place], [address], 0 11:15:49 Patient TargetsNo targets recorded. Patient Instructions Encounter Date Encounter Id Patient Instructions Last Modified By Organization Details Last Modified Time 08/08/2019 [id number] Acute Sinusitis: Care Instructions Not available 08/08/2019 12:12:09 cough: care instructions Not available 08/08/2019 12:12:09 PLAN 1. Patient to follow up with PCP within the next 3-5 days if symptoms persist 2. Patient directed to follow up here if unable to reach PCP 3. Patient instructed on hours of operation and location of each of our clinics ([facility], [facility], [facility], [place], [facility] and [facility] locations), and they are encouraged to return for any questions, concerns, and evaluations. 4. Patient directed to CALL 911/and/or GO IMMEDIATELY to the emergency dept if symptoms worsen 5. Discussed natural and expected course of this diagnosis and need to alert me if symptoms do not follow expected course, or if any worse. Not available 08/08/2019 12:12:07 09/14/2019 [id number] knee arthritis: care instructions [email or web address] Not available 09/14/2019 13:44:20 osteoarthritis: care instructions [email or web address] Not available 09/14/2019 13:44:19 joint injections : care instructions [email or web address] Not available 09/14/2019 13:44:19 gastroesophageal reflux disease (GERD): care instructions [email or web address] Not available 09/14/2019 13:44:19 heart-healthy di et: care instructions Not available 09/14/2019 13:53:23 09/20/2019 [id number] anemia: care instructions [email or web address] Not available 09/20/2019 16:04:13 [email or web address] Not available 2019 16:02:00 Reason for Referral None Reported. Results Created Date Observation Date Name Description Value Unit Range Abnormal Flag Note LastModifiedBy Organization Detail LastModifiedTime 09/15/1909/20/2019 lipid panel , blood cholesterol, total 135 mg/dL <200 SAMPL E SLIGH TLY LIPEM IC. Not Available [facility] [place] [facility] [address], [place], [address], 09/20/2019 18:21:10 09/15/1909/20/2019 lipid panel , blood HDL cholesterol 47 mg/dL > or = 50 low SAMPL E SLIGH TLY LIPEM IC. Not Available [facility] [place] [facility] [address], [place], [address], 09/20/2019 18:21:10 09/15/19 20 09/20/2019 lipid panel , blood triglyceride s 89 mg/dL <150 SAMPL E SLIGH TLY LIPEM IC. Not Available [facility] [place] [facility] [address], [place], [address], 09/20/2019 18:21:10 09/15/19 20 09/20/2019 lipid panel [...] infor kenyon moreno e refer to http: //[facility] polina rolle.Que stDia gnost ics.c om/fa q/FAQ 164 (This link is being provi ded for infor neela nal/e ducat ional purpo ses only. ) Not Available [facility] [place] [facility] [address], [place], [address], 09/20/2019 18:21:10 09/15/19 20 09/20/2019 lipid panel , blood chol/HDLC ratio 2.9 calc <5.0 Not Available [facility] [place] [facility] [address], [place], [address], 09/20/2019 18:21:10 09/15/19 20 09/20/2019 lipid panel , blood non HDL cholesterol 88 mg/dL _(janna c) <130 For patie nts with diabe john plus 1 major ASCVD risk facto r, treat ing to a non-H DL-C goal of <100 mg/dL (LDL- C of <70 mg/dL ) is consi dered a thera peuti c optio n. Not Available [facility] [place] [facility] [address], [place], [address], 09/20/2019 18:21:10 09/15/1909/16/2019 TSH + free T4, serum TSH 2.16 mIU/L 0.40-4 .50 normal Not Available [facility] [place] [facility] [address], [place], [address], 09/16/2019 08:47:57 09/15/19 20 09/16/2019 TSH + free T4, serum T4, free 1.2 NG/dL 0.8-1. 8 normal Not Available [facility] [address], [place], [address], 09/16/2019 08:47:57 09/15/1909/15/2019 CMP, serum or plasm a glucose 104 mg/dL 65-99 high Fasti ng refer ence inter zayda For someo ne witho ut known diabe john, a gluco se value betwe en 100 and 125 mg/dL is consi stent with predi abete s and shoul d be confi rmed with a follo w-up test. Not Available [facility] [address], [place], [address], 09/15/2019 22:32:23 09/15/1909/15/2019 CMP, serum or plasm a urea nitrogen (BUN) 16 mg/dL 7-25 normal Not Available [facility] [place] [facility] [address], [place], [address], 09/15/2019 22:32:23 09/15/1909/15/2019 CMP, serum or plasm a creatinine 0.78 mg/dL 0.60-0 .93 normal For patie nts >49 years of age, the refer ence limit for Creat inine is appro ximat christine 13% highe r for peopl e ident ified as Afric an-Am chanel n. Not Available [facility] [address], [place], [address], 09/15/2019 22:32:23 09/15/19 20 09/15/2019 CMP, serum or plasm a eGFR non-afr. citizen of [place] 74 mL/mi n/1.7 3m2 > or = 60 normal Not Available [facility] [place] [facility] [address], [place], [address], 09/15/2019 22:32:23 09/15/19 20 09/15/2019 CMP, serum or plasm a eGFR 86 mL/mi n/1.7 3m2 > or = 60 normal Not Available [facility] [address], [place], [address], 09/15/2019 22:32:23 09/15/19 20 09/15/2019 CMP, serum or plasm a BUN/creatini ne ratio NOT APPLIC ABLE (calc ) 6-22 Not Available [facility] [address], [place], [address], 09/15/2019 22:32:23 09/15/19 20 09/15/2019 CMP, serum or plasm a sodium 134 mmol/ L 135-14 6 low Not Available [facility] [address], [place], [address], 09/15/2019 22:32:23 09/15/19 20 09/15/2019 CMP, serum or plasm a potassium 4.4 mmol/ L 3.5-5. 3 normal Not Available [facility] [address], [place], [address], 09/15/2019 22:32:23 09/15/19 20 09/15/2019 CMP, serum or plasm a chloride 100 mmol/ L 98-110 normal Not Available [facility] [address], [place], [address], 09/15/2019 22:32:23 09/15/19 20 09/15/2019 CMP, serum or plasm a carbon dioxide 29 mmol/ L 20-32 normal Not Available [facility] [address], [place], [address], 09/15/2019 22:32:23 09/15/19 20 09/15/2019 CMP, serum or plasm a calcium 8.9 mg/dL 8.6-10 .4 normal Not Available [facility] [address], [place], [address], 09/15/2019 22:32:23 09/15/19 20 09/15/2019 CMP, serum or plasm a protein, total 5.9 g/dL 6.1-8. 1 low Not Available [facility] [address], [place], [address], 09/15/2019 22:32:23 09/15/19 20 09/15/2019 CMP, serum or plasm a albumin 3.5 g/dL 3.6-5. 1 low Not Available [facility] [address], [place], [address], 09/15/2019 22:32:23 09/15/19 20 09/15/2019 CMP, serum or plasm a globulin 2.4 g/dL_ (calc ) 1.9-3. 7 normal Not Available [facility] [address], [place], [address], 09/15/2019 22:32:23 09/15/19 20 09/15/2019 CMP, serum or plasm a albumin/glob ulin ratio 1.5 (calc ) 1.0-2. 5 normal Not Available [facility] [address], [place], [address], 09/15/2019 22:32:23 09/15/19 20 09/15/2019 CMP, serum or plasm a bilirubin, total 0.9 mg/dL 0.2-1. 2 normal Not Available [facility] [place] [facility] [address], [place], [address], 09/15/2019 22:32:23 09/15/19 20 09/15/2019 CMP, serum or plasm a alkaline phosphatase 56 U/L 37-153 normal Not Available [facility] [place] [facility] [address], [place], [address], 09/15/2019 22:32:23 09/15/19 20 09/15/2019 CMP, serum or plasm a AST 19 U/L 10-35 normal Not Available [facility] [place] [facility] [address], [place], [address], 09/15/2019 22:32:23 09/15/19 20 09/15/2019 CMP, serum or plasm a ALT 14 U/L 6-29 normal Not Available [facility] [place] [facility] [address], [place], [address], 09/15/2019 22:32:23 09/15/19 20 09/16/2019 HbA1c (hemo globi n A1c), blood hemoglobin A1C 5.6 %_of_ total _HGB <5.7 normal For the purpo se of scremarco a kevin for the prese nce of diabe john: <5.7% Consi stent with the absen ce of diabe john 5.7-6 .4% Consi stent with incre ased risk for diabe john (pred iabet es) > or =6.5% Consi stent with diabe john This assay resul t is consi stent with a decre ased risk of diabe john. Curre ntly, no conse nsus exist s regkang soler use of hemog lobin A1c for [...] john(A DA). Not Available [facility] [place] [facility] [address], [place], [address], 09/16/2019 01:11:23 09/15/19 20 09/16/2019 T3, free, serum or plasm a T3, free 3.4 pg/mL 2.3-4. 2 normal Not Available [facility] [place] [facility] [address], [place], [address], 09/16/2019 08:47:59 09/15/19 20 09/15/2019 CBC w/ auto diff white blood cell count 5.8 thous and/u L 3.8-10 .8 normal Not Available [facility] [place] [facility] [address], [place], [address], 09/15/2019 22:32:25 09/15/19 20 09/15/2019 CBC w/ auto diff red blood cell count 3.33 kecia on/uL 3.80-5 .10 low Not Available [facility] [place] [facility] [address], [place], [address], 09/15/2019 22:32:25 09/15/19 20 09/15/2019 CBC w/ auto diff hemoglobin 11.5 g/dL 11.7-1 5.5 low Not Available [facility] [place] [facility] [address], [place], [address], 09/15/2019 22:32:25 09/15/19 20 09/15/2019 CBC w/ auto diff hematocrit 34.1 % 35.0-4 5.0 low Not Available [facility] [place] [facility] [address], [place], [address], 09/15/2019 22:32:25 09/15/19 20 09/15/2019 CBC w/ auto diff MCV 102.4 fL 80.0-1 00.0 high Not Available [facility] [address], [place], [address], 09/15/2019 22:32:25 09/15/19 20 09/15/2019 CBC w/ auto diff MCH 34.5 pg 27.0-3 3.0 high Not Available [facility] [address], [place], [address], 09/15/2019 22:32:25 09/15/19 20 09/15/2019 CBC w/ auto diff MCHC 33.7 g/dL 32.0-3 6.0 normal Not Available [facility] [address], [place], [address], 09/15/2019 22:32:25 09/15/19 20 09/15/2019 CBC w/ auto diff RDW 12.6 % 11.0-1 5.0 normal Not Available [facility] [address], [place], [address], 09/15/2019 22:32:25 09/15/19 20 09/15/2019 CBC w/ auto diff platelet count 235 thous and/u L 140-40 0 normal Not Available [facility] [address], [place], [address], 09/15/2019 22:32:25 09/15/19 20 09/15/2019 CBC w/ auto diff MPV 11.4 fL 7.5-12 .5 normal Not Available [facility] [address], [place], [address], 09/15/2019 22:32:25 09/15/19 20 09/15/2019 CBC w/ auto diff absolute neutrophils 3352 cells /uL 1500-7 800 normal Not Available [facility] [address], [place], [address], 09/15/2019 22:32:25 02/19/20 20 09/15/2019 CBC w/ auto diff absolute lymphocytes 1688 cells /uL 850-39 00 normal Not Available [facility] [address], [place], [address], 09/15/2019 22:32:25 09/15/19 20 09/15/2019 CBC w/ auto diff absolute monocytes 609 cells /uL 200-95 0 normal Not Available [facility] [address], [place], [address], 09/15/2019 22:32:25 09/15/19 20 09/15/2019 CBC w/ auto diff absolute eosinophils 81 cells /uL 15-500 normal Not Available [facility] [address], [place], [address], 09/15/2019 22:32:25 09/15/19 20 09/15/2019 CBC w/ auto diff absolute basophils 70 cells /uL 0-200 normal Not Available [facility] [address], [place], [address], 09/15/2019 22:32:25 09/15/19 20 09/15/2019 CBC w/ auto diff neutrophils 57.8 % normal Not Available [facility] [address], [place], [address], 09/15/2019 22:32:25 09/15/19 20 09/15/2019 CBC w/ auto diff lymphocytes 29.1 % normal Not Available [facility] [address], [place], [address], 09/15/2019 22:32:25 09/15/19 20 09/15/2019 CBC w/ auto diff monocytes 10.5 % normal Not Available [facility] [address], [place], [address], 09/15/2019 22:32:25 09/15/19 20 09/15/2019 CBC w/ auto diff eosinophils 1.4 % normal Not Available [facility] [address], [place], [address], 09/15/2019 22:32:25 09/15/19 20 09/15/2019 CBC w/ auto diff basophils 1.2 % normal Not Available [facility] [address], [place], [address], 09/15/2019 22:32:25 09/15/19 20 09/15/2019 abn test refus al BRADY Be advis ed that your patie nt has indic ated on the advan ce benef iciar y notic e their decis ion not to recei ve the follo wing labor atory tests . As a resul t, the tests will not be perfo rmed. Not Available [facility] [address], [place], [address], 09/15/2019 07:54:24 09/15/19 20 09/15/2019 abn test refus al abn test refused 3020 Not Available [facility] [address], [place], [address], 09/15/2019 07:54:24 10/11/19 20 10/18/2019 lipid panel , blood cholesterol, total 136 mg/dL <200 SAMPL E SLIGH TLY LIPEM IC. Not Available [facility] [address], [place], [address], 10/18/2019 16:45:27 10/11/19 20 10/18/2019 lipid panel , blood HDL cholesterol 51 mg/dL > or = 50 SAMPL E SLIGH TLY LIPEM IC. Not Available [facility] [place] [facility] [address], [place], [address], 10/18/2019 16:45:27 10/11/19 20 10/18/2019 lipid panel , blood triglyceride s 72 mg/dL <150 SAMPL E SLIGH TLY LIPEM IC. Not Available [facility] [address], [place], [address], 10/18/2019 16:45:27 10/11/19 20 10/18/2019 lipid panel [...] n, which is a valid ated novel sabrina max provi karlene oh r accur acy than the Fried temo equat ion in the estim ation of LDL-C . Shireen rolle SS et al. TU. 2013; 310(1 9): 2061- 2068 For addit ional infor kenyon moreno e refer to http: //[facility] polina rolle.Antwon stDia gnost ics.c om/fa q/FAQ 164 (This link is being provi ded for infor neela nal/e ducat ional purpo ses only. ) Not Available [facility] [place] [facility] [address], [place], [address], 10/18/2019 16:45:27 10/11/19 20 10/18/2019 lipid panel , blood chol/HDLC ratio 2.7 calc <5.0 Not Available [facility] [place] [facility] [address], [place], [address], 10/18/2019 16:45:27 10/11/19 20 10/18/2019 lipid panel , blood non HDL cholesterol 85 mg/dL _(janna c) <130 For patie nts with diabe john plus 1 major ASCVD risk facto r, treat ing to a non-H DL-C goal of <100 mg/dL (LDL- C of <70 mg/dL ) is consi dered a thera peuti c optio n. Not Available [facility] [place] [facility] [address], [place], [address], 10/18/2019 16:45:27 10/11/1910/11/2019 CMP, serum or plasm a glucose 106 mg/dL 65-99 high Fasti ng refer ence inter zayda For someo ne witho ut known diabe john, a gluco se value betwe en 100 and 125 mg/dL is consi stent with predi abete s and shoul d be confi rmed with a follo w-up test. Not Available [facility] [place] [facility] [address], [place], [address], 10/11/2019 20:47:45 10/11/1910/11/2019 CMP, serum or plasm a urea nitrogen (BUN) 15 mg/dL 7-25 normal Not Available [facility] [address], [place], [address], 10/11/2019 20:47:45 10/11/1910/11/2019 CMP, serum or plasm a creatinine 0.79 mg/dL 0.60-0 .93 normal For patie nts >49 years of age, the refer ence limit for Creat inine is appro ximat christine 13% highe r for peopl e ident ified as Afric an-Am chanel n. Not Available [facility] [address], [place], [address], 10/11/2019 20:47:45 10/11/1910/11/2019 CMP, serum or plasm a eGFR non-afr. citizen [place] 73 mL/mi n/1.7 3m2 > or = 60 normal Not Available [facility] [place] [facility] [address], [place], [address], 10/11/2019 20:47:45 10/11/1910/11/2019 CMP, serum or plasm a eGFR 84 mL/mi n/1.7 3m2 > or = 60 normal Not Available [facility] [place] [facility] [address], [place], [address], 10/11/2019 20:47:45 10/11/19 20 10/11/2019 CMP, serum or plasm a BUN/creatini ne ratio NOT APPLIC ABLE (calc ) 6-22 Not Available [facility] [address], [place], [address], 10/11/2019 20:47:45 10/11/19 20 10/11/2019 CMP, serum or plasm a sodium 136 mmol/ L 135-14 6 normal Not Available [facility] [place] [address], [place], [address], 10/11/2019 20:47:45 10/11/19 20 10/11/2019 CMP, serum or plasm a potassium 4.2 mmol/ L 3.5-5. 3 normal Not Available [place] [address], [place], [address], 10/11/2019 20:47:45 10/11/19 20 10/11/2019 CMP, serum or plasm a chloride 100 mmol/ L 98-110 normal Not Available [facility] [address], [place], [address], 10/11/2019 20:47:45 10/11/19 20 10/11/2019 CMP, serum or plasm a carbon dioxide 30 mmol/ L 20-32 normal Not Available [facility] [address], [place], [address], 10/11/2019 20:47:45 10/11/19 20 10/11/2019 CMP, serum or plasm a calcium 8.9 mg/dL 8.6-10 .4 normal Not Available [facility] [address], [place], [address], 10/11/2019 20:47:45 10/11/19 20 10/11/2019 CMP, serum or plasm a protein, total 6.0 g/dL 6.1-8. 1 low Not Available [facility] [address], [place], [address], 10/11/2019 20:47:45 10/11/19 20 10/11/2019 CMP, serum or plasm a albumin 3.6 g/dL 3.6-5. 1 normal Not Available [facility] [address], [place], [address], 10/11/2019 20:47:45 10/11/19 20 10/11/2019 CMP, serum or plasm a globulin 2.4 g/dL_ (calc ) 1.9-3. 7 normal Not Available [facility] [address], [place], [address], 10/11/2019 20:47:45 10/11/19 20 10/11/2019 CMP, serum or plasm a albumin/glob ulin ratio 1.5 (calc ) 1.0-2. 5 normal Not Available [facility] [address], [place], [address], 10/11/2019 20:47:45 10/11/19 20 10/11/2019 CMP, serum or plasm a bilirubin, total 0.9 mg/dL 0.2-1. 2 normal Not Available [facility] [address], [place], [address], 10/11/2019 20:47:45 10/11/19 20 10/11/2019 CMP, serum or plasm a alkaline phosphatase 60 U/L 37-153 normal Not Available [facility] [address], [place], [address], 10/11/2019 20:47:45 10/11/19 20 10/11/2019 CMP, serum or plasm a AST 18 U/L 10-35 normal Not Available [facility] [address], [place], [address], 10/11/2019 20:47:45 10/11/19 20 10/11/2019 CMP, serum or plasm a ALT 15 U/L 6-29 normal Not Available [facility] [place] [facility] [address], [place], [address], 10/11/2019 20:47:45 10/11/19 20 10/11/2019 HbA1c (hemo [...] Curre ntly, no conse nsus exist s mike soler use of hemog lobin A1c for [...] john(A DA). Not Available [facility] [place] [facility] [address], [place], [address], 10/11/2019 21:32:41 10/11/19 20 10/12/2019 vitam in [...] /MS is recom hever d: order code 48205 ([place] ents >2yrs ). For more infor neela rolle on this test, go to: http: //[facility] polina rdzia gnost ics.c om/fa q/FAQ 163 (This link is being provi ded for infor neela nal/e ducat ional purpo ses only. ) Not Available [facility] [place] [facility] [address], [place], [address], 10/12/2019 04:05:42 10/11/19 20 10/11/2019 CBC w/ auto diff white blood cell count 6.1 thous and/u L 3.8-10 .8 normal Not Available [facility] [place] [facility] [address], [place], [address], 10/11/2019 22:14:42 10/11/19 20 10/11/2019 CBC w/ auto diff red blood cell count 3.46 kecia on/uL 3.80-5 .10 low Not Available [facility] [address], [place], [address], 10/11/2019 22:14:42 10/11/1910/11/2019 CBC w/ auto diff hemoglobin 11.7 g/dL 11.7-1 5.5 normal Not Available [facility] [place] [facility] [address], [place], [address], 10/11/2019 22:14:42 10/11/19 20 10/11/2019 CBC w/ auto diff hematocrit 35.5 % 35.0-4 5.0 normal Not Available [facility] [address], [place], [address], 10/11/2019 22:14:42 10/11/19 20 10/11/2019 CBC w/ auto diff MCV 102.6 fL 80.0-1 00.0 high Not Available [facility] [address], [place], [address], 10/11/2019 22:14:42 10/11/19 20 10/11/2019 CBC w/ auto diff MCH 33.8 pg 27.0-3 3.0 high Not Available [facility] [address], [place], [address], 10/11/2019 22:14:42 10/11/19 20 10/11/2019 CBC w/ auto diff MCHC 33.0 g/dL 32.0-3 6.0 normal Not Available [facility] [address], [place], [address], 10/11/2019 22:14:42 10/11/19 20 10/11/2019 CBC w/ auto diff RDW 12.1 % 11.0-1 5.0 normal Not Available [facility] [address], [place], [address], 10/11/2019 22:14:42 10/11/19 20 10/11/2019 CBC w/ auto diff platelet count 267 thous and/u L 140-40 0 normal Not Available [facility] [address], [place], [address], 10/11/2019 22:14:42 10/11/19 20 10/11/2019 CBC w/ auto diff MPV 11.6 fL 7.5-12 .5 normal Not Available [facility] [address], [place], [address], 10/11/2019 22:14:42 10/11/19 20 10/11/2019 CBC w/ auto diff absolute neutrophils 3178 cells /uL 1500-7 800 normal Not Available [facility] [address], [place], [address], 10/11/2019 22:14:42 10/11/19 20 10/11/2019 CBC w/ auto diff absolute lymphocytes 2135 cells /uL 850-39 00 normal Not Available [facility] [place] [facility] [address], [place], [address], 10/11/2019 22:14:42 10/11/19 20 10/11/2019 CBC w/ auto diff absolute monocytes 647 cells /uL 200-95 0 normal Not Available [facility] [place] [facility] [address], [place], [address], 10/11/2019 22:14:42 10/11/19 20 10/11/2019 CBC w/ auto diff absolute eosinophils 92 cells /uL 15-500 normal Not Available [facility] [place] [facility] [address], [place], [address], 10/11/2019 22:14:42 10/11/19 20 10/11/2019 CBC w/ auto diff absolute basophils 49 cells /uL 0-200 normal Not Available [facility] [place] [facility] [address], [place], [address], 10/11/2019 22:14:42 10/11/19 20 10/11/2019 CBC w/ auto diff neutrophils 52.1 % normal Not Available [facility] [place] [facility] [address], [place], [address], 10/11/2019 22:14:42 10/11/19 20 10/11/2019 CBC w/ auto diff lymphocytes 35.0 % normal Not Available [facility] [place] [facility] [address], [place], [address], 10/11/2019 22:14:42 10/11/19 20 10/11/2019 CBC w/ auto diff monocytes 10.6 % normal Not Available [facility] [address], [place], [address], 10/11/2019 22:14:42 10/11/19 20 10/11/2019 CBC w/ auto diff eosinophils 1.5 % normal Not Available [facility] [address], [place], [address], 10/11/2019 22:14:42 10/11/19 20 10/11/2019 CBC w/ auto diff basophils 0.8 % normal Not Available [facility] [address], [place], [address], 10/11/2019 22:14:42 10/11/19 20 10/12/2019 vitam in B12 + folat e, serum or blood vitamin B12 >2000 pg/mL 200-11 00 high Not Available [facility] [address] [place], [address], 10/12/2019 16:41:19 10/11/19 20 10/12/2019 vitam in B12 + folat e, serum or blood folate, serum >24.0 NG/mL normal Refer ence Range Low: <3.4 Borde rline : 3.4-5 .4 Viki l: >5.4 Not Available [facility] [address], [place], [address], 10/12/2019 16:41:19 10/11/19 20 10/11/2019 abn test refus al BRADY Be advis ed that your patie nt has indic ated on the advan ce benef iciar y notic e their decis ion not to recei ve the follo wing labor atory tests . As a resul t, the tests will not be perfo rmed. Not Available [facility] [address], [place], [address], 10/11/2019 08:00:42 10/11/19 20 10/11/2019 abn test refus al abn test refused 3020 Not Available [facility] [address] [place], [address], 10/11/2019 08:00:42 Result Notes None recorded. Problems Name Problem SNOMED Code Status Onset Date Resolution Date Notes Provider Name and Address Organization Details Recorded Time History of [facility] 792833352 [facility] Heartburn 68090297 Active 2019 [facility] 0 11:18:57 Problem Notes None recorded. Procedures Surgical History Date Name Laterality Status Provider Name and Address Organization Details Recorded Time 07/28/18 70 surgical treatment of miscarriage of any trimester completed [facility] 09/14/2019 11:20:30 07/28/18 60 Partial Hysterectomy completed [facility] 09/20/2019 15:41:17 Imaging Results None recorded. Procedure Notes None recorded. Medical Equipment None Reported. Allergies Allergen ID Allergen Name Allergen Category Reaction Reaction Severity Criticality Documentation Date Start Date Code Code System Note Provider Name and Address Organization Details Recorded Time 2290 iodine medicatio n Not available Not available Not available 07/29/2019 5933 RxNorm leann [facility] 0 12:10:04 Medications Name Sig Start [...] propionate 50 mcg/actuati on nasal spray,suspe nsion [place] 1 spray every day by intranasa l [...] Not Available Vitals Date Recorded Body height Body mass index (BMI) Body weight Respiratory rate Heart rate Body temperature Oxygen saturation Oxygen saturation in Arterial blood by Pulse oximetry Systolic And Diastolic Provider Name and Address Organization Details Last Updated DateTime 0 160.02 cm 35.4 kg/m2 27886.4 7 g 18 /min 74 /min 98.4 [degF] 94 % 94 % 126/79 mm[Hg[facility] 12:[facility]22 Date Recorded Body height Respiratory rate Body mass index (BMI) Body weight Heart rate Body temperature Oxygen saturation Oxygen saturation in Arterial blood by Pulse oximetry Systolic And Diastolic Provider Name and Address Organization Details Last Updated DateTime 0 160.02 cm 18 /min 35.4 kg/m2 79536.4 7 g 87 /min 97.7 [degF] 96 % 96 % 112/75 mm[Hg] DOMINIQUE NÚÑEZ [facility] 0 11:54:15 Date Recorded Body height Heart rate Respiratory rate Body temperature Body mass index (BMI) Body weight Oxygen saturation Oxygen saturation in Arterial blood by Pulse oximetry Systolic And Diastolic Provider Name and Address Organization Details Last Updated DateTime 0 160.02 cm 79 /min 18 /min 97.7 [degF] 38.5 kg/m2 81689.9 8 g 99 % 99 % 135/62 mm[Hg] [facility] 0 11:13:10 Date Recorded Body height Heart rate Respiratory rate Body temperature Body mass index (BMI) Body weight Oxygen saturation Oxygen saturation in Arterial blood by Pulse oximetry Systolic And Diastolic Provider Name and Address Organization Details Last Updated DateTime 0 160.02 cm 77 /min 18 /min 98.2 [degF] 38.1 kg/m2 71306.3 6 g 97 % 97 % 130/77 mm[Hg] destiny [facility] 0 15:36:07 Date Recorded Body height Heart rate Respiratory rate Body temperature Body mass index (BMI) Body weight Oxygen saturation Oxygen saturation in Arterial blood by Pulse oximetry Systolic And Diastolic Provider Name and Address Organization Details Last Updated DateTime 0 160.02 cm 48 /min 18 /min 97.8 [degF] 37.7 kg/m2 49361.7 4 g 98 % 98 % 130/72 mm[Hg] [facility] 0 12:05:01 Social History Question Answer Notes LastModified by Organizat ion Details LastModified Time Tobacco Smoking Status Never Smoker Not Available [facility] 05/23/2020 03:21:06 Hard Of Hearing Or Deaf In One Or Both Ears? No Information not available 09/14/2019 Legally Blind In One Or Both Eyes? No Information not available 09/14/2019 Live Alone Or With Others? Alone Information not available 09/14/2019 Sex: Unknown Functional Status Question Answer Note LastModified by Organizat ion Details LastModified Time What is your level of alcohol consumption? None [id number] Information not available 05/23/2020 Are you currently employed? No [id number] Information not available 05/23/2020 Are you able to walk independently without assistance or assistive devices? YESWOREST [id number] Information not available 05/23/2020 What is your exercise level? Occasional [id number] Information not available 05/23/2020 Mental Status None recorded. Family History Nothing Reported. Medical History Condition Response Allergies, Hayfever, Polen, Tree, Cats, Dogs, Dust or Mite N Gastrointestinal Problem, Peptic Ulcer D isease(Stomach Ulcer) N Heart Disease, Acute Myocardial Infarcti on N Infectious Disease, MRSA exposure N Psychiatric [...] Cancer, Lymphoma N Blood Diseases, Hemochromatosis N DIAGNOSTIC STUDY: CT Scan N Infectious Disease, History of Tuberculo sis N Anemia, Sickle Cell Trait N Lung [...] OSTEOA RTHRITIS Y DIAGNOSTIC STUDY: EKG Y Heart Disease, Hypertension Y Skin Disease, Eczema, Psoriasis N DIAGNOSTIC STUDY: Echo-cardiogram N Neurological Disorder, Headaches, [...] N Bone & Joint Disorder, Gout N DIAGNOSTIC STUDY: Endoscopy N Heart Disease, Atrial Fibrillation/Atria l Flutter N DIAGNOSTIC STUDY: Electromyography (EMG) N Heart Disease, High Cholesterol N Infectious Disease, AIDS, HIV, Hep-C, He p-B N Gastrointestinal Problem, Difficulty Swa llowing, Esophageal Stricture N Diabetes N Ear Nose and Throat (ENT), Hard of Heari ng N DIAGNOSTIC STUDY: XRs Y Blood Diseases, Thrombophilia N Abuse/Domestic Violence N Heart Disease, Coronary Artery Disease N Gastrointestinal Problem, Diverticulosis /Diverticulitis/Polyps N Psychiatric Disorder, Obscessive Compuls alyson Disorder N Thyroid Disorder, Hypothyroidism N Bone & Joint Disorder, Osteopenia/Osteop orosis N Anemia, Sickle Cell N Surgical Complications, Blood Transfusio n N Gynecological HistoryNo gynecological history recorded. Obstetrics History GPAL:G 0 P 0 0 0 0 Immunizations Vaccine Type Date Status Note Provider Nam e and Address Organization Details Recorded Time Influenza, high-dose, quadrivalent, PF 07/28/2018 RENAY villegas [facility] 09/14/2019 11:18:03 Past Encounters Encounter ID Performer Location Encounter Start Date Encounter Closed Date Diagnosis/Indication Diagnosis SNOMED-CT Code Diagnosis ICD10 Code Diagnosis IMO Codes Diagnosis Note [id number] [facility] [address] [place] [address] 08/08/2019 10:43:21 08/08/2019 12:29:18 Acute sinusitis 94476398 J01.90 Acute bronchitis 6958786 2 J20.9 Chronic pharyngitis 1400 04 J31.2 [id number] [address] BAKER [facility] [address] [place] [address] 09/14/2019 10:47:51 09/14/2019 15:25:06 Osteoarthritis of left knee joint 1834759351 27353 M17.12 1.)1 ) Osteoarthr itis (2008) Diagnosed by a RT in [facility] for which shetakesib uprofen prnafter walkingapp roximately 0.5 milesmostl y RT big toe and LTknee. 1.) Osteoarthr itis (2008) Diagnosed by a RT in [facility] for which shetakesib uprofen prnafter walkingapp roximately 0.5 milesmostl y RT big toe and LTknee. Essential hypertension 32413161 I10 2) HTN(1999) she was treated with diet and exercise until 2009 when her primary care provider and [facility] tts started her on lisinopril with hydrochlor othiazide 05/08. and Lasix 20 mg 1 PO daily Gastroesop hageal reflux disease 755508322 K21.9 3) GERD (2009) On omeprazole since 2009, stopped taking around 2014 but resumed as of 07/2019 Overactive urinary bladder due to prolapse of female genital organ 671455000 N32.81 4) overactive bladder (01/2019) it was really bed every 1-2 hours , she had to go to the bathroom or whenever she went on a trip , after driving for couple hours she has to go to the bathroom to urinate. She saw a [facility] tts Dr. Los alvarez, he is also is actually from [place] , who started on TOVIAZ 8 mg 1 PO daily: It is the best thing ever happened to me Constipation 46913544 K5 9.00 5)CONSTIPA TION( 01/2019) she attributes this toTOVIAZ 8 mg 1 PO daily,even though she admits to have constipati on even before January 2019,prior to starting on Toviaz. Blood gluc ose outside reference range 706428100 R73.09 Screening mammography 24 035301 Z12.31 Last april 2019, I have it yearly as I have a cyst on my left breast which has not changed or growing. Screening for osteoporosis 008975482 Z13.820 Last 2017 = Normal . Takes OT Ca++ with VIT-D Screening for malignant neoplasm of colon 378424983 Z12.11 2018 = one benign polyps s/p resection Hyperlipidemia 47985176 E78.5 [id number] [facility] BAKER [facility] [address] [place] [address] 09/20/2019 15:30:46 09/20/2019 16:38:10 Osteoarthritis of left knee joint 2003972328 44223 M17.12 1.)1 ) Osteoarthr itis (2008) Diagnosed by a RT in [facility] for which shetakesib uprofen prnafter walkingapp roximately 0.5 milesmostl y RT big toe and LTknee. 1.) Osteoarthr itis (2008) Diagnosed by a RT in [facility] for which shetakesib uprofen prnafter walkingapp roximately 0.5 milesmostl y RT big toe and LTknee. Essential hypertension 08927191 I10 2) HTN(1999) she was treated with diet and exercise until 2009 when her primary care provider and [facility] tts started her on lisinopril with hydrochlor othiazide 05/08.5 and Lasix 20 mg 1 PO daily Gastroesop hageal reflux disease 240933080 K21.9 3) GERD (2009) On omeprazole since 2009, stopped taking around 2014 but resumed as of 07/2019 Overactive urinary bladder due to prolapse of female genital organ 667628471 N32.81 4) overactive bladder (01/2019) it was really bed every 1-2 hours , she had to go to the bathroom or whenever she went on a trip , after driving for couple hours she has to go to the bathroom to urinate. She saw a [facility] tts Dr. Los alvarez, he is also is actually from [place] , who started on TOVIAZ 8 mg 1 PO daily: It is the best thing ever happened to me Constipation 21299511 K5 9.00 5)CONSTIPA TION( 01/2019) she attributes this toTOVIAZ 8 mg 1 PO daily,even though she admits to have constipati on even before January 2019,prior to starting on Toviaz. 09/20/2019 = RESOLVED Blood gluc ose outside reference range 574564293 R73.09 09/15/2019 = 5.6% Screening mammography 24 373507 Z12.31 Last april 2019, I have it yearly as I have a cyst on my left breast which has not changed or growing. Screening for osteoporosis 248014665 Z13.820 Last 2016 = Normal . 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 75488295 D53.1 SHE HAS BEEN TAKING B12 1000 MG 1 PO DAILY SINCE 02/201909/15/2019 RBC = 3.3 HGB = 11.5 HCT = 341 MCV = 102.4 MCH = 34.5 Vitamin D deficiency 347 11323 E55.9 Health Concerns Section Related Observation LastModified by Organization Detai ls LastModified Time None Recorded Concern Status LastModified by Organization Details LastModified Time None Recorded Advance Directives Directive None Recorded Payers Insurance Date Sequence Insurance Name Policy Number Policy Lundberg Covered Member ID Lundberg Member ID Guarantor Name 09/01/2021 1 [place] Amber Perrin [id number] Amber Perrin 03/11/2020 2 [facility] [id number] Amber Perrin [id number] Amber Perrin Notes Date Note Type [...] Denies any sob, cp, fevers, chills JESSICA SEE null, [facility] 08/08/2019 12:12:30 0 text/html Do this is a very pleasant 73-year-old female returning from [place] 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 and 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 2) HTN (1999) she was treated with diet and exercise until 2009 when her primary care provider and [place] started her on lisinopril with hydrochlorothiazide 10/12.5 [...] the bathroom to urinate. She saw a [place] Dr. Los alvarez, he is also is actually from [place] , who started on TOVIAZ 8 mg 1 PO daily: It is the best thing ever happened to me 5) CONSTIPATION( 01/2019) she attributes this to TOVIAZ 8 mg 1 PO daily, even though she admits to have constipation even before January 2019, prior to starting on Toviaz. 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 She spends the das months from July to September in the [place], [place]. She has the following medical problems: 1.) Osteo arthritis (2008) Diagnosed by a RT in [facility] for which she takes ibuprofen prn after walking approximately 0.5 miles mostly RT big toe and LT knee. 2) HTN (1999) she was treated with diet and exercise until 2009 when her primary care provider and [place] started her on lisinopril with hydrochlorothiazide 10/12.5 [...] the bathroom to urinate. She saw a [place] Dr. Los alvarez, he is also is [...] shortness breath, fever, dizziness, headache. 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 She spends the das months from July to September in the [place], [place]. She has the following medical problems: 1.) Osteo arthritis (2008) Diagnosed by a RT in [facility] for which she takes ibuprofen prn after walking approximately 0.5 miles mostly RT big toe and LT knee. 2) HTN (1999) she was treated with diet and exercise until 2009 when her primary care provider and [place] started her on lisinopril with hydrochlorothiazide 10/12.5 [...] the bathroom to urinate. She saw a [place] Dr. Los alvarez, he is also is [...] chest pain, shortness breath, fever, dizziness, headache. 10/18/2019 = id: This is a very pleasant 74-year-old female who presents with a supportive fiance December with the house encarnacion drowsy he she for the drove from [facility] to [place] for and she knows her calf swelling and swelling the. In urgent care had ultrasound an order for an ultrasound x-ray of the ankle in foot which was all essentially normal. She denies any chest pain shortness of breath or fever vision blood work done but the [employer] would not pay for the lipid profile he still has is minor microcytic anemia with MCV 102 and MCH of 33.8 but is asymptomatic B12 level was actually greater than 2000 9 0 g for-per mL and the and vitamin and these 53 she is going back to [place] in October and have speak [place] was last time she had lipid profile done and overactive bladder is a 10 her Not Available Not Available Not Available OBGyn Episode No OBEpisode recorded.
== END 2025-06-15 11:37 | disposition home or self-care (01) ==
LOC: HO.HOS 10:35
PROVIDERS: PCP Internal Medicine; Visit Provider Orthopaedic Surgery
DX: M75.42 Impingement syndrome of left shoulder (principal); M25.512 Pain in left shoulder
CPT/HCPCS: 20610; 99213

== ENCOUNTER → 2025-06-15 10:38 | Outpatient (BNV) | payer BC, MEDICARE, SELFPAY | PROVIDERS: Visit Provider Radiology Diagnostic Ultrasound | DX: M19.012 Primary osteoarthritis, left shoulder (principal) | CPT/HCPCS: 73030 ==

== ENCOUNTER 2025-06-15 13:20 | Outpatient (REF) | payer BC, MEDICARE, SELFPAY | END 2025-06-15 13:21 | disposition home or self-care (01) | LOC: HO.BBR 13:20 | PROVIDERS: PCP Internal Medicine; Visit Provider Internal Medicine Hematology & Oncology | DX: E83.119 Hemochromatosis, unspecified (principal) | CPT/HCPCS: 85018; 99195 ==